=== PATIENT | female | born 1985 | race Caucasian/White ===

== ENCOUNTER 2019-05-16 13:39 | Emergency (ER) | payer BC ==
--- OUTSIDE RECORDS SUMMARY | 2019-05-16 13:41 | XMS REPORT ---
:1985 [facility] Address [address] [place] [address] Dr. Quinteros [address] [place] [id number] Care Team Providers Name Role Phone Unavailable Unavailable Unavailable Problems This patient has no known problems. Allergies, Adverse Reactions, Alerts This patient has no known allergies or adverse reactions. Medications This patient has no known medications.
--- OUTSIDE RECORDS SUMMARY | 2019-05-16 13:41 | XMS REPORT | Summary of Care ---
:1985 Author Organization [facility] Address [address] [place] [address] Care Team Providers Name Role Phone Heriberto Peraza Primary Care Provider Reason for Referral (Routine) Status Reason Specialty Diagnoses / Referred By Referred To Procedures Contact Contact New Request RON-SURGERY Diagnoses Abscess Nette, Procedures Discharge Follow-Up: Specialty Service RON-SURGERY; 1 Week MD Heriberto [address] [place] [address] (Routine) Status Reason Specialty Diagnoses / Referred By Referred To Procedures Contact Contact New Request Diagnoses Abscess Heriberto Peraza David Procedures Discharge Follow-up: PCP HERIBERTO PERAZA; 3-5 Days David Hernandez [address] [facility] [place] [phone] Phone: Reason for Visit Auth/Cert Status Reason Specialty Diagnoses / Referred By Referred To Procedures Contact Contact Medicine - Diagnoses perirectal abscess [facility] 7b Inpatient only [address] [place] [address] Encounter Details Date Type Department Care Team Description 03/22/2019 - Hospital Encounter [facility] Abu Atherah, Emran, Abscess 03/24/2019 Medicine/Surgery [facility] [address] [address] [facility] [place] [phone] Allergies No Known Allergiesdocumented as of this encounter (statuses as of 03/24/2019) Medications Medication Sig Dispensed Refills Start Date End Date Status citalopram hydrobromide Take by mouth 0 Active (CITALOPRAM ORAL) daily. trazodone HCl (TRAZODONE Take 1 tablet by 0 Active ORAL) mouth at bedtime. medroxyPROGESTERone 150 150 mg by 0 Active mg/mL syringe Intramuscular route every 3 (three) months. HYDROcodone-acetaminophe Take 1 tablet by 20 tablet 0 03/24/2019 Active n 5-325 mg mouth every 4 tabletIndications: (four) hours as Abscess needed for Pain (scale 7-10). sulfamethoxazole-trimeth Take 1 tablet by 18 tablet 0 03/24/2019 Active oprim 800-160 mg per mouth 2 (two) tabletIndications: times daily. Abscess traMADol 50 mg Take 1 tablet by 20 tablet 0 03/24/2019 Active tabletIndications: mouth every 6 Abscess (six) hours as needed for Pain (scale 4-6). documented as of this encounter (statuses as of 03/24/2019) Active Problems Problem Noted Date Abscess 03/23/2019 Obesity (BMI 30-39.9) 03/23/2019 documented as of this encounter (statuses as of 03/24/2019) Social History Tobacco Use Types Packs/Day Years Used Date Current Every Day Smoker Smokeless Tobacco: Current User Tobacco Cessation: Ready to Quit: Yes; Counseling Given: Yes Comments: 1/2 pack a day Alcohol Use Drinks/Week oz/Week Comments Never Alcohol Habits Answer Date Recorded How often do you have a drink containing alcohol? Never 03/23/2019 How many drinks containing alcohol do you have on a typical Not asked day when you are drinking? How often do you have six or more drinks on one occasion? Not asked Sex Assigned at Date Recorded Not on file Job Start Date Occupation Industry Not on file Not on file Not on file Travel History Travel Start Travel End No recent travel history available. documented as of this encounter Last Filed Vital Signs Vital Sign Reading Time Taken Comments Blood Pressure 138/92 03/24/2019 10:00 PM CDT Pulse 56 03/24/2019 10:00 PM CDT Temperature 36.5 C (97.7 F) 03/24/2019 10:00 PM CDT Respiratory Rate 16 03/24/2019 10:00 PM CDT Oxygen Saturation 100% 03/24/2019 10:00 PM CDT Inhaled Oxygen Concentration - - Weight 118.5 kg (261 lb 3.9 oz) 03/23/2019 2:06 PM CDT Height 175.3 cm (5' 9") 03/23/2019 12:21 AM CDT Body Mass Index 38.58 03/23/2019 12:21 AM CDT documented in this encounter Discharge Instructions AttachmentsThe following attachments cannot be sent through Care Everywhere.Abscess, Incision And Drainage (Cypriot)Smoking Cessation (Cypriot) Sulfamethoxazole; Trimethoprim, SMX-TMP tablets (Cypriot)documented in this encounter Progress Notes Heriberto Perdue MD - 03/24/2019 3:17 PM CDT [facility] GENERAL SURGERY PROGRESS NOTES Date of Admission: 03/22/2019 Requesting Physician: Griffin Georges MD PROCEDURE: Excisional debridement of perianal abscess PROCEDURE DATE: 03/23/2019 SUBJECTIVE: Patient has no new complaints and stets she feels better. PHYSICAL EXAM BP: (114-159)/(66-84) Temp: [34.8 C (94.6 F)-37.1 C (98.8 F)] Temp source: Tympanic (03/24 1100) Pulse: [51-84] Resp: [16-25] SpO2: [92 %-100 %] Height: -- Weight: -- BMI (calculated): -- Constitutional: negative Eyes: negative, pupils equal, round, reactive to light, conjunctiva clear and extra ocular movementsintact Head: normocephalic, no masses, lesions, tenderness or abnormalities, normal General: alert and oriented x 3; no apparent distress, well developed, well nourished HEENT: pupils equal, round, reactive to light; extraocular movements intact; oropharynx clear; moistmucous membranes, normocephalic atraumatic, moist mucous membranes Neck: supple and full range of motion Chest: symmetric, no deformities, no chest wall tenderness, normal and no chest wall tenderness Respiratory: clear to auscultation bilaterally Cardio: S1, S2 normal; no murmurs, rubs or gallops, regular rate and rhythm Abdomen: Non-distended, soft, positive bowel sounds, no tenderness : Deferred, dressing in place, no erythema or drainage Rectal: Deferred Extremities: no clubbing, cyanosis, or edema Musculoskeletal: no clubbing, cyanosis or edema, peripheral pulses 2+ in all extremities Neurologic: cranial nerves II through XII grossly intact; sensation grossly intact; muscle strength 5 out of 5 in all four extremities, no focal deficits, alert and oriented x 3, strength intact LABORATORY. WBC (10*3/L) Date Value 03/24/2019 14.98 (H) RBC (10*6/L) Date Value 03/24/2019 4.14 PLT (10*3/L) Date Value 03/24/2019 252 HGB (g/dL) Date Value 03/24/2019 11.5 (L) HCT (%) Date Value 03/24/2019 35.8 NA (mmol/L) Date Value 03/24/2019 137 K (mmol/L) Date Value 03/24/2019 4.5 CALCIUM (mg/dL) Date Value 03/24/2019 9.2 CL (mmol/L) Date Value 03/24/2019 107 BUN (mg/dL) Date Value 03/24/2019 15 CREATININE (mg/dL) Date Value 03/24/2019 0.92 GLUCOSE (mg/dL) Date Value 03/24/2019 181 (H) CO2 TOTAL (mmol/L) Date Value 03/24/2019 23 No results found for: PTINR, PTPAT, APTTPAT No results found for: MO There are no current results on file for these tests and/or test for 1 year. No results found for: HBSAG, HBA, HCV There are no current results on file for these tests and/or test for 1 year. RADIOLOGY No final results containing an impression from the past 48 hours were found. ASSESSMENT Doing well. PLAN Discharge home soon. Heriberto Perdue MD 03/24/2019 3:17 PM Jorge Olivares MD - 03/24/2019 10:42 AM CDT CLS Progress Note Date of Service: 03/24/2019 10:42 Chief Complaint: Perianal abscess. SUBJECTIVE: Pain is not controlled. PHYSICAL EXAM: Vitals: 03/24/19 0211 03/24/19 0315 03/24/19 0400 03/24/19 0900 BP: (!) 141/72 139/66 115/70 (!) 140/82 Pulse: 68 73 51 63 Resp: 16 18 16 17 Temp: 36.8 C (98.2 F) 37.1 C (98.8 F) 37 C (98.6 F) 34.8 C (94.6 F) TempSrc: Tympanic Tympanic Tympanic Tympanic SpO2: 98% 99% 94% 96% Weight: Height: O2 Sat: SpO2 readings for the past 24 hrs: SpO2 03/23/19 1105 97 % 03/23/19 1600 99 % 03/23/19 2024 100 % 03/23/19 2030 100 % 03/23/19 2035 100 % 03/23/19 2040 100 % 03/23/19 2045 96 % 03/23/19 2055 94 % 03/23/19 2105 95 % 03/23/19 2149 92 % 03/23/19 2211 94 % 03/23/19 2241 94 % 03/23/19 2311 95 % 03/24/19 0011 99 % 03/24/19 0111 97 % 03/24/19 0211 98 % 03/24/19 0315 99 % 03/24/19 0400 94 % 03/24/19 0900 96 % Intake/Output Summary (Last 24 hours) at 03/24/2019 1042 Last data filed at 03/23/2019 1105 Gross per 24 hour Intake 200 ml Output Net 200 ml V/S were reviewed. On RA. General: alert and oriented x 4; no apparent distress. HEENT: normocephalic atraumatic, pupils equal, round, reactive to light. Neck: supple. No thyromegaly, no lymphadenopathy, no JVD. Lungs: good air entry bilaterally. Clear to auscultation bilaterally. No crackles or wheezes. Cough is strong and effective. Cardio: NL S1/S2. Regular rate and rhythm. No murmurs or gallops. Abdomen: soft; non-tender; non-distended; normoactive bowel sounds. Extremities: symmetrical. No edema. Skin: no rashes. Neuro: cranial nerves grossly intact; sensation grossly intact; muscle strength grossly normal in all four extremities. Perineal area: abscess is packed with a wick. LABS/IMAGING - reviewed, pertinent results as below: Recent Results (from the past 48 hour(s)) WOUND CULTURE Collection Time: 03/23/19 6:34 AM Result Value Ref Range Gram stain Few Gram positive cocci Gram stain Moderate Polymorphonuclear leukocytes CBC WITH DIFFERENTIAL Collection Time: 03/23/19 6:34 AM Result Value Ref Range WBC 12.40 (H) 4.30 - 11.10 10*3/L RBC 3.53 (L) 3.93 - 5.25 10*6/L HGB 9.8 (L) 11.6 - 15.0 g/dL HCT 31.4 (L) 35.7 - 45.2 % MCV 89.0 80.6 - 95.5 fL MCH 27.8 25.9 - 32.8 pg MCHC 31.2 (L) 31.6 - 35.1 g/dL RDW-SD 50.2 (H) 39.0 - 49.9 fL RDW-CV 15.5 12.0 - 15.5 % PLT 211 166 - 358 10*3/L MPV 10.2 9.5 - 12.9 fL NRBC/100 WBC 0.0 0.0 - 10.0 /100 WBCs NRBC x10^3 <0.01 10*3/L GRAN MAT (NEUT) % 66.3 % IMM GRAN % 0.30 % LYMPH % 25.1 % MONO % 6.1 % EOS % 1.8 % BASO % 0.4 % GRAN MAT x10^3(ANC) 8.22 (H) 1.88 - 7.09 10*3/uL IMM GRAN x10^3 0.04 0.00 - 0.06 10*3/uL LYMPH x10^3 3.11 1.32 - 3.29 10*3/uL MONO x10^3 0.76 0.33 - 0.92 10*3/uL EOS x10^3 0.22 0.03 - 0.39 10*3/uL BASO x10^3 0.05 0.01 - 0.07 10*3/uL BASIC METABOLIC PANEL (NA, K, CL, CO2, GLUCOSE, BUN, CREATININE, CA) Collection Time: 03/23/19 2:33 PM Result Value Ref Range NA 137 135 - 145 mmol/L K 4.1 3.5 - 5.0 mmol/L CL 109 (H) 98 - 108 mmol/L CO2 TOTAL 23 23 - 31 mmol/L AGAP 5 2 - 16 BUN 17 7 - 23 mg/dL GLUCOSE 134 (H) 70 - 110 mg/dL CREATININE 0.92 0.50 - 1.04 mg/dL CALCIUM 8.9 8.6 - 10.6 mg/dL eGFR Calculation (Non-) 69.9 mL/min/1.73m2 eGFR Calculation () 84.7 mL/min/1.73m2 TEST, SERUM Collection Time: 03/23/19 2:41 PM Result Value Ref Range PREG SERUM Negative POCT GLUCOSE (AUTOMATED) Collection Time: 03/23/19 6:54 PM Result Value Ref Range POCT GLU 113 (H) 70 - 110 mg/dL BASIC METABOLIC PANEL (NA, K, CL, CO2, GLUCOSE, BUN, CREATININE, CA) Collection Time: 03/24/19 4:34 AM Result Value Ref Range NA 137 135 - 145 mmol/L K 4.5 3.5 - 5.0 mmol/L CL 107 98 - 108 mmol/L CO2 TOTAL 23 23 - 31 mmol/L AGAP 7 2 - 16 BUN 15 7 - 23 mg/dL GLUCOSE 181 (H) 70 - 110 mg/dL CREATININE 0.92 0.50 - 1.04 mg/dL CALCIUM 9.2 8.6 - 10.6 mg/dL eGFR Calculation (Non-) 69.9 mL/min/1.73m2 eGFR Calculation () 84.7 mL/min/1.73m2 CBC WITH DIFFERENTIAL Collection Time: 03/24/19 4:34 AM Result Value Ref Range WBC 14.98 (H) 4.30 - 11.10 10*3/L RBC 4.14 3.93 - 5.25 10*6/L HGB 11.5 (L) 11.6 - 15.0 g/dL HCT 35.8 35.7 - 45.2 % MCV 86.5 80.6 - 95.5 fL MCH 27.8 25.9 - 32.8 pg MCHC 32.1 31.6 - 35.1 g/dL RDW-SD 47.8 39.0 - 49.9 fL RDW-CV 15.1 12.0 - 15.5 % PLT 252 166 - 358 10*3/L MPV 10.3 9.5 - 12.9 fL NRBC/100 WBC 0.0 0.0 - 10.0 /100 WBCs NRBC x10^3 <0.01 10*3/L GRAN MAT (NEUT) % 87.4 % IMM GRAN % 0.40 % LYMPH % 9.9 % MONO % 1.9 % EOS % 0.1 % BASO % 0.3 % GRAN MAT x10^3(ANC) 13.10 (H) 1.88 - 7.09 10*3/uL IMM GRAN x10^3 0.06 0.00 - 0.06 10*3/uL LYMPH x10^3 1.48 1.32 - 3.29 10*3/uL MONO x10^3 0.29 (L) 0.33 - 0.92 10*3/uL EOS x10^3 <0.03 (L) 0.03 - 0.39 10*3/uL BASO x10^3 0.04 0.01 - 0.07 10*3/uL No final results containing an impression from the past 48 hours were found. CURRENT MEDICATIONS - reviewed. Current Facility-Administered Medications Medication Dose Route Frequency Last Rate Last Dose HYDROmorphone (DILAUDID) injection 1 mg 1 mg Slow IV Push Q4HPRN 1 mg at 03/24/19 0856 acetaminophen (TYLENOL) tablet 650 mg 650 mg Oral Q6HPRN citalopram (CELEXA) tablet 10 mg 10 mg Oral QHS 10 mg at 03/23/19 2206 lidocaine-epinephrine (XYLOCAINE WITH EPINEPHRINE) 1 %-1:100,000 injection PRN 20 mL at 03/23/192018 morpHINE injection 2 mg 2 mg Slow IV Push Q3HPRN ondansetron (ZOFRAN (PF)) injection 4 mg 4 mg Slow IV Push Q6HPRN ondansetron (ZOFRAN (PF)) injection 4 mg 4 mg Slow IV Push PRN sodium chloride 0.9 % irrigation solution PRN 500 mL at 03/23/192019 vancomycin (VANCOCIN) 1,250 mg in NaCl 0.9% (NS) 250 mL piggyback 1,250 mg IV Piggyback Q12H ABX 1,250 mg at 03/24/19 0422 ASSESSMENT/PLAN Paulette Nielsen is a 33 year old female admitted to the hospital with: Active Problems: Abscess (03/23/2019) POA: Yes Assessment: s/p excisional debridement of perianal abscessto skin and subcutaneous tissue measuring 2 x 2 x 2 cm. Obesity (BMI 30-39.9) (03/23/2019) POA: Unknown HTN. Depression. Plan: Dilaudid. IV Abx. F/u Cx. Wound care. D/c IVF. DVT prophylaxis. ?discharge today if cleared by G.surgery. Resume home meds. Jorge Hernández MD [phone] enon London MD - 03/24/2019 7:41 AM CDT-General Surgery planning debridement in OR today. -Superficial wound cx growing GPC; d/c Zosyn and continue Vancomycin. Geovanna Monroy SW - 03/23/2019 2:31 PM CDTSOCIAL WORK NOTE Patient will not discharge today. Pending OR for debridement. Geovanna Jeffries LMSW Risk Management Director [phone] office [phone] cell Geovanna Monroy SW - 03/23/2019 12:38 PM CDTCare Management Social Functional Assessment Patient Name: Paulette Nielsen Age: [age] year old Sex: female Previous admit date: N/A Current diagnosis and co-morbidities: perirectal abscess Readmission Questions: Was patient discharged from any acute care hospital within the last 30 days: No Social Functional Assessment: Primary language spoken/preferred: Cypriot Mental Status: Alert & Oriented to Person,Place & Time Information given by: Spouse Name and phone number of person giving information: Driss Morales [phone] spouse Patient's support system: Spouse Name and number of support system: Driss Morales [phone] spouse, best friend, Kasie Tam [phone] 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 Sneha Molina, daughter): Driss Nielsen [phone] spouse Living Arrangement: Home Persons living in home: Self;Spouse;Child Names & numbers of persons living in home: Patient lives with spouse and 5 y /o child Barriers to returning home: None Baseline functional status- ambulation: Independent Functional status-baseline personal care: Independent Baseline functional status- driving: Independent Baseline functional status- grocery shopping: Independent Functional status-baseline housekeeping: Independent Functional status-baseline meal prep: Independent Current functional status same as prior: Yes Do you have a PCP?: Yes Home Health Care Agency: No Provider Services: No DME Company: No Equipment: None Hemodialysis: No Community resources utilized: None Funding Resources: Commercial Prescription coverage plan: Commercial Pharmacy where meds are filled: Other Other pharmacy: [facility] Anticipated services prior to disharge: Continue Medical Eval Expected mode of discharge transportation: Family Name and phone number of the friend or family member picking up the patient: Driss Nielsen [phone] spouse Additional info required for discharge planning: No needs identified Recommended discharge plan: Home Patient was visiting a friend in [place], [place] when an infection got bad, family tried home remedies, but it didn't work, patient presented to ER and then transferred here. 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 Patient is fully independent and will return to [place] until she is able to drive herself home ( [place], [place]). Spouse Driss Nielsen plans to remain in town until Thursday. PLAN: Patient may need return to work note. Spouse to transport home. SFA Complete: Social Functional Assessment complete: Yes Alcohol Use Screening (AUDIT-C) How often do you have a drink containing alcohol?: Never SCORE: 0 Role of Care Management explained. Geovanna Jeffries LMSW Risk Management Director [phone] office [phone] cell documented in this encounter Plan of Treatment Name Type Priority Associated Diagnoses Date/Time WOUND/ASPIRATE OR ABSCESS LAB Routine 03/23/2019 6:34 AM CDT CULTURE WOUND CULTURE LAB Routine 03/23/2019 6:34 AM CDT SURGICAL PATHOLOGY EXAM LAB STAT 03/23/2019 8:32 PM CDT WOUND/ASPIRATE OR ABSCESS LAB Routine 03/23/2019 8:32 PM CDT CULTURE WOUND CULTURE LAB Routine 03/23/2019 8:32 PM CDT Name Type Priority Associated Diagnoses Order Schedule WOUND/ASPIRATE OR LAB Routine ONCE for 1 Occurrences ABSCESS CULTURE starting 03/23/2019 until 03/23/2019 SURGICAL PATHOLOGY EXAM LAB Routine ONCE for 1 Occurrences starting 03/23/2019 WOUND/ASPIRATE OR LAB Routine ONCE for 1 Occurrences ABSCESS CULTURE starting 03/24/2019 until 03/24/2019 Health Maintenance Due Date Last Done Comments PNEUMOCOCCAL 0-64 YEARS COMBINED SERIES (1 of 1 - 1990 PPSV23) VARICELLA VACCINES (1 of 2 - 13+ 2-dose series) 1997 DTaP,Tdap,and Td Vaccines (1 - Tdap) 10/14/2003 PAP SMEAR 2005 INFLUENZA VACCINE (#1) 2019 documented as of this encounter Procedures Procedure Name Priority Date/Time Associated Comments Diagnosis POCT GLUCOSE Routine 03/24/2019 8:09 Results for this (AUTOMATED) PM CDT procedure are in the results section. CBC WITH Routine 03/24/2019 4:34 Results for this DIFFERENTIAL AM CDT procedure are in the results section. CBC WITH DIFF Routine 03/24/2019 4:34 Results for this AM CDT procedure are in the results section. BASIC METABOLIC Routine 03/24/2019 4:34 Results for this PANEL (NA, K, CL, AM CDT procedure are in CO2, GLUCOSE, BUN, the results CREATININE, CA) section. WOUND DEBRIDEMENT Level 3 (within 03/23/2019 7:15 Mine-rectal 12 hours) PM CDT abscess POCT GLUCOSE Routine 03/23/2019 6:54 Results for this (AUTOMATED) PM CDT procedure are in the results section. TEST, Routine 03/23/2019 2:41 Results for this SERUM PM CDT procedure are in the results section. BASIC METABOLIC Routine 03/23/2019 2:33 Results for this PANEL (NA, K, CL, PM CDT procedure are in CO2, GLUCOSE, BUN, the results CREATININE, CA) section. CBC WITH Routine 03/23/2019 6:34 Results for this DIFFERENTIAL AM CDT procedure are in the results section. CBC WITH DIFF Routine 03/23/2019 6:34 Results for this AM CDT procedure are in the results section. documented in this encounter Results POCT GLUCOSE (AUTOMATED) (03/24/2019 8:09 PM CDT) POCT GLU 148 (H) 70 - 110 mg/dL [facility] Specimen Blood Performing Organization Address City/State/Zipcode Phone Number [facility] CLIA: [id number], [address] [place] [address] CBC WITH DIFFERENTIAL (03/24/2019 4:34 AM CDT) WBC 14.98 (H) 4.30 - 11.10 [facility] 10*3/L [facility] RBC 4.14 3.93 - 5.25 [facility] 10*6/L [facility] HGB 11.5 (L) 11.6 - 15.0 [facility] g/dL [facility] HCT 35.8 35.7 - 45.2 % [facility] MCV 86.5 80.6 - 95.5 fL [facility] MCH 27.8 25.9 - 32.8 pg [facility] MCHC 32.1 31.6 - 35.1 [facility] g/dL [facility] RDW-SD 47.8 39.0 - 49.9 fL [facility] RDW-CV 15.1 12.0 - 15.5 % [facility] PLT 252 166 - 358 [facility] 10*3/L [facility] MPV 10.3 9.5 - 12.9 fL [facility] NRBC/100 WBC 0.0 0.0 - 10.0 /100 [facility] WBCs [facility] NRBC x10^3 <0.01 10*3/L [facility] GRAN MAT (NEUT) % 87.4 % [facility] IMM GRAN % 0.40 % [facility] LYMPH % 9.9 % [facility] MONO % 1.9 % [facility] EOS % 0.1 % [facility] BASO % 0.3 % [facility] GRAN MAT x10^3(ANC) 13.10 (H) 1.88 - 7.09 [facility] 10*3/uL [facility] IMM GRAN x10^3 0.06 0.00 - 0.06 [facility] 10*3/uL [facility] LYMPH x10^3 1.48 1.32 - 3.29 [facility] 10*3/uL [facility] MONO x10^3 0.29 (L) 0.33 - 0.92 [facility] 10*3/uL [facility] EOS x10^3 <0.03 (L) 0.03 - 0.39 [facility] 10*3/uL [facility] BASO x10^3 0.04 0.01 - 0.07 [facility] 10*3/uL [facility] Specimen Blood - LINE, VENOUS Performing Organization Address City/State/Zipcode Phone Number [facility] CLIA: [id number], [address] [place], [place] [id number] [facility] [address] BASIC METABOLIC PANEL (NA, K, CL, CO2, GLUCOSE, BUN, CREATININE, CA) (2018 4:34 AM CDT) NA 137 135 - 145 [facility] mmol/L [facility] K 4.5 3.5 - 5.0 [facility] mmol/L [facility] CL 107 98 - 108 mmol/L [facility] CO2 TOTAL 23 23 - 31 mmol/L [facility] AGAP 7 2 - 16 [facility] BUN 15 7 - 23 mg/dL [facility] GLUCOSE 181 (H) 70 - 110 mg/dL [facility] CREATININE 0.92 0.50 - 1.04 [facility] mg/dL [facility] CALCIUM 9.2 8.6 - 10.6 [facility] mg/dL [facility] eGFR Calculation 69.9 mL/min/1.73m2 [facility] (Non- [facility] eGFR Calculation 84.7 mL/min/1.73m2 [facility] () [facility] Specimen Blood - LINE, VENOUS Narrative Performed At Association of Glomerular Filtration Rate [facility] (GFR) and Staging of Kidney Disease* CAMPUS + + --+ + | GFR (mL/min/1.73 m2)| With Kidney Damage|Without Kidney Damage + + --+ + |>90 |Stage one| Normal + + --+ + |60-89| Stage two| Decreased GFR + + --+ + |30-59| Stage three| Stage three + + --+ + |15-29| Stage four | Stage four + + --+ + |<15 (or dialysis)|Stage five | Stage five + + --+ + *Each stage assumes the associated GFR level has been in effect for at least three months.Stages 1 to 5, with or without kidney disease, indicate chronic kidney disease. Notes: Determination of stages one and two (with eGFR >59mL/min/1.73 m2) requires estimation of kidney damage for at least three months as defined by structural or functional abnormalities of the kidney, manifested by either: Pathological abnormalities or Markers of kidney damage (including abnormalities in the composition of the blood or urine or abnormalities in imaging tests). Performing Organization Address City/[facility] Phone Number [facility] CLIA: [id number], [address] [place] [address] [facility] [place] POCT GLUCOSE (AUTOMATED) (03/23/2019 6:54 PM CDT) Pathologist [facility] POCT GLU 113 (H) 70 - 110 mg/dL [facility] Specimen Blood Performing Organization Address [facility] Phone Number [facility] CLIA: [id number], [address] [place] [address] TEST, SERUM (03/23/2019 2:41 PM CDT) PREG SERUM Negative [facility] Specimen Blood - ARM, RIGHT Narrative Performed At Less than 10 IU/L.If low titer or [facility] ectopic is suspected, resubmit specimen in 48-72 hours. Performing Organization Address [facility] Phone Number [facility] CLIA: [id number], [address] [place] [address] [facility] [place] BASIC METABOLIC PANEL (NA, K, CL, CO2, GLUCOSE, BUN, CREATININE, CA) (2018 2:33 PM CDT) NA 137 135 - 145 [facility] mmol/L [facility] K 4.1 3.5 - 5.0 [facility] mmol/L [facility] [facility] CL 109 (H) 98 - 108 mmol/L [facility] CO2 TOTAL 23 23 - 31 mmol/L [facility] AGAP 5 2 - 16 [facility] BUN 17 7 - 23 mg/dL [facility] GLUCOSE 134 (H) 70 - 110 mg/dL [facility] CREATININE 0.92 0.50 - 1.04 [facility] mg/dL [facility] CALCIUM 8.9 8.6 - 10.6 [facility] mg/dL [facility] eGFR Calculation 69.9 mL/min/1.73m2 [facility] [place] eGFR Calculation 84.7 mL/min/1.73m2 [facility] () [facility] Specimen Blood - ARM, RIGHT Narrative Performed At Association of Glomerular Filtration Rate [facility] (GFR) and Staging of Kidney Disease* CAMPUS + + --+ + | GFR (mL/min/1.73 m2)| With Kidney Damage|Without Kidney Damage + + --+ + |>90 |Stage one| Normal + + --+ + |60-89| Stage two| Decreased GFR + + --+ + |30-59| Stage three| Stage three + + --+ + |15-29| Stage four | Stage four + + --+ + |<15 (or dialysis)|Stage five | Stage five + + --+ + *Each stage assumes the associated GFR level has been in effect for at least three months.Stages 1 to 5, with or without kidney disease, indicate chronic kidney disease. Notes: Determination of stages one and two (with eGFR >59mL/min/1.73 m2) requires estimation of kidney damage for at least three months as defined by structural or functional abnormalities of the kidney, manifested by either: Pathological abnormalities or Markers of kidney damage (including abnormalities in the composition of the blood or urine or abnormalities in imaging tests). Performing Organization Address City/State/Zipcode Phone Number [facility] CLIA: [id number], [address] [phone] [facility] [address] CBC WITH DIFFERENTIAL (03/23/2019 6:34 AM CDT) WBC 12.40 (H) 4.30 - 11.10 [facility] 10*3/L [facility] RBC 3.53 (L) 3.93 - 5.25 [facility] 10*6/L [facility] HGB 9.8 (L) 11.6 - 15.0 [facility] g/dL [facility] HCT 31.4 (L) 35.7 - 45.2 % [facility] MCV 89.0 80.6 - 95.5 fL [facility] MCH 27.8 25.9 - 32.8 pg [facility] MCHC 31.2 (L) 31.6 - 35.1 [facility] g/dL [facility] RDW-SD 50.2 (H) 39.0 - 49.9 fL [facility] RDW-CV 15.5 12.0 - 15.5 % [facility] PLT 211 166 - 358 [facility] 10*3/L [facility] MPV 10.2 9.5 - 12.9 fL [facility] NRBC/100 WBC 0.0 0.0 - 10.0 /100 [facility] WBCs [facility] NRBC x10^3 <0.01 10*3/L [facility] GRAN MAT (NEUT) % 66.3 % [facility] IMM GRAN % 0.30 % [facility] LYMPH % 25.1 % [facility] MONO % 6.1 % [facility] EOS % 1.8 % [facility] BASO % 0.4 % [facility] GRAN MAT x10^3(ANC) 8.22 (H) 1.88 - 7.09 [facility] 10*3/uL [facility] IMM GRAN x10^3 0.04 0.00 - 0.06 [facility] 10*3/uL [facility] LYMPH x10^3 3.11 1.32 - 3.29 [facility] 10*3/uL [facility] MONO x10^3 0.76 0.33 - 0.92 [facility] 10*3/uL [facility] EOS x10^3 0.22 0.03 - 0.39 [facility] 10*3/uL [facility] BASO x10^3 0.05 0.01 - 0.07 [facility] 10*3/uL [facility] Specimen Blood - ARM, RIGHT Performing Organization Address City/State/Zipcode Phone Number [facility] CLIA: [id number], [address] [place] [address] [facility] [address] documented in this encounter Visit Diagnoses Diagnosis Abscess - Primary Cellulitis and abscess of unspecified site documented in this encounter Administered Medications Medication Order MAR Action Action Date Dose Rate Site citalopram (CELEXA) tablet 10 mg Given 03/24/2019 9:25 PM CDT 10 mg 10 mg, Oral, QHS, First dose on Thu03/23/19 at 2100, Until Discontinued Given 03/23/2019 10:06 PM CDT 10 mg HYDROcodone-acetaminophen (NORCO 5) 5-325 mg tablet 1 tablet 1 tablet, Oral, Q4HPRN, Starting Thu03/24/19 at 1939, Until Discontinued, Routine, Pain (scale 7-10) lidocaine-epinephrine (XYLOCAINE Given 03/23/2019 8:19 PM CDT 20 mL See Comment WITH EPINEPHRINE) 1 %-1:100,000 injection PRN, Starting Thu03/23/19 at 2019, Until Discontinued, Routine, Intra-op ondansetron (ZOFRAN (PF)) injection 4 mg 4 mg, Slow IV Push, PRN, 1 dose, Starting Thu03/23/19 at 2036, Until Discontinued, Routine, Nausea and Vomiting (N/V), PACU sodium chloride 0.9 % irrigation solution Given 03/23/2019 8:20 PM CDT 500 mL PRN, Starting Thu03/23/19 at 2020, Until Discontinued, Intra-op sulfamethoxazole-trimethoprim (BACTRIM DS) 800-160 mg per tablet 1 tablet 1 tablet, Oral, BID, First dose on Thu03/24/19 at 2000, Until Discontinued, LAYA, Reason for Anti-Infective: Documented Infection, Documented Infection Site: Skin / Soft Tissue, Duration of Therapy: 10 days Medication Order MAR Action Action Date Dose Rate Site HYDROmorphone (DILAUDID) Given 03/23/2019 3:36 AM CDT 0.5 mg injection 0.5 mg 0.5 mg, Slow IV Push, Q4HPRN, Starting Thu03/23/19 at 0313, Until Thu03/23/19 at 1247, Routine, Pain (scale 7-10), Use approved by (Faculty): [facility] PROVIDER HYDROmorphone (DILAUDID) injection 1 mg Given 03/24/2019 1:46 PM CDT 1 mg 1 mg, Slow IV Push, Q4HPRN, Starting Thu03/24/19 at 0837, Until Thu03/24/19 at 1939, Routine, Pain (scale 7-10), Use approved by (Faculty): GENERAL SURGERY, General surgeon approving: nette Given 03/24/2019 8:56 AM CDT 1 mg piperacillin-tazobactam (ZOSYN) 3.375 Given 03/24/2019 9:04 AM CDT 3.375 g gram/50 mL Piggyback 3.375 g 3.375 g, IV Piggyback, Q6H ABX, First dose on Thu03/23/19 at 0315, Until Discontinued, 50 mL, Reason for Anti-Infective: Empiric Therapy for Suspected Infection, Empiric Therapy Site: Skin / Soft tissue, Duration of therapy: 7 days Given 03/24/2019 4:22 AM CDT 3.375 g Given 03/23/2019 10:06 PM CDT 3.375 g vancomycin (VANCOCIN) 1,250 mg in NaCl Given 03/24/2019 4:22 AM CDT 1,250 mg 0.9% (NS) 250 mL piggyback 1,250 mg, IV Piggyback, Q12H ABX, First dose on Thu03/23/19 at 1700, Until Discontinued, 250 mL, Reason for Anti-Infective: Documented Infection, Documented Infection Site: Skin / Soft Tissue, Duration of Therapy: 7 days Given 03/23/2019 10:06 PM CDT 1,250 mg vancomycin (VANCOCIN) 1,500 mg in NaCl Given 03/23/2019 5:18 AM CDT 1,500 mg 0.9% (NS) 250 mL piggyback 1,500 mg, IV Piggyback, Q12H ABX, First dose on Thu03/23/19 at 0400, Until Discontinued, 250 mL, Reason for Anti-Infective: Empiric Therapy for Suspected Infection, Empiric Therapy Site: Skin / Soft tissue, Duration of therapy: 72 hours documented in this encounter Insurance Payer Benefit Plan Subscriber ID Effective Dates Phone Address Type / Group [facility] [id number] 2017-Christin [phone] [address] PPO/POS [place] - OUT OF t [id number] [place] [address] documented as of this encounter
[2019-05-16 14:53] LABS: Absolute Lymphocytes (CBC) 3.1 K/uL (0.7-4.9); Basophils % 0.7 % (0-1.3); Hematocrit 38.7 % (36.0-45.0); Lymphocytes % 27.2 % (15.3-44.8); MPV 8.5 fL (7.6-11.3); RBC Red Blood Cell Count 4.65 M/uL (3.86-4.86)
[2019-05-16] MEDS ORDERED: ACETAMINOPHEN 500 MG TAB ONE (14:56)
[2019-05-16 14:58] LABS: Barbiturates NEGATIVE (NEGATIVE); Benzodiazepines NEGATIVE (NEGATIVE); Cocaine NEGATIVE (NEGATIVE); METHAMPHETAM NEGATIVE (NEGATIVE); Methadone NEGATIVE (NEGATIVE); Opiates NEGATIVE (NEGATIVE); Phencyclidine NEGATIVE (NEGATIVE); THC Cannibis POSITIVE (NEGATIVE)
[2019-05-16 15:32] LABS: Protime INR 1.14
--- NOTE | 2019-05-16 15:54 | EKG ---
Test Date: 2019-05-16 Test Time: 14:17:49 Pulping Machine Operator: TANIA MEASUREMENT RESULTS: Intervals: Rate: 80 AK: 150 QRSD: 82 QT: 360 QTc: 415 [place]: P: 0 AK: 150 QRS: -1 T: 37 INTERPRETIVE STATEMENTS: Normal sinus rhythm Minimal voltage criteria for LVH, may be normal variant Borderline ECG No previous ECG available for comparison Electronically Signed On 05-16-19 15:53:20 REGULATORY SERVICES CONSULTANT by Eb Manning
[2019-05-16 16:04] LABS: ALT/SGPT 24 U/L (12-78); AST/SGOT 14 U/L (15-37); Albumin 3.9 g/dL (3.4-5.0); Alkaline Phosphatase 90 U/L (45-117); BUN Blood Urea Nitrogen 16 mg/dL (7-18); Bicarbonate 19 mmol/L (21-32); Bilirubin Direct 0.1 mg/dL (0-0.2); Bilirubin Total 0.5 mg/dL (0.2-1.0); Glucose Level 147 mg/dL (74-106); Potassium 3.5 mmol/L (3.5-5.1); Sodium Level 142 mmol/L (136-145)
[2019-05-16 16:10] LABS: Urine Blood 3+ (NEG); Urine Glucose NEGATIVE (NEG); Urine Protein 3+ (NEG); Urine Specific Gravity >1.030 (1.005-1.030); Urine pH 5.5 (5.0-7.0)
--- NOTE | 2019-05-16 16:21 | ER ---
Nurse's Notes [facility] Name: Paulette Nielsen Age: 33 yrs Sex: Female : 1985 Arrival Date: 05/16/2019 Time: 13:41 Bed 15 Private MD: Diagnosis: Suicidal ideations Presentation: 05/16 13:42 Presenting complaint: Patient states: Depression, feels suicidal. Pt. reports being rb1 "Crazy". Stopped depression medication a week and half ago, and reports hearing things and it has continually getting worse. Reports panic attacks and abdominal pain. Transition of care: patient was not received from another setting of care. Onset of symptoms was May 06, 2019. Risk Assessment: Do you want to hurt yourself or someone else? Patient reports desire/thoughts of hurting themselves or someone else. Provider notified. Initial Sepsis Screen: Does the patient meet any 2 criteria? No. Patient's initial sepsis screen is negative. Does the patient have a suspected source of infection? No. Patient's initial sepsis screen is negative. Care prior to arrival: no medications have been taken today. 13:42 Method Of Arrival: Ambulatory rb1 13:42 Acuity: AKSHAT 2 rb1 CONTROL PANEL OPERATOR: 13:45 LMP N/A - Depo-provera rb1 Historical: - Allergies: 13:45 Morphine; rb1 - Home Meds: 13:45 Trokendi XR 100 mg oral cp24 1 cap once daily [Active]; trazodone 50 mg Oral tab 1 tab rb1 daily [Active]; citalopram 10 mg tab 1 tab once daily [Active]; - PMHx: 13:45 Kidney stones; Non-Hodgkins Lymphoma; Sinusitis; Depression; Seizures; abscess removed rb1 from genital area; self mutilation - cutter; - PSHx: 13:45 ; Lithotripsy; rb1 - Immunization history:: Adult Immunizations up to date. - Social history:: Smoking status: Patient uses tobacco products, smokes one-half pack cigarettes per day, Patient uses street drugs, marijuana, Patient/guardian denies using alcohol, street drugs, The patient lives with family. - Ebola Screening: : Patient negative for fever greater than or equal to 101.5 degrees Fahrenheit, and additional compatible Ebola Virus Disease symptoms. - Family history:: not pertinent. Screenin:47 Abuse screen: Denies threats or abuse. Denies injuries from another. Nutritional jl7 screening: No deficits noted. Tuberculosis screening: No symptoms or risk factors identified. Fall Risk IV access (20 points). Total Medeiros Fall Scale indicates No Risk (0-24 pts). Assessment: 14:47 General: Appears in no apparent distress. uncomfortable, Behavior is cooperative. Pain: jl7 Denies pain. Neuro: Level of Consciousness is awake, alert, obeys commands, Oriented to person, place, time, situation. Cardiovascular: Patient's skin is warm and dry. Respiratory: Airway is patent Respiratory effort is even, unlabored, Respiratory pattern is regular, symmetrical. GI: No signs and/or symptoms were reported involving the gastrointestinal system. : No signs and/or symptoms were reported regarding the genitourinary system. EENT: No signs and/or symptoms were reported regarding the EENT system. Derm: Skin is pink, warm \\T\\ dry. Musculoskeletal: No signs and/or symptoms reported regarding the musculoskeletal system. 15:45 Reassessment: Patient appears in no apparent distress at this time. Patient and/or jl7 family updated on plan of care and expected duration. Pain level reassessed. Patient is alert, oriented x 3, equal unlabored respirations, skin warm/dry/pink. 16:43 Reassessment: Nurse to Nurse with Saira from [facility], she reports jl7 she will have doc to doc done and get this pt transferred. 17:43 Reassessment: Patient appears in no apparent distress at this time. No changes from jl7 previously documented assessment. Patient and/or family updated on plan of care and expected duration. Pain level reassessed. Patient is alert, oriented x 3, equal unlabored respirations, skin warm/dry/pink. transfer form signed. 18:10 Reassessment: EMS at bedside to transport pt. jl7 Psych: 14:00 Subjective: Patient's mood is angry, Delusions are denied, Hallucinations are denied jl7 Having thoughts of suicide. Denies suicidal plan. 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 Interventions: Removed personal items and placed in bag. Patient placed in hospital gown. Searched person for dangerous items. Urine collected and sent for urine drug test. Belonging list filled out. Suicide Risk Assessment: Sad Person Scale: Sex of patient: Female: Score 0 points. Age of patient: Score 1 point if patient 15-34. Depression: Score 1 point if signs of depression are present. Previous Attempt: Score 1 point if patient has previously attempted suicide. Substance Abuse: Score 1 point if patient abuses alcohol or drugs. Rational Thinking: Score 1 point if patient is lacking rational thinking. Social Support: Score 0 if social support is present/available. Organized Plan: Score 0 if patient did not have an organized plan in place. Relationship: Score 0 point if patient has a spouse or domestic partner. Chronic Sickness: Score 1 point if patient has illness, chronic, debilitating, or severe. TOTAL POINTS: If total points are 5-6, proposed clinical action is to strongly consider hospitalization, depending upon confidence in the follow-up arrangement. Implement suicide precautions. Safety Checks: Personal items have been removed. Door is open. Visitors are present. Patient uses marijuana 2-4 joints weekly Last use was 1 days ago. Patient uses tobacco 1 pack Frequency daily, Last use was 30 minutes ago. 14:00 Commitment: Patient will be a voluntary commitment. jl7 Vital Signs: 13:45 BP 141 / 92; Pulse 94; Resp 16; Temp 98.7(TE); Pulse Ox 100% ; Weight 108.86 kg; Height rb1 5 ft. 9 in. (175.26 cm); Pain 6/10; 13:45 Body Mass Index 35.44 (108.86 kg, 175.26 cm) rb1 ED Course: 13:41 Patient arrived in ED. rb1 13:44 Triage completed. rb1 13:45 Arm band placed on right wrist. Patient placed in waiting room, Patient notified of rb1 wait time Patient accompanied by family. 13:45 Safety checks: Items removed: yes. Door open/sign placed on door: yes. Family/friend ms present: yes. Family/friends encouraged to stay with patient. Sitter present: Yes. 13:51 Patient placed in an exam room, in view of staff members. rb1 13:58 Don Aragon MD is Attending Physician. ma2 14:00 Safety checks: Items removed: yes. Door open/sign placed on door: yes. Family/friend ms present: yes. Family/friends encouraged to stay with patient. Sitter present: Yes. 14:15 Safety checks: Items removed: yes. Door open/sign placed on door: yes. Family/friend ms present: yes. Family/friends encouraged to stay with patient. Sitter present: Yes. 14:17 EKG done, by hydraulic technician. reviewed by Don Aragon MD. ms 14:19 Bam Chappell, RN is Primary Nurse. jl7 14:30 Safety checks: Items removed: yes. Door open/sign placed on door: yes. Family/friend ms present: yes. Family/friends encouraged to stay with patient. Sitter present: Yes. 14:36 Initial lab(s) drawn, by me, sent to lab. Urine collected: clean catch specimen, clear. ms Inserted saline lock: 22 gauge in left wrist, using aseptic technique. Blood collected. 14:45 Safety checks: Items removed: yes. Door open/sign placed on door: yes. Family/friend ms present: yes. Family/friends encouraged to stay with patient. Sitter present: Yes. 14:47 Patient has correct armband on for positive identification. Placed in gown. Bed in low jl7 position. Call light in reach. Side rails up X 1. 15:00 Safety checks: Items removed: yes. Door open/sign placed on door: yes. Family/friend ms present: yes. Family/friends encouraged to stay with patient. Sitter present:. 15:15 Safety checks: Items removed: yes. Door open/sign placed on door: yes. Family/friend ms present: yes. Family/friends encouraged to stay with patient. Sitter present: Yes. 15:30 Safety checks: Items removed: yes. Door open/sign placed on door: yes. Family/friend ms present: yes. Family/friends encouraged to stay with patient. Sitter present: Yes. 15:45 Safety checks: Items removed: yes. Door open/sign placed on door: yes. Family/friend ms present: yes. Sitter present: Yes. 15:45 No provider procedures requiring assistance completed. IV discontinued, intact, jl7 bleeding controlled, No redness/swelling at site. Pressure dressing applied. 16:00 Safety checks: Items removed: yes. Door open/sign placed on door: yes. Family/friend ms present: yes. Family/friends encouraged to stay with patient. Sitter present: Yes. 16:14 faxed chart to [facility]. bd 16:15 Safety checks: Items removed: yes. Door open/sign placed on door: yes. Family/friend ms present: yes. Family/friends encouraged to stay with patient. Sitter present: Yes. 16:30 Safety checks: Items removed: yes. Door open/sign placed on door: yes. Family/friend ms present: yes. Family/friends encouraged to stay with patient. Sitter present: Yes. 16:43 Diet: Patient given a regular meal tray. ms 16:45 Safety checks: Items removed: yes. Door open/sign placed on door: yes. Family/friend ms present: yes. Family/friends encouraged to stay with patient. Sitter present: Yes. 17:00 Safety checks: Items removed: yes. Door open/sign placed on door: yes. Family/friend ms present: yes. Family/friends encouraged to stay with patient. Sitter present: Yes. 17:15 Safety checks: Items removed: yes. Door open/sign placed on door: yes. Family/friend ms present: yes. Family/friends encouraged to stay with patient. Sitter present: Yes. 17:30 Safety checks: Items removed: yes. Door open/sign placed on door: yes. Family/friend ms present: yes. Family/friends encouraged to stay with patient. Sitter present: Yes. 17:33 pt accepted by [facility]. bd 17:45 Safety checks: Items removed: yes. Door open/sign placed on door: yes. Family/friend ms present: yes. Family/friends encouraged to stay with patient. Sitter present: Yes. Administered Medications: No medications were administered Outcome: 16:20 ER care complete, transfer ordered by MD. patterson 18:10 Transferred by ground EMS to other acute care facility: [facility]. Transfer jl7 form completed. 18:10 Condition: stable 18:10 Discharge instructions given to patient, family, Instructed on the need for transfer, Demonstrated understanding of instructions. 18:13 Patient left the ED. jl7 Signatures: Cecilia Dunham Maria ms Barber, Rebecca, RN RN rb1 Bam Chappell RN RN jl7 Don Aragon MD MD ma2 Corrections: (The following items were deleted from the chart) 13:51 13:42 Presenting complaint: Patient states: Depression, feels suicidal. Pt. reports rb1 being "Crazy". Stopped depression medication a week and half ago, and reports hearing things and it has continually getting worse. Reports panic attacks. rb1 14: 13:45 Arm band placed on right wrist. Patient placed in waiting room, Patient notified rb1 of wait time rb1 : 13:51 Patient placed in an exam room, rb1 rb1
--- NOTE | 2019-05-16 16:21 | EDPHYS ---
Physician Documentation [facility] Name: Paulette Nielsen Age: 33 yrs Sex: Female : 1985 Arrival Date: 05/16/2019 Time: 13:41 Bed 15 Private MD: ED Physician Dno Aragon HPI: 05/16 16:17 This 33 yrs old Female presents to ER via Ambulatory with complaints of ma2 Suicidal Ideation. 16:17 The patient presents to the emergency department with a history of a suicide gesture, ma2 suicide ideation. Onset: The symptoms/episode began/occurred gradually, 3 day(s) ago. Associated signs and symptoms: Pertinent negatives: chills, depression, fever, shortness of breath. Severity of symptoms: At their worst the symptoms were moderate in the emergency department the symptoms are unchanged. The patient has experienced similar episodes in the past. SIZE STAMPER: 13:45 LMP N/A - Depo-provera rb1 Historical: - Allergies: 13:45 Morphine; rb1 - Home Meds: 13:45 Trokendi XR 100 mg oral cp24 1 cap once daily [Active]; trazodone 50 mg Oral tab 1 tab rb1 daily [Active]; citalopram 10 mg tab 1 tab once daily [Active]; - PMHx: 13:45 Kidney stones; Non-Hodgkins Lymphoma; Sinusitis; Depression; Seizures; abscess removed rb1 from genital area; self mutilation - cutter; - PSHx: 13:45 ; Lithotripsy; rb1 - Immunization history:: Adult Immunizations up to date. - Social history:: Smoking status: Patient uses tobacco products, smokes one-half pack cigarettes per day, Patient uses street drugs, marijuana, Patient/guardian denies using alcohol, street drugs, The patient lives with family. - Ebola Screening: : Patient negative for fever greater than or equal to 101.5 degrees Fahrenheit, and additional compatible Ebola Virus Disease symptoms. - Family history:: not pertinent. ROS: 16:17 Constitutional: Negative for fever, chills, and weight loss. ma2 16:17 All other systems are negative. Exam: 16:17 Constitutional: This is a well developed, well nourished patient who is awake, alert, ma2 and in no acute distress. Neck: Trachea midline, no thyromegaly or masses palpated, and no cervical lymphadenopathy. Supple, full range of motion without nuchal rigidity, or vertebral point tenderness. No Meningismus. Chest/axilla: Normal chest wall appearance and motion. Nontender with no deformity. No lesions are appreciated. Cardiovascular: Regular rate and rhythm with a normal S1 and S2. No gallops, murmurs, or rubs. Normal PMI, no JVD. No pulse deficits. Respiratory: Lungs have equal breath sounds bilaterally, clear to auscultation and percussion. No rales, rhonchi or wheezes noted. No increased work of breathing, no retractions or nasal flaring. Abdomen/GI: Soft, non-tender, with normal bowel sounds. No distension or tympany. No guarding or rebound. No evidence of tenderness throughout. Skin: Warm, dry with normal turgor. Normal color with no rashes, no lesions, and no evidence of cellulitis. MS/ Extremity: Pulses equal, no cyanosis. Neurovascular intact. Full, normal range of motion. Neuro: Awake and alert, GCS 15, oriented to person, place, time, and situation. Cranial nerves II-XII grossly intact. Motor strength 5/5 in all extremities. Sensory grossly intact. Cerebellar exam normal. Normal gait. 16:17 Psych: Patient having thoughts of suicide. Plan for suicide is cut her wrist Judgement / Insight is normal. Vital Signs: 13:45 BP 141 / 92; Pulse 94; Resp 16; Temp 98.7(TE); Pulse Ox 100% ; Weight 108.86 kg; Height rb1 5 ft. 9 in. (175.26 cm); Pain 6/10; 13:45 Body Mass Index 35.44 (108.86 kg, 175.26 cm) rb1 MDM: 13:58 Patient medically screened. ma2 16:17 Differential diagnosis: drug withdrawal. acute psychotic break, depression. Data ma2 reviewed: vital signs, nurses notes. Counseling: I had a detailed discussion with the patient and/or guardian regarding: the historical points, exam findings, and any diagnostic results supporting the discharge/admit diagnosis, the presence of at least one elevated blood pressure reading (>120/80) during this emergency department visit, the need to transfer to another facility. ED course: no psych available in our hospital ptn has active suicidal ideation will transfer to another hospital for higher level of care . 17:23 ED course: Pt accepted for transfer to [facility] by Dr Flynn. 05/16 14:08 Order name: Acetaminophen; Complete Time: 17:18 [facility] 05/16 14:08 Order name: Basic Metabolic Panel; Complete Time: 17:18 [facility] 05/16 14:08 Order name: CBC with Diff; Complete Time: 15:40 [facility] 05/16 14:08 Order name: ETOH Level; Complete Time: 15:40 [facility] 05/16 14:08 Order name: Hepatic Function; Complete Time: 17:18 [facility] 05/16 14:08 Order name: PT-INR; Complete Time: 15:40 [facility] 05/16 14:08 Order name: Urine Test (obtain specimen); Complete Time: 14:36 [facility] 05/16 14:08 Order name: Ptt, Activated; Complete Time: 15:40 [facility] 05/16 14:08 Order name: Salicylate; Complete Time: 17:18 [facility] 05/16 14:08 Order name: Urine Drug Screen; Complete Time: 15:40 [facility] 05/16 14:08 Order name: EKG; Complete Time: 14:09 [facility] 05/16 14:08 Order name: EKG - Nurse/Tech; Complete Time: 14:16 [facility] 05/16 14:33 Order name: Urine Dipstick--Ancillary (enter results); Complete Time: 17:18 05/16 14:33 Order name: Urine --Ancillary (enter results); Complete Time: 17:18 05/16 14:08 Order name: IV Saline Lock; Complete Time: 14:36 [facility] 05/16 14:08 Order name: Labs collected and sent; Complete Time: 14:36 [facility] 05/16 14:08 Order name: Urine Dipstick-Ancillary (obtain specimen); Complete Time: 14:36 [facility] Administered Medications: No medications were administered Disposition: 19:28 Co-signature as Attending Physician, Don Aragon MD I agree with the assessment pa2 and plan of care. Disposition: 05/16/19 16:20 Transfer ordered to [facility]. Diagnosis is Suicidal ideations. - Reason for transfer: Higher level of care. - Accepting physician is Dr Flynn. - Condition is Stable. - Problem is new. - Symptoms are unchanged. Signatures: Dispatcher [employer] EDAR Katelynn Ward, VICE PRESIDENT OF TALENT MANAGEMENT-C VICE PRESIDENT OF TALENT MANAGEMENT-Ckb Kailee Stewart, RN RN rb1 Bam Chappell RN RN [id number] Don Aragon MD MD ma2 Corrections: (The following items were deleted from the chart) 17:24 16:20 05/16/2019 16:20 Transfer ordered to Psych Facility. Diagnosis is Suicidal kb ideations. Reason for transfer: Higher level of care. Accepting physician is psych. Condition is Stable. Problem is new. Symptoms are unchanged. ma2 18:13 17:24 05/16/2019 16:20 Transfer ordered to Psych Facility. Diagnosis is Suicidal jl7 ideations. Reason for transfer: Higher level of care. Accepting physician is Dr Flynn. Condition is Stable. Problem is new. Symptoms are unchanged. kb
[2019-05-16 18:18] VITALS: BP 141/92; TEMP 98.7; O2SAT 100
== END 2019-05-16 18:13 ==
LOC: ER 13:39
DX: R45.851 Suicidal ideations (principal); F41.8 Other specified anxiety disorders; Z88.6 Allergy status to analgesic agent; F17.210 Nicotine dependence, cigarettes, uncomplicated
CPT/HCPCS: 36415; 80048; 80076; 80307; 80320; 80329; 81003; 81025; 85025; 85610; 85730; 93005; 99285

== ENCOUNTER 2019-06-18 13:33 | Emergency (ER) | payer BC ==
--- OUTSIDE RECORDS SUMMARY | 2019-06-18 13:34 | XMS REPORT ---
:1985 [facility] Address [address] [place] [address] Dr. Quinteros [address] [place] [id number] Care Team Providers Name Role Phone Unavailable Unavailable Unavailable Problems This patient has no known problems. Allergies, Adverse Reactions, Alerts This patient has no known allergies or adverse reactions. Medications This patient has no known medications.
[2019-06-18 14:01] LABS: Urine Blood 2+ (NEG); Urine Glucose NEGATIVE (NEG); Urine Protein 2+ (NEG); Urine Specific Gravity >1.030 (1.005-1.030); Urine pH 5.5 (5.0-7.0)
[2019-06-18 14:36] LABS: Basophils % 0.3 % (0-1.3); Hematocrit 37.5 % (36.0-45.0); Lymphocytes % 20.4 % (15.3-44.8); MPV 8.7 fL (7.6-11.3); RBC Red Blood Cell Count 4.51 M/uL (3.86-4.86)
[2019-06-18 14:38] LABS: Protime INR 1.14
--- NOTE | 2019-06-18 14:49 | ER ---
Nurse's Notes [facility] Name: Paulette Nielsen Age: 33 yrs Sex: Female : 1985 Arrival Date: 06/18/2019 Time: 13:35 Bed 19 Private MD: Diagnosis: Major depressive disorder, recurrent;Suicidal ideations;Urinary tract infection, site not specified;Hypokalemia Presentation: 06/18 13:44 Presenting complaint: Patient states: "I am suicidal and I am having dark thoughts and sv my own voices tell me everybody hates me." Pt has no plan at this time. Reports self harming, pt states has cut her wrist in the past but right now she is only clawing at them with her fingernails. Pt stated her sister told her to come in because she noticed she was closing her fists and pushing her fingernails into her skin in her palm. Transition of care: patient was not received from another setting of care. Onset of symptoms was June 18, 2019. Risk Assessment: Do you want to hurt yourself or someone else? Patient reports desire/thoughts of hurting themselves or someone else. Provider notified. Initial Sepsis Screen: Does the patient meet any 2 criteria? HR > 90 bpm. No. Patient's initial sepsis screen is negative. Does the patient have a suspected source of infection? No. Patient's initial sepsis screen is negative. 13:44 Method Of Arrival: Ambulatory sv 13:44 Acuity: AKSHAT 2 sv 13:44 Care prior to arrival: None. 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 - Social history:: Smoking status: Patient uses tobacco products, smokes one-half pack cigarettes per day, Patient uses street drugs, marijuana, Patient/guardian denies using alcohol. - Ebola Screening: : No symptoms or risks identified at this time. - Family history:: not pertinent. Screenin:00 Abuse screen: Denies threats or abuse. Denies injuries from another. Nutritional aj1 screening: No deficits noted. Tuberculosis screening: No symptoms or risk factors identified. 17:44 Fall Risk None identified. iw Assessment: 14:00 General: Appears in no apparent distress. comfortable, Behavior is calm, cooperative, aj1 appropriate for age. Pain: Denies pain. Neuro: Level of Consciousness is awake, alert, obeys commands. Cardiovascular: Patient's skin is warm and dry. Respiratory: Airway is patent Respiratory effort is even, unlabored, Respiratory pattern is regular, symmetrical. GI: No signs and/or symptoms were reported involving the gastrointestinal system. : No signs and/or symptoms were reported regarding the genitourinary system. EENT: No signs and/or symptoms were reported regarding the EENT system. Derm: No signs and/or symptoms reported regarding the dermatologic system. Skin is pink, warm \\T\\ dry. normal. Musculoskeletal: No signs and/or symptoms reported regarding the musculoskeletal system. Circulation, motion, and sensation intact. 15:00 Reassessment: Patient appears in no apparent distress at this time. No changes from aj1 previously documented assessment. Patient and/or family updated on plan of care and expected duration. Pain level reassessed. Patient is alert, oriented x 3, equal unlabored respirations, skin warm/dry/pink. 16:00 Reassessment: Patient appears in no apparent distress at this time. No changes from aj1 previously documented assessment. Patient and/or family updated on plan of care and expected duration. Pain level reassessed. Patient is alert, oriented x 3, equal unlabored respirations, skin warm/dry/pink. 16:42 Reassessment: Patient appears in no apparent distress at this time. Patient and/or iw family updated on plan of care and expected duration. Pain level reassessed. Patient is alert, oriented x 3, equal unlabored respirations, skin warm/dry/pink. 17:09 Reassessment: Patient appears in no apparent distress at this time. No changes from aj1 previously documented assessment. Patient and/or family updated on plan of care and expected duration. Pain level reassessed. Patient is alert, oriented x 3, equal unlabored respirations, skin warm/dry/pink. Psych: 13:49 Subjective: Patient's mood is sad, Delusions are denied, Hallucinations are auditory, sv "I hear my own voice telling me everybody hates me." Having thoughts of suicide. Denies suicidal plan. Objective: Patient is cooperative, Speech is normal, Affect is appropriate, Patient has mutilated themselves by cutting her wrists, but reports today that she has only been clawing at her scars. Suicide Risk Assessment: Sad Person Scale: Sex of patient: Female: Score 0 points. Age of patient: Score 1 point if patient 15-34. Depression: Score 1 point if signs of depression are present. Previous Attempt: Score 1 point if patient has previously attempted suicide. Substance Abuse: Score 1 point if patient abuses alcohol or drugs. Rational Thinking: Score 0 point if patient has rational thinking. Social Support: Score 0 if social support is present/available. Organized Plan: Score 0 if patient did not have an organized plan in place. Relationship: Score 1 point if patient is , , , or for a single male Chronic Sickness: Score 1 point if patient has illness, chronic, debilitating, or severe. TOTAL POINTS: If total points are 5-6, proposed clinical action is to strongly consider hospitalization, depending upon confidence in the follow-up arrangement. Implement suicide precautions. Patient uses marijuana weekly Last use was 2 weeks ago. Commitment: Patient will be a voluntary commitment. 17:45 Interventions: Removed personal items and placed in bag. Safety Checks: Visitors are iw present. Vital Signs: 13:49 BP 124 / 93; Pulse 109; Resp 18; Temp 97.6; Pulse Ox 97% ; Weight 106.14 kg; Height 5 sv ft. 9 in. (175.26 cm); Pain 0/10; 16:45 BP 108 / 87; Pulse 74; Resp 17; Temp 97.8(O); Pulse Ox 99% on R/A; mh5 13:49 Body Mass Index 34.56 (106.14 kg, 175.26 cm) sv ED Course: 13:35 Patient arrived in ED. as 13:42 Jed Guzman MD is Attending Physician. aplmira 13:45 Missed attempt(s): 22 gauge in right antecubital area. mh5 13:47 Triage completed. sv 13:49 Arm band placed on. sv 13:49 Patient has correct armband on for positive identification. Placed in gown. Bed in low mh5 position. 13:49 Safety checks: Items removed: yes. Door open/sign placed on door: yes. Family/friend mh5 present: no. Sitter present: Yes. 13:55 Warm blanket given. Verbal reassurance given. jp3 13:58 Amena Bender, RN is Primary Nurse. aj1 14:00 Safety checks: Items removed: yes. Door open/sign placed on door: yes. Family/friend mh5 present: no. Sitter present: Yes. 14:00 No provider procedures requiring assistance completed. aj1 14:15 Safety checks: Items removed: yes. Door open/sign placed on door: yes. Family/friend mh5 present: no. Sitter present: Yes. 14:19 Initial lab(s) drawn, by me, sent to lab. Urine collected: clean catch specimen, clear, jp3 tenzin colored, EKG done, by ED staff, reviewed by Jed Guzman MD. Inserted saline lock: 22 gauge in right antecubital area, using aseptic technique. Blood collected. Patient maintains SpO2 saturation greater than 95% on room air. 14:19 Legal drug screen obtained per protocol. jp3 14:30 Safety checks: Items removed: yes. Door open/sign placed on door: yes. Family/friend mh5 present: no. Sitter present: Yes. Diet: Patient given snack. 14:32 Warm blanket given. 5 14:45 Safety checks: Items removed: yes. Door open/sign placed on door: yes. Family/friend mh5 present: no. Sitter present: Yes. 14:55 Urine Microscopic Only Sent. 5 15:00 Safety checks: Items removed: yes. Door open/sign placed on door: yes. Family/friend mh5 present: no. Sitter present: Yes. 15:15 Safety checks: Items removed: yes. Door open/sign placed on door: yes. Family/friend mh5 present: no. Sitter present: Yes. 15:30 Safety checks: Items removed: yes. Door open/sign placed on door: yes. Family/friend mh5 present: no. Sitter present: Yes. 15:44 Warm blanket given. 5 15:45 Safety checks: Items removed: yes. Door open/sign placed on door: yes. Family/friend mh5 present: no. Sitter present: Yes. 15:45 Report given to ERICA Morgan at [facility]. aj1 16:00 Safety checks: Items removed: yes. Door open/sign placed on door: yes. Family/friend mh5 present: no. Sitter present: Yes. 16:15 Safety checks: Items removed: yes. Door open/sign placed on door: yes. Family/friend mh5 present: no. Sitter present: Yes. 16:30 Safety checks: Items removed: yes. Door open/sign placed on door: yes. Family/friend mh5 present: no. Sitter present: Yes. 16:45 Safety checks: Items removed: yes. Door open/sign placed on door: yes. Family/friend mh5 present: no. Sitter present: Yes. 17:00 Safety checks: Items removed: yes. Door open/sign placed on door: yes. Family/friend mh5 present: no. Sitter present: Yes. 17:15 Safety checks: Items removed: yes. Door open/sign placed on door: yes. Family/friend mh5 present: no. Sitter present: Yes. Other: AWAITING EMS FOR TRANSFER. 17:30 Safety checks: Items removed: yes. Door open/sign placed on door: yes. Family/friend mh5 present: no. Sitter present: Yes. 17:35 Diet: Patient given a regular meal tray. mh5 17:42 Safety checks: Items removed: yes. Door open/sign placed on door: yes. Family/friend mh5 present: yes. Sitter present: Yes. Other: EMS HERE FOR TRANSFER. 17:44 IV discontinued, intact, bleeding controlled, No redness/swelling at site. Pressure iw dressing applied. Administered Medications: 14:58 Drug: NS 0.9% 1000 ml Route: IV; Rate: 1 bolus; Site: right antecubital; aj1 16:30 Follow up: IV Status: Completed infusion iw 15:20 Drug: DiFLUcan 150 mg Route: PO; iw 16:41 Drug: NS 0.9% 1000 ml Route: IV; Rate: 1 bolus; Site: right antecubital; iw 16:42 Drug: Rocephin 1 grams Route: IV; Rate: per protocol; Site: right antecubital; iw 16:50 Follow up: IV Status: Completed infusion iw 16:42 Drug: LevOfloxacin 750 mg Route: PO; iw 17:10 Follow up: Response: No adverse reaction iw 16:42 Drug: Potassium Effervescent Tablet 50 mEq Route: PO; iw 17:33 Follow up: Response: No adverse reaction Outcome: 14:48 ER care complete, transfer ordered by . palmira 17:44 Transferred by ground EMS Transfer form completed. X-rays sent w/ patient. Note: to [facility] 17:44 Condition: good 17:44 Discharge instructions given to patient, family, Instructed on the need for transfer. 17:45 Patient left the ED. Signatures: Amena Bender, RN RN ajShelbi Oliver, RN RN Jed Nugent MD MD cha Martinez, Maria Antonia Vicente, ERICA Rm, Kenyatta 5 Roland Corrales jp3 Corrections: (The following items were deleted from the chart) 14:21 14:20 Warm blanket given. Verbal reassurance given. jp3 jp3 14:21 14:20 Placed in gown. Bed in low position. Side rails up X 1. Side rails up X2. jp3 Valuables inventory done. Locked in safe. See valuables checklist. jp3 14:50 13:55 Placed in gown. Bed in low position. Side rails up X 1. Side rails up X2. mh5 Valuables inventory done. Locked in safe. See valuables checklist. jp3 14:50 14:00 Safety checks: Items removed: yes. Door open/sign placed on door: yes. mh5 Family/friend present: no. Sitter present: Yes. jp3 14:50 14:32 Patient has correct armband on for positive identification. Placed in gown. Bed mh5 in low position. mh5 15:56 13:45 Safety checks: Items removed: yes. Door open/sign placed on door: yes. mh5 Family/friend present: no. Sitter present: Yes. mh5
--- NOTE | 2019-06-18 14:49 | EDPHYS ---
Physician Documentation [facility] Name: Paulette Nielsen Age: 33 yrs Sex: Female : 1985 Arrival Date: 06/18/2019 Time: 13:35 Bed 19 Private MD: ED Physician Jed Guzman HPI: 06/18 14:40 This 33 yrs old Female presents to ER via Ambulatory with complaints of palmira Suicidal Ideation. 14:40 The patient presents to the emergency department with anxiety, depression, paranoia, palmira suicide ideation. Onset: The symptoms/episode began/occurred 3 day(s) ago. Past psychiatric history: Prior diagnosis: bipolar disorder, depression, Psychiatric medications include: Celexa. 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 - Social history:: Smoking status: Patient uses tobacco products, smokes one-half pack cigarettes per day, Patient uses street drugs, marijuana, Patient/guardian denies using alcohol. - Ebola Screening: : No symptoms or risks identified at this time. - Family history:: not pertinent. ROS: 14:40 Constitutional: Negative for fever, chills, and weight loss, Eyes: Negative for injury, palmira pain, redness, and discharge, ENT: Negative for injury, pain, and discharge, Neck: Negative for injury, pain, and swelling, Cardiovascular: Negative for chest pain, palpitations, and edema, Respiratory: Negative for shortness of breath, cough, wheezing, and pleuritic chest pain, Abdomen/GI: Negative for abdominal pain, nausea, vomiting, diarrhea, and constipation, Back: Negative for injury and pain, : Negative for injury, bleeding, discharge, and swelling, MS/Extremity: Negative for injury and deformity, Skin: Negative for injury, rash, and discoloration, Neuro: Negative for headache, weakness, numbness, tingling, and seizure, Allergy/Immunology: Negative for hives, rash, and allergies, Endocrine: Negative for neck swelling, polydipsia, polyuria, polyphagia, and marked weight changes, Hematologic/Lymphatic: Negative for swollen nodes, abnormal bleeding, and unusual bruising. 14:40 Psych: Positive for anxiety, depression, suicidal ideation. Exam: 14:40 Constitutional: This is a well developed, well nourished patient who is awake, alert, palmira and in no acute distress. Head/Face: Normocephalic, atraumatic. Eyes: Pupils equal round and reactive to light, extra-ocular motions intact. Lids and lashes normal. Conjunctiva and sclera are non-icteric and not injected. Cornea within normal limits. Periorbital areas with no swelling, redness, or edema. ENT: Nares patent. No nasal discharge, no septal abnormalities noted. Tympanic membranes are normal and external auditory canals are clear. Oropharynx with no redness, swelling, or masses, exudates, or evidence of obstruction, uvula midline. Mucous membranes moist. Neck: Trachea midline, no thyromegaly or masses palpated, and no cervical lymphadenopathy. Supple, full range of motion without nuchal rigidity, or vertebral point tenderness. No Meningismus. Chest/axilla: Normal chest wall appearance and motion. Nontender with no deformity. No lesions are appreciated. Cardiovascular: Regular rate and rhythm with a normal S1 and S2. No gallops, murmurs, or rubs. Normal PMI, no JVD. No pulse deficits. Respiratory: Lungs have equal breath sounds bilaterally, clear to auscultation and percussion. No rales, rhonchi or wheezes noted. No increased work of breathing, no retractions or nasal flaring. Abdomen/GI: Soft, non-tender, with normal bowel sounds. No distension or tympany. No guarding or rebound. No evidence of tenderness throughout. Back: No spinal tenderness. No costovertebral tenderness. Full range of motion. Female : Normal external genitalia. Skin: Warm, dry with normal turgor. Normal color with no rashes, no lesions, and no evidence of cellulitis. MS/ Extremity: Pulses equal, no cyanosis. Neurovascular intact. Full, normal range of motion. Neuro: Awake and alert, GCS 15, oriented to person, place, time, and situation. Cranial nerves II-XII grossly intact. Motor strength 5/5 in all extremities. Sensory grossly intact. Cerebellar exam normal. Normal gait. 14:40 Psych: Behavior/mood is pleasant, cooperative, Affect is calm, Oriented to person, place, time, Patient has no thoughts/intents to harm self or others. Judgement / Insight is normal. Vital Signs: 13:49 BP 124 / 93; Pulse 109; Resp 18; Temp 97.6; Pulse Ox 97% ; Weight 106.14 kg; Height 5 sv ft. 9 in. (175.26 cm); Pain 0/10; 16:45 BP 108 / 87; Pulse 74; Resp 17; Temp 97.8(O); Pulse Ox 99% on R/A; mh5 13:49 Body Mass Index 34.56 (106.14 kg, 175.26 cm) sv MDM: 13:42 Patient medically screened. [facility] 14:45 Data reviewed: vital signs, nurses notes, lab test result(s), EKG. [facility] 06/18 13:43 Order name: Acetaminophen; Complete Time: 15:33 [facility] 06/18 13:43 Order name: Basic Metabolic Panel; Complete Time: 15:33 [facility] 06/18 13:43 Order name: CBC with Diff; Complete Time: 15:33 [facility] 06/18 13:43 Order name: ETOH Level; Complete Time: 16:53 [facility] 06/18 13:43 Order name: Hepatic Function; Complete Time: 15:33 [facility] 06/18 13:43 Order name: PT-INR; Complete Time: 15:33 [facility] 06/18 13:43 Order name: Ptt, Activated; Complete Time: 15:33 [facility] 06/18 13:43 Order name: Salicylate; Complete Time: 15:33 [facility] 06/18 13:43 Order name: Urine Drug Screen; Complete Time: 15:33 [facility] 06/18 13:43 Order name: TSH; Complete Time: 15:33 [facility] 06/18 13:57 Order name: Urine Microscopic Only; Complete Time: 16:53 nm 06/18 13:59 Order name: Urine Dipstick--Ancillary (enter results); Complete Time: 15:33 nm 06/18 13:59 Order name: Urine --Ancillary (enter results); Complete Time: 15:33 nm 06/18 13:43 Order name: Urine Test (obtain specimen); Complete Time: 14:22 [facility] 06/18 13:43 Order name: EKG; Complete Time: 13:44 [facility] 06/18 13:43 Order name: EKG - Nurse/Tech; Complete Time: 14:22 [facility] 06/18 13:43 Order name: IV Saline Lock; Complete Time: 14:22 [facility] 06/18 13:43 Order name: Labs collected and sent; Complete Time: 14:22 [facility] 06/18 13:43 Order name: Urine Dipstick-Ancillary (obtain specimen); Complete Time: 14:22 [facility] 06/18 14:53 Order name: Diet Regular; Complete Time: 14:53 [facility] Administered Medications: 14:58 Drug: NS 0.9% 1000 ml Route: IV; Rate: 1 bolus; Site: right antecubital; aj1 16:30 Follow up: IV Status: Completed infusion iw 15:20 Drug: DiFLUcan 150 mg Route: PO; iw 16:41 Drug: NS 0.9% 1000 ml Route: IV; Rate: 1 bolus; Site: right antecubital; iw 16:42 Drug: Rocephin 1 grams Route: IV; Rate: per protocol; Site: right antecubital; iw 16:50 Follow up: IV Status: Completed infusion iw 16:42 Drug: LevOfloxacin 750 mg Route: PO; iw 17:10 Follow up: Response: No adverse reaction iw 16:42 Drug: Potassium Effervescent Tablet 50 mEq Route: PO; iw 17:33 Follow up: Response: No adverse reaction iw Disposition: 06/18/19 14:48 Transfer ordered to Psych Facility. Diagnosis are Major depressive disorder, recurrent, Suicidal ideations, Urinary tract infection, site not specified, Hypokalemia. - Reason for transfer: Higher level of care. - Accepting physician is TO PSYCH. - Condition is Stable. - Problem is new. - Symptoms have improved. Signatures: Dispatcher [employer] Amena Smith RN RN aj1 Shelbi Welch RN RN sv Anderson, Corey, MD MD cha Williams, Irene, RN RN Corrections: (The following items were deleted from the chart) 15:35 14:48 06/18/2019 14:48 Transfer ordered to Psych Facility. Diagnosis is Major palmira depressive disorder, recurrent; Suicidal ideations. Reason for transfer: Higher level of care. Accepting physician is TO PSYCH. Condition is Stable. Problem is new. Symptoms have improved. [facility] 17:45 15:35 06/18/2019 14:48 Transfer ordered to Psych Facility. Diagnosis is Major iw depressive disorder, recurrent; Suicidal ideations; Urinary tract infection, site not specified; Hypokalemia. Reason for transfer: Higher level of care. Accepting physician is TO PSYCH. Condition is Stable. Problem is new. Symptoms have improved. palmira
[2019-06-18] MEDS ORDERED: NA CHLORIDE 0.9% 1,000 ML ONE ×2 (14:57→16:14)
[2019-06-18 15:08] LABS: ALT/SGPT 34 U/L (12-78); AST/SGOT 7 U/L (15-37); Albumin 3.9 g/dL (3.4-5.0); Alkaline Phosphatase 109 U/L (45-117); BUN Blood Urea Nitrogen 17 mg/dL (7-18); Bicarbonate 22 mmol/L (21-32); Bilirubin Direct 0.2 mg/dL (0-0.2); Bilirubin Total 0.5 mg/dL (0.2-1.0); Glucose Level 119 mg/dL (74-106); Potassium 3.4 mmol/L (3.5-5.1); Protein, Total 8.5 g/dL (6.4-8.2); Sodium Level 142 mmol/L (136-145); Thyroid Stimulating Hormone 0.733 uIU/mL (0.360-3.740)
[2019-06-18 15:21] LABS: Barbiturates NEGATIVE (NEGATIVE); Benzodiazepines NEGATIVE (NEGATIVE); Cocaine NEGATIVE (NEGATIVE); METHAMPHETAM NEGATIVE (NEGATIVE); Methadone NEGATIVE (NEGATIVE); Opiates NEGATIVE (NEGATIVE); Phencyclidine NEGATIVE (NEGATIVE); THC Cannibis POSITIVE (NEGATIVE)
[2019-06-18 15:48] LABS: Urine Bacteria <20 /HPF (<20); Urine Culture Reflex Order REFLEXED; Urine RBC <5 /HPF (NONE SEEN)
[2019-06-18] MEDS ORDERED: levoFLOXacin 750 MG TAB ONE (16:14)
[2019-06-18] MEDS ORDERED: CEFTRIAXONE/SWI 1gm 1 GM/10 ML SYR ONE (16:14)
[2019-06-18] MEDS ORDERED: POTASSIUM 25 MEQ EFFERV TAB ONE (16:14)
[2019-06-18] MEDS ORDERED: FLUCONAZOLE 100 MG TAB ONE (17:18)
[2019-06-18 19:59] VITALS: BP 108/87; TEMP 97.8; O2SAT 99
--- NOTE | 2019-06-19 16:24 | EKG ---
Test Date: 2019-06-18 Test Time: 14:22:21 Human Resources Office Manager: MEERA MEASUREMENT RESULTS: Intervals: Rate: 74 NC: 156 QRSD: 82 QT: 380 QTc: 421 [place]: P: -5 NC: 156 QRS: 2 T: 20 INTERPRETIVE STATEMENTS: Normal sinus rhythm Normal ECG Compared to ECG 05/16/2019 14:17:49 Left ventricular hypertrophy no longer present Electronically Signed On 06-19-19 16:22:40 RESTAURANT WORKER by Wilfredo Euceda
== END 2019-06-18 17:45 ==
LOC: ER 13:33
DX: F33.9 Major depressive disorder, recurrent, unspecified (principal); N39.0 Urinary tract infection, site not specified; E87.6 Hypokalemia; R45.851 Suicidal ideations; Z88.6 Allergy status to analgesic agent; F17.210 Nicotine dependence, cigarettes, uncomplicated
CPT/HCPCS: 96361; 93005; 85025; 80048; 36415; 80320; 80329 ×2; 81025; 85610; 80076; 80307 ×8; 85730; 84443; 96374; 99285; J0696; J7030 ×2; 81003; 81015

== ENCOUNTER 2020-02-09 05:32 | Emergency (ER) | payer BC ==
--- OUTSIDE RECORDS SUMMARY | 2020-02-09 05:34 | XMS REPORT | Continuity of Care Document ---
:1985 Author Organization [facility] t Address [address] [place] [address] Care Team Providers Name Role Phone Kandace Jaime MD Attending Clinician Kandace Jaime MD Admitting Clinician Payers Payer Name Policy Type Policy Number Effective Date Expiration Date S ource Problems This patient has no known problems. Allergies, Adverse Reactions, Alerts Allergy Allergy Status Severity Reaction(s) Onset Inactive Treating Comm ents Source Name Type Date Date Clinician morphine DA Active U 2019-0 [facility] 2-21 [place] 00:00: d 00 [facility] jalepeno DA Active SV 2014-0 [facility] s 1-25 [place] 00:00: d 00 [facility] Medications This patient has no known medications. Procedures This patient has no known procedures. Encounters Start End Encounter Admission Attending Care Care Encounter Source Date/Time Date/Time Type Type Clinicians Facility Department ID 2019-03-22 2019-03-24 [facility] [id number] 23:58:00 22:10:00 Encounter YeniJanell [id number] Emran Clear [id number] [place] [id number] [place] [address] (CLC) Results Test Description Test Time Test Comments Results Result Comments Source [facility]INARY WITH PHOTO 2019-10-20 12:04:00 Test Item Value Reference Range Interpretation Comme nts ST COLOR (test code = COLST) BERMAN ST SIZE (test code = SIZST) 3X[address] WEIGHT (test code = WGTST) 25.[address] COMPOSITION (test code = SEE RPT COMPST) ST CA OXALATE DIHYDRATE (test 70% code = CAOXDST) ST CA OXALATE MONOHYDRATE 30% (test code = CAOXMST) ST COMMENT 1 (test code = SEE RPT Th is test was developed and its performance CMTST1) characteristics determined by [facility]. It has not been cl eared or approvedby the Food and Drug Admini stration. [facility] URINARY WITH [id number] 12:04:00 Test Item Value Reference Range Interpretation Comments ST COLOR (test BERMAN code = COLST) ST SIZE (test 3X2 MM code = SIZST) ST WEIGHT (test 25.9 MG code = WGTST) ST COMPOSITION SEE RPT (test code = COMPST) ST CA OXALATE 70% DIHYDRATE (test code = CAOXDST) ST CA OXALATE 30% MONOHYDRATE (test code = CAOXMST) ST COMMENT 1 SEE RPT This test was d eveloped and (test code = its performance CMTST1) characteristics determined by [facility]. It has not been cleared or appr ovedby the Food and Drug Admini stration. - XR FLUOROSCOPY 0-60 [id number] 14:10:00 Name: MARCIN WYATT [facility] : 1985 Age/S: 33 / F [id number] [place] Unit #: [id number] Loc: [place] [address] Phys: Enrique Tyler MD Acct: [id number] Dis Date: Status: REG [facility]ONE #: [phone] Exam Date: 08/30/2019 1300 FAX #: Reason: STENT CAYDEN CEMENT EXAMS: CPT: [id number] XR FLUOROSCOPY 0-60 MIN 27287 Fluoro Time: 39 SEC DAP (Gy m2): Air Kerma (mGy): EXAMINATION: - XR FLUOROSCOPY 0-60 MIN. LOCATION: S17. HISTORY: Stent placement. COMPARISON: None. FINDINGS/ IMPRESSION: Five portable limited intraoperative fluoroscopic images of right upper quadrant of abdomen demonstrates calculus overlying lower pole of right kidney. There is dilatation of right renal pelvis. Catheter and wire within right ureter are noted. Please see operative report for further details. FLUOROSCOPIC TIME: 39.8 seconds. 12.21 mGy. at 1410 Reported and signed by: Saleem Mei M.D. CC: Austin Peraza MD; Enrique Tyler MD PAGE 1 Signed Report Name: MARCIN WYATT [facility] : 1985 Age/S: 33 / F [id number] [address] Unit #: [id number] Loc: [place] [address] Phys: Enrique Tyler MD Acct: [id number] Dis Date: Status: REG [facility] [place] PHONE #: [phone] Exam Date: 08/30/2019 1300 FAX #: Reason: STENT PLACEMENT EXAMS: CPT: [id number] XR FLUOROSCOPY 0-60 MIN 23402 Fluoro Time: 39 SEC DAP (Gy m2): Air Kerma (mGy): <Continued> Technologist: Sadia Herbert RT(R) Trnscb Date/Time: 08/30/2019 (1409) [email or web address] Orig Print D/T: S: 08/30/2019 (1414) PAGE 2 Signed ReportUR HCG [id number] 10:41:00 Test Item Value Reference Range Interpretation Comments UR HCG QUAL (test code = HCGQLU) NEGATIVE NEGATIVE BASIC METABOLIC [id number] 10:26:00 Test Item Value Reference Range Interpretation Comments SODIUM (test code = NA) 139 mmol/L 134-147 N POTASSIUM (test code = 4.2 mmol/L 3.4-5.0 N K) CHLORIDE (test code = 110 mmol/L 100-108 H CL) CARBON DIOXIDE (test 25 mmol/L 21-32 N code = CO2) ANION GAP (test code = 4.0 GAP calc 4.0-15.0 N GAP) GLUCOSE (test code = 128 MG/DL 70-110 H GLU) BLOOD UREA NITROGEN 16 MG/DL 7-18 N (test code = BUN) GLOMERULAR FILTRATION >=60 max estimate >60 RATE (test code = GFR) estGFR CREATININE (test code = 1.0 MG/DL 0.6-1.0 N CREAT) CALCIUM (test code = CA) 9.4 MG/DL 8.5-10.1 N BASIC METABOLIC [id number] 10:22:00 Test Item Value Reference Range Interpretation Comments SODIUM (test code = NA) 139 mmol/L 134-147 N POTASSIUM (test code = 4.2 mmol/L 3.4-5.0 N K) CHLORIDE (test code = 110 mmol/L 100-108 H CL) CARBON DIOXIDE (test 25 mmol/L 21-32 N code = CO2) ANION GAP (test code = 4.0 GAP calc 4.0-15.0 N GAP) GLUCOSE (test code = 128 MG/DL 70-110 H GLU) BLOOD UREA NITROGEN MG/DL 7-18 (test code = BUN) GLOMERULAR FILTRATION >=60 max estimate >60 RATE (test code = GFR) estGFR CREATININE (test code = 1.0 MG/DL 0.6-1.0 N CREAT) CALCIUM (test code = CA) 9.4 MG/DL 8.5-10.1 N PROTHROMBIN [id number] 10:12:00 Test Item Value Reference Range Interpretation Comments PT PATIENT (test code = PTP) 12.1 SECONDS 9.3-12.9 N INTERNATIONAL NORMAL RATIO 1.07 INR Unit 0.8-1.2 N (test code = INR) THROMBOPLASTIN TIME [id number] 10:12:00 Test Item Value Reference Range Interpretation Comments THROMBOPLASTIN TIME PARTIAL 31.6 SECONDS 26-35 N (test code = PTT) GLUCOSE BEDSIDE [id number] 10:06:00 Test Item Value Reference Range Interpretation Comments GLUCOSE BEDSIDE TESTING (test code 126 mg/dL 70-110 H = GLUBED) CBC W/AUTO [id number] 10:03:00 Test Item Value Reference Range Interpretation Comments WHITE BLOOD CELL (test code = 10.5 K/mm3 3.5-11.0 N WBC) RED BLOOD CELL (test code = RBC) 4.34 M/mm3 4.70-6.10 L HEMOGLOBIN (test code = HGB) 12.5 G/DL 10.4-14.9 N HEMATOCRIT (test code = HCT) 38.1 % 31.5-44.1 N MEAN CELL VOLUME (test code = 87.8 Fl 84.5-98.6 N MCV) MEAN CELL HGB (test code = MCH) 28.8 pg 27.0-34.2 N MEAN CELL HGB CONCETRATION (test 32.8 G/DL 31.5-34.0 N code = MCHC) RED CELL DISTRIBUTION WIDTH (test 15.1 SD 11.5-14.5 H code = RDW) PLATELET COUNT (test code = PLT) 275.0 K/mm3 150-450 N MEAN PLATELET VOLUME (test code = 9.60 fL 7.0-10.5 N MPV) NEUTROPHIL % (test code = NT%) 63.7 % 40-76 N LYMPHOCYTE % (test code = LY%) 26.3 % 20.5-51.1 N MONOCYTE % (test code = MO%) 6.9 % 1.7-9.3 N EOSINOPHIL % (test code = EO%) 2.7 % 0.0-6.0 N BASOPHIL % (test code = BA%) 0.4 % 0.0-2.0 N NEUTROPHIL # (test code = NT#) 6.68 K/mm3 1.8-7.6 N LYMPHOCYTE # (test code = LY#) 2.8 K/mm3 0.6-3.2 N MONOCYTE # (test code = MO#) 0.7 K/mm3 0.3-1.1 N EOSINOPHIL # (test code = EO#) 0.3 K/mm3 0.0-0.4 N BASOPHIL # (test code = BA#) 0.0 K/mm3 0.0-0.1 N MANUAL DIFF REQUIRED (test code = NO DIFF/SCN CRITERIA MDIFF)
[2020-02-09] MEDS ORDERED: KETOROLAC 30 MG/ML INJ ONE (06:44)
--- NOTE | 2020-02-09 06:53 | ER ---
Nurse's Notes [facility] Name: Paulette Nielsen Age: 34 yrs Sex: Female : 1985 Arrival Date: 02/09/2020 Time: 05:37 Bed 5 Private MD: Austin Peraza T Diagnosis: Greater Trochanter Bursitis Presentation: 02/08 05:46 Chief complaint: Patient states: she is having left anterior thigh pain radiating to bb her left knee x 1 month which worsened tonight. Coronavirus screen: At this time, the client does not indicate any symptoms associated with coronavirus-19. Ebola Screen: No symptoms or risks identified at this time. Initial Sepsis Screen: Does the patient meet any 2 criteria? No. Patient's initial sepsis screen is negative. Does the patient have a suspected source of infection? No. Patient's initial sepsis screen is negative. Risk Assessment: Do you want to hurt yourself or someone else? Patient reports no desire to harm self or others. Onset of symptoms was January 2020. 05:46 Method Of Arrival: Ambulatory bb 05:46 Acuity: AKSHAT 4 bb JORDAN MAN: 05:49 LMP 02/04/2020 bb Historical: - Allergies: 05:49 Morphine; bb - Home Meds: 05:49 citalopram 10 mg tab 1 tab once daily [Active]; trazodone 50 mg Oral tab 1 tab daily bb [Active]; Metformin Oral [Active]; Abilify oral oral [Active]; - PMHx: 05:49 abscess removed from genital area; ADD/ADHD; Anxiety; Depression; Kidney stones; bb Migraines; Non-Hodgkins Lymphoma; Seizures; self mutilation - cutter; Sinusitis; suicidal ideation; Bipolar disorder; - PSHx: 05:49 ; Lithotripsy; insertion and removal of kidney stent; bb - Immunization history:: Adult Immunizations up to date. - Social history:: Smoking status: Patient reports the use of cigarette tobacco products, smokes one-half pack cigarettes per day. Screenin:44 Abuse screen: Denies threats or abuse. Denies injuries from another. Nutritional rr5 screening: No deficits noted. Tuberculosis screening: No symptoms or risk factors identified. Fall Risk None identified. Total Medeiros Fall Scale indicates No Risk (0-24 pts). Assessment: 05:44 General: Appears in no apparent distress. uncomfortable, Behavior is calm, cooperative, rr5 appropriate for age. Pain: Complains of pain in left leg Pain currently is 15 out of 10 on a pain scale. Quality of pain is described as aching, Pain began gradually, Is intermittent. Neuro: Level of Consciousness is awake, alert, obeys commands, Oriented to person, place, time, situation. Cardiovascular: Capillary refill < 3 seconds Patient's skin is warm and dry. Respiratory: Airway is patent Respiratory effort is even, unlabored, Respiratory pattern is regular, symmetrical. GI: Abdomen is round non-distended. : No signs and/or symptoms were reported regarding the genitourinary system. EENT: No signs and/or symptoms were reported regarding the EENT system. Derm: Skin is intact, is healthy with good turgor, Skin is pale, Skin temperature is warm. Musculoskeletal: Capillary refill < 3 seconds, Reports pain in left leg. 07:00 Reassessment: Patient appears in no apparent distress at this time. Patient is alert, rr5 oriented x 3, equal unlabored respirations, skin warm/dry/pink. discharge instruction given and explained without complaints made. Vital Signs: 05:46 BP 124 / 85; Pulse 95; Resp 16 S; Temp 98.7(O); Pulse Ox 98% on R/A; Weight 113.4 kg bb (R); Height 5 ft. 9 in. (175.26 cm) (R); Pain 10/10; 06:38 BP 128 / 89; Pulse 79; Resp 16; Pulse Ox 97% ; rr5 05:46 Body Mass Index 36.92 (113.40 kg, 175.26 cm) bb ED Course: 05:37 Patient arrived in ED. es 05:37 Austin Peraza MD is Private Physician. es 05:37 Sunny Avina, ERICA is Primary Nurse. rr5 05:44 Patient has correct armband on for positive identification. Bed in low position. Call rr5 light in reach. Pulse ox on. NIBP on. 05:47 Triage completed. bb 05:49 Arm band placed on Patient placed in an exam room, on a stretcher, on pulse oximetry. bb 06:09 Lon Morales PA is PHCP. jmm 06:09 Scooby Wagoner MD is Attending Physician. [facility] 06:35 Urine collected: clean catch specimen, clear. rr5 06:43 No provider procedures requiring assistance completed. Patient did not have IV access rr5 during this emergency room visit. 06:51 Jairo Lopez MD is Referral Physician. [facility] Administered Medications: 06:43 Drug: Ketorolac 30 mg Route: IM; Site: right deltoid; rr5 06:58 Follow up: Response: No adverse reaction rr5 Outcome: 06:52 Discharge ordered by . massiel 07:02 Patient left the ED. rr5 07:02 Discharged to home ambulatory. rr5 07:02 Condition: stable 07:02 Discharge instructions given to patient, Instructed on discharge instructions, follow up and referral plans. medication usage, Demonstrated understanding of instructions, follow-up care, medications, Prescriptions given X 2. Signatures: Lon Morales PA PA jmm Salyer, Edna es Ballard, Brenda RN RN Sunny Avina RN RN rr5
--- NOTE | 2020-02-09 06:53 | EDPHYS ---
Physician Documentation [facility] Name: Paulette Nielsen Age: 34 yrs Sex: Female : 1985 Arrival Date: 02/09/2020 Time: 05:37 Bed 5 Private MD: Austin Peraza T ED Physician Scooby Wagoner HPI: 02/08 06:47 This 34 yrs old Female presents to ER via Ambulatory with complaints of Leg jmm Pain. 06:47 The patient presents with pain. Onset: The symptoms/episode began/occurred gradually, 1 jmm month(s) ago. Modifying factors: The symptoms are alleviated by nothing. the symptoms are aggravated by nothing. This is a 34 year old female with a history of anxiety and depression that presents to the ED with complaints of left upper leg pain for the past month. Denies injury. Patient had similar episode prior which was attributed to DDD. Patient denies weakness, numbness, incontinence, dysuria, bowel or bladder problems. . 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 - Social history:: Smoking status: Patient reports the use of cigarette tobacco products, smokes one-half pack cigarettes per day. ROS: 06:47 Constitutional: Negative for fever, chills, and weight loss, Cardiovascular: Negative jmm for chest pain, palpitations, and edema, Respiratory: Negative for shortness of breath, cough, wheezing, and pleuritic chest pain. 06:47 MS/extremity: Positive for pain. 06:47 All other systems are negative. Exam: 06:47 Constitutional: This is a well developed, well nourished patient who is awake, alert, jmm and in no acute distress. Head/Face: atraumatic. Eyes: EOMI, no conjunctival erythema appreciated ENT: Moist Mucus Membranes Neck: Trachea midline, Supple Chest/axilla: Normal chest wall appearance and motion. Cardiovascular: Regular rate and rhythm. No edema appreciated Respiratory: Normal respirations, no respiratory distress appreciated Abdomen/GI: Non distended, soft Back: Normal ROM Skin: General appearance color normal 06:47 Musculoskeletal/extremity: pain is elicited on palpation of the proximal left lateral thigh, FROM appreciated to the left hip, compartments are soft. 06:47 Skin: Appearance: Color: normal in color. 06:47 Neuro: Orientation: is normal, Mentation: is normal, Memory: is normal. 06:47 Psych: Behavior/mood is pleasant, cooperative. Vital Signs: 05:46 BP 124 / 85; Pulse 95; Resp 16 S; Temp 98.7(O); Pulse Ox 98% on R/A; Weight 113.4 kg bb (R); Height 5 ft. 9 in. (175.26 cm) (R); Pain 10/10; 06:38 BP 128 / 89; Pulse 79; Resp 16; Pulse Ox 97% ; rr5 05:46 Body Mass Index 36.92 (113.40 kg, 175.26 cm) bb MDM: 06:26 Patient medically screened. [facility] 06:50 Data reviewed: vital signs, nurses notes. Counseling: I had a detailed discussion with [facility] the patient and/or guardian regarding: the historical points, exam findings, and any diagnostic results supporting the discharge/admit diagnosis, the need for outpatient follow up, to return to the emergency department if symptoms worsen or persist or if there are any questions or concerns that arise at home. ED course: PE findings consistent with greater trochanter bursitis. Patient is advised to follow up with ortho for reevaluation. Patient is otherwise given strict return precautions. Patient understood and agrees with the plan of care. . 02/08 06:40 Order name: Urine Dipstick--Ancillary (enter results) [facility] 02/08 06:40 Order name: Urine --Ancillary (enter results) [facility] 02/08 06:26 Order name: Urine Test (obtain specimen); Complete Time: 06:37 [facility] 02/08 06:52 Order name: Urine Dipstick-Ancillary (obtain specimen); Complete Time: 06:52 rr5 Administered Medications: 06:43 Drug: Ketorolac 30 mg Route: IM; Site: right deltoid; rr5 06:58 Follow up: Response: No adverse reaction rr5 Disposition: 02/09 04:31 Co-signature as Attending Physician, Scooby Wagoner MD. mh7 Disposition: 02/09/20 06:52 Discharged to Home. Impression: Greater Trochanter Bursitis. - Condition is Stable. - Discharge Instructions: Hip Bursitis. - Prescriptions for orphenadrine citrate 100 mg Oral Tablet Sustained Release - take 1 tablet by ORAL route 2 times per day As needed; 20 tablet. Ibuprofen 800 mg Oral Tablet - take 1 tablet by ORAL route every 8 hours As needed take with food; 30 tablet. - Medication Reconciliation Form, Thank You Letter, Antibiotic Education, Prescription Opioid Use, Work release form form. - Follow up: Jairo Lopez MD; When: 2 - 3 days; Reason: Recheck today's complaints, Continuance of care, Re-evaluation by your physician. Signatures: Dispatcher [employer] EDMS Lon Morales PA PA [facility] Jacey Moody RN RN Sunny Mancera RN RN rr5 Scooby Wagoner MD MD mh7 Corrections: (The following items were deleted from the chart) 02/08 07:02 06:52 02/09/2020 06:52 Discharged to Home. Impression: Greater Trochanter Bursitis. rr5 Condition is Stable. Forms are Medication Reconciliation Form, Thank You Letter, Antibiotic Education, Prescription Opioid Use. Follow up: Jairo Lopez; When: 2 - 3 days; Reason: Recheck today's complaints, Continuance of care, Re-evaluation by your physician. massiel
[2020-02-09 07:08] VITALS: TEMP 98.7
[2020-02-09 07:09] VITALS: BP 128/89; O2SAT 97
[2020-02-09 09:19] LABS: Urine Blood TRACE (NEG); Urine Glucose NEGATIVE (NEG); Urine Protein NEGATIVE (NEG); Urine Specific Gravity >1.030 (1.005-1.030)
== END 2020-02-09 07:02 | disposition home or self-care (01) ==
LOC: ER 05:32
DX: M70.62 Trochanteric bursitis, left hip (principal); F41.8 Other specified anxiety disorders; Y93.9 Activity, unspecified; F17.210 Nicotine dependence, cigarettes, uncomplicated; Z88.6 Allergy status to analgesic agent
CPT/HCPCS: 81003; 81025; 96372; 99284

== ENCOUNTER 2020-08-24 23:52 | Inpatient (IN) | payer BC, SELFPAY ==
--- OUTSIDE RECORDS SUMMARY | 2020-08-24 23:55 | XMS REPORT | Continuity of Care Document ---
:1985 Author Organization [facility] t Address [address] [place] [address] Care Team Providers Name Role Phone Kandace [...] 2019-0 [facility] 2-21 [place] 00:00: d 00 [facility] jalepeno DA Active SV 2014-0 [facility] s 1-25 [place] 00:00: d 00 [facility] Medications This patient has no known medications. Procedures This patient has no known procedures. Encounters Start End Encounter Admission Attending Care Care Encounter Source Date/Time Date/Time Type Type Clinicians Facility Department ID 2019-03-22 2019-03-24 [facility] [id number] 23:58:00 22:10:00 Encounter YeniJanell [id number] Emran Clear [id number] [place] [id number] [place] [address] (CLC) Results Test Description Test Time Test [...] and Drug Admini stration. CALCULI URINARY WITH [id number] 12:04:00 Test Item Value Reference Range Interpretation [...] Drug Admini stration. - XR FLUOROSCOPY 0-60 [id number] 14:10:00 Name: MARCIN WYATT [facility] : 1985 Age/S: 33 / F [id number] [address] Unit #: [id number] Loc: [place] [address] Phys: Enrique Tyler MD Acct: [id number] Dis Date: Status: [facility] PHONE #: [phone] Exam Date: 08/30/2019 1300 FAX #: Reason: STENT CAYDEN CEMENT EXAMS: CPT: [id number] XR FLUOROSCOPY 0-60 MIN 00497 Fluoro Time: 39 SEC DAP (Gy m2): [...] PAGE 1 Signed Report Name: MARCIN WYATT [facility] : 1985 Age/S: 33 / F [id number] Unit #: [id number] Loc: [place] [address] Phys: Enrique Tyler MD Acct: [id number] Dis Date: Status: [facility] PHONE #: [phone] Exam Date: 08/30/2019 1300 FAX #: Reason: STENT PLACEMENT EXAMS: CPT: [id number] XR FLUOROSCOPY 0-60 MIN 64855 Fluoro Time: 39 SEC DAP (Gy m2): Air Kerma (mGy): <Continued> Technologist: Sadia Herbert RT(R) Trnscb Date/Time: 08/30/2019 (1409) [email or web address] Orig Print D/T: S: 08/30/2019 (1414) PAGE 2 Signed ReportUR HCG [id number] 10:41:00 Test Item Value Reference Range Interpretation Comments UR HCG QUAL (test code = HCGQLU) NEGATIVE NEGATIVE BASIC METABOLIC [id number] 10:26:00 Test Item Value Reference Range Interpretation [...] CA) 9.4 MG/DL 8.5-10.1 N BASIC METABOLIC [id number] 10:22:00 Test Item Value Reference Range Interpretation [...] = CA) 9.4 MG/DL 8.5-10.1 N PROTHROMBIN [id number] 10:12:00 Test Item Value Reference Range Interpretation Comments PT PATIENT (test code = PTP) 12.1 SECONDS 9.3-12.9 N INTERNATIONAL NORMAL RATIO 1.07 INR Unit 0.8-1.2 N (test code = INR) THROMBOPLASTIN TIME [id number] 10:12:00 Test Item Value Reference Range Interpretation Comments THROMBOPLASTIN TIME PARTIAL 31.6 SECONDS 26-35 N (test code = PTT) GLUCOSE BEDSIDE [id number] 10:06:00 Test Item Value Reference Range Interpretation Comments GLUCOSE BEDSIDE TESTING (test code 126 mg/dL 70-110 H = GLUBED) CBC W/AUTO [id number] 10:03:00 Test Item Value Reference Range Interpretation [...]
[2020-08-25 01:42] LABS: Absolute Lymphocytes (CBC) 3.1 K/uL (0.7-4.9); Basophils % 0.9 % (0-1.3); Lymphocytes % 26.8 % (15.3-44.8); MPV 8.2 fL (7.6-11.3); Protime INR 0.99
[2020-08-25 01:45] LABS: Urine Blood TRACE (NEG); Urine Glucose NEGATIVE (NEG); Urine Protein 1+ (NEG); Urine Specific Gravity >1.030 (1.005-1.030)
[2020-08-25 01:55] LABS: ALT/SGPT 32 U/L (12-78); AST/SGOT 18 U/L (15-37); Albumin 3.7 g/dL (3.4-5.0); Alkaline Phosphatase 109 U/L (45-117); Bicarbonate 23 mmol/L (21-32); Bilirubin Direct < 0.1 mg/dL (0-0.2); Bilirubin Total 0.4 mg/dL (0.2-1.0); NT PRO-BNP 36 pg/mL (<125); Protein, Total 7.7 g/dL (6.4-8.2); Sodium Level 139 mmol/L (136-145); Troponin (Emerg Dept Use Only) < 0.02 ng/mL (0.0-0.045)
[2020-08-25 02:01] LABS: BUN Blood Urea Nitrogen 15 mg/dL (7-18); Glucose Level 157 mg/dL (74-106)
[2020-08-25 02:11] LABS: Barbiturates NEGATIVE (NEGATIVE); Benzodiazepines NEGATIVE (NEGATIVE); Cocaine NEGATIVE (NEGATIVE); METHAMPHETAM NEGATIVE (NEGATIVE); Methadone NEGATIVE (NEGATIVE); Opiates NEGATIVE (NEGATIVE); Phencyclidine NEGATIVE (NEGATIVE); THC Cannibis NEGATIVE (NEGATIVE)
--- NOTE | 2020-08-25 02:47 | ER ---
Nurse's Notes [facility] Name: Paulette Nielsen Age: 34 yrs Sex: Female : 1985 Arrival Date: 08/24/2020 Time: 23:54 Bed 7 Private MD: Diagnosis: Chest pain, unspecified Presentation: 08/24 23:58 Chief complaint: Patient states: I am have chest pain that radiates to my right jb4 shoulder and upper back. The pain is causing me to feel nauseous. The pain started about an hour ago and is a pressure pain. Coronavirus screen: Client denies travel out of the [place] in the last 14 days. At this time, the client does not indicate any symptoms associated with coronavirus-19. Ebola Screen: Patient negative for fever greater than or equal to 101.5 degrees Fahrenheit, and additional compatible Ebola Virus Disease symptoms. Initial Sepsis Screen: Does the patient meet any 2 criteria? No. Patient's initial sepsis screen is negative. Does the patient have a suspected source of infection? No. Patient's initial sepsis screen is negative. Risk Assessment: Do you want to hurt yourself or someone else? Patient reports no desire to harm self or others. Onset of symptoms was August 25, 2020. 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 - Social history:: Smoking status: Patient reports the use of cigarette tobacco products, 5 cigarettes per day, Patient/guardian denies using alcohol, street drugs. Screenin:18 Abuse screen: Denies threats or abuse. Denies injuries from another. Nutritional mg2 screening: No deficits noted. Tuberculosis screening: No symptoms or risk factors identified. Fall Risk IV access (20 points). Assessment: 01:17 General: Appears in no apparent distress. comfortable, Behavior is calm, cooperative. mg2 Pain: Complains of pain in chest Pain radiates to back Pain Quality of pain is described as aching, Pain began gradually, 1 hour ago. Is intermittent. Neuro: Level of Consciousness is awake, alert, obeys commands, Oriented to person, place, time, situation. Cardiovascular: Reports chest pain, Capillary refill. Respiratory: Airway is patent Respiratory effort is even, unlabored, Respiratory pattern is regular, symmetrical. GI: No signs and/or symptoms were reported involving the gastrointestinal system. : No signs and/or symptoms were reported regarding the genitourinary system. EENT: No signs and/or symptoms were reported regarding the EENT system. Derm: Skin is intact, is healthy with good turgor. Musculoskeletal: Circulation, motion, and sensation intact. Capillary refill < 3 seconds. 02:35 Reassessment: Patient appears in no apparent distress at this time. Patient is alert, rr5 oriented x 3, equal unlabored respirations, skin warm/dry/pink. hospitalist at bedside. Vital Signs: 08/24 23:58 BP 139 / 98; Pulse 77; Resp 18; Temp 98.3(O); Pulse Ox 98% on R/A; Weight 115.67 kg jb4 (R); Height 5 ft. 9 in. (175.26 cm) (R); Pain 7/10; 08/25 02:39 BP 135 / 80; Pulse 70; Resp 16; Pulse Ox 99% ; rr5 08/24 23:58 Body Mass Index 37.66 (115.67 kg, 175.26 cm) jb4 ED Course: 08/24 23:54 Patient arrived in ED. cf2 08/25 00:00 Triage completed. jb4 00:02 Arm band placed on right wrist. EKG completed in triage. Results shown to . jb4 00:56 Scooby Wagoner MD is Attending Physician. 7 01:00 Miguel Daly, ERICA is Primary Nurse. mg2 01:16 No provider procedures requiring assistance completed. Inserted saline lock: 22 gauge mg2 in left forearm, using aseptic technique. upper arm, using aseptic technique. Blood collected. Patient maintains SpO2 saturation greater than 95% on room air. 01:18 Patient has correct armband on for positive identification. cafeteria monitor on. Pulse mg2 ox on. NIBP on. Door closed. Warm blanket given. 02:06 XRAY Chest (1 view) In Process Unspecified. EDMS 02:46 Sunny Sampson MD is Hospitalizing Provider. 7 03:00 COVID swab sent to lab. rr5 03:00 Patient admitted, IV remains in place. intact, No redness/swelling at site. rr5 Administered Medications: 02:52 Drug: Aspirin Chewable Tablet 324 mg Route: PO; mg2 02:52 Drug: Rocephin - (cefTRIAXone) 1 grams Route: IVPB; Infused Over: 30 mins; Site: left mg2 upper arm; 02:52 Drug: Nicotine 21 mg/24 hr 1 patches Route: Transdermal; Site: affected area; mg2 Outcome: 02:46 Decision to Hospitalize by Provider. mh7 03:00 Admitted to ER Hold. Please see [facility] for further documentation. rr5 03:00 Condition: stable 03:00 Instructed on the need for admit. 08:55 Patient left the ED. jd3 Signatures: Dispatcher [employer] EDMS Álvaro Barrientos RN RN jb4 Dayday Abad RN RN jd3 Miguel Daly RN RN mg2 Sunny Avina RN RN rr5 Monik Yoo cf2 Scooby Wagoner MD MD 7
--- NOTE | 2020-08-25 02:48 | EDPHYS ---
Physician Documentation [facility] Name: Paulette Nielsen Age: 34 yrs Sex: Female : 1985 Arrival Date: 08/24/2020 Time: 23:54 Bed 7 Private MD: ED Physician Scooby Wagoner HPI: 08/25 01:18 This 34 yrs old Female presents to ER via Ambulatory with complaints of Chest mh7 Pain, Back Pain, Shoulder Pain, Nausea. 01:18 The patient or guardian reports chest pain that is located primarily in the anterior mh7 chest wall, right. The pain radiates to the right shoulder, right back. Associated signs and symptoms: Pertinent positives: nausea, Pertinent negatives: abdominal pain, cough, diaphoresis, dizziness, headache, lower extremity pain, lower extremity swelling, lightheadedness, near syncope, palpitations, recent travel, shortness of breath, syncope, vomiting. The chest pain is described as sharp. Duration: The patient or guardian reports multiple episodes, that are intermittent, that wax and wane, with no pattern. Modifying factors: The symptoms are alleviated by nothing. the symptoms are aggravated by nothing. Severity of pain: At its worst the pain was moderate today, in the emergency department the pain has improved moderately. 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 - Social history:: Smoking status: Patient reports the use of cigarette tobacco products, 5 cigarettes per day, Patient/guardian denies using alcohol, street drugs. ROS: 01:18 Constitutional: Negative for fever, chills, and weight loss, Eyes: Negative for injury, mh7 pain, redness, and discharge, ENT: Negative for injury, pain, and discharge, Neck: Negative for injury, pain, and swelling, Respiratory: Negative for shortness of breath, cough, wheezing, and pleuritic chest pain, Back: Negative for injury and pain, : Negative for injury, bleeding, discharge, and swelling, MS/Extremity: Negative for injury and deformity, Skin: Negative for injury, rash, and discoloration, Neuro: Negative for headache, weakness, numbness, tingling, and seizure, Psych: Negative for depression, anxiety, suicide ideation, homicidal ideation, and hallucinations, Allergy/Immunology: Negative for hives, rash, and allergies, Endocrine: Negative for neck swelling, polydipsia, polyuria, polyphagia, and marked weight changes, Hematologic/Lymphatic: Negative for swollen nodes, abnormal bleeding, and unusual bruising. Exam: 01:18 Constitutional: This is a well developed, well nourished patient who is awake, alert, mh7 and in no acute distress. Head/Face: Normocephalic, atraumatic. Eyes: Pupils equal round and reactive to light, extra-ocular motions intact. Lids and lashes normal. Conjunctiva and sclera are non-icteric and not injected. Cornea within normal limits. Periorbital areas with no swelling, redness, or edema. Neck: Trachea midline, no thyromegaly or masses palpated, and no cervical lymphadenopathy. Supple, full range of motion without nuchal rigidity, or vertebral point tenderness. No Meningismus. 01:18 Chest/axilla: Normal chest wall appearance and motion. Nontender with no deformity. No lesions are appreciated. Cardiovascular: Regular rate and rhythm with a normal S1 and S2. No gallops, murmurs, or rubs. Normal PMI, no JVD. No pulse deficits. Respiratory: Lungs have equal breath sounds bilaterally, clear to auscultation and percussion. No rales, rhonchi or wheezes noted. No increased work of breathing, no retractions or nasal flaring. Abdomen/GI: Soft, non-tender, with normal bowel sounds. No distension or tympany. No guarding or rebound. No evidence of tenderness throughout. Back: No spinal tenderness. No costovertebral tenderness. Full range of motion. Skin: Warm, dry with normal turgor. Normal color with no rashes, no lesions, and no evidence of cellulitis. MS/ Extremity: Pulses equal, no cyanosis. Neurovascular intact. Full, normal range of motion. Neuro: Awake and alert, GCS 15, oriented to person, place, time, and situation. Cranial nerves II-XII grossly intact. Motor strength 5/5 in all extremities. Sensory grossly intact. Cerebellar exam normal. Normal gait. Psych: Awake, alert, with orientation to person, place and time. Behavior, mood, and affect are within normal limits. Vital Signs: 08/24 23:58 BP 139 / 98; Pulse 77; Resp 18; Temp 98.3(O); Pulse Ox 98% on R/A; Weight 115.67 kg jb4 (R); Height 5 ft. 9 in. (175.26 cm) (R); Pain 7/10; 08/25 02:39 BP 135 / 80; Pulse 70; Resp 16; Pulse Ox 99% ; rr5 08/24 23:58 Body Mass Index 37.66 (115.67 kg, 175.26 cm) jb4 MDM: 02:44 Differential diagnosis: acute myocardial infarction, acute pericarditis, anxiety, mh7 coronary artery disease congestive heart failure costochondritis, myocarditis, pericarditis, pneumonia. HEART Score: History: Moderately Suspicious (1), ECG: Non specific repolarization disturbance / LBTB / PM (1), Age: < or = 45 years (0), Risk Factors: > or = 3 Risk factors for atherosclerotic disease (2), [Hypertension] [DM] [Active Smoker] [+ Family HX] Troponin: < or = 1 x Normal Limit (0), Total Score = 4. Data reviewed: vital signs, nurses notes, lab test result(s), cardiac enzymes, CBC, electrolytes, urinalysis, EKG, radiologic studies, plain films. Data interpreted: Pulse oximetry: on room air is 99 %. Interpretation: normal. Counseling: I had a detailed discussion with the patient and/or guardian regarding: the historical points, exam findings, and any diagnostic results supporting the discharge/admit diagnosis, the presence of at least one elevated blood pressure reading (>120/80) during this emergency department visit, lab results, radiology results, the need for further work-up and treatment in the hospital. Response to treatment: the patient's symptoms have mildly improved after treatment. 02:46 Patient medically screened. 7 08/25 01:04 Order name: Basic Metabolic Panel mg2 08/25 01:04 Order name: CBC with Diff; Complete Time: 01:57 mg2 08/25 01:04 Order name: LFT's; Complete Time: 02:27 mg2 08/25 01:04 Order name: Magnesium; Complete Time: 02:27 mg2 08/25 01:04 Order name: NT PRO-BNP; Complete Time: 02:27 mg2 08/25 01:04 Order name: PT-INR; Complete Time: 01:57 mg2 08/25 01:04 Order name: Troponin (emerg Dept Use Only); Complete Time: 02:27 mg2 08/25 01:05 Order name: Basic Metabolic Panel; Complete Time: 02:27 EDMS 08/25 01:11 Order name: UDS; Complete Time: 02:27 7 08/25 01:44 Order name: Urine Microscopic Only tt3 08/25 01:44 Order name: Urine Culture tt3 08/25 01:44 Order name: Urine --Ancillary (enter results) tt3 08/25 01:44 Order name: Urine Dipstick--Ancillary (enter results) tt3 08/25 00:10 Order name: EKG - Nurse/Tech; Complete Time: 00:10 jb4 08/25 01:04 Order name: XRAY Chest (1 view) mg2 08/25 01:04 Order name: EKG; Complete Time: 01:05 mg2 08/25 01:04 Order name: Cardiac monitoring; Complete Time: 01:16 mg2 08/25 01:04 Order name: IV Saline Lock; Complete Time: 01:16 mg2 08/25 01:04 Order name: Labs collected and sent; Complete Time: 01:16 mg2 08/25 01:04 Order name: O2 Per Protocol; Complete Time: 01:16 mg2 08/25 01:04 Order name: O2 Sat Monitoring; Complete Time: 01:16 mg2 08/25 01:11 Order name: Urine Dipstick-Ancillary (obtain specimen); Complete Time: 01:41 7 08/25 01:11 Order name: Urine Test (obtain specimen); Complete Time: 01:41 mh7 08/25 04:25 Order name: SARS-COV-2 RT PCR EDMS 08/25 08:24 Order name: Glucose, Ancillary Testing EDMS Administered Medications: 02:52 Drug: Aspirin Chewable Tablet 324 mg Route: PO; mg2 02:52 Drug: Rocephin - (cefTRIAXone) 1 grams Route: IVPB; Infused Over: 30 mins; Site: left mg2 upper arm; 02:52 Drug: Nicotine 21 mg/24 hr 1 patches Route: Transdermal; Site: affected area; mg2 Disposition: 08/25/20 02:46 Hospitalization ordered by Sunny Sampson for Observation. Preliminary diagnosis is Chest pain, unspecified. - Bed requested for Telemetry/MedSurg (observation). - Status is Observation. jd3 - Condition is Stable. - Problem is new. - Symptoms have improved. Signatures: Dispatcher [employer] EDMS Marc Viera, JEWELRY APPRAISER-C JEWELRY APPRAISER-Cla1 Lu Oliveira, RN RN cg Álvaro Barrientos RN RN jb4 Dayday Abad RN RN jd3 Rosanna Hennessy Michele, RN RN mg2 Scooby Wagoner MD MD mh7 Corrections: (The following items were deleted from the chart) 02:57 02:46 Hospitalization Ordered by Sunny Sampson MD for Observation. Preliminary cg diagnosis is Chest pain, unspecified. Bed requested for Telemetry/MedSurg (observation). Status is Observation. Condition is Stable. Problem is new. Symptoms have improved. [facility] 03:05 02:54 CORONAVIRUS+MR.LAB.BRZ ordered. EDDC EDMS 08:13 02:57 08/25/2020 02:46 Hospitalization Ordered by Sunny Sampson MD for Observation. eb Preliminary diagnosis is Chest pain, unspecified. Bed requested for [facility] ER HOLD. Status is Observation. Condition is Stable. Problem is new. Symptoms have improved. cg 08:55 08:13 08/25/2020 02:46 Hospitalization Ordered by Sunny Sampson MD for Observation. jd3 Preliminary diagnosis is Chest pain, unspecified. Bed requested for Telemetry/MedSurg (observation). Status is Observation. Condition is Stable. Problem is new. Symptoms have improved. eb
--- NOTE | 2020-08-25 03:00 | P.HP ---
Certification for Inpatient Patient admitted to: Observation With expected LOS: <2 Midnights Patient will require the following post-hospital care: None Practitioner: I am a practitioner with admitting privileges, knowledge of patient current condition, hospital course, and medical plan of care. Services: Services provided to patient in accordance with Admission requirements found in Title 42 Section 412.3 of the Code of Federal Regulations <Marc Viera - Last Filed: 08/25/20 02:56> Patient History Date of Service: 08/25/20 Reason for admission: Chest pain History of Present Illness: 34-year-old female history of hypertension, hyperlipidemia, diabetes mellitus type 2, bipolar disorder, Hodgkin's lymphoma, tobacco abuse, obesity presents emergency department for chest pain. Patient reports that she is trying to fall asleep when she began experiencing aching/pressure-like chest pain to the right anterior chest wall radiating to her neck and right periscapular area, associated diaphoresis and dizziness. Severe pain lasted for approximately 1-2 hr, patient is still experiencing some mild discomfort at this time. Patient worked up in the emergency department, initial troponin negative chest x-ray unremarkable EKG unremarkable. Patient found to have UTI does report some urinary frequency. Patient's mother and father both in their 50s and 60s from heart disease/[place]. ED provider wishes to admit patient for further evaluation and management. - Past Medical/Surgical History -: Diabetes mellitus type 2 -: Hypertension -: Hyperlipidemia -: History of Hodgkin's lymphoma -: Bipolar disorder -: Anxiety with depression -: Tobacco abuse -: Kidney stones -: -: Lithotripsy -: Uterine stent Psychosocial/ Personal History: Patient employed at [employer] [facility] - Family History Father -: Heart disease Mother -: Heart disease - Social History Smoking Status: Current every day smoker Counseled patient to stop smoking for: less than 10 minutes Smoking therapy provided: Yes Patient receptive to therapy: Yes Alcohol use: No CD- Drugs: No Caffeine use: Yes Place of Residence: Home <Marc Viera - Last Filed: 08/25/20 02:56> Date of Service: 08/25/20 <Sunny Sampson - Last Filed: 08/25/20 13:18> Allergies morphine Allergy (Mild, Verified 08/25/20 11:18) Shortness of breath Home Medications: NK [No Home Meds] 08/25/20 Review of Systems Cardiovascular: Chest Pain, Light Headedness, Other (Diaphoresis dizziness) <Marc Viera - Last Filed: 08/25/20 02:56> Physical Examination - Physical Exam General: Alert, In no apparent distress HEENT: Atraumatic, PERRLA, Mucous membr. moist/pink Neck: Supple, 2+ carotid pulse no bruit, No LAD Respiratory: Clear to auscultation bilaterally, Normal air movement Cardiovascular: Regular rate/rhythm, Normal S1 S2 Gastrointestinal: Normal bowel sounds, No tenderness Musculoskeletal: No tenderness Integumentary: No rashes Neurological: Normal speech, Normal strength at 5/5 x4 extr, Normal tone, Normal affect - Studies Laboratory Data (last 24 hrs) 08/25/20 01:10: PT 11.4, INR 0.99 08/25/20 01:10: WBC 11.60 H, Hgb 13.0, Hct 40.0, Plt Count 289 08/25/20 01:10: Sodium 139, Potassium 4.0, BUN 15, Creatinine 0.80, Glucose 157 H, Magnesium 2.0, Total Bilirubin 0.4, AST 18, ALT 32, Alkaline Phosphatase 109 <Marc Viera - Last Filed: 08/25/20 02:56> - Studies Laboratory Data (last 24 hrs) 08/25/20 09:24: Troponin I < 0.02 08/25/20 01:10: PT 11.4, INR 0.99 08/25/20 01:10: WBC 11.60 H, Hgb 13.0, Hct 40.0, Plt Count 289 08/25/20 01:10: Sodium 139, Potassium 4.0, BUN 15, Creatinine 0.80, Glucose 157 H, Magnesium 2.0, Total Bilirubin 0.4, AST 18, ALT 32, Alkaline Phosphatase 109 <Sunny Sampson - Last Filed: 08/25/20 13:18> Assessment and Plan - Plan Assessment Chest pain rule out ACS Diabetes mellitus type 2 Hypertension Hyperlipidemia Bipolar disorder Anxiety with depression Plan Chest pain rule out ACS: Trend troponins, monitor on telemetry. Daily aspirin/atorvastatin. Patient previously on Bystolic, will start this. Patient not taking any other medications at this time due to financial issues/follow up. Cardiology consult in place. Patient with multiple risk factors, family history. DVT prophylaxis Lovenox 40 mg subcutaneous once daily. Appreciate further input from cardiology. Diabetes mellitus type 2: A.c. HS Accu-Cheks, sliding scale insulin therapy. A1c with morning lab Hypertension: Continue Bystolic Hyperlipidemia: Initiate atorvastatin, lipid panel with morning labs Bipolar disorder: Obtain and continue home medications as appropriate Anxiety with depression:Obtain and continue home medications as appropriate Discharge Plan: Home Plan to discharge in: 24 Hours - Advance Directives Does patient have a Living Will: No Does patient have a Durable POA for Healthcare: No - Code Status/Comfort Care Code Status Assessed: Yes (Full code) Critical Care: No Time Spent Managing Pts Care (In Minutes): 55 <Marc Viera - Last Filed: 08/25/20 02:56> - Plan Plan of care reviewed as noted by Marc Viera, and I agree with the management plan as noted above. Trend troponins. patient reports severe pain has gone, but continues with mild achy pain, in middle / right chest cardiology consulted. nontender on exam <Sunny Sampson - Last Filed: 08/25/20 13:18>
[2020-08-25] MEDS ORDERED: ASPIRIN 81 MG CHEWABLE TABLET ONE (03:01)
[2020-08-25] MEDS ORDERED: NICOTINE 21 MG/PAT TD ONE (03:02)
[2020-08-25] MEDS ORDERED: CEFTRIAXONE/SWI 1gm 1 GM/10 ML SYR ONE (03:02)
[2020-08-25 03:34] LABS: Calcium Oxalate Crystals- Ur MODERATE (NONE SEEN); Urine Bacteria LOADED /HPF (<20); Urine Mucus 2+ /HPF (NONE SEEN)
[2020-08-25] MEDS ORDERED: ONDANSETRON 4 MG/2 ML VIAL IV PRN (03:34)
[2020-08-25] MEDS ORDERED: ACETAMINOPHEN 500 MG TAB PO PRN (03:34)
[2020-08-25 03:48] VITALS: BMI 37.6
[2020-08-25] MEDS: INSULIN -REGULAR HUMAN 50 UNIT/0.5 ML ML SQ SCH ×2 (07:30→13:12)
[2020-08-25] MEDS ORDERED: NITROFURAN MACRO 100 MG CAP PO SCH (08:00)
--- NOTE | 2020-08-25 08:31 | RAD REPORT ---
EXAM DESCRIPTION: RAD - Chest Single View - 08/25/2020 2:06 am CLINICAL HISTORY: CHEST PAIN COMPARISON: Two view chest August 2016 TECHNIQUE: AP portable chest image was obtained 08/25/2020 2:06 am . FINDINGS: Lungs are clear. Heart and vasculature are normal. No measurable pleural effusion and no p neumothorax. No acute bony abnormality seen. No acute aortic findings suspected. IMPRESSION: No acute cardiopulmonary process. No significant change from comparison study.
[2020-08-25] MEDS ORDERED: NEBIVOLOL HCL 5 MG TAB PO SCH (09:00)
[2020-08-25] MEDS ORDERED: ENOXAPARIN 40 MG/0.4 ML SQ SCH (09:00)
[2020-08-25 09:56] LABS: Troponin I < 0.02 ng/mL (0.0-0.045)
[2020-08-25] MEDS ORDERED: IBUPROFEN 600 MG TAB PO PRN (11:14)
[2020-08-25 11:41] VITALS: O2SAT 94
[2020-08-25 17:43] VITALS: BP 119/63; TEMP 97.8
[2020-08-25] MEDS ORDERED: ATORVASTATIN 40 MG TAB PO SCH (21:00)
[2020-08-26] MEDS ORDERED: ASPIRIN EC 81 MG TAB PO SCH (09:00)
--- NOTE | 2020-09-01 13:37 | P.DS ---
Admission Date: 08/25/20 Discharge Date: 08/25/20 Disposition: ROUTINE DISCHARGE Discharge Condition: GOOD Reason for Admission: Chest pain Consultations: Cardiology - Dr. Li Procedures: CXR (08/25): No acute cardiopulmonary process. No significant change from comparison study. Problem List: Chest pain Diabetes mellitus type 2, non-insulin dependent Hypertension Hyperlipidemia Bipolar disorder Anxiety with depression Hodgkin's lymphoma Brief History of Present Illness: 34yo F, PMH:HLD, HTN, diabetes mellitus type 2, bipolar disorder, Hodgkin's lymphoma, tobacco abuse, obesity presented to ED for chest pain. Patient reports that she is trying to fall asleep when she began experiencing aching/pressure-like chest pain to the right anterior chest wall radiating to her neck and right periscapular area, associated diaphoresis and dizziness. Severe pain lasted for approximately 1-2 hr, patient is still experiencing some mild discomfort at this time. Patient worked up in the emergency department, initial troponin negative chest x-ray unremarkable EKG unremarkable. Patient found to have UTI does report some urinary frequency. Patient's mother and father both in their 50s and 60s from heart disease/[place]. ED provider wishes to admit patient for further evaluation and management. Hospital Course: Troponins were trended and remained negative. Patient's chest pain improved / nearly resolved. ACS was effectively ruled out. Cardiology was consulted and recommended close follow up for outpatient stress testing. Patient was also found to have a UTI and given prescription for macrobid. Final culture pending at time of discharge. Low risk of resistant bacterial infection. Vital Signs/Physical Exam: Physical Exam General: Alert, In no apparent distress HEENT: Atraumatic, PERRLA, Mucous membr. moist/pink Neck: Supple, 2+ carotid pulse no bruit, No LAD Respiratory: Clear to auscultation bilaterally, Normal air movement Cardiovascular: Regular rate/rhythm, Normal S1 S2 Gastrointestinal: Normal bowel sounds, No tenderness Musculoskeletal: No chest wall tenderness Integumentary: No rashes Temp Pulse Resp BP Pulse Ox 97.8 F 73 18 119/63 95 08/25/20 16:00 08/25/20 16:00 08/25/20 16:00 08/25/20 16:00 08/25/20 16:00 Laboratory Data at Discharge: WBC 11.60 K/uL (4.3-10.9) H 08/25/20 01:10 Hgb 13.0 g/dL (12.0-15.0) 08/25/20 01:10 Hct 40.0 % (36.0-45.0) 08/25/20 01:10 Plt Count 289 K/uL (152-406) 08/25/20 01:10 PT 11.4 SECONDS (9.5-12.5) 08/25/20 01:10 INR 0.99 08/25/20 01:10 Sodium 139 mmol/L (136-145) 08/25/20 01:10 Potassium 4.0 mmol/L (3.5-5.1) 08/25/20 01:10 BUN 15 mg/dL (7-18) 08/25/20 01:10 Creatinine 0.80 mg/dL (0.55-1.3) 08/25/20 01:10 Glucose 157 mg/dL (74-106) H 08/25/20 01:10 Magnesium 2.0 mg/dL (1.8-2.4) 08/25/20 01:10 Total Bilirubin 0.4 mg/dL (0.2-1.0) 08/25/20 01:10 AST 18 U/L (15-37) 08/25/20 01:10 ALT 32 U/L (12-78) 08/25/20 01:10 Alkaline Phosphatase 109 U/L (45-117) 08/25/20 01:10 Troponin I < 0.02 ng/mL (0.0-0.045) 08/25/20 15:34 Home Medications: Fluconazole [Diflucan] 100 mg PO SEECOM #2 tablet 08/25/20 Nitrofuran Macro [Macrobid*] 100 mg PO BIDWM 7 Days #14 cap 08/25/20 New Medications: Fluconazole [Diflucan] 100 mg PO SEECOM #2 tablet Nitrofuran Macro [Macrobid*] 100 mg PO BIDWM 7 Days #14 cap Physician Discharge Instructions: Your chest pain was evaluated - your ekg and troponin (cardiac enzyme) were normal and did not suggest heart damage. You were also found to have a UTI and will be discharged with a prescription of nitrofurantoin (antibiotic). Please follow up with Cardiology in the next few days for a stress test. Continue home medications as prescribed. Diet: ADA Activity: Ad rocio Followup: Wilfredo Euceda MD [ACTIVE - CAN ADMIT] - NONE,NONE [Primary Care Provider] - Time spent managing pt's care (in minutes): 45
== END 2020-08-25 18:11 | disposition home or self-care (01) | DRG 690 ==
LOC: ER 23:52 → ERHOLD 08-25 02:49 → 2ND 08-25 08:29 → OBSVTOIN 08-25 09:40
PROVIDERS: ADMIT Hospitalist; ATTEND Hospitalist
DX: N39.0 Urinary tract infection, site not specified (principal); I10 Essential (primary) hypertension; E78.5 Hyperlipidemia, unspecified; F31.9 Bipolar disorder, unspecified; E11.9 Type 2 diabetes mellitus without complications; F41.8 Other specified anxiety disorders; F17.200 Nicotine dependence, unspecified, uncomplicated; Z71.6 Tobacco abuse counseling; Z91.09 Other allergy status, other than to drugs and biological substances; Z88.5 Allergy status to narcotic agent; Z20.822 Contact with and (suspected) exposure to COVID-19
CPT/HCPCS: 36415; 71045; 80048; 80076; 80307; 81003; 81015; 81025; 82947; 83735; 83880; 84439; 84443; 84484; 85025; 85610; 87077; 87086; 87088; 87186; 96374; 99285; G0378; J0696; J1650; U0003

== ENCOUNTER 2020-12-16 07:40 | Emergency (ER) | payer BC, SELFPAY ==
[2020-12-16 08:07] LABS: Urine Blood 2+ (Negative); Urine Glucose Negative (Negative); Urine Protein Negative (Negative); Urine Specific Gravity 1.025 (1.005-1.030)
[2020-12-16 08:27] LABS: Absolute Lymphocytes (CBC) 2.5 K/uL (0.7-4.9); Basophils % 0.5 % (0-1.3); Hematocrit 36.6 % (36.0-45.0); Lymphocytes % 24.5 % (15.3-44.8); MPV 8.6 fL (7.6-11.3); RBC Red Blood Cell Count 4.36 M/uL (3.86-4.86)
[2020-12-16 08:29] LABS: Urine Bacteria <20 /HPF (<20); Urine Mucus 1+ /HPF (NONE SEEN)
[2020-12-16 08:33] LABS: Urine Specific Gravity/Preg 1.025 (1.005-1.030)
[2020-12-16 09:09] LABS: Potassium 4.1 mmol/L (3.5-5.1)
--- NOTE | 2020-12-16 10:11 | RAD REPORT ---
EXAM DESCRIPTION: US - Transvaginal OB - 12/16/2020 8:44 am CLINICAL HISTORY: Abd cramping, ;Vaginal bleeding COMPARISON: No comparisons FINDINGS: A single gestational sac is seen within the uterus. The shape of the sac is within normal limits for gestational age. Within the sac is a single pole with crown-rump length of 4 mm, cor relating to estimated gestational age of 6 weeks 2 days. Estimated date of delivery is 08/09/2021. Heart rate is 100 BPM. The placenta is not yet developed due to early gestational age. Small 9 x 4 mm subchorionic bleed is present inferiorly. The maternal adnexa within normal limits. The left ovary is normal with normal blood flow. The right ovary was obscured by bowel gas. IMPRESSION: Single live early intrauterine gestation with estimated gestational age of 6 weeks 2 day s, MARVIN 08/09/2021. Small 9 x 4 mm inferior subchorionic bleed.
--- NOTE | 2020-12-16 10:22 | EDPHYS ---
Physician Documentation [facility] Name: Paulette Nielsen Age: 35 yrs Sex: Female : 1985 Arrival Date: 12/16/2020 Time: 07:47 Bed 5 Private MD: Austin Peraza T ED Physician Liam Sampson HPI: 12/16 08:00 This 35 yrs old Female presents to ER via Ambulatory with complaints of rn Abdominal Pain, pink discharge, possible blood. 08:00 The patient presents with vaginal bleeding that is light. Onset: The symptoms/episode rn began/occurred this morning. Modifying factors: The symptoms are alleviated by nothing, the symptoms are aggravated by nothing. Associated signs and symptoms: Pertinent positives: Pertinent negatives: dysuria, fever, vomiting. Severity of symptoms: At their worst the symptoms were very mild, in the emergency department the symptoms are unchanged. The patient has not experienced similar symptoms in the past. The patient has not recently seen a physician. at approx 8 weeks by dates, presents with pinkish/red toilet water after using bathroom, + hx of kidney stones, no vaginal discharge, + mild lower abd cramping, has not had u/s of this yet. . 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 - Social history:: Smoking status: Patient denies any tobacco usage or history of. - Family history:: not pertinent. - Hospitalizations: : No recent hospitalization is reported. ROS: 08:00 Constitutional: Negative for fever, chills, and weight loss, Eyes: Negative for injury, rn pain, redness, and discharge, Neck: Negative for injury, pain, and swelling, Cardiovascular: Negative for chest pain, palpitations, and edema, Respiratory: Negative for shortness of breath, cough, wheezing, and pleuritic chest pain, Abdomen/GI: Negative for abdominal pain, nausea, vomiting, diarrhea, and constipation, Back: Negative for injury and pain, : + possible vaginal vs urethral blood MS/Extremity: Negative for injury and deformity, Skin: Negative for injury, rash, and discoloration, Neuro: Negative for headache, weakness, numbness, tingling, and seizure. Exam: 08:00 Constitutional: This is a well developed, well nourished patient who is awake, alert, rn and in no acute distress. Ambulatory to room without difficulty. Head/Face: Normocephalic, atraumatic. Eyes: Periorbital areas with no swelling, redness, or edema. Cardiovascular: Regular rate and rhythm. No pulse deficits. Respiratory: No increased work of breathing, no retractions or nasal flaring. Abdomen/GI: soft, non-tender Skin: Warm, dry MS/ Extremity: Pulses equal, no cyanosis. Neurovascular intact. Full, normal range of motion. Equal circumference. Neuro: Awake and alert, GCS 15 Vital Signs: 07:55 BP 148 / 106; Pulse 88; Resp 17; Temp 98.4; Pulse Ox 99% ; Height 5 ft. 9 in. (175.26 ll1 cm); Pain 7/10; 09:00 BP 120 / 75; Pulse 70; Resp 16; Pulse Ox 100% ; rb3 10:18 BP 126 / 93; Pulse 64; Resp 17; Pulse Ox 100% ; rb3 MDM: 07:48 Patient medically screened. rn 10:17 Differential diagnosis: urinary tract infection, subchorionic hemorrhage. Data rn reviewed: vital signs, nurses notes, lab test result(s), radiologic studies, ultrasound, and as a result, I will discharge patient. Counseling: I had a detailed discussion with the patient and/or guardian regarding: the historical points, exam findings, and any diagnostic results supporting the discharge/admit diagnosis, lab results, radiology results, the need for outpatient follow up, to return to the emergency department if symptoms worsen or persist or if there are any questions or concerns that arise at home. Special discussion: I discussed with the patient/guardian in detail that at this point there is no indication for admission to the hospital. It is understood, however, that if the symptoms persist or worsen the patient needs to return immediately for re-evaluation. ED course: + threatened Ab with subchorionic bleed and UTI, will dchome with macrobid and OB f/u.. 12/16 07:59 Order name: Quantitative Hcg; Complete Time: 10:10 rn 12/16 07:59 Order name: Abo/rh Typing; Complete Time: 10:10 rn 12/16 07:59 Order name: Basic Metabolic Panel; Complete Time: 10:10 rn 12/16 07:59 Order name: CBC with Diff; Complete Time: 10:10 rn 12/16 07:59 Order name: Urine Microscopic Only; Complete Time: 10:10 rn 12/16 08:07 Order name: Urine Dipstick-Ancillary; Complete Time: 10:10 EDMS 12/16 07:59 Order name: US Transvaginal Ob; Complete Time: 10:17 rn 12/16 07:59 Order name: NPO; Complete Time: 08:19 rn 12/16 07:59 Order name: Urine Test (obtain specimen); Complete Time: 08:19 rn 12/16 07:59 Order name: IV Saline Lock; Complete Time: 08:19 rn 12/16 08:10 Order name: Urine --Ancillary (enter results) 12/16 08:11 Order name: Urine --Ancillary EDIL 12/16 08:30 Order name: Urine Culture EDIL 12/16 09:14 Order name: ABO/RH no charge; Complete Time: 10:10 EDIL 12/16 07:59 Order name: Labs collected and sent; Complete Time: 08:19 rn 12/16 07:59 Order name: Urine Dipstick-Ancillary (obtain specimen); Complete Time: 08:19 rn Administered Medications: No medications were administered Disposition: 12/16/20 10:21 Discharged to Home. Impression: Threatened , Urinary tract infection, site not specified. - Condition is Stable. - Discharge Instructions: Threatened Miscarriage, Urinary Tract Infection, Adult, Pelvic Rest. - Prescriptions for Macrobid 100 mg Oral Capsule - take 1 capsule by ORAL route every 12 hours for 10 days; 20 capsule. - Medication Reconciliation Form, Thank You Letter, Antibiotic Education, Prescription Opioid Use, Work release form form. - Follow up: Private Physician; When: As needed; Reason: Recheck today's complaints, Re-evaluation by your physician. - Problem is new. - Symptoms have improved. Signatures: Dispatcher [employer] EDMS Liam Sampson MD MD rn Calderon, Audri, RN RN aa5 Chrissie Gallardo RN RN ll1 Corrections: (The following items were deleted from the chart) 11:09 10:21 12/16/2020 10:21 Discharged to Home. Impression: Threatened ; Urinary aa5 tract infection, site not specified. Condition is Stable. Forms are Medication Reconciliation Form, Thank You Letter, Antibiotic Education, Prescription Opioid Use. Follow up: Private Physician; When: As needed; Reason: Recheck today's complaints, Re-evaluation by your physician. Problem is new. Symptoms have improved. rn
--- NOTE | 2020-12-16 10:22 | ER ---
Nurse's Notes [facility] Name: Paulette Nielsen Age: 35 yrs Sex: Female : 1985 Arrival Date: 12/16/2020 Time: 07:47 Bed 5 Private MD: Austin Peraza T Diagnosis: Threatened ;Urinary tract infection, site not specified Presentation: 12/16 07:55 Chief complaint: Patient states: L flank pain with nausea and diarrhea that started ll1 this morning. No dysuria or fever, but noticed urinary frequency. Reports light pink vaginal discharge this morning. Approximately 8 weeks , G2, P1. LMP November 03. Coronavirus screen: Client denies travel out of the [place] in the last 14 days. At this time, the client does not indicate any symptoms associated with coronavirus-19. Ebola Screen: Patient denies travel to an Ebola-affected area in the 21 days before illness onset. Initial Sepsis Screen: Does the patient meet any 2 criteria? No. Patient's initial sepsis screen is negative. Does the patient have a suspected source of infection? Yes: Acute abdominal pain. Risk Assessment: Do you want to hurt yourself or someone else? Patient reports no desire to harm self or others. Onset of symptoms was December 16, 2020. 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 - Social history:: Smoking status: Patient denies any tobacco usage or history of. - Family history:: not pertinent. - Hospitalizations: : No recent hospitalization is reported. Screenin:50 Abuse screen: Denies threats or abuse. Nutritional screening: No deficits noted. rb3 Tuberculosis screening: No symptoms or risk factors identified. Fall Risk None identified. Assessment: 07:50 General: Appears in no apparent distress. comfortable, Behavior is calm, cooperative, rb3 Denies fever. Pain: Complains of pain in left flank. Neuro: Level of Consciousness is awake, alert, obeys commands, Oriented to person, place, time, situation. Cardiovascular: Patient's skin is warm and dry. Respiratory: Airway is patent Respiratory effort is even, unlabored, Respiratory pattern is regular, symmetrical. GI: Reports diarrhea, nausea. GI: Abd is soft and non tender. : Reports urinary frequency. : Reports [place] tinged discharge. 08:25 Reassessment: US at the bedside. rb3 09:20 Reassessment: Patient appears in no apparent distress at this time. Patient and/or rb3 family updated on plan of care and expected duration. Pain level reassessed. Patient is alert, oriented x 3, equal unlabored respirations, skin warm/dry/pink. 10:09 Reassessment: Patient appears in no apparent distress at this time. No changes from rb3 previously documented assessment. Pt is on her cellphone. 11:05 Reassessment: Patient is alert, oriented x 3, equal unlabored respirations, skin aa5 warm/dry/pink. Vital Signs: 07:55 BP 148 / 106; Pulse 88; Resp 17; Temp 98.4; Pulse Ox 99% ; Height 5 ft. 9 in. (175.26 ll1 cm); Pain 7/10; 09:00 BP 120 / 75; Pulse 70; Resp 16; Pulse Ox 100% ; rb3 10:18 BP 126 / 93; Pulse 64; Resp 17; Pulse Ox 100% ; rb3 ED Course: 07:47 Patient arrived in ED. am2 07:47 Austin Peraza MD is Private Physician. am2 07:47 Kailee Stewart, RN is Primary Nurse. rb3 07:48 Liam Sampson MD is Attending Physician. rn 07:50 Patient has correct armband on for positive identification. Placed in gown. Bed in low rb3 position. Call light in reach. Side rails up X 1. Pulse ox on. NIBP on. Warm blanket given. 07:55 Arm band placed on Patient placed in an exam room, on a stretcher. ll1 07:58 Triage completed. ll1 08:13 Inserted saline lock: 22 gauge in right antecubital area, using aseptic technique. rb3 Blood collected. 08:44 US Transvaginal Ob In Process Unspecified. EDMS 11:05 No provider procedures requiring assistance completed. IV discontinued, intact, aa5 bleeding controlled, No redness/swelling at site. Pressure dressing applied. Administered Medications: No medications were administered Outcome: 10:21 Discharge ordered by . rn 11:05 Discharged to home ambulatory. aa5 11:05 Condition: stable 11:05 Discharge instructions given to patient, Instructed on discharge instructions, follow up and referral plans. medication usage, Demonstrated understanding of instructions, follow-up care, medications, Prescriptions given X 1. 11:09 Patient left the ED. aa5 Addendum: 12/19/2020 08:47 Addendum: Culture Results: Positive urine culture. No further action required. Bacteria i w sensitive to prescribed antibiotic. Signatures: Dispatcher [employer] EDMS Maria Antonia Vitale, RN ERICA Liam Sampson MD MD rn Calderon, Audri RN RN aa5 Johana Cornejo Lynsay RN RN ll1 Kailee Stewart, RN RN rb3
[2020-12-16 11:17] VITALS: TEMP 98.4
[2020-12-16 11:19] VITALS: O2SAT 100
[2020-12-16 11:21] VITALS: BP 126/93
== END 2020-12-16 11:09 | disposition home or self-care (01) ==
LOC: ER 07:40
DX: O20.0 Threatened abortion (principal); O23.41 Unspecified infection of urinary tract in pregnancy, first trimester; Z3A.08 8 weeks gestation of pregnancy; Z88.5 Allergy status to narcotic agent; Z91.018 Allergy to other foods
CPT/HCPCS: 36415; 76817; 80048; 81003; 81015; 81025; 84702; 85025; 86900; 86901; 87077; 87086; 87088; 87186; 99284

== ENCOUNTER 2022-12-26 00:53 | Emergency (ER) | payer BC, SELFPAY ==
--- OUTSIDE RECORDS SUMMARY | 2022-12-26 00:58 | XMS REPORT | Continuity of Care Document ---
:1985 Author Organization [facility] t Address [address] [place] [address] Care Team Providers Name Role Phone Ismael Goodman Primary Care Physician Enirque Tyler Attending Clinician Unavailable Mary Wheeler Attending Clinician Unavailable Pita Suárez RN Attending Clinician Unavailable Rosanna Hernandez RN Attending Clinician Unavailable Shelbi Mcadams RN Attending Clinician Unavailable Griffin Georges MD Attending Clinician Alex Templeton Admitting Clinician Unavailable Mary Wheeler Admitting Clinician Unavailable Griffin Georges MD Admitting Clinician Payers Payer Name Policy Type Policy Number Effective Date Expiration Date Susy rivera [employer] [id number] 2021 00:00:00 [employer] CHIP Problems Condition Condition Condition Status Onset Resolution Last Treating Co mments Source Name Details Category Date Date Treatment Clinician Date Obesity Obesity Disease Active 2019- Univers (BMI (BMI 9-18 ity of 30-39.9) 30-39.9) 00:00: [place] 00 Medical Branch Abscess Abscess Disease Active Univers 9-18 ity of 00:00: [place] 00 Medical Branch Allergies, Adverse Reactions, Alerts Allergy Allergy Status Severity Reaction(s) Onset Inactive Treating Comm ents Source Name Type Date Date Clinician Other Propensi Active Anaphylaxis 2020-07 [place] U T ty to 0-20 Health adverse 00:00: reaction 00 s morphine DA Active U [facility] 2-21 [place] 00:00: d 00 Medical [place] morphine DA Active U [facility] 2[facility] [place] jalepeno DA Active SV ANAPHYLAXIS [facility] s 1- [facility] 00[facility] [place] Social History Social Habit Start Date Stop Date Quantity Comments Source ASSERTION 2020-11-16 [place] [facility] 00:[place]:00 History [facility] University o f Alcohol Std [place] Medical Drinks Branch History [facility] University o f Alcohol Binge [place] Medic al [facility] Tobacco use and 2021-04-24 2021-04-24 Smokeless tobacco [place] [facility] exposure 00:00:00 00:00:00 non-user Alcohol intake 2021-04-24 2021-04-24 Lifetime [place] [facility] 00:00:00 00:00:00 non-drinker (finding) History [facility] 2019-03-23 2019-03-23 1 University o f Alcohol Frequency 00:00:00 00:00:00 [facility] edical Branch Tobacco Comment 2019-03-23 2019-03-23 1/2 pack a day Unive rsity of 00:00:00 00:00:00 [facility] Sex Assigned At [birth year] [place] [facility] 00:00:00 00:00:00 Smoking Status Start Date Stop Date Source Never smoked tobacco [place] [facility] Current every day smoker 2019-03-24 00:00:00 Uni versity of [facility] Medications Ordered Filled Start Stop Current Ordering Indication Dosage Frequency Signature Comments Components Source Medication Medication Date Date Medication? Clinician (SIG) Name Name Acetaminoph 2020-07 Yes Take by [place] en (TYLENOL 0-20 mouth. Health PO) 11:49: 34 ASPIRIN PO 2020-07 Yes Take by [place] 0-20 mouth. Health 11:49: 13 Insulin 2020-07 Yes Inject [place] Detemir 0-20 under the Health (LEVEMIR 11:49: skin. SC) 02 Insulin 2020-07 Yes Inject [place] Lispro 0-20 under the Health (HUMALOG 11:48: skin. [place]) 48 2020-07 Yes Take by [place] Vit-Fe 0-20 mouth. Health Fumarate-FA 11:48: ( 39 PO) citalopram Yes Take by [facility] hydrobromid 9-20 mouth ity of e 03:13: daily. [place] (CITALOPRAM 20 Medical ORAL) Branch trazodone Yes 1{tbl} Take 1 [facility] ers HCl 9-20 tablet by ity of (TRAZODONE 03:13: mouth at [place] as ORAL) 20 bedtime. Medical Branch medroxyPROG Yes 150mg 150 mg by [facility] ESTERone 9-20 Intramuscu ity o f 150 mg/mL 03:13: lar route [place] as syringe 20 every 3 Medical (three) Branch months. sulfamethox Yes 1{tbl} 1 tablet, [facility] azole-trime 9-20 Oral, BID, it y of [place]oprim 01:00[place] (BACTRIM 00 on Cris Medical DS) 800-160 03/24/19 at Br anch mg per 1999, tablet 1 Until tablet Discontinu ed, LAYA
Re ason for Anti-Infec tive: Documented Infection< br>Documen yovani Infection Site: Skin / Soft Tissue
Duration of Therapy: 10 days HYDROcodone Yes 1{tbl} 1 tablet, [facility] -acetaminop 9-20 Oral, ity of hen (NORCO 00:39: Q4HPRN, [place] 5) 5-325 mg 25 Starting Medi pastor tablet 1 Cris Branch tablet 03/24/19 at 1939, Until Discontinu ed, Routine, Pain (scale 7-10) HYDROmorpho 2019- No 1mg 1 mg, Slow Univers ne 03-24 09-20 IV Push, ity of (DILAUDID) 13:37: 00:39 Q4HPRN, [place] as injection 1 41 :49 Starting Medi pastor mg Cris Branch 03/24/19 at 0837, Until Cris 03/24/19 at 1939, Routine, Pain (scale 7-10)
U se approved by (Faculty): GENERAL SURGERY
General surgeon approving: tj schmidt citalopram 2018-0 Yes 10mg 10 mg, Unive rs (CELEXA) 03-24 Oral, QHS, ity o f tablet 10 02:00: [place] mg 00 on Thu03/23/19 at Branch 2100, Until Discontinu ed ondansetron 2018-0 Yes 4mg 4 mg, Slow Univers (ZOFRAN 03-24 IV Push, ity of (PF)) 01:36: PRN, 1 [place] injection 4 38 dose, Medical mg Starting Branch Thu03/23/19 at 2036, Until Discontinu ed, Routine, Nausea and Vomiting (N/V), PACU sodium 2018-0 Yes PRN, Univers chloride 03-24 Starting ity of 0.9 % 01:20: Wed [place] irrigation 00 03/23/19 at Med ical solution [place] Until Discontinu ed, Intra-op lidocaine-e 2018-0 Yes PRN, Univer s pinephrine 03-24 Starting ity o f (XYLOCAINE 01:19: Thu [place] WITH 00 03/23/19 at [facility] EPINEPHRINE [place] ) 1 Until %-1:100,000 Discontinu injection ed, Routine, Intra-op HYDROcodone 2018-0 Yes [id number] 1{tbl} Take 1 Univers -acetaminop -19 tablet by ity of hen 5-325 00:00: mouth [place] mg tablet 00 every 4 Medical (four) Branch hours as needed for Pain (scale 7-10). sulfamethox 2019-0 Yes [id number] 1{tbl} Take 1 Univers azole-trime 9-19 tablet by ity of thoprim 00:00: mouth 2 [place] 800-160 mg 00 (two) Medical per tablet times Branch daily. traMADol 50 2019-0 Yes [id number] 50mg Take 1 Univers mg tablet -19 tablet by ity o f 00:00: mouth [place] 00 every 6 Medical (six) Branch hours as needed for Pain (scale 4-6). vancomycin 2018- 2019- No 1250mg 1,250 mg, Univers (VANCOCIN) 03-23 IV ity of 1,250 mg in 22:00: 00:41 Piggyback, [place] NaCl 0.9% 00 :15 Q12H ABX, Medic al (NS) 250 mL First dose Br anch piggyback on Thu03/23/19 at 1700, Until Discontinu ed, 250 mL
Reas on for Anti-Infec tive: Documented Infection< br>Documen yovani Infection Site: Skin / Soft Tissue
Duration of Therapy: 7 days vancomycin 2019- No 1500mg 1,500 mg, Univers (VANCOCIN) 03-23 IV ity of 1,500 mg in 09:00: 13:30 [place]gyback, [place] NaCl 0.9% 00 :50 Q12H ABX, Medic al (NS) 250 mL First dose Br anch piggyback on Thu03/23/19 at 0400, Until Discontinu ed, 250 mL
Reas on for Anti-Infec tive: Empiric Therapy for Suspected Infection< br>Empiric Therapy Site: Skin / Soft tissue
Duration of therapy: 72 hours piperacilli 2019- No 3.375g 3.375 g, Univers n-tazobacta 03-23 IV ity of m (ZOSYN) 08:15: 15:16 [place], [place] 3.375 00 :18 Q6H ABX, Medical gram/50 mL First dose [facility] Piggyback on Thu 3.375 g 03/23/19 at 0315, Until Discontinu ed, 50 mL
R jignesh for Anti-Infec tive: Empiric Therapy for Suspected Infection< br>Empiric Therapy Site: Skin / Soft tissue
Duration of therapy: 7 days HYDROmorpho 2019- No .5mg 0.5 mg, Un ammy ne 03-23 Slow IV ity of (DILAUDID) 08:13: 17:47 Push, [place] injection 11 :14 Q4HPRN, Medical 0.5 mg Starting Branch Thu03/23/19 at 0313, Until Thu03/23/19 at 1247, Routine, Pain (scale 7-10)
U se approved by (Faculty): CLC PROVIDER ondansetron 2019-0 Yes 4mg 4 mg, Slow Univers (ZOFRAN 03-23 IV Push, ity of (PF)) 05:57: Q6HPRN, [place] injection 4 57 Starting Medi pastor mg [facility] 03/23/19 at 0057, Until Discontinu ed, Routine, Nausea and Vomiting (N/V) acetaminoph 2018-0 Yes 650mg 650 mg, Un ammy en 03-23 Oral, ity of (TYLENOL) 05:57: Q6HPRN, [place] tablet 650 42 Starting Medic al mg [facility] 03/23/19 at 0057, Until Discontinu ed, Routine, Pain (scale 1-3) Vital Signs Vital Name Observation Time Observation Value Comments Source Body height 2021-04-24 16:45:00 175.3 cm [facility] Body weight 2021-04-24 16:45:00 120.203 kg [facility] BMI 2021-04-24 16:45:00 39.13 kg/m2 [facility] Systolic blood 2019-03-25 03:00:00 138 mm[Hg] [facility] Diastolic blood 2019-03-25 03:00:00 92 [facility]Hg[facility] 2019-03-25 03:00:00 56 /min [facility] Body temperature 2019-03-25 03:00:00 36.5 [place] [facility] Respiratory rate 2019-03-25 03:00:00 16 /min [facility] Oxygen saturation in 2019-03-25 03:00:00 100 /min [facility] Arterial blood by [place] Medi pastor Pulse oximetry [place] Body weight 2019-03-23 19:06:00 118.5 kg [facility] BMI 2019-03-23 19:06:00 38.58 kg/m2 [facility] Body height 2019-03-23 05:21:00 175.3 cm [facility] Systolic blood 2019-03-25 03:00:00 138 mm[Hg] [facility]iver [facility] Diastolic blood 2019-03-25 03:00:00 92 mm[facility]Hg] [facility] 2019-03-25 03:00:00 56 /min [facility] Body temperature 2019-03-25 03:00:00 36.5 [place] [facility] Respiratory rate 2019-03-25 03:00:00 16 /min [facility] Oxygen saturation in 2019-03-25 03:00:00 100 /min [facility] Arterial blood by [facility] [place] [facility] Pulse oximetry Branch Body weight 2019-03-23 19:06:00 118.5 kg [facility] BMI 2019-03-23 19:06:00 38.58 kg/m2 [facility] Body height 2019-03-23 05:21:00 175.3 cm [facility] Procedures Procedure Date / Time Performing Clinician Source Performed [id number] 2021-07-16 00:00:00 [facility] POCT GLUCOSE 2019-03-25 01:09:00 Griffin Georges [facility] (AUTOMATED) [facility] BASIC METABOLIC PANEL 2019-03-24 09:34:00 Austin Perdue [facility] (NA, K, CL, CO2, Medical Branch GLUCOSE, BUN, CREATININE, CA) CBC WITH DIFFERENTIAL 2019-03-24 09:34:00 Austin Perdue [facility] WOUND DEBRIDEMENT 2019-03-24 00:15:00 Austin Perdue [facility] POCT GLUCOSE 2019-03-23 23:54:00 Griffin Georges [facility] (AUTOMATED) [facility] TEST, SERUM 2019-03-23 19:41:00 [facility] BASIC METABOLIC PANEL 2019-03-23 19:33:00 Zenon London [facility] (NA, K, CL, CO2, Medical Branch GLUCOSE, BUN, CREATININE, CA) CBC WITH DIFFERENTIAL 2019-03-23 11:34:00 Griffin Georges [facility] Encounters Start End Encounter Admission Attending Care Care Encounter Source Date/Time Date/Time Type Type Clinicians Facility Department ID 2021-05-21 Outpatient [facility] [id number] [place] 11:46:20 Health 2021-04-24 Outpatient [facility] [id number] [place] 12:04:03 Health 2019-08-30 Inpatient HinhEnrique [facility] RON [id number] [facility] 11:30:00 00 [facility] 2021-07-16 2021-07-19 Inpatient ANATOLIY Monterroso OB [id number] [facility] 05:07:00 10:10:00 Ziad 43 [facility] 2021-04-24 2021-04-24 Nurse Only Pita Suárez UTP [id number] 1.2.840. 114 [id number] [place] 00:00:00 00:00:[address] [id number] Health 9.2.7.2.686 [id number] 2021-04-24 2021-04-24 Telephone David Rosanna UTP 6410 1.2.84 0.114 [id number] [place] 00:00:00 00:00:[address] [id number] Health [id number] [id number] 2021-04-23 2021-04-23 Telephone Shelbi Mcadams UTP 6410 1.2. 840.114 [id number] [place] 00:00:00 00:00:[address] 350.1.13. 58 Health 9.2.7.2.686 [id number] 2021-04-22 2021-04-22 Telephone Rosanna Hernandez UTP 6410 1.2.84 0.114 [id number] [place] 00:00:00 00:00:[address] [id number] Health [id number] [id number] 2019-03-22 2019-03-24 [facility] [id number] 23:58:00 22:10:00 Encounter Yeni, Health [id number] Griffin [place] 4.2.7.2.686 [place] [id number] [place] [id number] ([facility]) 2019-03-22 2019-03-24 [facility] [id number] [facility] 23:58:00 22:10:00 Encounter Fatoumata, [facility] 350.1.13.10 itMildred Blanton 4.2.7.2.686 Remigio Magaña [id number] [place] [address] Branch ([facility]) Results Test Description Test Time Test Comments Results Result Comments Source SURGICAL 2021-07-29 16:26:00 Test Item Value Reference Range Interpretation Comme nts SURGICAL RUN DATE: (test 07/29/21 [facility] - Laborato ry PAGE 1 RUN TIME: 1626 Specimen Inquiry RUN USER: INTERFACE code = PATIENT: MAXIMO MARCIN WYATT LOC: MihirKareemPPUC U #: [id number] AGE/SX: 35/F ROOM: [facility] RE07/16/21REG DR: Mary Wheeler MD : 84 BED: A DIS: 07/19/21 STATUS: DIS IN TLOC: SPEC #: [id number] RECD: STATUS: PÉREZ KELLOGG #: [id number] ALVARO: 07/16/21 DR: Mary Wheeler MD ENTERED: 07/17/21 SP TYPE: SURGICAL OTHR DR: Austin Peraza MD, Haroon I MDORDERED: ANATOMIC SPEC, SPEC TRACK, [id number] ASSEMBLER SHOW MOTOR IES TO: Austin Peraza MD [address] [place] [address] Mary Wheeler [address] [place] [address] Eamon Harper MD [address] [place] [address] PROCEDURES: [id number] (07/17/21) TISSUES: A. PLACENTA, THIRD TRIMESTER (2 8 + WEEKS) FINAL DIAGNOSIS A. PLACENTA, DELIVERY: - Villous development compatible with third trimes ter, near term - Chorioamnionic membranes lacking pathologic abnormalities - Trivascular umbilical cord l acking pathologic abnormalities Comment:The weight 532 g is between the 75th and 90th percentiles for the stated gestational age of36 weeks. GROSS DESCRIPTION Received fixed in formalin, labeled with domenic catherine's name and and "placenta", is asingleton placenta with attached cord and membranes. The umbilical cord is 20 cm in totallength, 1.2 cm in diameter, is eccentrically inserted 6.5 cm from the nearest plac entaledge, is white, glistening and has no abnormality. Cross sectioning demonstrates 3 vessels.There are 3 coils in 10 cm of cord. The membranes are armijo and opaque. They havemarginal attachment and are ruptured 2.5 cm from the disk. The placental disk is ovoid,measures 17 x 16.5 x 2.3 cm, and weighs 53 2 grams without the membranes and cord. The CONTINUED ON NEXT PAGE RUN DATE: 07/29/21 [facility] - [facility] y PAGE 2 RUN TIME: 1626 Specimen Inquiry RUN USER: INTERFACE SPEC #: [id number] PATIENT: MARCIN WYATT #[id number] (Continued) GROSS DESCRIPTION (Continued ) surface is translucent with white patches, with unremarkable vasculature. The maternalsurface appears complete. Serial sections through the disk show red-brown fleshy tissuewith white patches scattered thro ughout. Kennel Assistant sections submitted.Sections code:A1: cord and membranes x 2A2-3: placenta cross sectionsXZ Technical component performed at [facility],[id number] , [place] [address] Unless gross only, the diagnosis is based upon microscopic examination.Immunohistochemi stry: This test was developed and its performance characteristicsdetermined by this laboratory. It has n ot been approved nor does it need approval by [place] FDA. Appropriate positive and negative contro ls are reviewed and judged to beacceptable. This laboratory is certified under the Clinical Laborator y ImprovementAmendments (CLIA-88) as qualified to perform high complexity clinical laboratory testing. CLINICAL INFORMATION O+, 36 10/10, GHTN, TYPE II DM Signed SIGNATURE ON Iraj Enriquez 07/29/21 1626 END OF REPORT [id number] 05:46:00 Test Item Value Reference Range Interpretation Comments GLUBED (test code = GLUBED) 112 mg/dL 65-110 H [id number] 23:32:00 Test Item Value Reference Range Interpretation Comments GLUBED (test code = GLUBED) 120 mg/dL 65-110 H [id number] 14:32:00 Test Item Value Reference Range Interpretation Comments GLUBED (test code = GLUBED) 128 mg/dL 65-110 H [id number] 09:24:00 Test Item Value Reference Range Interpretation Comments GLUBED (test code = GLUBED) 131 mg/dL 65-110 H [id number] 06:06:00 Test Item Value Reference Range Interpretation Comments GLUBED (test code = GLUBED) 98 mg/dL 65-110 N [id number] 21:48:00 Test Item Value Reference Range Interpretation Comments GLUBED (test code = GLUBED) 145 mg/dL 65-110 H [id number] 14:32:00 Test Item Value Reference Range Interpretation Comments GLUBED (test code = GLUBED) 110 mg/dL 65-110 N [id number] 09:31:00 Test Item Value Reference Range Interpretation Comments GLUBED (test code = GLUBED) 136 mg/dL 65-110 H [id number] 06:20:00 Test Item Value Reference Range Interpretation Comments GLUBED (test code = GLUBED) 124 mg/dL 65-110 H CBC W/AUTO [id number] 06:02:00 Test Item Value Reference Range Interpretation Comments WHITE BLOOD CELL (test code = WBC) 14.5 K/mm3 6.5-12.3 H RED BLOOD CELL (test code = RBC) 3.42 M/mm3 3.51-4.69 L HEMOGLOBIN (test code = HGB) 9.7 g/dL 10.1-13.8 L HEMATOCRIT (test code = HCT) 30.8 % 32.5-41.8 L MEAN CELL VOLUME (test code = MCV) 90.1 fL 84.6-96.6 N MEAN CELL HGB (test code = MCH) 28.4 pg 27.3-33.9 N MEAN CELL HGB CONCETRATION (test 31.5 gm/dL 32.0-34.2 L code = MCHC) RED CELL DISTRIBUTION WIDTH (test 15.4 % 12.2-16.3 N code = RDW) PLATELET COUNT (test code = PLT) 181 K/mm3 134-363 N MEAN PLATELET VOLUME (test code = 11.4 fL 9.2-12.7 N MPV) NEUTROPHIL % (test code = NT%) 71.4 % 57.9-77.3 N LYMPHOCYTE % (test code = LY%) 20.8 % 14.5-29.7 N MONOCYTE % (test code = MO%) 6.6 % 3.6-10.2 N EOSINOPHIL % (test code = EO%) 0.3 % 0.0-3.0 N BASOPHIL % (test code = BA%) 0.3 % 0.1-0.9 N NEUTROPHIL # (test code = NT#) 10.4 K/mm3 LYMPHOCYTE # (test code = LY#) 3.0 K/mm3 MONOCYTE # (test code = MO#) 1.0 K/mm3 EOSINOPHIL # (test code = EO#) 0.04 K/mm3 BASOPHIL # (test code = BA#) 0.0 K/mm3 RBC MORPHOLOGY REQUIRED (test code NORMAL NORMAL = RBCM) PLATELET MORPHOLOGY REQUIRED (test NORMAL NORMAL code = PLTMR) [id number] 21:27:00 Test Item Value Reference Range Interpretation Comments GLUBED (test code = GLUBED) 147 mg/dL 65-110 H [id number] 18:20:00 Test Item Value Reference Range Interpretation Comments GLUBED (test code = GLUBED) 156 mg/dL 65-110 H [id number] 14:26:00 Test Item Value Reference Range Interpretation Comments GLUBED (test code = GLUBED) 218 mg/dL 65-110 H CAPILLARY BLOOD [id number] 08:03:00 Test Item Value Reference Range Interpretation Comments CAPILLARY BLOOD GAS PH (test code 7.283 7.35-7.45 L = PHC) CAPILLARY BLOOD GAS PCO2 (test 50.9 mmHg code = PCO2C) CAPILLARY BLOOD GAS PO2 (test code 18.4 mmHg = PO2C) CBG HCO3 (test code = HCO3C) 23.5 meq/L CBG BASE EXCESS (test code = BEC) -3.7 CBG O2 SATURATION (test code = 23.0 % SATC) CAPILLARY BLOOD GAS TYPE (test CBLA code = TYPEC) CAPILLARY BLOOD GAS FIO2 (test 21.0 % code = FIO2C) CAPILLARY BLOOD [id number] 08:03:00 Test Item Value Reference Range Interpretation Comments CAPILLARY BLOOD GAS PH (test code 7.274 7.35-7.45 L = PHC) CAPILLARY BLOOD GAS PCO2 (test 56.6 mmHg code = PCO2C) CAPILLARY BLOOD GAS PO2 (test code 18.2 mmHg = PO2C) CBG HCO3 (test code = HCO3C) 25.6 meq/L CBG BASE EXCESS (test code = BEC) -2.2 CBG O2 SATURATION (test code = 22.1 % SATC) CAPILLARY BLOOD GAS TYPE (test CBLV code = TYPEC) CAPILLARY BLOOD GAS FIO2 (test 21.0 % code = FIO2C) COMPREHENSIVE METABOLIC [id number] 06:49:00 Test Item Value Reference Range Interpretation Comments SODIUM (test code = NA) 138 mEq/L 135-145 N POTASSIUM (test code = K) 4.5 mEq/L 3.5-5.0 N CHLORIDE (test code = CL) 103 mEq/L 100-115 N CARBON DIOXIDE (test code = CO2) 23 mEq/L 22-31 N ANION GAP (test code = GAP) 16.20 10-20 N GLUCOSE (test code = GLU) 130 mg/dL 65-110 H BLOOD UREA NITROGEN (test code = 16 mg/dL 7-18 N BUN) GLOMERULAR FILTRATION RATE (test 81 ml/min >60 N code = GFR) CREATININE (test code = CREAT) 0.8 mg/dL 0.5-1.0 N TOTAL PROTEIN (test code = PROT) 6.5 gm/dL 6.3-8.2 N ALBUMIN (test code = ALB) 2.7 gm/dL 3.4-4.8 L CALCIUM (test code = CA) 8.8 mg/dL 8.4-10.2 N BILIRUBIN TOTAL (test code = 0.4 mg/dL 0.2-1.0 N BILT) SGOT/AST (test code = AST) 25 units/L 15-37 N SGPT/ALT (test code = ALT) 17 units/L 12-78 N ALKALINE PHOSPHATASE TOTAL (test 100 units/L 46-116 N code = ALKP) AG HEPATITIS B [id number] 13:11:00 Test Item Value Reference Range Interpretation Comments AG HEPATITIS B SURFACE (test code NONREACTIVE NONREACTIVE = HBSAG) AB HEPATITIS C [id number] 13:11:00 Test Item Value Reference Range Interpretation Comments AB HEPATITIS C (test code = NONREACTIVE NONREACTIVE HCVAB) SIGNAL TO CUTOFF (test code = <0.02 <0.80 N CUTOFF) AB [id number] 13:11:00 Test Item Value Reference Range Interpretation Comments AB TREPONEMA (test code = TREPAB) NONREACTIVE NONREACTIVE AB HIV 1 13:11:00 Test Item Value Reference Range Interpretation Comments AB HIV 1 2 (test NONREACTIVE NONREACTIVE Done by [facility] code = [id number]) 4th Gen HIV Ag/Ab Combo Screen COVID 19 Asymptomatic IH [id number] 12:14:00 Test Item Value Reference Range Interpretation Comments COVID 19 NEGATIVE NEGATIVE This test has b een Asymptomatic IH AG authorize d only for the (test code = detection ofpro teins from COVNONPUIAG) SARS-CoV-2, not for any other viruses orpathogens. Ne gative results should be treated as presumptive andconfirmed wi th a molecular assay , if necessary for patientmanageme nt. Negative result s do not rule out COVID- 19 andshould not b e used as the sole basis for treatment orpat ient management deci sions, including infec tion controldecision s. Negative result s should be considered i n thecontext of a patient's recent exposure s, history and thepresence of clinical signs and symptoms consis tent withCOVID-19. T his test has not been FD A cleared or approved; th e test hasbeen authorabby flores by FDA under an Emerge ncy Use Authorization(E UA) for use by laborato nikita certified under the CLIA thatmeet the re quirements to perform mode rate, high or waivedcomple xity tests. This marleny t is authorized for use at thePoint of Car e (POC), i.e., in patien t care settingsoperati ng under a CLIA Certificat e of Waiver, Certifi jesse ofCompliance, o r Certificate of Accreditation. This test is only authori sandra for the duration of thedeclaration that circumstances e xist justifying theauthorizatio n of emergency use o f in vitro diagnostic test sfor detection and/o r diagnosis of CO VID-19 under Esqhxra57 4(b)(1) of the Act, 21 U.S .C. 360bbb-3(b)(1), unless theauthorizatio n is terminated or r evoked sooner. Comments to Network Engineering Advisor: FOR RAPID AND IN-HOUSE COVID TESTSpecimen Comment: DO NOT SEND OUTCBC W/AUTO [id number] 11:41:00 Test Item Value Reference Range Interpretation Comments WHITE BLOOD CELL (test code = WBC) 11.3 K/mm3 6.5-12.3 N RED BLOOD CELL (test code = RBC) 3.90 M/mm3 3.51-4.69 N HEMOGLOBIN (test code = HGB) 11.1 g/dL 10.1-13.8 N HEMATOCRIT (test code = HCT) 34.0 % 32.5-41.8 N MEAN CELL VOLUME (test code = MCV) 87.2 fL 84.6-96.6 N MEAN CELL HGB (test code = MCH) 28.5 pg 27.3-33.9 N MEAN CELL HGB CONCETRATION (test 32.6 gm/dL 32.0-34.2 N code = MCHC) RED CELL DISTRIBUTION WIDTH (test 15.1 % 12.2-16.3 N code = RDW) PLATELET COUNT (test code = PLT) 195 K/mm3 134-363 N MEAN PLATELET VOLUME (test code = 11.3 fL 9.2-12.7 N MPV) NEUTROPHIL % (test code = NT%) 72.7 % 57.9-77.3 N LYMPHOCYTE % (test code = LY%) 19.6 % 14.5-29.7 N MONOCYTE % (test code = MO%) 5.9 % 3.6-10.2 N EOSINOPHIL % (test code = EO%) 0.9 % 0.0-3.0 N BASOPHIL % (test code = BA%) 0.3 % 0.1-0.9 N NEUTROPHIL # (test code = NT#) 8.2 K/mm3 LYMPHOCYTE # (test code = LY#) 2.2 K/mm3 MONOCYTE # (test code = MO#) 0.7 K/mm3 EOSINOPHIL # (test code = EO#) 0.10 K/mm3 BASOPHIL # (test code = BA#) 0.0 K/mm3 RBC MORPHOLOGY REQUIRED (test code NORMAL NORMAL = RBCM) PLATELET MORPHOLOGY REQUIRED (test NORMAL NORMAL code = PLTMR) CALCULI URINARY WITH [id number] 12:04:00 Test Item Value Reference Range Interpretation [...] ovedby the Food and Drug Admini stration. CALCULI URINARY WITH [id number] 12:04:00 Test Item Value Reference Range Interpretation [...] Drug Admini stration. - XR FLUOROSCOPY 0-60 [id number] 14:10:00 Name: MARCIN WYATT [place] : 1985 Age/S: 33 / F [address] Unit #: [id number] Loc: [place] [address] Phys: Enrique Tyler MD Acct: [id number] Dis Date: Status: REG [employer] PHONE #: [phone] Exam Date: 08/30/2019 1300 FAX #: Reason: STENT PLACEMENT EXAMS: CPT: [id number] XR FLUOROSCOPY 0-60 MIN [id number] Fluoro Time: 39 SEC DAP (Gy m2): [...] Please see operative report for further details. FLUOROS COPIC TIME: 39.8 seconds. 12.21 mGy. at 1410 Reported and signed by: Saleem Mei M.D. CC: Austin Peraza MD; Enrique Tyler MD PAGE 1 Signed Report [facility] [place] : 1985 Age/S: 33 / F [address] Unit #: [id number] Loc: [place] [address] Phys: Enrique Tyler MD Acct: [id number] Dis Date: Status: REG [employer] PHONE #: [phone] Exam Date: 08/30/2019 1300 FAX #: Reason: STENT PLACEMENT EXAMS: CPT: [id number] XR FLUOROSCOPY 0-60 MIN 80183 Fluoro Time: 39 SEC DAP (Gy m2): Air Kerma (mGy): (Continued) Technologist: Sadia Herbert, RT(R) Trnscb Date/Time: 08/30/2019 (520) [email or web address] Orig Print D/T: S: 08/30/2019 (6042) PAGE 2 Signed ReportUR HCG [id number] 10:41:00 Test Item Value Reference Range Interpretation Comments UR HCG QUAL (test code = HCGQLU) NEGATIVE NEGATIVE BASIC METABOLIC [id number] 10:26:00 Test Item Value Reference Range Interpretation [...] CA) 9.4 MG/DL 8.5-10.1 N BASIC METABOLIC [id number] 10:22:00 Test Item Value Reference Range Interpretation [...] = CA) 9.4 MG/DL 8.5-10.1 N PROTHROMBIN [id number] 10:12:00 Test Item Value Reference Range Interpretation Comments PT PATIENT (test code = PTP) 12.1 SECONDS 9.3-12.9 N INTERNATIONAL NORMAL RATIO 1.07 INR Unit 0.8-1.2 N (test code = INR) THROMBOPLASTIN TIME [id number] 10:12:00 Test Item Value Reference Range Interpretation Comments THROMBOPLASTIN TIME PARTIAL 31.6 SECONDS 26-35 N (test code = PTT) GLUCOSE BEDSIDE [id number] 10:06:00 Test Item Value Reference Range Interpretation Comments GLUCOSE BEDSIDE TESTING (test code 126 mg/dL 70-110 H = GLUBED) CBC W/AUTO [id number] 10:03:00 Test Item Value Reference Range Interpretation [...] (test code = NO DIFF/SCN CRITERIA MDIFF) POCT GLUCOSE (AUTOMATED)2019-03-25 01:45:00 Test Item Value Reference Range Interpretation Comments POCT GLU (test code = 8997497967) 148 mg/dL 70-110 H Lab Interpretation (test code = Abnormal 22403-7) [facility] METABOLIC PANEL (NA, K, CL, CO2, GLUCOSE, BUN, CREATININE, CA)2019-03-24 09:55:00 Test Item Value Reference Range Interpretation Comments NA (test code = 137 mmol/L 135-145 4425884040) K (test code = 4.5 mmol/L 3.5-5 2859357945) CL (test code = 107 mmol/L 98-108 6358753413) CO2 TOTAL (test code = 23 mmol/L 23-31 6402432584) AGAP (test code = 2-16 1653777942) BUN (test code = 15 mg/dL 7-23 4846382692) GLUCOSE (test code = 181 mg/dL 70-110 H 6243141755) CREATININE (test code = 0.92 mg/dL 0.5-1.04 6397664228) CALCIUM (test code = 9.2 mg/dL 8.6-10.6 1854867235) eGFR Calculation mL/min/1.73m2 (Non-) (test code = 5230170851) eGFR Calculation mL/min/1.73m2 () (test code = 2369287804) BAIRON (test code = BAIRON) Association of Glomerular Filtration Rate (GFR) and Staging of Kidney Disease*+ + + +| GFR (mL/min/1.73 m2)?| With Kidney Damage?|?Without Kidney Damage+ --------+ --------+ +|?>90?|?S tage one?|? Normal?+ ---------+ ---------+ +|?60-89? |?Stage two?|? Decreased GFR? + --+ --+ ------+|?30-59?|?Stage three?|? Stage three? + --+ --+ ------+|?15-29?|?Stage four? |? Stage four?+ -------+ -------+ +|?<15 (or dialysis)?|?Stage five? |? Stage five?+ -------+ -------+ +*Each stage assumes the associated GFR level has been in effect for at least three months.?Stages 1 to 5, with or without kidney disease, indicate chronic kidney disease.Notes: Determination of stages one and two (with eGFR >59mL/min/1.73 m2) requires estimation of kidney damage for at least three months as defined by structural or functional abnormalities of the kidney, manifested by either:Pathological abnormalities or Markers of kidney damage (including abnormalities in the composition of the blood or urine or abnormalities in imaging tests). Lab Interpretation Abnormal (test code = 00850-9) [facility] WITH [id number] 09:39:00 Test Item Value Reference Range Interpretation Comments WBC (test code = See_Comment H [Automated 8046-2) message] The system which generated this result transmit yovani reference range : 4.30 - 11.10 10*3/?L. The reference range was not used to interpret this result as normal/abnormal . RBC (test code = See_Comment [Automated 399-8) message] The system which generated this result transmit yovani reference range : 3.93 - 5.25 10*6/?L. The reference range was not used to interpret this result as normal/abnormal . HGB (test code = 11.5 g/dL 11.6-15 L 718-7) HCT (test code = 35.8 % 35.7-45.2 4544-3) MCV (test code = 86.5 fL 80.6-95.5 787-2) MCH (test code = 27.8 pg 25.9-32.8 785-6) MCHC (test code = 32.1 g/dL 31.6-35.1 786-4) RDW-SD (test code = 47.8 fL 39-49.9 84817-2) RDW-CV (test code = 15.1 % 12-15.5 788-0) PLT (test code = See_Comment [Automated 427-3) message] The system which generated this result transmit yovani reference range : 166 - 358 10*3/ ?L. The reference range was not u sed to interpret th is result as normal/abnormal . MPV (test code = 10.3 fL 9.5-12.9 32210-2) NRBC/100 WBC (test See_Comment [Automat ed code = 1406491234) message] The system which generated this result transmit yovani reference range : 0.0 - 10.0 /100 WBCs. The reference range was not used to interpret this result as normal/abnormal . NRBC x10^3 (test code <0.01 See_Comment [Auto mated = 1882277095) message] The system which generated this result transmit yovani reference range : 10*3/?L. The reference range was not used to interpret this result as normal/abnormal . GRAN MAT (NEUT) % 87.4 % (test code = 770-8) IMM GRAN % (test code 0.40 % = 9730936446) LYMPH % (test code = 9.9 % 736-9) MONO % (test code = 1.9 % 5905-5) EOS % (test code = 0.1 % 713-8) BASO % (test code = 0.3 % 706-2) GRAN MAT x10^3(ANC) 13.10 10*3/uL 1.88-7.09 H (test code = 7969287368) IMM GRAN x10^3 (test 0.06 10*3/uL 0-0.06 code = 3031101389) LYMPH x10^3 (test code 1.48 10*3/uL 1.32-3.29 = 731-0) MONO x10^3 (test code 0.29 10*3/uL 0.33-0.92 L = 742-7) EOS x10^3 (test code = <0.03 0.03-0.39 L 711-2) BASO x10^3 (test code 0.04 10*3/uL 0.01-0.07 = 704-7) Lab Interpretation Abnormal (test code = 12590-6) [facility]-23 23:56:00 Test Item Value Reference Range Interpretation Comments POCT GLU (test code = 1860024645) 113 mg/dL 70-110 H Lab Interpretation (test code = Abnormal 00696-2) [facility], [id number] 20:07:00 Test Item Value Reference Range Interpretation Comments PREG SERUM (test code Negative = 8330078180) BAIRON (test code = BAIRON) Less than 10 IU/L.?If low titer or ectopic is suspected, resubmit specimen in 48-[address] [facility] METABOLIC PANEL (NA, K, CL, CO2, GLUCOSE, BUN, CREATININE, CA)2019-03-23 20:02:00 Test Item Value Reference Range Interpretation Comments NA (test code = 137 mmol/L 135-145 5630687773) K (test code = 4.1 mmol/L 3.5-5 3164549504) CL (test code = 109 mmol/L 98-108 H 9224459856) CO2 TOTAL (test code = 23 mmol/L 23-31 9337905509) AGAP (test code = 2-16 5801292727) BUN (test code = 17 mg/dL 7-23 5471959647) GLUCOSE (test code = 134 mg/dL 70-110 H 3956277816) CREATININE (test code = 0.92 mg/dL 0.5-1.04 3251084795) CALCIUM (test code = 8.9 mg/dL 8.6-10.6 8920428188) eGFR Calculation mL/min/1.73m2 (Non-) (test code = 4215020953) eGFR Calculation mL/min/1.73m2 () (test code = 0211382416) BAIRON (test code = BAIRON) Association of Glomerular Filtration Rate (GFR) and Staging of Kidney Disease*+ + + +| GFR (mL/min/1.73 m2)?| With Kidney Damage?|?Without Kidney Damage+ --------+ --------+ +|?>90?|?S tage one?|? Normal?+ ---------+ ---------+ +|?60-89? |?Stage two?|? Decreased GFR? + --+ --+ ------+|?30-59?|?Stage three?|? Stage three? + --+ --+ ------+|?15-29?|?Stage four? |? Stage four?+ -------+ -------+ +|?<15 (or dialysis)?|?Stage five? |? Stage five?+ -------+ -------+ +*Each stage assumes the associated GFR level has been in effect for at least three months.?Stages 1 to 5, with or without kidney disease, indicate chronic kidney disease.Notes: Determination of stages one and two (with eGFR >59mL/min/1.73 m2) requires estimation of kidney damage for at least three months as defined by structural or functional abnormalities of the kidney, manifested by either:Pathological abnormalities or Markers of kidney damage (including abnormalities in the composition of the blood or urine or abnormalities in imaging tests). Lab Interpretation Abnormal (test code = 33627-8) [facility] WITH [id number] 11:45:00 Test Item Value Reference Range Interpretation Comments WBC (test code = See_Comment H [Automated 6690-2) message] The sy stem which generated this result transmitted reference range : 4.30 - 11.10 10*3/?L. The reference range was not used to interpret this result as normal/abnormal . RBC (test code = See_Comment L [Automated 789-8) message] The sy stem which generated this result transmitted reference range : 3.93 - 5.25 10*6/?L. The reference range was not used to interpret this result as normal/abnormal . HGB (test code = 9.8 g/dL 11.6-15 L 718-7) HCT (test code = 31.4 % 35.7-45.2 L 4544-3) MCV (test code = 89.0 fL 80.6-95.5 787-2) MCH (test code = 27.8 pg 25.9-32.8 785-6) MCHC (test code = 31.2 g/dL 31.6-35.1 L 786-4) RDW-SD (test code = 50.2 fL 39-49.9 H 72075-7) RDW-CV (test code = 15.5 % 12-15.5 788-0) PLT (test code = See_Comment [Automated 777-3) message] The sy stem which generated this result transmitted reference range : 166 - 358 10*3/ ?L. The reference r jose e was not used to interpret this result as normal/abnormal . MPV (test code = 10.2 fL 9.5-12.9 40015-3) NRBC/100 WBC (test See_Comment [Automat ed code = 8711111266) message] The system which generated this result transmitted reference range : 0.0 - 10.0 /100 WBCs. The refer ence range was not u sed to interpret th is result as normal/abnormal . NRBC x10^3 (test code <0.01 See_Comment [Auto mated = 2883888407) message] The s ystem which generated this result transmitted reference range : 10*3/?L. The reference range was not used to interpret this result as normal/abnormal . GRAN MAT (NEUT) % 66.3 % (test code = 770-8) IMM GRAN % (test code 0.30 % = 0179530384) LYMPH % (test code = 25.1 % 736-9) MONO % (test code = 6.1 % 5905-5) EOS % (test code = 1.8 % 713-8) BASO % (test code = 0.4 % 706-2) GRAN MAT x10^3(ANC) 8.22 10*3/uL 1.88-7.09 H (test code = 9567309177) IMM GRAN x10^3 (test 0.04 10*3/uL 0-0.06 code = 0348109648) LYMPH x10^3 (test code 3.11 10*3/uL 1.32-3.29 = 731-0) MONO x10^3 (test code 0.76 10*3/uL 0.33-0.92 = 742-7) EOS x10^3 (test code = 0.22 10*3/uL 0.03-0.39 711-2) BASO x10^3 (test code 0.05 10*3/uL 0.01-0.07 = 704-7) Lab Interpretation Abnormal (test code = 69084-9) [facility] Notes Date/Time Note Provider Source 2021-07-18 18:13:00-00:00 [facility] OB Disch REPORT#:[id number] REPORT STATUS: Signed DATE:07/18/21 TIME: 1812 PATIENT: MARCIN WYATT UNIT #: [id number] ROOM/BED: [address] : [birth year] AGE: 35 SEX: F ATTEND: Mary Wheeler MD ADM AUTHOR: Mary Wheeler MD * ALL edits or amendments must be made on the [employer]/computer document * Subjective Subjective Patient reports: Patient reports: Yes: normal lochia, pain management effective, tolerating po well, voiding without pain, flatus. No: complaints. Objective General VS: Vital Signs Date Temp Pulse Resp B/P B/P Mean Pulse Ox FiO2 07/17-07/18 98.0-98.7 73-92 18 110-155/75-94 Last Documented: Result Date Time B/P 155/94 07/18 1632 Temp 98.5 07/18 1632 Pulse 74 07/18 1632 Resp 18 07/18 1632 B/P Mean 93.0 07/16 1000 Pulse Ox 92 07/16 1000 PATIENT WEIGHT: Weight (lb): 274 Weight (oz): Weight (kg): 124.511356 Physical Exam Neuro: Exam: alert, oriented x3, normal speech Incision site: well approximated edges, ray intact, dressing clean dry, dry, no drainage, no inflammation Uterus: involution appropriate, non-tender Fundus: firm, below the umbilicus, non-tender Lower extremities: Edema: trace Calf tenderness: negative Discharge Summary General Assessment: nml progress, chronic hyp ertension, type II diabetes, acute blood loss anemia Hospital course: repeat admit, nml post op/postpart care Discharge to: Home/Self Care Discharge diagnosis: anemia (acute blood loss) Plan: routine care, discharge tomorro w Discharge Instructions Diet: Diabetic Activity: As Tolerated, No Driving, No Intercour se for 6 Wks Additional discharge routines: PCP Follow-Up Notify PCP of Signs/Symptoms: per routine Discharge meds: Stop taking the following medications: INSULIN DETEMIR (LEVEMIR) 100 UNIT/ML VIAL 24 UNITS SUBCUTANEOUS EVERY MORNING. INSULIN DETEMIR (LEVEMIR) 100 UNIT/ML VIAL 36 UNITS SUBCUTANEOUS EVERY EVENING. INSULIN LISPRO (HumaLOG) 100 UNITS/ML VIAL 22 UNITS SUBCUTANEOUS BEFORE MEALS. Continue taking these medications: PNV WITH FE FUMARATE/FA () 1 EACH TAB 1 TABLET ORAL DAILY. Start taking the following new medications: OXYCODONE HCL (OXYCODONE) 5 MG TAB 5 MILLIGRAM ORAL EVERY 6 HOURS NEEDED. as ne eded for MODERATE WOUND PAIN ( Qty = 28 No Refills DOCUSATE SODIUM (COLACE) 100 MG CAP 100 MILLIGRAM ORAL TWICE DAILY NEEDED. as ne eded for CONSTIPATION Qty = 24 No Refills metFORMIN (GLUCOPHAGE) 500 MG TAB 1,000 MILLIGRAM ORAL TWICE DAILY. Qty = 60 Refills = 2 IBUPROFEN (MOTRIN) 600 MG TAB 600 MILLIGRAM ORAL FOUR TIMES DAILY NEEDED. as needed for WOUND PAIN Qty = 28 No Refills Electronically Signed by Mary Wheeler MD on at 1814 RPT #:[id number] END OF REPORT 2021-07-18 09:59:00-00:[address] [facility] ([facility]) OB Postpart Progr Note REPORT#:[id number] REPORT STATUS: Signed DATE:07/18/21 TIME: 958 PATIENT: MARCIN WYATT UNIT #: [id number] ROOM/BED: [address] : [birth year] AGE: 35 SEX: F ATTEND: Mary Wheeler MD ADM AUTHOR: Rani Antoine DO R2 * ALL edits or amendments must be made on the [employer]/computer document * Rani Antoine 07/18/21 0959: Subjective Subjective Admission EGA: Weeks: 36 Days: 4 Status/Day: post operative (day 2) Patient reports: Patient reports: Yes no complaints, Yes normal lochia, Yes pain management effective, Yes tolerating po well, Yes voiding well, Ye s voiding without pain, Yes tolerating ambulation, Yes flatus, No b owel movement, No nausea, No vomiting, No excessive bleeding, No abdominal pain, No headache, No lacho rred vision Objective Nursing Documentation Review Nursing Data: The data set between the solid lines has been im ported from nursing documentation. Any exceptions have been noted be low under Provider comments. Feeding preference: Post hemorrhage risk score: High Risk for Hemorrhage. Provider comments on imported nursing data: [] General VS: Vital Signs: Date Time Temp Pulse Resp B/P B/P Pulse O2 O2 F low FiO2 Mean Ox Delivery Rate 07/17 2354 98.0 92 18 110/75 07/17 1552 98.7 85 18 123/81 PATIENT WEIGHT: Weight (lb): 274 Weight (oz): Weight (kg): 124.248682 Physical Exam Lungs: unlabored breathing Neuro: Exam: alert, oriented x3, normal speech Abdomen: soft, no abnormal tenderness, no guardi ng, no rebound tenderness Incision site: well approximated edges, ray intact, dry, no drainage, no inflammation Uterus: firm, involution appropriate, non-tender Fundus: firm, below the umbilicus, non-tender Lochia: normal Lower extremities: Edema: 1+ pitting Calf tenderness: negative Result Findings/Data: Laboratory Tests: 07/18 07/18 07/17 07/17 0921 0601 2134 1429 Chemistry POC Glucose (65 - 110 mg/dL) 131 H 98 145 H 110 Diagnosis, Assessment Plan Diagnosis, Assessment Plan Free text A P: 35 y/o s/p RLTCS at 36w4d due to uncontrolled T2DM. PNC with hx of prior C/S x 1, T2DM, cHTN, nonHodgkins lymphoma, seizu re d/o, depression, BMI 44. 1. Postoperative Day 2 - VS WNL, afebrile, incision c/d/i - Pain controlled - Ambulating - Tolerating regular diet, no N/V - Voiding spontaneously w/o difficulty - Reports flatus/-BM - Lochia normal - Baby: , doing well, at bedside - Lovenox for DVT ppx 2. T2DM -on Levemir Humalog qAc in pregna ncy - Fasting BS 98, 2 hr PP 110-145 on Metformin 10 00 mg BID initiated yesterday - Humalog ISS, continue to monitor BS, w ill need outpatient f/u to optimize BS control. Pt reports having not seen a PCP in a l génesis time, encouraged establishing care with PCP. 3. cHTN - Normotensive, not on meds 4. Acute blood loss anemia 2/2 expected delivery blood loss, asymptomatic - Hgb 11.1 --> 9.7 - Taking PNV, additional PO iron supplementation as needed Dispo: routine care, expect discharge tomorrow Assessment: nml progress, chronic hyp ertension, type II diabetes, acute blood loss anemia Plan: routine care Mary Wheeler 07/18/21 1810: Attestations Physician Attestation Agree w/findings plan: Agree with the findings and plan as documented b y Dr Antoine at 1246 Electronically Signed by Mary Wheeler MD on at 1811 RPT #:[id number] END OF REPORT 2021-07-18 06:41:00-00:00 [id number] [facility] [address] [address] PATIENT NAME: MARCIN WYATT ADMIT DATE: 07/16/21 ACCOUNT NO: [id number] ROOM NO: .4418 AGE: 35 SEX: F ADMITTING PHYSICIAN: Mary Wheeler MD ATTENDING PHYSICIAN: Mary Wheeler MD OPERATION DATE: 07/16/2021 PREOPERATIVE DIAGNOSES: 1. Intrauterine at 36.4 weeks'. 2. Type 2 diabetes mellitus. 3. Chronic hypertension. 4. Prior section. POSTOPERATIVE DIAGNOSES: 1. Intrauterine at 36.4 weeks'. 2. Type 2 diabetes mellitus. 3. Chronic hypertension. 4. Prior section. PROCEDURE: Repeat low transverse sectio n via Pfannenstiel. SURGEON: Mary Wheeler MD SHOEMAKER CUSTOM: Rani Antoine, PEARL CUTTER resident. ANESTHESIA: COMPLICATIONS: None. ESTIMATED BLOOD LOSS: 700 mL. INTRAVENOUS FLUIDS: 2100 mL LR. URINE OUTPUT: 30 mL clear at the end of the proc edure. FINDINGS: Male infant, cephalic presentation, Ap gars 8 and 9, in footling-breech presentation, weighed 3480 grams , to nursery. PROCEDURE IN DETAIL: After t he risks, benefits, alternatives, and the nature of the procedure were discussed with the patient at length, she voiced understanding, all her questions were answered t o satisfaction and signed consent. She was taken to the operating room where spinal anesthesia was found to be adequate. She was then prepared an d draped in the normal sterile fashion in the dorsal supine position with a leftward ti lt. A Pfannenstiel skin incision was done with a sca lpel and carried down to the underlying layer of the fascia, which was incised in the midline and ext ended laterally with Garcia scissors. The fascial borders were serially gras ped with Raul clamps, elevated, and the underlying layer of muscles we re dissected off bluntly. The PATIENT NAME: MARCIN WYATT ACCOUNT #: [id number] muscles were in the midline as well as the peritoneum. The bladder blade was inserted. The lower segment of the uterus was incised in the midline and extended laterally with the thermit welding machine operator's fingers. The amniotomy was done with clear fluid obtained. The head was delivered atr aumatically followed by the rest of the body. Nose and mouth were suctioned. Cord clamped and cut. Baby handed off to the awaiting baby care team. Place nta was delivered spontaneously. The uterus wa s exteriorized and cleared of all clots and debris. The uterine incision was closed with 1.0 chromi c in usual locked fashion. Several ltcddr-rw-enenu stitches using the same suture were placed to obtain excellent hemostasis. The uterus was ret urned to the abdomen. The gutters were cleared of all clots and ade ris, excellent hemostasis was noted. The fascia was closed with 0 Vicryl in a running fashion, excel lent hemostasis was noted. Irrigation with warm normal saline was done, exc ellent hemostasis was noted. The subcutaneous layer was closed with 3.0 Vicry l in a running fashion, excellent hemostasis was noted. The skin was richard sed with ray. All counts were correct. The patient was taken to the [facility] room awake and stable condition. PATHOLOGY: Placenta. Dictated By: Mary Wheeler MD WT: OP:F.BRITTNEY/MEL/ANGELA Conf#: [id number]/DID#: [id number] Authenticated by Mary Wheeler MD On 07/25/2021 0 9:04:42 PM Electronically Signed by Mary Wheeler MD on at 0904 PATIENT NAME: MARCIN WYATT ACCOUNT #: [id number] 2021-07-17 10:48:00-00:[address] [facility] ([facility]) OB Postpart Progr Note REPORT#:[id number] REPORT STATUS: Signed DATE:07/17/21 TIME: 1048 PATIENT: MARCIN WYATT UNIT #: [id number] ROOM/BED: [address] : [birth year] AGE: 35 SEX: F ATTEND: Mary Wheeler MD ADM AUTHOR: Rani Antoine DO R2 * ALL edits or amendments must be made on the [employer]/computer document * See Addendum Rani Antoine 07/17/21 1048: Subjective Subjective Admission EGA: Weeks: 36 Days: 4 Status/Day: post operative (day 1) Patient reports: Patient reports: Yes no complaints, Yes normal lochia, Yes pain management effective, Yes tolerating po well, Yes voiding well, Ye s voiding without pain, Yes tolerating ambulation, Yes flatus, No b owel movement, No nausea, No vomiting, No headache, No blurred vision Objective General VS: Vital Signs: Date Time Temp Pulse Resp B/P B/P Pulse O2 O2 Flow FiO2 Mean Ox Delivery Rate 07/17 1552 98.7 85 18 123/81 07/17 0748 98.2 76 18 114/77 07/16 2300 98.1 60 18 98/62 07/16 1939 98.1 60 18 114/74 PATIENT WEIGHT: Weight (lb): 274 Weight (oz): Weight (kg): 124.135233 Physical Exam Lungs: unlabored breathing Neuro: Exam: alert, oriented x3, normal speech Abdomen: soft, no abnormal tenderness, no guardi ng, no rebound tenderness Incision site: well approximated edges, ray intact, dry, no drainage, no inflammation Uterus: firm, involution appropriate, non-tender Fundus: firm, below the umbilicus, non-tender Lochia: normal Lower extremities: Edema: 1+ pitting Calf tenderness: negative Result Findings/Data: Laboratory Tests: 07/17 07/17 07/17 07/17 07/16 1429 0928 0617 0568 9656 Chemistry POC Glucose (65 - 110 mg/dL) 110 136 H 124 H 14 7 H Hematology WBC (6.5 - 12.3 K/mm3) 14.5 H RBC (3.51 - 4.69 M/mm3) 3.42 L Hgb (10.1 - 13.8 g/dL) 9.7 L Hct (32.5 - 41.8 %) 30.8 L MCV (84.6 - 96.6 fL) 90.1 MCH (27.3 - 33.9 pg) 28.4 MCHC (32.0 - 34.2 gm/dL) 31.5 L RDW (12.2 - 16.3 %) 15.4 Plt Count (134 - 363 K/mm3) 181 MPV (9.2 - 12.7 fL) 11.4 Neut % (Auto) (57.9 - 77.3 %) 71.4 Lymph % (Auto) (14.5 - 29.7 %) 20.8 Dickey % (Auto) (3.6 - 10.2 %) 6.6 Eos % (Auto) (0.0 - 3.0 %) 0.3 Baso % (Auto) (0.1 - 0.9 %) 0.3 Neut # (Auto) (K/mm3) 10.4 Lymph # (Auto) (K/mm3) 3.0 Dickey # (Auto) (K/mm3) 1.0 Eos # (Auto) (K/mm3) 0.04 Baso # (Auto) (K/mm3) 0.0 07/16 1816 Chemistry POC Glucose (65 - 110 mg/dL) 156 H Diagnosis, Assessment Plan Diagnosis, Assessment Plan Free text A P: 35 y/o s/p RLTCS at 36w4d due to uncontrolled T2DM. PNC with hx of prior C/S x 1, T2DM, cHTN, nonHodgkins lymphoma, seizu re d/o, depression, BMI 44. 1. Postoperative Day 1 - VS WNL, afebrile, incision c/d/i - Pain controlled - Ambulating - Tolerating regular diet, no N/V - Velasquez catheter removed this AM, voiding sponta neously w/o difficulty - Reports flatus/-BM - Lochia normal - Baby: , doing well, at bedside - Lovenox for DVT ppx 2. T2DM -on Levemir Humalog qAc in pregna ncy - Fasting BS 124, 2 hr PP 110-136, Metformin 100 0 mg BID initiated today; continue to monitor BS 3. cHTN - Normotensive, not on meds 4. Acute blood loss anemia 2/2 expected delivery blood loss - Hgb 11.1 --> 9.7 - Taking PNV, additional PO iron supplementation as needed Dispo: routine care Assessment: nml progress, chronic hyp ertension, type II diabetes, acute blood loss anemia Plan: routine care Plan discussed with: patient, spouse/partner, ad [facility] Mary Wheeler 07/17/21 1803: Attestations Physician Attestation Agree w/findings plan: Agree with the findings and plan as documented by Dr Wooten, PATIENT WAS SEEN AND EXAMINED AROUND 8AM at 1744 Electronically Signed by Mary Wheeler MD on 06/26 at 1804 Addendum 1: 07/17/211811 by Mary Wheeler MD, i, DR... Electronically Signed by Mary Wheeler MD on 06/26 at 1812 RPT #:[id number] END OF REPORT 2021-07-16 07:06:00-00:00 [facility] ([facility]) OB Admission / H P REPORT#:[id number] REPORT STATUS: Signed DATE:07/16/21 TIME: 705 PATIENT: MARCIN WYATT UNIT #: [id number] ROOM/BED: [facility]8-A : 84 AGE: 35 SEX: F ATTEND: Denis Wheeler MD ADM AUTHOR: Rain Antoine DO R2 * ALL edits or amendments must be made on the el [employer]/computer document * OB History Chief complaint: scheduled HPI: This is a 35 y/o at 36w4d (MARVIN 08/09/21, LMP c/w 7 wk US) presenting for scheduled repeat C/S due to uncontrolled T2DM. D enies CTX, LOF, VB. Good FM. PNC complicated by prior C/S x 1 due to preeclampsia remote from delivery, T2DM (on Levemir Humalog qAc), cHTN (on ASA in this , not on BP meds), nonHodgkins lymphoma s/p chemo 6 yrs ago, seizure d/o (not on meds), kidney stones (s/p lithotripsy), and depression (not on meds), BMI 44. history: : 2 Term: 1 : 0 Abortus: 0 Living children: 1 Complications (prev preg): preeclampsia Number of prev : 1 Current : Best EDC: 08/09/21 Admission EGA (weeks) 36 Admission EGA (days) 4 Conditions of : diabetes - pre-existing , HTN - chronic Labs: Blood type: A Rh: positive Rubella: immune Hepatitis B: negative HIV: negative Syphilis: currently negative Past History Past Medical History: Reports: Diabetes mellitus, Hypertension. Denies : Asthma. Past Surgical History: Reports: . Additional Surgical History: ureteral stent, biopsy for lymphoma Alcohol Use Denies EtOH use Drug Use Denies recreational drugs Smoking status: Smoking status for patients 13 years old or old er: Unknown,if ever smoked Medications: Home Medications: INSULIN DETEMIR (LEVEMIR) 24 UNITS SC QAM INSULIN DETEMIR (LEVEMIR) 36 UNITS SC QPM INSULIN LISPRO (HumaLOG) 22 UNITS SC AC PNV WITH FE FUMARATE/FA () 1 TAB PO GINA Y Allergies: Uncoded Allergies: jalepenos (Severe, ANAPHYLAXIS 07/30/13) Review of Systems Constitutional: Denies: chills, fatigue, fever. Respiratory: Denies: non productive cough, productive cough ( sputum), SOB. Cardiovascular: Denies: chest pain, palpitations. GI: Denies: abdominal pain, nausea, vomiting. : Reports: . Denies: vaginal bleeding, vag inal discharge. Neuro: Denies: headache, lightheaded, vision change. Objective General VS: Last Documented: Result Date Time B/P Mean 100.0 07/16 532 B/P 137/81 07/16 532 Temp 97.6 07/16 05 Pulse 112 07/16 532 Resp 18 07/16 532 Vital Signs Date Temp Pulse Resp B/P B/P Mean Pulse Ox FiO2 07/16 97.6 112 18 137/81 100.0 PATIENT WEIGHT: Weight (lb): 274 Weight (oz): Weight (kg): 124.611192 Physical Exam HEENT: normocephalic w/o injury Lungs: unlabored breathing Neuro: Exam: alert, oriented x3, normal speech Abdomen: gravid, soft, no abnormal tenderness, n o guarding, no rebound tenderness Uterine activity: Monitor: toco Frequency (description): rare Membranes: Membranes: Intact Lower extremities: Edema: trace Calf tenderness: negative Baby A: Baby A baseline: 130 bpm Baby A variability: moderate 6-25 bpm Baby A accelerations: 15 X 15 Baby A decelerations: none Baby A FHR category: category 1 Result Findings/Data: Laboratory Tests: 07/16 07/15 07/15 0605 1045 1045 Chemistry Sodium (135 - 145 mEq/L) 138 Potassium (3.5 - 5.0 mEq/L) 4.5 Chloride (100 - 115 mEq/L) 103 Carbon Dioxide (22 - 31 mEq/L) 23 Anion Gap (10 - 20) 16.20 BUN (7 - 18 mg/dL) 16 Creatinine (0.5 - 1.0 mg/dL) 0.8 Glomerular Filtr Rate (>60 ml/min) 81 Glucose (65 - 110 mg/dL) 130 H Calcium (8.4 - 10.2 mg/dL) 8.8 Total Bilirubin (0.2 - 1.0 mg/dL) 0.4 AST (15 - 37 units/L) 25 ALT (12 - 78 units/L) 17 Total Alk Phosphatase (46 - 116 units/L) 100 Total Protein (6.3 - 8.2 gm/dL) 6.5 Albumin (3.4 - 4.8 gm/dL) 2.7 L Hematology WBC (6.5 - 12.3 K/mm3) 11.3 RBC (3.51 - 4.69 M/mm3) 3.90 Hgb (10.1 - 13.8 g/dL) 11.1 Hct (32.5 - 41.8 %) 34.0 MCV (84.6 - 96.6 fL) 87.2 MCH (27.3 - 33.9 pg) 28.5 MCHC (32.0 - 34.2 gm/dL) 32.6 RDW (12.2 - 16.3 %) 15.1 Plt Count (134 - 363 K/mm3) 195 MPV (9.2 - 12.7 fL) 11.3 Neut % (Auto) (57.9 - 77.3 %) 72.7 Lymph % (Auto) (14.5 - 29.7 %) 19.6 Dickey % (Auto) (3.6 - 10.2 %) 5.9 Eos % (Auto) (0.0 - 3.0 %) 0.9 Baso % (Auto) (0.1 - 0.9 %) 0.3 Neut # (Auto) (K/mm3) 8.2 Lymph # (Auto) (K/mm3) 2.2 Dickey # (Auto) (K/mm3) 0.7 Eos # (Auto) (K/mm3) 0.10 Baso # (Auto) (K/mm3) 0.0 Serology Treponema pallidum Ab (NONREACTIVE) NONREACTIVE Hep Bs Antigen (NONREACTIVE) NONREACTIVE Hepatitis C Antibody (NONREACTIVE) NONREACTIVE Hep C Ab Signal/Cutoff (<0.80) <0.02 HIV 1 2 Antibody (NONREACTIVE) NONREACTIVE SARS-CoV-2 Ag (Rapid) (NEGATIVE) NEGATIVE Diagnosis, Assessment Plan Diagnosis, Assessment Plan Free Text A P: This is a 35 y/o at 36w4d (MARVIN 08/09/21, LMP c/w 7 wk US) presenting for scheduled repeat C/S due to uncontrolled T2DM. P NC with hx of prior C/S x 1, T2DM, cHTN, nonHodgkins lymphoma, seizure d/o, d epression, BMI 44. 1. Repeat section - Admit to L D, routine admission orders, consen ts reviewed and signed - Ancef 3gm for antimicrobial ppx - SCDs for DVT ppx, will do Lovenox 12 hrs posto p. - Consult anesthesia for CSE - NICU on standby - Pre-op Hgb 11.1 2. FWB - Cat 1 FHT and reactive 3. T2DM -on Levemir Humalog qAc in pregna ncy; reports use of Metformin prior to - Accuchek 130 on admission 4. cHTN - on ASA in this , not on BP meds - BPs WNL at this time Dispo: Proceed to OR for RC/S. Plan discussed with Dr. Wheeler. Assessment/Impression: reassuring status Plan: scheduled Reason-sched C section: prior uterine surgery (p revious C/S) Plan discussed with: patient, admitting physicia n, nurse at 1409 Electronically Signed by Mary Wheeler MD on at 0306 RPT #:[id number] END OF REPORT 2019-08-30 23:50:00-00:00 [id number] [place] [address] PATIENT NAME: MARCIN WYATT ADMIT DATE: 08/30/19 ACCOUNT NO: [id number] ROOM NO: AGE: 33 REPORT TYPE: OPERATIVE REPORT SEX: F ADMITTING PHYSICIAN: ATTENDING PHYSICIAN: Enrique Tyler MD OPERATION DATE: 08/30/2019 ATTENDING SURGEON: Enrique Tyler M.D. PREOPERATIVE DIAGNOSIS: Right renal stone. POSTOPERATIVE DIAGNOSES: Right renal stone. PROCEDURE PERFORMED: 1. Cystoscopy. 2. Right ureteroscopy. 3. Basket extraction of stones. 4. Retrograde pyelogram with interpretation. 5. Right ureteral stent exchange. DRAINS PLACED: A 6 x [address] with retrieval string. FINDINGS: 1. A 1.5-cm stone in the left lower pole of yumiko young. 2. Mild hydroureteronephrosis. INDICATIONS FOR PROCEDURE: The patient is a 33-y ear-old female who I encountered several weeks ago with an ob structing right UPJ stone. I performed a stent for decompression. She now presents for followup ureteroscopy to address the stone. The patient was on Topamax, a nd I advised her to discuss with her prescribing physician that this is like ly the etiology of recurrent stone formation. PROCEDURE IN IN DETAIL: The patient was brought to the OR on 08/30/2019. She had anesthesia inducted without any comp lication. She was placed into a dorsal lithotomy position. Her genitalia was prepped an d draped in usual standard sterile manner. At this point, I insert ed a 22-Azeri rigid cystourethroscope into the bladder. I identified the previously pl aced right ureteral stent. I placed a wire alongside the stent and then pulled the prior stent out intact. I now advanced up a 10-Azeri dual-lumen ureteral catheter, and then advanced up a 28 cm 11/13 Azeri access sheath. I advanced a 7 -Azeri ureteroscope through the access sheath and was able to naviga te this to the renal pelvis. There was a large radiopaque stone, which was in the lower pole of the kidney. I performed laser lithotripsy to fragment the stone. Larger stone fragments were basket extracted, the remain eric was deemed to be passable dust. I then withdrew the scope visualizing the entirety of the ureter ; there was no significant abrasion or laceration. I th en advanced up a 6 x 24 Black Beauty ureteral stent PATIENT NAME: MARCIN WYATT ACCOUNT #: L [id number] and was confirmed to be in good position proxima lly and distally. The retrieval string was secured to her pubis. A t this time, this marked completion of the procedure. The patient tolerat ed the procedure well. There were no complications. Dictated By: Enrique Tyler MD WT: OP:LMODESTO/EVERTON/ANGELA Conf#: [id number]/DID#: [id number] Authenticated by Enrique Tyler MD On 08/31/2019 02 :23:00 PM Electronically Signed by Enrique Tyler MD on at 1423 PATIENT NAME: MARCIN WYATT ACCOUNT #: L [id number] 2019-08-30 15:22:00-00:00 [facility] ([facility]) Post Anesthesia Evaluation REPORT#:[id number] REPORT STATUS: Signed DATE:08/30/19 TIME:1522 PATIENT: MARCIN WYATT UNIT #: [id number] ROOM/BED: : 84 AGE: 33 SEX: F ATTEND: Enrique Tyler MD ADM AUTHOR: Cary Richard CRNA * ALL edits or amendments must be made on the el [employer]/computer document * Post Anesthesia Evaluation Anes. changes from pre-op eval ORM Surgeries: Surgery Date and Time: 08/30/2019 1130 Proposed Primary Procedure: URETEROSCOPY WITH H OLMIUM LASER WITH Proposed Secondary Procedures: RIGHT URETERAL S TENT INSERTION CYSTOSCOPY RETROGRADE PYELOGRAM Anesthetic: general LMA Date: 08/30/19 Level of consciousness: no change, patient awake , able to answer questions, participate in this eval. Vital signs: Vital Signs: Date Time Temp Pulse Resp B/P B/P Pulse O2 O2 F low FiO2 Mean Ox Delivery Rate 08/30 1355 64 18 138/86 99 Room air 08/30 1321 36.7 65 15 149/95 100 Room air 08/30 1311 70 19 145/100 100 Room air 08/30 1300 Simple [id number] mask 08/30 1300 36.7 72 14 142/92 100 Simple 8.69824 0 mask 08/30 0926 36.3 69 18 119/75 97 Room air Cardiovascular: no change, CV system stable, vit al signs stable Respiratory/Airway: respiratory system stable, m aintains without support Pain: adequately controlled Hydration: adequate Temp status: normothermic Presence of N/V: no Anesthesia complications: no Other changes requiring f/u: none Conclusions: no apparent anes. issues Electronically Signed by Cary Richard CRNA n 08/30/19 at 1524 RPT #: [id number] END OF REPORT
[2022-12-26] MEDS ORDERED: SMZ./TMP. 800/160 MG TABLET ONE (01:36)
[2022-12-26] MEDS ORDERED: CEFTRIAXONE 1000 MG/VIAL ONE (01:36)
[2022-12-26] MEDS ORDERED: ONDANSETRON 4 MG (ODT) TAB ONE (01:37)
[2022-12-26] MEDS ORDERED: KETOROLAC 30 MG/ML INJ ONE (01:37)
[2022-12-26] MEDS ORDERED: LIDOCAINE 1% MPF 2 ML AMPULE ONE (01:37)
[2022-12-26] MEDS ORDERED: LIDOCAINE 1% MPF 30 ML VIAL ONE (01:37)
[2022-12-26] MEDS ORDERED: LIDOCAINE 1% 20 ML MDV ONE (01:45)
[2022-12-26 01:46] LABS: Specific Gravity 1.038 (1.005-1.030)
--- NOTE | 2022-12-26 01:53 | ER ---
Nurse's Notes [facility] Name: Paulette Nielsen Age: 37 yrs Sex: Female : 1985 Arrival Date: 12/26/2022 Time: 00:53 Bed 15 Private MD: Diagnosis: Pilonidal cyst with abscess Presentation: 12/26 01:13 Chief complaint: Patient states: I have had a cyst near my tailbone foe years and it is kd3 painful. I have had it looked at once and the doctor said it would go away on its own. It does go down but then it comes back. Sometimes it has puss. Coronavirus screen: Vaccine status: Patient reports receiving the 2nd dose of the covid vaccine. Ebola Screen: No symptoms or risks identified at this time. Initial Sepsis Screen: Does the patient meet any 2 criteria? No. Patient's initial sepsis screen is negative. Does the patient have a suspected source of infection? No. Patient's initial sepsis screen is negative. Risk Assessment: Do you want to hurt yourself or someone else? Patient reports no desire to harm self or others. Onset of symptoms was December 26, 2022. 01:13 Method Of Arrival: Ambulatory kd3 01:13 Acuity: AKSHAT 4 kd3 Triage Assessment: 01:18 General: Appears uncomfortable, Behavior is calm, cooperative. Pain: Complains of pain kd3 in gluteal cleft. Historical: - Allergies: 01:18 jalepano; kd3 01:18 Morphine; kd3 - PMHx: 01:18 abscess removed from genital area; ADD/ADHD; Anxiety; Bipolar disorder; Depression; kd3 Kidney stones; Migraines; Non-Hodgkins Lymphoma; Seizures; self mutilation - cutter; suicidal ideation; Sinusitis; - Immunization history:: Adult Immunizations up to date. - Social history:: Smoking status: Patient reports the use of cigarette tobacco products, smokes one-half pack cigarettes per day. - Family history:: not pertinent. Screenin:15 [facility] ED Fall Risk Assessment (Adult) History of falling in the last 3 months, pf1 including since admission No falls in past 3 months (0 pts) Confusion or Disorientation No (0 pts) Intoxicated or Sedated No (0 pts) Impaired Gait No (0 pts) Mobility Assist Device Used No (0 pt) Altered Elimination No (0 pt) Score/Fall Risk Level 0 - 2 = Low Risk Oriented to surroundings, Maintained a safe environment, Educated pt \T\ family on fall prevention, incl call for assistance when getting out of bed, Assessed \T\ reinforced patient's understanding of fall precautions, Provided non-skid footwear, Hourly rounding (assess needs \T\ fall precautionary measures) done, Used ambulatory aids as needed (educated on \T\ assisted with), Used gait belt as appropriate. Abuse screen: Denies threats or abuse. Nutritional screening: No deficits noted. Tuberculosis screening: No symptoms or risk factors identified. Assessment: 01:15 General: Appears in no apparent distress. uncomfortable, well groomed, well developed, pf1 Behavior is calm, cooperative, appropriate for age, quiet. 01:15 Pain: Complains of pain in gluteal cleft Pain currently is 9 out of 10 on a pain scale. pf1 Pain began 1 day ago. Neuro: No deficits noted. Level of Consciousness is awake, alert, obeys commands, Oriented to person, place, time, situation. Cardiovascular: No deficits noted. Capillary refill < 3 seconds Patient's skin is warm and dry. Respiratory: No deficits noted. Airway is patent Trachea midline Respiratory effort is even, unlabored, Respiratory pattern is regular, symmetrical. GI: No deficits noted. No signs and/or symptoms were reported involving the gastrointestinal system. : No deficits noted. No signs and/or symptoms were reported regarding the genitourinary system. EENT: No deficits noted. No signs and/or symptoms were reported regarding the EENT system. Derm: Reports pain that is 9 out of 10 on a pain scale. Parent/caregiver reports the patient having pilonidal cyst. Musculoskeletal: No deficits noted. No signs and/or symptoms reported regarding the musculoskeletal system. Vital Signs: 01:13 BP 135 / 102; Pulse 114; Resp 19; Temp 98.7(O); Pulse Ox 98% on R/A; Weight 113.4 kg; kd3 Height 5 ft. 9 in. ; 02:17 BP 131 / 95; Pulse 103; Resp 18; Temp 98.7; Pulse Ox 100% on R/A; Pain 0/10; pf1 01:13 Body Mass Index 36.92 (113.40 kg, 175.26 cm) kd3 02:17 Pain Scale: Adult pf1 ED Course: 00:58 Patient arrived in ED. ja2 01:08 Aaron Soni MD is Attending Physician. sp4 01:17 Triage completed. kd3 01:18 Arm band placed on right wrist. kd3 01:18 Patient has correct armband on for positive identification. Placed in gown. Bed in low pf1 position. Call light in reach. 01:37 Test, Urine Sent. vc1 01:40 Sue Almaguer RN is Primary Nurse. pf1 01:51 Garrett Sage MD is Referral Physician. sp4 02:18 No provider procedures requiring assistance completed. Patient did not have IV access pf1 during this emergency room visit. Administered Medications: 01:37 Drug: Ketorolac IM 60 mg Route: IM; Site: right ventrogluteal; vc1 01:54 Follow up: Response: No adverse reaction; Marked relief of symptoms; Pain is decreased pf1 01:37 Drug: Rocephin (cefTRIAXone) IM 1 grams Route: IM; Site: left ventrogluteal; vc1 01:54 Follow up: Response: No adverse reaction; Marked relief of symptoms pf1 01:38 Drug: Lidocaine Infiltration (1 %) 30 ml Volume: 20 ml; Route: Infiltration; vc1 01:53 Follow up: Response: No adverse reaction; Marked relief of symptoms; Pain is decreased pf1 01:38 Drug: Lidocaine Infiltration (1 %) 20 ml Volume: 20 ml; Route: Infiltration; vc1 01:53 Follow up: Response: No adverse reaction; Marked relief of symptoms; Pain is decreased pf1 01:51 Drug: Trimethoprim-Sulfamethoxazole PO (160 mg-800 mg (DS) 1 tablet Route: PO; vc1 01:54 Follow up: Response: No adverse reaction; Marked relief of symptoms pf1 01:51 Drug: Ondansetron PO 4 mg Route: PO; vc1 01:54 Follow up: Response: No adverse reaction; Marked relief of symptoms pf1 Medication: 02:18 VIS not applicable for this client. pf1 Outcome: 01:52 Discharge ordered by . sp4 02:17 Discharged to home ambulatory. pf1 02:17 Condition: improved 02:17 Discharge instructions given to patient, Instructed on discharge instructions, follow up and referral plans. Demonstrated understanding of instructions, follow-up care, medications, Prescriptions given X 3. 02:18 Patient left the ED. pf1 Signatures: Gita Epps Kyli RN RN kd3 Kiarra Anaya RN RN 1 Sue Almaguer RN RN pf1 Aaron Soni MD MD sp4
--- NOTE | 2022-12-26 01:53 | EDPHYS ---
Physician Documentation [facility] Name: Paulette Nielsen Age: 37 yrs Sex: Female : 1985 Arrival Date: 12/26/2022 Time: 00:53 Bed 15 Private MD: ED Physician Aaron Soni HPI: 12/26 01:08 This 37 yrs old Female presents to ER via Unassigned with complaints of Cyst. sp4 01:18 29-year-old female presents with increasing pain in the crease of the buttocks that is sp4 consistent with her prior pilonidal cyst abscess . Historical: - Allergies: 01:18 jalepano; kd3 01:18 Morphine; kd3 - PMHx: 01:18 abscess removed from genital area; ADD/ADHD; Anxiety; Bipolar disorder; Depression; kd3 Kidney stones; Migraines; Non-Hodgkins Lymphoma; Seizures; self mutilation - cutter; suicidal ideation; Sinusitis; - Immunization history:: Adult Immunizations up to date. - Social history:: Smoking status: Patient reports the use of cigarette tobacco products, smokes one-half pack cigarettes per day. - Family history:: not pertinent. ROS: 01:18 Constitutional: Negative for fever, chills, and weight loss, Skin: Negative for injury, sp4 rash, positive for pain, redness, swelling of the ski and just above the crease over the buttocks 01:18 All other systems are negative. Exam: 01:18 Constitutional: This is a well developed, well nourished patient who is awake, alert, sp4 and in no acute distress. Head/Face: Normocephalic, atraumatic. Eyes: Pupils equal round and reactive to light, extra-ocular motions intact. Lids and lashes normal. Conjunctiva and sclera are not injected. Cornea within normal limits. Periorbital areas with no swelling, redness, or edema. ENT: Nares patent. No nasal discharge, no septal abnormalities noted. Tympanic membranes are normal and external auditory canals are clear. Oropharynx with no redness, swelling, or masses, exudates, or evidence of obstruction, uvula midline. Mucous membranes moist. Neck: Trachea midline, no thyromegaly or masses palpated, and no cervical lymphadenopathy. Supple, full range of motion without nuchal rigidity, or vertebral point tenderness. Chest/axilla: Normal chest wall appearance and motion. Nontender with no deformity. No lesions are appreciated. Cardiovascular: Regular rate and rhythm with a normal S1 and S2. No gallops, murmurs, or rubs. Normal PMI, no JVD. No pulse deficits. Respiratory: Lungs have equal breath sounds bilaterally, clear to auscultation and percussion. No rales, rhonchi or wheezes noted. No increased work of breathing, no retractions or nasal flaring. Abdomen/GI: Soft, non-tender, with normal bowel sounds. No distension or tympany. No guarding or rebound. No evidence of tenderness throughout. Back: No spinal tenderness. No costovertebral tenderness. There is pilonidal abscess cyst right over gluteal cleft moderate size with apparent purulent discharge Skin: Warm, dry with normal turgor. Normal color with no rashes, no lesions, and no evidence of cellulitis. MS/ Extremity: Pulses equal, no cyanosis. Neurovascular intact. Full, normal range of motion. Neuro: Awake and alert, GCS 15, oriented to person, place, time, and situation. Cranial nerves II-XII grossly intact. Motor strength 5/5 in all extremities. Sensory grossly intact. Psych: Awake, alert, with orientation to person, place and time. Behavior, mood, and affect are within normal limits Vital Signs: 01:13 BP 135 / 102; Pulse 114; Resp 19; Temp 98.7(O); Pulse Ox 98% on R/A; Weight 113.4 kg; kd3 Height 5 ft. 9 in. ; 02:17 BP 131 / 95; Pulse 103; Resp 18; Temp 98.7; Pulse Ox 100% on R/A; Pain 0/10; pf1 01:13 Body Mass Index 36.92 (113.40 kg, 175.26 cm) kd3 02:17 Pain Scale: Adult pf1 Procedures: 01:48 I \T\ D: Incision and drainage was performed for an abscess of the pilonidal cyst Prepped sp4 with Betadine, Anesthetized with 50 ml's 1% Lidocaine. Incised with #11 blade. Drained moderate amount purulent fluid. bloody fluid. Packed with sterile gauze, Dressing: sterile 4x4 gauze, the patient tolerated the procedure well, Pilonidal cyst with her other small abscess drained and dressing applied.. MDM: 01:18 Patient medically screened. sp4 01:48 Differential Diagnosis Abscess, cellulitis, infected sebaceous cyst. Data reviewed: sp4 vital signs, nurses notes, old medical records, lab test result(s), UPT: negative. 02:07 ED course: They are EEGs negative test. sp4 12/26 01:18 Order name: Test, Urine; Complete Time: 02:07 sp4 12/26 01:18 Order name: Dressing - Wound; Complete Time: 01:50 sp4 12/26 01:18 Order name: Gloves, Sterile; Complete Time: 01:37 sp4 12/26 01:18 Order name: Setup Suture Tray; Complete Time: 01:37 sp4 12/26 01:18 Order name: Incision \T\ Drainage Setup; Complete Time: 01:38 sp4 Administered Medications: 01:37 Drug: Ketorolac IM 60 mg Route: IM; Site: right ventrogluteal; vc1 01:54 Follow up: Response: No adverse reaction; Marked relief of symptoms; Pain is decreased pf1 01:37 Drug: Rocephin (cefTRIAXone) IM 1 grams Route: IM; Site: left ventrogluteal; vc1 01:54 Follow up: Response: No adverse reaction; Marked relief of symptoms pf1 01:38 Drug: Lidocaine Infiltration (1 %) 30 ml Volume: 20 ml; Route: Infiltration; vc1 01:53 Follow up: Response: No adverse reaction; Marked relief of symptoms; Pain is decreased pf1 01:38 Drug: Lidocaine Infiltration (1 %) 20 ml Volume: 20 ml; Route: Infiltration; vc1 01:53 Follow up: Response: No adverse reaction; Marked relief of symptoms; Pain is decreased pf1 01:51 Drug: Trimethoprim-Sulfamethoxazole PO (160 mg-800 mg (DS) 1 tablet Route: PO; vc1 01:54 Follow up: Response: No adverse reaction; Marked relief of symptoms pf1 01:51 Drug: Ondansetron PO 4 mg Route: PO; vc1 01:54 Follow up: Response: No adverse reaction; Marked relief of symptoms pf1 Disposition Summary: 12/26/22 01:52 Discharge Ordered Location: Home sp4 Problem: new sp4 Symptoms: have improved sp4 Condition: Stable sp4 Diagnosis - Pilonidal cyst with abscess sp4 Followup: sp4 - With: Garrett Sage MD - When: 10 - 14 days - Reason: Recheck today's complaints Discharge Instructions: - Discharge Summary Sheet sp4 - Pilonidal Cyst Drainage, Care After sp4 Prescriptions: - Ibuprofen 600 mg Oral Tablet - take 1 tablet by ORAL route every 6 hours As needed take with food; 30 tablet; sp4 Refills: 0, Product Selection Permitted - Tramadol 50 mg Oral Tablet - take 1 tablet by ORAL route every 8 hours as needed; 12 tablet; Refills: 0, sp4 Product Selection Permitted - Bactrim DS 800-160 mg Oral Tablet - take 1 tablet by ORAL route every 12 hours for 10 days; 20 tablet; Refills: 0, sp4 Product Selection Permitted Signatures: Dispatcher [employer] Lorenza Jones, RN RN kd3 Kiarra Anaya RN RN vc1 Aaron Soni MD MD sp4 Sue Almaguer RN pf1
[2022-12-26 02:24] VITALS: TEMP 98.7
[2022-12-26 02:25] VITALS: BP 131/95; O2SAT 100
== END 2022-12-26 02:18 | disposition home or self-care (01) ==
LOC: ER 00:53
PROC: 0H98XZZ Drainage of Buttock Skin, External Approach (ICD-10-PCS; principal; 2022-12-26)
DX: L05.01 Pilonidal cyst with abscess (principal)
CPT/HCPCS: 81025; 96372; 99284; J0696; J2001; Q0162

== ENCOUNTER 2023-01-09 10:41 | Day surgery (SDC) | payer OTHER ==
[2023-01-09] MEDS ORDERED: NA CHLORIDE 0.9% 1,000 ML ONE ×2 (11:04→14:39)
[2023-01-09] MEDS ORDERED: CEFAZOLIN SODIUM 2 GM/VIAL ONE (11:07)
[2023-01-09 11:09] LABS: Urine Specific Gravity/Preg >1.030 (1.005-1.030)
[2023-01-09 11:30] LABS: Potassium 4.2 mEq/L (3.5-5.1)
[2023-01-09] MEDS ORDERED: propofoL 200 MG/20 ML VIAL IV ONE (13:39)
[2023-01-09] MEDS ORDERED: MIDAZOLAM HCL 2 MG/2 ML INJ ONE (13:39)
[2023-01-09] MEDS ORDERED: FENTANYL CITR 100 MCG/2 ML ONE (13:39)
[2023-01-09] MEDS ORDERED: ROCURONIUM 50 MG/5 ML VIAL IV ONE (13:40)
[2023-01-09] MEDS ORDERED: dexAMETHasone 10 MG/ML VIAL ONE (13:40)
[2023-01-09] MEDS ORDERED: KETOROLAC 30 MG/ML INJ ONE (13:40)
[2023-01-09] MEDS ORDERED: ONDANSETRON 4 MG/2 ML VIAL ONE (13:40)
[2023-01-09] MEDS ORDERED: LIDOCAINE 2% MPF 5 ML VIAL ONE (13:40)
[2023-01-09] MEDS: BUPIVACAINE 0.25% PF 10 ML VIAL ONE ×2 (13:47→14:20)
[2023-01-09] MEDS: METHYLENE BLUE 1% 10 ML VIAL ONE ×2 (13:48→14:21)
[2023-01-09] MEDS ORDERED: LABETALOL 20 MG/4ML SYRINGE IV ONE (14:37)
--- NOTE | 2023-01-09 14:37 | P.OP ---
Preoperative diagnosis: Pilonidal Cyst with Sinus Postoperative diagnosis: Pilonidal Cyst with Sinus Primary procedure: Wide local excision of Pilonidal Cyst with Sinus Anesthesia: GETA + Local Estimated blood loss: <10cc Specimen: Debridement Tissue Findings: 10cm x 8cm x 5cm down to sacrum Complications: None Transferred to: Recovery Room Condition: Good
[2023-01-09] MEDS ORDERED: NEOSTIGMINE 1 MG/ML -10 ML VIAL ONE (14:54)
[2023-01-09] MEDS ORDERED: GLYCOPYRROLATE 0.2 MG/ML SYR ONE (14:55)
[2023-01-09] MEDS ORDERED: HYDROMORPHONE HCL 1 MG/ML INJ ONE (15:23)
[2023-01-09 16:04] VITALS: BP 115/76; TEMP 98
[2023-01-09] MEDS ORDERED: HYDROCODONE/APAP 7.5/325 MG TAB ONE (16:23)
[2023-01-09 17:25] VITALS: O2SAT 98
--- NOTE | 2023-01-10 01:13 | OP ---
Date of Procedure: 01/09/2023 Surgeon: Garrett Sage MD, Preoperative Diagnosis: Pilonidal cyst with sinus. Postoperative Diagnosis: Pilonidal cyst with sinus. Procedure Performed: Wide local excision of pilonidal cyst with sinus. Anesthesia: Marcaine. Estimated Fluid Loss: . Specimen: Debridement of tissue. Findings: Approximately 10 cm x 8 cm x 5 cm pilonidal cyst with sinus down extend into the fascia ov erlying the sacrum. Complications: None. Patient was transferred to recovery room in good condition. Procedure In Detail: After informed consent was obtained, patient was brought to the operating room, prepped and draped in the usual sterile fashion. After adequate anesthesia achieved, I made an inje ction of methylene blue into a pilonidal sinus tract on the superior cassie cleft using methylene blue . Methylene blue demarcated the entire tract which was visualized at this point extending from pilon idal open cyst at the superior cleft. I then anesthetized the area with 0.25% Marcaine sharply incised circumferentially around with a 15 subcutaneous tissues and dissected using elect rocautery down and removed it as described above, thereby all area blue extension includin g pilonidal cyst and sinus. This was sent off for pathologic examination. I then achieved hemostasi s with electrocautery. The area was copiously irrigated until the suction out completely dry. The w ound was then packed with Vashe soaked, Kerlix, and a sterile dressing placed over top. The patient tolerated the procedure well without evidence of complication and transferred to PACU in good conditi on. All counts were correct at the end of the case. LEDA/JOEL Voice ID: [id number] Report ID: [id number]
== END 2023-01-09 17:04 | disposition home or self-care (01) ==
LOC: OR 10:41
PROVIDERS: ATTEND Surgery
PROC: 0JB90ZZ Excision of Buttock Subcutaneous Tissue and Fascia, Open Approach (ICD-10-PCS; principal; 2023-01-09 14:45)
DX: L05.02 Pilonidal sinus with abscess (principal)
CPT/HCPCS: 80048; 36415; 81025; 82947; 11770; J2704; J2710; J2001; J2250; J3010; J1170; J2405; J7030 ×2; 88304; J1100

== ENCOUNTER 2023-01-11 23:53 | Emergency (ER) | payer OTHER ==
--- OUTSIDE RECORDS SUMMARY | 2023-01-11 23:57 | XMS REPORT | Continuity of Care Document ---
:1985 Author Organization [facility] t Address [address] [place] [address] Care Team Providers Name Role Phone Ismael Goodman Primary Care Physician Enrique Tyler Attending Clinician Unavailable Mary Wheeler Attending Clinician Unavailable Pita Suárez RN Attending Clinician Unavailable Rosanna Hernandez RN Attending Clinician Unavailable Shelbi Mcadams RN Attending Clinician Unavailable Griffin Georges MD Attending Clinician Alex Templeton Admitting Clinician Unavailable Mary Wheeler Admitting Clinician Unavailable Griffin Georges MD Admitting Clinician Payers Payer Name Policy Type Policy Number Effective Date Expiration Date Susy rivera [facility] [id number] 2021 00:00:00 HEALTH PLAN CHIP Problems Condition [...] [facility] 2[facility] [place] 00:00: d 00 Medical Dora morphine DA Active U RASHES [facility] [place] jalepeno DA Active SV ANAPHYLAXIS [facility] s [facility]- [facility] [place] Social History Social Habit Start Date Stop Date Quantity Comments Source ASSERTION 2020-11-16 [place] [facility] 00:00:00 History [facility] University o f Alcohol Std [place] Medical Drinks Branch History [facility] University o f Alcohol Binge [place] Medic al Branch Tobacco use and 2021-04-24 2021-04-24 Smokeless tobacco [place] [facility] exposure 00:00:00 00:00:00 non-user Alcohol intake 2021-04-24 2021-04-24 Lifetime [place] [facility] 00:00:00 00:00:00 non-drinker (finding) History [facility] 2019-03-23 2019-03-23 1 University o f Alcohol Frequency 00:00:00 00:00:00 [facility] edical Branch Tobacco Comment 2019-03-23 2019-03-23 1/2 pack a day Unive rsity of 00:00:00 00:00:00 [facility] Sex Assigned At [birth year] [place] [facility] 00:00:00 00:00:00 Smoking Status Start Date Stop Date Source Never smoked tobacco [place] [facility] Current every day smoker 2019-03-24 00:00:00 [...] ( 39 PO) citalopram Yes Take by [facility] hydrobromid 9-20 mouth ity of e 03:13: daily. [place] (CITALOPRAM 20 Medical ORAL) Branch trazodone Yes 1{tbl} Take 1 [facility] ers HCl 9-20 tablet by ity of (TRAZODONE 03:13: mouth at [place] as ORAL) 20 bedtime. Medical Branch medroxyPROG Yes 150mg 150 mg by [facility] ESTERone 9-20 Intramuscu ity o f 150 mg/mL 03:13: lar route Juan Carols as syringe 20 every 3 Medical (three) Branch months. sulfamethox Yes 1{tbl} 1 tablet, [facility] azole-trime 9-20 Oral, BID, it y of thoprim 01:00: [place] (BACTRIM 00 on [facility] DS) 800-160 03/24/19 at Br anch mg per 1999, tablet 1 Until tablet Discontinu ed, LAYA
Re ason for Anti-Infec tive: Documented Infection< br>Documen yovani Infection Site: Skin / Soft Tissue
Duration of Therapy: 10 days HYDROcodone Yes 1{tbl} 1 tablet, [facility] -acetaminop 9-20 Oral, ity of hen (NORCO [...] irrigation 00 03/23/19 at Med ical solution [place] Until Discontinu ed, Intra-op lidocaine-e 2018-0 Yes PRN, Univer s pinephrine 03-24 Starting ity o f (XYLOCAINE 01:19: Thu [place] WITH 00 03/23/19 at [facility] EPINEPHRINE [place] ) 1 Until %-1:100,000 Discontinu injection ed, Routine, Intra-op HYDROcodone 2018-0 Yes [id number] 1{tbl} Take 1 Univers -acetaminop -19 tablet by ity of hen 5-325 00:00: mouth [place] mg tablet 00 every 4 Medical (four) Branch hours as needed for Pain (scale 7-10). sulfamethox 2019-0 Yes [id number] 1{tbl} Take 1 Univers azole-trime 9-19 tablet by ity of thoprim 00:00: mouth 2 [place] 800-160 mg 00 (two) Medical per tablet times Branch daily. traMADol 50 2019-0 Yes [id number] 50mg Take 1 Univers mg tablet -19 tablet by ity o f 00:00: mouth [place] 00 every 6 Medical (six) Branch hours as needed for Pain (scale 4-6). vancomycin 2018- 2019- No 1250mg 1,250 mg, Univers (VANCOCIN) 03-23 IV ity of 1,250 mg in 22:00: 00:41 Piggyback, [place] NaCl 0.9% 00 :15 Q12H ABX, Medic al (NS) 250 mL First dose Br anch piggyback on Thu03/23/19 at 1700, Until Discontinu ed, 250 mL
Reas on for Anti-Infec tive: Documented Infection< br>Documen yovani Infection Site: Skin / Soft Tissue
Duration of Therapy: 7 days vancomycin 2019- No 1500mg 1,500 mg, Univers (VANCOCIN) 03-23 IV ity of 1,500 mg in 09:00: 13:30 Piggyback, [place] NaCl 0.9% 00 :50 Q12H ABX, Medic [...] ABX, Medical gram/50 mL First dose [facility] Piggyback on Thu 3.375 g 03/23/19 [...] IV Push, ity of (PF)) 05:57: Q6HPRN, [place] injection 4 57 Starting Medi pastor mg [facility] 03/23/19 at 0057, Until Discontinu ed, Routine, Nausea and Vomiting (N/V) acetaminoph 2018-0 Yes 650mg 650 mg, Un ammy en 03-23 Oral, ity of (TYLENOL) 05:57: Q6HPRN, [place] tablet 650 42 Starting Medic al mg [facility] 03/23/19 at 0057, Until Discontinu ed, Routine, Pain (scale 1-3) Vital Signs Vital Name Observation Time Observation Value Comments Source Body height 2021-04-24 16:45:00 175.3 cm [facility] Body weight 2021-04-24 16:45:00 120.203 kg [facility] BMI 2021-04-24 16:45:00 39.13 kg/m2 [facility] Systolic blood 2019-03-25 03:00:00 138 mm[Hg] [facility] Diastolic blood 2019-03-25 03:00:00 92 [facility]Hg] [facility] Heart rate 2019-03-25 03:00:00 56 /min [facility] Body temperature 2019-03-25 03:00:00 36.5 [place] [facility] Respiratory rate 2019-03-25 03:00:00 16 /min [facility] Oxygen saturation in 2019-03-25 03:00:00 100 /min [facility] Arterial blood by [place] Medi pastor Pulse oximetry [place] Body weight 2019-03-23 19:06:00 118.5 kg [facility] BMI 2019-03-23 19:06:00 38.58 kg/m2 [facility] Body height 2019-03-23 05:21:00 175.3 cm [facility] Systolic blood 2019-03-25 03:00:00 138 mm[Hg] Univer [facility] Diastolic blood 2019-03-25 03:00:00 92 mm[Hg] [facility] Heart rate 2019-03-25 03:00:00 56 /min [facility] Body temperature 2019-03-25 03:00:00 36.5 [place] [facility] Respiratory rate 2019-03-25 03:00:00 16 /min [facility] Oxygen saturation in 2019-03-25 03:00:00 100 /min [facility] Arterial blood by [facility] Pulse oximetry Branch Body weight 2019-03-23 19:06:00 118.5 kg [facility] BMI 2019-03-23 19:06:00 38.58 kg/m2 [facility] Body height 2019-03-23 05:21:00 175.3 cm [facility] Procedures Procedure Date / Time Performing Clinician Source Performed [id number] 2021-07-16 00:00:00 [facility] POCT GLUCOSE 2019-03-25 01:09:00 Griffin Georges [facility] (AUTOMATED) [facility] BASIC METABOLIC PANEL 2019-03-24 09:34:00 Austin Perdue [facility] (NA, K, CL, CO2, Medical Branch GLUCOSE, BUN, CREATININE, CA) CBC WITH DIFFERENTIAL 2019-03-24 09:34:00 Austin Perdue [facility] WOUND DEBRIDEMENT 2019-03-24 00:15:00 Austin Perdue [facility] POCT GLUCOSE 2019-03-23 23:54:00 Griffin Georges [facility] (AUTOMATED) [facility] TEST, SERUM 2019-03-23 19:41:00 [facility] BASIC METABOLIC PANEL 2019-03-23 19:33:00 [facility] (NA, K, CL, CO2, Medical Branch GLUCOSE, BUN, CREATININE, CA) CBC WITH DIFFERENTIAL 2019-03-23 11:34:00 Griffin Georges [facility] Encounters Start End Encounter Admission Attending Care Care Encounter Source Date/Time Date/Time Type Type Clinicians Facility Department ID 2021-05-21 Outpatient [facility] [id number] [place] 11:46:20 Health 2021-04-24 Outpatient [facility] [id number] [place] 12:04:03 Health 2019-08-30 Inpatient HinhEnrique [facility] [id number] 11:30:00 00 [facility] 2021-07-16 2021-07-19 Inpatient ANATOLIY Monterroso OB [id number] [facility] 05:07:00 10:10:00 Ziad 43 [facility] 2021-04-24 2021-04-24 Nurse Only Pita Suárez UTP 6410 1.2.840. 114 [id number] [place] 00:00:00 00:00:[address] 350.1.13.58 Health 9.2.7.2.686 [id number] 2021-04-24 2021-04-24 Telephone David Rosanna UTP 6410 1.2.84 0.114 [id number] [place] 00:00:00 00:00:[address] 350.1.13.58 Health 9.2.7.2.686 [id number] 2021-04-23 2021-04-23 Telephone Pema Shelbi UTP 6410 1.2. 840.114 [id number] [place] 00:00:00 00:00:[address] 350.1.13. 58 Health 9.2.7.2.686 [id number] 2021-04-22 2021-04-22 Telephone Marin Hernandezth UTP 6410 1.2.84 0.114 [id number] [place] 00:00:00 00:00:[address] 350.1.13.58 Health 9.2.7.2.686 [id number] 2019-03-22 2019-03-24 [facility] 1.2.840.114 [id number] [facility] 23:58:00 22:10:00 Encounter [facility] 350.1.13.10 ity of [place] 4.2.7.2.686 Remigio Magaña [id number] [address] ([facility]) 2019-03-22 2019-03-24 [facility] 1.2.840.114 [id number] 23:58:00 22:10:00 Encounter Ather, Health 350.1.13.10 Griffin [place] 4.2.7.2.686 [place] [id number] [place] [address] ([facility]) Results Test Description Test Time Test Comments Results Result Comments Source SURGICAL 2021-07-29 16:26:00 Test Item Value Reference Range Interpretation Comme nts SURGICAL RUN DATE: (test 07/29/21 Woman's - Laborato ry PAGE 1 RUN TIME: 1626 Specimen Inquiry RUN USER: INTERFACE code = PATIENT: ) MARCIN WYATT LOC: [facility] U #: [id number] AGE/SX: 35/F ROOM: [facility] RE07/16/21REG DR: Mary Wheeler MD : 83 BED: A DIS: 07/19/21 STATUS: DIS IN TLOC: SPEC #: [id number] RECD: STATUS: PÉREZ KELLOGG #: [id number] ALVARO: 07/16/21 DR: Mary Wheeler MD ENTERED: 07/17/21 SP TYPE: SURGICAL OTHR DR: Austin Peraza MD, Haroon I MDORDERED: ANATOMIC SPEC, SPEC 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 [place] [address] PROCEDURES: 80508 (07/17/21) TISSUES: A. PLACENTA, THIRD TRIMESTER (2 [...] Specimen Inquiry RUN USER: INTERFACE SPEC #: [id number] PATIENT: MARCIN WYATT #[id number] (Continued) GROSS DESCRIPTION (Continued ) surface is translucent with white patches, with unremarkable vasculature. The maternalsurface appears complete. Serial sections through the disk show red-brown fleshy tissuewith white patches scattered thro ughout. Design Verification Engineer sections submitted.Sections code:A1: cord and membranes x 2A2-3: placenta cross sectionsXZ Technical component performed at [facility],[address] , [place] [address] Unless gross only, the diagnosis is based [...] Iraj Enriquez 07/29/21 1626 END OF REPORT [id number] 05:46:00 Test Item Value Reference Range Interpretation Comments GLUBED (test code = GLUBED) 112 mg/dL 65-110 H [id number] 23:32:00 Test Item Value Reference Range Interpretation Comments GLUBED (test code = GLUBED) 120 mg/dL 65-110 H [id number] 14:32:00 Test Item Value Reference Range Interpretation Comments GLUBED (test code = GLUBED) 128 mg/dL 65-110 H [id number] 09:24:00 Test Item Value Reference Range Interpretation Comments GLUBED (test code = GLUBED) 131 mg/dL 65-110 H [id number] 06:06:00 Test Item Value Reference Range Interpretation Comments GLUBED (test code = GLUBED) 98 mg/dL 65-110 N [id number] 21:48:00 Test Item Value Reference Range Interpretation Comments GLUBED (test code = GLUBED) 145 mg/dL 65-110 H [id number] 14:32:00 Test Item Value Reference Range Interpretation Comments GLUBED (test code = GLUBED) 110 mg/dL 65-110 N [id number] 09:31:00 Test Item Value Reference Range Interpretation Comments GLUBED (test code = GLUBED) 136 mg/dL 65-110 H [id number] 06:20:00 Test Item Value Reference Range Interpretation Comments GLUBED (test code = GLUBED) 124 mg/dL 65-110 H CBC W/AUTO [id number] 06:02:00 Test Item Value Reference Range Interpretation [...] REQUIRED (test NORMAL NORMAL code = PLTMR) [id number] 21:27:00 Test Item Value Reference Range Interpretation Comments GLUBED (test code = GLUBED) 147 mg/dL 65-110 H [id number] 18:20:00 Test Item Value Reference Range Interpretation Comments GLUBED (test code = GLUBED) 156 mg/dL 65-110 H [id number] 14:26:00 Test Item Value Reference Range Interpretation Comments GLUBED (test code = GLUBED) 218 mg/dL 65-110 H CAPILLARY BLOOD [id number] 08:03:00 Test Item Value Reference Range Interpretation [...] 21.0 % code = FIO2C) CAPILLARY BLOOD [id number] 08:03:00 Test Item Value Reference Range Interpretation [...] 21.0 % code = FIO2C) COMPREHENSIVE METABOLIC [id number] 06:49:00 Test Item Value Reference Range Interpretation [...] N code = ALKP) AG HEPATITIS B [id number] 13:11:00 Test Item Value Reference Range Interpretation Comments AG HEPATITIS B SURFACE (test code NONREACTIVE NONREACTIVE = HBSAG) AB HEPATITIS C [id number] 13:11:00 Test Item Value Reference Range Interpretation Comments AB HEPATITIS C (test code = NONREACTIVE NONREACTIVE HCVAB) SIGNAL TO CUTOFF (test code = <0.02 <0.80 N CUTOFF) AB [id number] 13:11:00 Test Item Value Reference Range Interpretation Comments AB TREPONEMA (test code = TREPAB) NONREACTIVE NONREACTIVE AB HIV 1 13:11:00 Test Item Value Reference Range Interpretation Comments AB HIV 1 2 (test NONREACTIVE NONREACTIVE [facility] code = YTE95WL) 4th Gen HIV Ag/Ab Combo Screen COVID 19 Asymptomatic IH [id number] 12:14:00 Test Item Value Reference Range Interpretation [...] and/o r diagnosis of CO VID-19 under Zzwpfek87 4(b)(1) of the Act, 21 U.S .C. 360bbb-3(b)(1), unless theauthorizatio n is terminated or r evoked sooner. Comments to Inspector Packer: FOR RAPID AND IN-HOUSE COVID TESTSpecimen Comment: DO NOT SEND OUTCBC W/AUTO [id number] 11:41:00 Test Item Value Reference Range Interpretation [...] NORMAL code = PLTMR) CALCULI URINARY WITH [id number] 12:04:00 Test Item Value Reference Range Interpretation [...] and Drug Admini stration. CALCULI URINARY WITH [id number] 12:04:00 Test Item Value Reference Range Interpretation [...] Drug Admini stration. - XR FLUOROSCOPY 0-60 [id number] 14:10:00 Name: MARCIN WYATT [place] : 1985 Age/S: 33 / F [address] Unit #: [id number] Loc: [place] [address] Phys: Enrique Tyler MD Acct: [id number] Dis Date: Status: REG MEDOP PHONE #: [phone] Exam Date: 08/30/2019 1300 FAX #: Reason: STENT PLACEMENT EXAMS: CPT: [id number] XR FLUOROSCOPY 0-60 MIN 24116 Fluoro Time: 39 SEC DAP (Gy m2): [...] PAGE 1 Signed Report Name: [facility] [place] [facility] 1985 Age/S: 33 / F [address] Unit #: [id number] Loc: [place] [address] Phys: Enrique Tyler MD Acct: [id number] Dis Date: Status: REG MEDOP PHONE #: [phone] Exam Date: 08/30/2019 1300 FAX #: Reason: STENT PLACEMENT EXAMS: CPT: [id number] XR FLUOROSCOPY 0-60 MIN 15727 Fluoro Time: 39 SEC DAP (Gy m2): Air Kerma (mGy): (Continued) Technologist: Sadia Herbert, RT(R) Trnscb Date/Time: 08/30/2019 (342) tTEDANS4 Orig Print D/T: S: 08/30/2019 (2151) PAGE 2 Signed ReportUR HCG [id number] 10:41:00 Test Item Value Reference Range Interpretation Comments UR HCG QUAL (test code = HCGQLU) NEGATIVE NEGATIVE BASIC METABOLIC [id number] 10:26:00 Test Item Value Reference Range Interpretation [...] CA) 9.4 MG/DL 8.5-10.1 N BASIC METABOLIC [id number] 10:22:00 Test Item Value Reference Range Interpretation [...] = CA) 9.4 MG/DL 8.5-10.1 N PROTHROMBIN [id number] 10:12:00 Test Item Value Reference Range Interpretation Comments PT PATIENT (test code = PTP) 12.1 SECONDS 9.3-12.9 N INTERNATIONAL NORMAL RATIO 1.07 INR Unit 0.8-1.2 N (test code = INR) THROMBOPLASTIN TIME [id number] 10:12:00 Test Item Value Reference Range Interpretation Comments THROMBOPLASTIN TIME PARTIAL 31.6 SECONDS 26-35 N (test code = PTT) GLUCOSE BEDSIDE [id number] 10:06:00 Test Item Value Reference Range Interpretation Comments GLUCOSE BEDSIDE TESTING (test code 126 mg/dL 70-110 H = GLUBED) CBC W/AUTO [id number] 10:03:00 Test Item Value Reference Range Interpretation [...] Interpretation Comments POCT GLU (test code = 8909254363) 148 mg/dL 70-110 H Lab Interpretation (test code = Abnormal 70326-1) [facility] METABOLIC PANEL (NA, K, CL, CO2, GLUCOSE, BUN, CREATININE, CA)2019-03-24 09:55:00 Test Item Value Reference Range Interpretation Comments NA (test code = 137 mmol/L 135-145 6460857930) K (test code = 4.5 mmol/L 3.5-5 9772172075) CL (test code = 107 mmol/L 98-108 1626349537) CO2 TOTAL (test code = 23 mmol/L 23-31 1020017446) AGAP (test code = 2-16 1587710461) BUN (test code = 15 mg/dL 7-23 7118751262) GLUCOSE (test code = 181 mg/dL 70-110 H 5828726707) CREATININE (test code = 0.92 mg/dL 0.5-1.04 2956655301) CALCIUM (test code = 9.2 mg/dL 8.6-10.6 2630925822) eGFR Calculation mL/min/1.73m2 (Non-) (test code = 1908533020) eGFR Calculation mL/min/1.73m2 () (test code = 2449928954) BAIRON (test code = BAIRON) Association of [...] tests). Lab Interpretation Abnormal (test code = 02706-2) [facility] WITH [id number] 09:39:00 Test Item Value Reference Range Interpretation Comments WBC (test code = See_Comment H [Automated 2350-2) message] The system which generated this result transmit yovani reference range : 4.30 - 11.10 10*3/?L. The reference range was not used to interpret this result as normal/abnormal . RBC (test code = See_Comment [Automated 569-8) message] The system which generated this result [...] RDW-SD (test code = 47.8 fL 39-49.9 10047-0) RDW-CV (test code = 15.1 % 12-15.5 788-0) PLT (test code = See_Comment [Automated 707-3) message] The system which generated this result transmit yovani reference range : 166 - 358 10*3/ ?L. The reference range was not u sed to interpret th is result as normal/abnormal . MPV (test code = 10.3 fL 9.5-12.9 20590-4) NRBC/100 WBC (test See_Comment [Automat ed code = 2440792627) message] The system which generated this result transmit yovani reference range : 0.0 - 10.0 /100 WBCs. The reference range was not used to interpret this result as normal/abnormal . NRBC x10^3 (test code <0.01 See_Comment [Auto mated = 0011858135) message] The system which generated this result transmit yovani reference range : 10*3/?L. The reference range was not used to interpret this result as normal/abnormal . GRAN MAT (NEUT) % 87.4 % (test code = 770-8) IMM GRAN % (test code 0.40 % = 4334325880) LYMPH % (test code = 9.9 % 736-9) MONO % (test code = 1.9 % 5905-5) EOS % (test code = 0.1 % 713-8) BASO % (test code = 0.3 % 706-2) GRAN MAT x10^3(ANC) 13.10 10*3/uL 1.88-7.09 H (test code = 6816719421) IMM GRAN x10^3 (test 0.06 10*3/uL 0-0.06 code = 4372413807) LYMPH x10^3 (test code 1.48 10*3/uL 1.32-3.29 = 731-0) MONO x10^3 (test code 0.29 10*3/uL 0.33-0.92 L = 742-7) EOS x10^3 (test code = <0.03 0.03-0.39 L 711-2) BASO x10^3 (test code 0.04 10*3/uL 0.01-0.07 = 704-7) Lab Interpretation Abnormal (test code = 08912-7) [facility] 23:56:00 Test Item Value Reference Range Interpretation Comments POCT GLU (test code = 0971324414) 113 mg/dL 70-110 H Lab Interpretation (test code = Abnormal 45952-8) [facility], [id number] 20:07:00 Test Item Value Reference Range Interpretation Comments PREG SERUM (test code Negative = 1475733975) BAIRON (test code = BAIRON) Less than 10 IU/L.?If low titer or ectopic is suspected, resubmit specimen in 48-72 hours. [facility] METABOLIC PANEL (NA, K, CL, CO2, GLUCOSE, BUN, CREATININE, CA)2019-03-23 20:02:00 Test Item Value Reference Range Interpretation Comments NA (test code = 137 mmol/L 135-145 8779562928) K (test code = 4.1 mmol/L 3.5-5 7292389087) CL (test code = 109 mmol/L 98-108 H 5948360383) CO2 TOTAL (test code = 23 mmol/L 23-31 9968307757) AGAP (test code = 2-16 8549930444) BUN (test code = 17 mg/dL 7-23 8586638740) GLUCOSE (test code = 134 mg/dL 70-110 H 1674503938) CREATININE (test code = 0.92 mg/dL 0.5-1.04 1876423726) CALCIUM (test code = 8.9 mg/dL 8.6-10.6 7984196703) eGFR Calculation mL/min/1.73m2 (Non-) (test code = 9153651505) eGFR Calculation mL/min/1.73m2 () (test code = 2132092390) BAIRON (test code = BAIRON) Association of [...] tests). Lab Interpretation Abnormal (test code = 26153-3) [facility] WITH [id number] 11:45:00 Test Item Value Reference Range Interpretation [...] (test code = 50.2 fL 39-49.9 H 03327-2) RDW-CV (test code = 15.5 % 12-15.5 788-0) PLT (test code = See_Comment [Automated 777-3) message] The sy stem which generated this result transmitted reference range : 166 - 358 10*3/ ?L. The reference r jose e was not used to interpret this result as normal/abnormal . MPV (test code = 10.2 fL 9.5-12.9 11642-0) NRBC/100 WBC (test See_Comment [Automat ed code = 2380450696) message] The system which generated this result transmitted reference range : 0.0 - 10.0 /100 WBCs. The refer ence range was not u sed to interpret th is result as normal/abnormal . NRBC x10^3 (test code <0.01 See_Comment [Auto mated = 4451717696) message] The s ystem which generated this result transmitted reference range : 10*3/?L. The reference range was not used to interpret this result as normal/abnormal . GRAN MAT (NEUT) % 66.3 % (test code = 770-8) IMM GRAN % (test code 0.30 % = 8310525857) LYMPH % (test code = 25.1 % 736-9) MONO % (test code = 6.1 % 5905-5) EOS % (test code = 1.8 % 713-8) BASO % (test code = 0.4 % 706-2) GRAN MAT x10^3(ANC) 8.22 10*3/uL 1.88-7.09 H (test code = 1661539663) IMM GRAN x10^3 (test 0.04 10*3/uL 0-0.06 code = 7049985329) LYMPH x10^3 (test code 3.11 10*3/uL 1.32-3.29 = 731-0) MONO x10^3 (test code 0.76 10*3/uL 0.33-0.92 = 742-7) EOS x10^3 (test code = 0.22 10*3/uL 0.03-0.39 711-2) BASO x10^3 (test code 0.05 10*3/uL 0.01-0.07 = 704-7) Lab Interpretation Abnormal (test code = 44041-2) [facility] Notes Date/Time Note Provider Source 2021-07-18 18:13:00-00:00 [facility] OB Disch REPORT#:[id number] REPORT STATUS: Signed DATE:07/18/21 TIME: 1812 PATIENT: MARCIN WYATT UNIT #: [id number] ROOM/BED: [address] : 84 AGE: 35 SEX: F ATTEND: Mary Wheeler MD ADM AUTHOR: Mary Wheeler MD * ALL edits or amendments must be made on the Celframe/computer document * Subjective Subjective Patient reports: Patient [...] Weight (lb): 274 Weight (oz): Weight (kg): 124.575856 Physical Exam Neuro: Exam: alert, oriented x3, [...] Mary Wheeler MD on at 1814 RPT #:[id number] END OF REPORT 2021-07-18 09:59:00-00:00 [facility] ([facility]) OB Postpart Progr Note REPORT#:[id number] REPORT STATUS: Signed DATE:07/18/21 TIME: 958 PATIENT: MARCIN WYATT UNIT #: [id number] ROOM/BED: [address] : 84 AGE: 35 SEX: F ATTEND: Mary Wheeler MD ADM AUTHOR: Rani Antoine DO R2 * ALL edits or amendments must be made on the Celframe/computer document * Rani Antoine 07/18/21 0959: Subjective [...] Weight (lb): 274 Weight (oz): Weight (kg): 124.722065 Physical Exam Lungs: unlabored breathing Neuro: Exam: [...] Mary Wheeler MD on at 1811 RPT #:[id number] END OF REPORT 2021-07-18 06:41:00-00:00 [id number] [facility] [address] [address] PATIENT NAME: MARCIN WYATT ADMIT DATE: 07/16/21 ACCOUNT NO: [id number] ROOM NO: .4418 AGE: 35 SEX: F [...] n via Pfannenstiel. SURGEON: Mary Wheeler MD NEWSPAPER EDITOR: Rani Antoine, SUPPLY ROOM CLERK resident. ANESTHESIA: COMPLICATIONS: None. ESTIMATED BLOOD LOSS: [...] PATIENT NAME: MARCIN WYATT ACCOUNT #: F [id number] muscles were in the midline as well as the peritoneum. The bladder blade was inserted. The lower segment of the uterus was incised in the midline and extended laterally with the vacuum furnace operator's fingers. The amniotomy was done with [...] chromi c in usual locked fashion. Several [id number]-[id number] stitches using the same suture were placed [...] correct. The patient was taken to the [facility] room awake and stable condition. PATHOLOGY: Placenta. Dictated By: Mary Wheeler MD WT: OP:F.BRITTNEY/MEL/ANGELA Conf#: [id number]/DID#: [id number] Authenticated by Mary Wheeler MD On 07/25/2021 0 9:04:42 PM Electronically Signed by Mary Wheeler MD on at 0904 PATIENT NAME: MARCIN WYATT ACCOUNT #: [id number] 2021-07-17 10:48:00-00:00 [facility] ([facility]) OB Postpart Progr Note REPORT#:[id number] REPORT STATUS: Signed DATE:07/17/21 TIME: 1048 PATIENT: MARCIN WYATT UNIT #: [id number] ROOM/BED: [address] : 84 AGE: 35 SEX: F ATTEND: Mary Wheeler MD ADM AUTHOR: Rani Antoine DO R2 * ALL edits or amendments must be made on the [employer]/computer document * See Addendum aRni Antoine 07/17/21 1048: Subjective Subjective Admission EGA: [...] Weight (lb): 274 Weight (oz): Weight (kg): 124.253966 Physical Exam Lungs: unlabored breathing Neuro: Exam: [...] 07/17 07/17 07/17 07/16 1429 0928 0617 0526 1496 Chemistry POC Glucose (65 - 110 mg/dL) [...] % (Auto) (14.5 - 29.7 %) 20.8 Garden % (Auto) (3.6 - 10.2 %) 6.6 Eos % (Auto) (0.0 - 3.0 %) 0.3 Baso % (Auto) (0.1 - 0.9 %) 0.3 Neut # (Auto) (K/mm3) 10.4 Lymph # (Auto) (K/mm3) 3.0 Garden # (Auto) (K/mm3) 1.0 Eos # (Auto) [...] care Plan discussed with: patient, spouse/partner, [facility] Wheeler 07/17/21 1803: Attestations Physician Attestation Agree w/findings plan: Agree with the findings and plan as documented by Dr Wooten, PATIENT WAS SEEN AND EXAMINED AROUND 8AM at 1744 Electronically Signed by Mary Wheeler MD on 06/26 at 1804 Addendum 1: 07/17/211811 by Mary Wheeler MD, i, DR... Electronically Signed by Mary Wheeler MD on 06/26 at 1812 RPT #:[id number] END OF REPORT 2021-07-16 07:06:00-00:00 [facility] ([facility]) OB Admission / H P REPORT#:[id number] REPORT STATUS: Signed DATE:07/16/21 TIME: 705 PATIENT: MARCIN WYATT UNIT #: [id number] ROOM/BED: [facility]-A : 84 AGE: 35 SEX: F ATTEND: Denis Wheeler MD ADM AUTHOR: Rani Antoine DO R2 * ALL edits or amendments must be made on the el [employer]/computer document * OB History Chief complaint: scheduled [...] Weight (lb): 274 Weight (oz): Weight (kg): 124.610334 Physical Exam HEENT: normocephalic w/o injury Lungs: [...] % (Auto) (14.5 - 29.7 %) 19.6 Garden % (Auto) (3.6 - 10.2 %) 5.9 Eos % (Auto) (0.0 - 3.0 %) 0.9 Baso % (Auto) (0.1 - 0.9 %) 0.3 Neut # (Auto) (K/mm3) 8.2 Lymph # (Auto) (K/mm3) 2.2 Garden # (Auto) (K/mm3) 0.7 Eos # (Auto) [...] Mary Wheeler MD on at 0306 RPT #:[id number] END OF REPORT 2019-08-30 23:50:00-00:00 [id number] [place] [address] PATIENT NAME: MARCIN WYATT ADMIT DATE: 08/30/19 ACCOUNT NO: [id number] ROOM NO: AGE: 33 REPORT TYPE: OPERATIVE [...] At this point, I insert ed a 22-Syrian rigid cystourethroscope into the bladder. I identified the previously pl aced right ureteral stent. I placed a wire alongside the stent and then pulled the prior stent out intact. I now advanced up a 10-Syrian dual-lumen ureteral catheter, and then advanced up a 28 cm 11/13 Syrian access sheath. I advanced a 7 -Syrian ureteroscope through the access sheath and was [...] PATIENT NAME: MARCIN WYATT ACCOUNT #: L [id number] and was confirmed to be in good position proxima lly and distally. The retrieval string was secured to her pubis. A t this time, this marked completion of the procedure. The patient tolerat ed the procedure well. There were no complications. Dictated By: Enrique Tyler MD WT: OP:LMODESTO/EVERTON/ANGELA Conf#: [id number]/DID#: [id number] Authenticated by Enrique Tyler MD On 08/31/2019 02 :23:00 PM Electronically Signed by Enrique Tyler MD on at 1423 PATIENT NAME: MARCIN WYATT ACCOUNT #: L [id number] 2019-08-30 15:22:00-00:00 [facility] ([facility]) Post Anesthesia Evaluation REPORT#:[id number] REPORT STATUS: Signed DATE:08/30/19 TIME:1522 PATIENT: MARCIN WYATT UNIT #: [id number] ROOM/BED: : 84 AGE: 33 SEX: F ATTEND: Enrique Tyler MD ADM AUTHOR: Cary Richard CRNA * ALL edits or amendments must be made on the el [employer]/computer document * Post Anesthesia Evaluation Anes. changes [...] 145/100 100 Room air 08/30 1300 Simple 8.942639 mask 08/30 1300 36.7 72 14 142/92 100 Simple 8.03750 0 mask 08/30 0926 36.3 69 18 [...] CRNA n 08/30/19 at 1524 RPT #: [id number] END OF REPORT
[2023-01-12] MEDS ORDERED: HYDROMORPHONE HCL 1 MG/ML INJ ONE (00:47)
--- NOTE | 2023-01-12 01:29 | EDPHYS ---
Physician Documentation [facility] Name: Paulette Nielsen Age: 37 yrs Sex: Female : 1985 Arrival Date: 01/11/2023 Time: 23:53 Bed 15 Private MD: ED Physician Manuel Solorio HPI: 01/12 00:35 This 37 yrs old Female presents to ER via Ambulatory with complaints of Post Surgical cp Pain. 00:35 Patient is a 37-year-old female who presents to the emergency department requesting a cp check of her surgical wound. Patient reports having pilonidal cyst removed by Dr. Sage this past Thursday without complication. Patient reports her was changing the dressing and repacking the wound when he became concerned that areas of the wound appeared black. He does not report any purulent drainage and/or significant bleeding from the wound. Patient does report pain since the surgery but denies fevers, chills, sweats. 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 - Social history:: Smoking status: Patient reports the use of cigarette tobacco products, smokes one-half pack cigarettes per day. ROS: 00:40 Constitutional: Negative for body aches, chills, fever, poor PO intake. cp 00:40 Cardiovascular: Negative for chest pain. cp 00:40 Respiratory: Negative for cough, shortness of breath, wheezing. 00:40 Abdomen/GI: Negative for abdominal pain, nausea, vomiting, and diarrhea. 00:40 Neuro: Negative for altered mental status, headache, weakness. 00:40 All other systems are negative. Exam: 00:45 Constitutional: The patient appears in no acute distress, alert, awake, cp non-diaphoretic, non-toxic, well developed, well nourished, obese, uncomfortable. 00:45 Skin: Inspection of the surgical wound in the coccyx area shows some areas of cp granulation and very mild bleeding. There is no purulent drainage and no surrounding erythema. Vital Signs: 00:17 BP 133 / 110; Pulse 131; Resp 18; Pulse Ox 95% ; Weight 113.4 kg; Height 5 ft. 9 in. ; vc1 Pain 7/10; 00:19 Pain 7/10; vc1 01:00 BP 127 / 97; Pulse 102; Resp 18; Pulse Ox 93% ; vc1 00:17 Body Mass Index 36.92 (113.40 kg, 175.26 cm) vc1 00:17 Pain Scale: Adult vc1 00:19 Pain Scale: Adult vc1 MDM: 00:12 Patient medically screened. cp 01:28 Data reviewed: vital signs, nurses notes, and as a result, I will discharge patient. cp 01:28 I considered the following discharge prescriptions or medication management in the cp emergency department Medications were administered in the Emergency Department. See MAR. Counseling: I had a detailed discussion with the patient and/or guardian regarding: the historical points, exam findings, and any diagnostic results supporting the discharge/admit diagnosis, the need for outpatient follow up, a general surgeon, to return to the emergency department if symptoms worsen or persist or if there are any questions or concerns that arise at home. Response to treatment: the patient's symptoms have markedly improved after treatment, Vital signs stable. Wound repacked and dressing reapplied. Discussed continued wound care and at this point surgical wound appears to be healing well. Will discharge to home and recommend follow-up with primary surgeon Dr. Sage. 01/12 01:24 Order name: Wound dressing; Complete Time: 01:24 cp Administered Medications: 00:42 Drug: HYDROmorphone IM 1 mg Route: IM; Site: left gluteus; vc1 01:23 Follow up: Response: No adverse reaction; Marked relief of symptoms vc1 Disposition Summary: 01/12/23 01:29 Discharge Ordered Location: Home cp Problem: an ongoing problem cp Symptoms: have improved cp Condition: Stable cp Diagnosis - Encounter for change or removal of surgical wound dressing cp Followup: cp - With: Garrett Sage MD - When: as scheduled - Reason: Wound Recheck Discharge Instructions: - Discharge Summary Sheet cp - How to Change Your Wound Dressing cp - Wound Care, Adult cp Forms: - Medication Reconciliation Form cp - Thank You Letter cp - Antibiotic Education cp - Prescription Opioid Use cp - [email or web address] cp Signatures: Jed Doshi PA PA cp Calcote, Vanessa RN RN vc1
--- NOTE | 2023-01-12 01:29 | ER ---
Nurse's Notes [facility] Name: Paulette Nielsen Age: 37 yrs Sex: Female : 1985 Arrival Date: 01/11/2023 Time: 23:53 Bed 15 Private MD: Diagnosis: Encounter for change or removal of surgical wound dressing Presentation: 01/12 00:11 Chief complaint: Patient states: Dr. Sage removed a pilonidal cyst on Thursday and the vc1 paperwork said if I noticed any tissue changes from pink to black to go to the Hospital immediately. My noticed some black spots when he was repacking it. Coronavirus screen: Vaccine status: Patient reports receiving the 1st dose of the Covid vaccine. Client denies travel out of the [place] in the last 14 days. At this time, the client does not indicate any symptoms associated with coronavirus-19. Ebola Screen: Patient negative for fever greater than or equal to 101.5 degrees Fahrenheit, and additional compatible Ebola Virus Disease symptoms Patient denies exposure to infectious person. Patient denies travel to an Ebola-affected area in the 21 days before illness onset. No symptoms or risks identified at this time. Risk Assessment: Do you want to hurt yourself or someone else? Patient reports no desire to harm self or others. Onset of symptoms was January 12, 2023. 00:11 Method Of Arrival: Ambulatory vc1 00:11 Acuity: AKSHAT 4 vc1 00:19 Initial Sepsis Screen: Does the patient meet any 2 criteria? HR > 90 bpm. No. Patient's vc1 initial sepsis screen is negative. Does the patient have a suspected source of infection? Yes: Skin breakdown/wound. Triage Assessment: 00:14 General: Appears in no apparent distress. uncomfortable, obese, Behavior is vc1 cooperative, appropriate for age. Pain: Complains of pain in gluteal cleft Pain does not radiate. Pain currently is 7 out of 10 on a pain scale. EENT: No deficits noted. No signs and/or symptoms were reported regarding the EENT system. Neuro: Level of Consciousness is awake, alert, obeys commands, Oriented to person, place, time, situation, Appropriate for age. Cardiovascular: No deficits noted. Respiratory: Airway is patent Respiratory effort is even, unlabored, Respiratory pattern is regular, symmetrical. GI: No deficits noted. No signs and/or symptoms were reported involving the gastrointestinal system. : No deficits noted. No signs and/or symptoms were reported regarding the genitourinary system. Derm: Wound noted gluteal cleft Reports pain that is 7 out of 10 on a pain scale. Musculoskeletal: No deficits noted. No signs and/or symptoms reported regarding the musculoskeletal system. 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 - Social history:: Smoking status: Patient reports the use of cigarette tobacco products, smokes one-half pack cigarettes per day. Screenin:16 [facility] ED Fall Risk Assessment (Adult) History of falling in the last 3 months, vc1 including since admission No falls in past 3 months (0 pts) Confusion or Disorientation No (0 pts) Intoxicated or Sedated Impaired Gait No (0 pts) Mobility Assist Device Used No (0 pt) Altered Elimination No (0 pt) Score/Fall Risk Level 0 - 2 = Low Risk Oriented to surroundings, Maintained a safe environment, Educated pt \T\ family on fall prevention, incl call for assistance when getting out of bed. Abuse screen: Denies threats or abuse. Nutritional screening: No deficits noted. Tuberculosis screening: No symptoms or risk factors identified. Assessment: 01:16 Reassessment: Patient and/or family updated on plan of care and expected duration. Pain vc1 level reassessed. Patient is alert, oriented x 3, equal unlabored respirations, skin warm/dry/pink. Patient states feeling better. Patient states symptoms have improved. Vital Signs: 00:17 BP 133 / 110; Pulse 131; Resp 18; Pulse Ox 95% ; Weight 113.4 kg; Height 5 ft. 9 in. ; vc1 Pain 7/10; 00:19 Pain 7/10; vc1 01:00 BP 127 / 97; Pulse 102; Resp 18; Pulse Ox 93% ; vc1 00:17 Body Mass Index 36.92 (113.40 kg, 175.26 cm) vc1 00:17 Pain Scale: Adult vc1 00:19 Pain Scale: Adult vc1 ED Course: 01/11 23:56 Patient arrived in ED. ja2 23:59 Jed Doshi PA is PHCP. cp 23:59 Manuel Solorio MD is Attending Physician. cp 01/12 00:13 Triage completed. vc1 00:14 Arm band placed on right wrist. vc1 00:19 Patient has correct armband on for positive identification. Placed in gown. Bed in low vc1 position. Call light in reach. Pulse ox on. NIBP on. 01:23 Assist provider with I \T\ D: Wound packed. wet sterile gauze, pt had surgery Thursday, vc1 provider repacked surgical site. 01:25 Garrett Sage MD is Referral Physician. cp 01:42 Patient did not have IV access during this emergency room visit. vc1 Administered Medications: 00:42 Drug: HYDROmorphone IM 1 mg Route: IM; Site: left gluteus; vc1 01:23 Follow up: Response: No adverse reaction; Marked relief of symptoms vc1 Medication: 00:19 VIS not applicable for this client. vc1 Outcome: 01:29 Discharge ordered by . cp 01:42 Discharged to home ambulatory. vc1 01:42 Condition: good 01:42 Discharge instructions given to patient, Instructed on discharge instructions, follow up and referral plans. wound care, Demonstrated understanding of instructions, follow-up care, wound care. 01:43 Patient left the ED. vc1 Signatures: Jed Doshi PA PA cp Alexander, Jessica ja2 Kiarra Anaya, RN RN vc1
[2023-01-12 01:50] VITALS: BP 127/97; O2SAT 93
== END 2023-01-12 01:43 | disposition home or self-care (01) ==
LOC: ER 23:53
DX: Z48.01 Encounter for change or removal of surgical wound dressing (principal)
CPT/HCPCS: 96372; 99284; J1170

== ENCOUNTER 2023-01-16 18:12 | Emergency (ER) | payer OTHER ==
--- OUTSIDE RECORDS SUMMARY | 2023-01-16 18:16 | XMS REPORT | Continuity of Care Document ---
:1985 Author Organization [facility] t Address [address] [place] [address] Care Team Providers Name Role Phone Ismael [...] Number Effective Date Expiration Date Susy rivera [facility] [id number] 2021 00:00:00 HEALTH PLAN CHIP Problems Condition [...] [facility] 2-21 [place] 00:00: d 00 [facility] morphine DA Active U RASHES [facility] [place] jalepeno DA Active SV ANAPHYLAXIS [facility] s 1- [facility] [place] Social History Social Habit Start Date Stop Date Quantity Comments Source ASSERTION 2020-11-16 [facility] 00:00:00 History [facility] o f Alcohol Std [place] Medical Drinks Branch History [facility] University o f Alcohol Binge [facility] al [place] Tobacco use and 2021-04-24 2021-04-24 Smokeless tobacco [facility] exposure 00:00:00 00:00:00 non-user Alcohol intake 2021-04-24 2021-04-24 Lifetime [facility] 00:00:00 00:00:00 non-drinker (finding) History [facility] 2019-03-23 2019-03-23 1 University o f Alcohol Frequency 00:00:00 00:00:00 [facility] edical [place] Tobacco Comment 2019-03-23 2019-03-23 1/2 pack a day Unive rsity of 00:00:00 00:00:00 [facility] Sex Assigned At [birth year] [facility] 00:00:00 00:00:00 Smoking Status Start Date Stop Date Source Never smoked tobacco [facility] Current every day smoker 2019-03-24 00:00:00 Uni versity of [facility] Medications Ordered Filled Start Stop Current Ordering [...] ( 39 PO) citalopram Yes Take by [facility] hydrobromid 9-20 mouth ity of e 03:13: daily. [place] (CITALOPRAM 20 Medical ORAL) Branch trazodone Yes 1{tbl} Take 1 [facility] ers HCl 9-20 tablet by ity of (TRAZODONE 03:13: mouth at [place] as ORAL) 20 bedtime. Medical Branch medroxyPROG Yes 150mg 150 mg by [facility] ESTERone 9-20 Intramuscu ity o f 150 mg/mL 03:13: lar route [place] as syringe 20 every 3 Medical (three) Branch months. sulfamethox Yes 1{tbl} 1 tablet, [facility] azole-trime 9-20 Oral, BID, it y of thoprim 01:00: [place] (BACTRIM 00 on [facility] DS) 800-160 03/24/19 at Br anch mg per 1999, tablet 1 Until tablet Discontinu ed, LAYA
Re ason for Anti-Infec tive: Documented Infection< br>Documen yovani Infection Site: Skin / Soft Tissue
Duration of Therapy: 10 days HYDROcodone Yes 1{tbl} 1 tablet, [facility] -acetaminop 9-20 Oral, ity of hen (NORCO [...] (Faculty): GENERAL SURGERY
General surgeon approving: tj schmdit citalopram 2019-0 Yes 10mg 10 mg, Unive rs (CELEXA) [...] irrigation 00 03/23/19 at Med ical solution Until Discontinu ed, Intra-op lidocaine-e 2018-0 Yes PRN, Univer s pinephrine 03-24 Starting ity o f (XYLOCAINE 01:19: Wed [place] WITH 00 03/23/19 at [facility] EPINEPHRINE [place] ) 1 Until %-1:100,000 Discontinu injection ed, Routine, Intra-op HYDROcodone 2019-0 Yes [id number] 1{tbl} Take 1 Univers -acetaminop - tablet by ity of hen 5-325 00:00: mouth [place] mg tablet 00 every 4 Medical (four) Branch hours as needed for Pain (scale 7-10). sulfamethox 2019-0 Yes [id number] 1{tbl} Take 1 Univers azole-trime -19 tablet by ity of thoprim 00:00: mouth 2 [place] 800-160 mg 00 (two) Medical per tablet times Branch daily. traMADol 50 2019-0 Yes [id number] 50mg Take 1 Univers mg tablet -19 tablet by ity o f 00:00: mouth [place] 00 every 6 Medical (six) Branch hours as needed for Pain (scale 4-6). vancomycin 2019- 2019- No 1250mg 1,250 mg, Univers (VANCOCIN) 03-23 IV ity of 1,250 mg in 22:00: 00:41 [place], [place] NaCl 0.9% 00 :15 Q12H ABX, Medic al (NS) 250 mL First dose Br anch piggyback on Thu03/23/19 at 1700, Until Discontinu ed, 250 mL
Reas on for Anti-Infec tive: Documented Infection< br>Documen yovani Infection Site: Skin / Soft Tissue
Duration of Therapy: 7 days vancomycin 2019- No 1500mg 1,500 mg, Univers (VANCOCIN) 03-23 IV ity of 1,500 mg in 09:00: 13:30 [place], [place] NaCl 0.9% 00 :50 Q12H ABX, Medic [...] ABX, Medical gram/50 mL First dose [facility] Piggyback on Thu 3.375 g 03/23/19 at [...] se approved by (Faculty): CLC PROVIDER ondansetron 2018- Yes 4mg 4 mg, Slow Univers (ZOFRAN 03-23 IV Push, ity of (PF)) 05:57: Q6HPRN, [place] injection 4 57 Starting Medi pastor mg [facility] [place] [facility] 03/23/19 at 0057, Until Discontinu ed, Routine, Nausea and Vomiting (N/V) acetaminoph Yes 650mg 650 mg, Un ammy en 03-23 Oral, ity of (TYLENOL) 05:57: Q6HPRN, [place] tablet 650 42 Starting Medic al mg [facility] [place] [facility] 03/23/19 at 0057, Until Discontinu ed, Routine, Pain (scale 1-3) Vital Signs Vital Name Observation Time Observation Value Comments Source Body height 2021-04-24 16:45:00 175.3 cm [facility] Body weight 2021-04-24 16:45:00 120.203 kg [facility] BMI 2021-04-24 16:45:00 39.13 kg/m2 [facility] Systolic blood 2019-03-25 03:00:00 138 mm[Hg] Univer sity [facility] Diastolic blood 2019-03-25 03:00:00 92 mm[Hg] [facility] Heart rate 2019-03-25 03:00:00 56 /min [facility] Body temperature 2019-03-25 03:00:00 36.5 [facility] Respiratory rate 2019-03-25 03:00:00 16 /min [facility] Oxygen saturation in 2019-03-25 03:00:00 100 /min [facility] Arterial blood by [place] Medi pastor Pulse oximetry [place] Body weight 2019-03-23 19:06:00 118.5 kg [facility] BMI 2019-03-23 19:06:00 38.58 kg/m2 [facility] Body height 2019-03-23 05:21:00 175.3 cm [facility] Systolic blood 2019-03-25 03:00:00 138 mm[Hg] Univer sity of [facility] Diastolic blood 2019-03-25 03:00:00 92 mm[Hg] [facility] Heart rate 2019-03-25 03:00:00 56 /min [facility] Body temperature 2019-03-25 03:00:00 36.5 [facility] Respiratory rate 2019-03-25 03:00:00 16 /min [facility] Oxygen saturation in 2019-03-25 03:00:00 100 /min [facility] Arterial blood by [facility] Pulse oximetry [place] Body weight 2019-03-23 19:06:00 118.5 kg [facility] BMI 2019-03-23 19:06:00 38.58 kg/m2 [facility] Body height 2019-03-23 05:21:00 175.3 cm [facility] Procedures Procedure Date / Time Performing Clinician Source Performed [id number] 2021-07-16 00:00:00 [facility] POCT GLUCOSE 2019-03-25 01:09:00 Griffin Georges [facility] (AUTOMATED) [facility] BASIC METABOLIC PANEL 2019-03-24 09:34:00 Austin Perdue [facility] (NA, K, CL, CO2, Medical Branch GLUCOSE, BUN, CREATININE, CA) CBC WITH DIFFERENTIAL 2019-03-24 09:34:00 Austin Perdue [facility] WOUND DEBRIDEMENT 2019-03-24 00:15:00 Austin Perdue [facility] POCT GLUCOSE 2019-03-23 23:54:00 Griffin Georges [facility] (AUTOMATED) [facility] TEST, SERUM 2019-03-23 19:41:00 Zenon London [facility] BASIC METABOLIC PANEL 2019-03-23 19:33:00 Zenon London [facility] (NA, K, CL, CO2, [facility] Branch GLUCOSE, BUN, CREATININE, CA) CBC WITH DIFFERENTIAL 2019-03-23 11:34:00 Griffin Georges [facility] Encounters Start End Encounter Admission Attending Care Care Encounter Source Date/Time Date/Time Type Type Clinicians Facility Department ID 2021-05-21 Outpatient [facility] [id number] [place] 11:46:20 Health 2021-04-24 Outpatient [facility] [id number] [place] 12:04:03 Health 2019-08-30 Inpatient Enrique TylerPM RON [id number] [facility] 11:30:00 00 [facility] 2021-07-16 2021-07-19 Inpatient ANATOLIY Monterroso OB [id number] [facility] 05:07:00 10:10:00 Ziad 43 [facility] 2021-04-24 2021-04-24 Nurse Only Pita Suárez UTP 6410 1.2.840. 114 [id number] [place] 00:00:00 00:00:[address] 350.1.13.58 Health 9.2.7.2.686 [id number] 2021-04-24 2021-04-24 Telephone David Rosanna UTP 6410 1.2.84 0.114 [id number] [place] 00:00:00 00:00:[address] 350.1.13.58 Health 9.2.7.2.686 [id number] 2021-04-23 2021-04-23 Telephone Pema Shelbi UTP 6410 1.2. 840.114 [id number] [place] 00:00:00 00:00:[address] 350.1.13. 58 Health 9.2.7.2.686 [id number] 2021-04-22 2021-04-22 Telephone Rosanna Hernandez UTP 6410 1.2.84 0.114 [id number] [place] 00:00:00 00:00:[address] 350.1.13.58 Health 9.2.7.2.686 [id number] 6 2019-03-22 2019-03-24 [facility] 1.2.840.114 [id number] 23:58:00 22:10:00 Encounter Atherah, Health 350.1.13.10 Claudiaan Clear 4.2.7.2.686 [place] [id number] [place] [address] ([facility]) 2019-03-22 2019-03-24 [facility] 1.2.840.114 [id number] [facility] 23:58:00 22:10:00 Encounter Ather, [facility] 350.1.13.10 itMildred Blanton 4.2.7.2.686 Remigio Magaña [id number] [place] [address] Branch ([facility]) Results Test Description Test Time Test Comments Results Result Comments Source SURGICAL 2021-07-29 16:26:00 Test Item Value Reference Range Interpretation Comme nts SURGICAL RUN DATE: (test 07/29/21 Woman's - Laborato ry PAGE 1 RUN TIME: 1626 Specimen Inquiry RUN USER: INTERFACE code = PATIENT: MAXIMO WYATTMARCIN LOC: [facility] U #: [id number] AGE/SX: 35/F ROOM: [facility] RE07/16/21REG DR: Mary Wheeler MD : 83 BED: A DIS: 07/19/21 STATUS: DIS IN TLOC: SPEC #: [id number] RECD: STATUS: PÉREZ KELLOGG #: [id number] ALVARO: 07/16/21 DR: Mary Wheeler MD ENTERED: 07/17/21 SP TYPE: SURGICAL OTHR DR: Ausitn Peraza MD, Haroon I MDORDERED: ANATOMIC SPEC, SPEC TRACK, 07699 TRAVEL WRITER IES TO: Austin Peraza MD [address] [place] [address] Mary Wheeler [address] [place] [address] Eamon Harper MD [address] [place] [address] PROCEDURES: 78770 (07/17/21) TISSUES: A. PLACENTA, THIRD TRIMESTER (2 [...] Specimen Inquiry RUN USER: INTERFACE SPEC #: [id number] PATIENT: MARCIN WYATT #[id number] (Continued) GROSS DESCRIPTION (Continued ) surface is translucent with white patches, with unremarkable vasculature. The maternalsurface appears complete. Serial sections through the disk show red-brown fleshy tissuewith white patches scattered thro ughout. Filter Changing Technician sections submitted.Sections code:A1: cord and membranes x 2A2-3: placenta cross sectionsXZ Technical component performed at [facility] [employer],[id number] , [place] [id number] Unless gross only, the diagnosis is based [...] Iraj Enriquez 07/29/21 1626 END OF REPORT [id number] 05:46:00 Test Item Value Reference Range Interpretation Comments GLUBED (test code = GLUBED) 112 mg/dL 65-110 H [id number] 23:32:00 Test Item Value Reference Range Interpretation Comments GLUBED (test code = GLUBED) 120 mg/dL 65-110 H [id number] 14:32:00 Test Item Value Reference Range Interpretation Comments GLUBED (test code = GLUBED) 128 mg/dL 65-110 H [id number] 09:24:00 Test Item Value Reference Range Interpretation Comments GLUBED (test code = GLUBED) 131 mg/dL 65-110 H [id number] 06:06:00 Test Item Value Reference Range Interpretation Comments GLUBED (test code = GLUBED) 98 mg/dL 65-110 N [id number] 21:48:00 Test Item Value Reference Range Interpretation Comments GLUBED (test code = GLUBED) 145 mg/dL 65-110 H [id number] 14:32:00 Test Item Value Reference Range Interpretation Comments GLUBED (test code = GLUBED) 110 mg/dL 65-110 N [id number] 09:31:00 Test Item Value Reference Range Interpretation Comments GLUBED (test code = GLUBED) 136 mg/dL 65-110 H [id number] 06:20:00 Test Item Value Reference Range Interpretation Comments GLUBED (test code = GLUBED) 124 mg/dL 65-110 H CBC W/AUTO [id number] 06:02:00 Test Item Value Reference Range Interpretation [...] REQUIRED (test NORMAL NORMAL code = PLTMR) [id number] 21:27:00 Test Item Value Reference Range Interpretation Comments GLUBED (test code = GLUBED) 147 mg/dL 65-110 H [id number] 18:20:00 Test Item Value Reference Range Interpretation Comments GLUBED (test code = GLUBED) 156 mg/dL 65-110 H [id number] 14:26:00 Test Item Value Reference Range Interpretation Comments GLUBED (test code = GLUBED) 218 mg/dL 65-110 H CAPILLARY BLOOD [id number] 08:03:00 Test Item Value Reference Range Interpretation [...] 21.0 % code = FIO2C) CAPILLARY BLOOD [id number] 08:03:00 Test Item Value Reference Range Interpretation [...] 21.0 % code = FIO2C) COMPREHENSIVE METABOLIC [id number] 06:49:00 Test Item Value Reference Range Interpretation [...] N code = ALKP) AG HEPATITIS B [id number] 13:11:00 Test Item Value Reference Range Interpretation Comments AG HEPATITIS B SURFACE (test code NONREACTIVE NONREACTIVE = HBSAG) AB HEPATITIS C [id number] 13:11:00 Test Item Value Reference Range Interpretation Comments AB HEPATITIS C (test code = NONREACTIVE NONREACTIVE HCVAB) SIGNAL TO CUTOFF (test code = <0.02 <0.80 N CUTOFF) AB [id number] 13:11:00 Test Item Value Reference Range Interpretation Comments AB TREPONEMA (test code = TREPAB) NONREACTIVE NONREACTIVE AB HIV 1 13:11:00 Test Item Value Reference Range Interpretation Comments AB HIV 1 2 (test NONREACTIVE NONREACTIVE Done by [facility] code = CAC82EV) 4th Gen HIV Ag/Ab Combo Screen COVID 19 Asymptomatic IH [id number] 12:14:00 Test Item Value Reference Range Interpretation [...] ncy Use Authorization(E UA) for use by roro shelton certified under the CLIA thatmeet the re [...] and/o r diagnosis of CO VID-19 under Knphugs73 4(b)(1) of the Act, 21 U.S .C. 360bbb-3(b)(1), unless theauthorizatio n is terminated or r evoked sooner. 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 CALCULI URINARY WITH [id number] 12:04:00 Test Item Value Reference Range Interpretation [...] Drug Admini stration. - XR FLUOROSCOPY 0-60 [id number] 14:10:00 Name: MARCIN WYATT [place] : 1985 Age/S: 33 / F [address] Unit #: [id number] Loc: [place] [address] Phys: Enrique Tyler MD Acct: [id number] Dis Date: Status: REG [employer] PHONE #: [phone] Exam Date: 08/30/2019 1300 FAX #: Reason: STENT PLACEMENT EXAMS: CPT: [id number] XR FLUOROSCOPY 0-60 MIN 36943 Fluoro Time: 39 SEC DAP (Gy m2): [...] PAGE 1 Signed Report Name: [facility] [place] : 1985 Age/S: 33 / F [address] Unit #: [id number] Loc: [place] [address] Phys: Enrique [place] MD Acct: [id number] Dis Date: Status: REG [employer] PHONE #: [phone] Exam Date: 08/30/2019 1300 FAX #: Reason: STENT PLACEMENT EXAMS: CPT: [id number] XR FLUOROSCOPY 0-60 MIN 49926 Fluoro Time: 39 SEC DAP (Gy m2): Air Kerma (mGy): (Continued) Technologist: Sadia Herbert, RT(R) Trnscb Date/Time: 08/30/2019 (1409) tTEDANS4 Orig Print D/T: S: 08/30/2019 (1851) PAGE 2 Signed ReportUR HCG [id number] 10:41:00 Test Item Value Reference Range Interpretation Comments UR HCG QUAL (test code = HCGQLU) NEGATIVE NEGATIVE BASIC METABOLIC [id number] 10:26:00 Test Item Value Reference Range Interpretation [...] CA) 9.4 MG/DL 8.5-10.1 N BASIC METABOLIC [id number] 10:22:00 Test Item Value Reference Range Interpretation [...] = CA) 9.4 MG/DL 8.5-10.1 N PROTHROMBIN [id number] 10:12:00 Test Item Value Reference Range Interpretation Comments PT PATIENT (test code = PTP) 12.1 SECONDS 9.3-12.9 N INTERNATIONAL NORMAL RATIO 1.07 INR Unit 0.8-1.2 N (test code = INR) THROMBOPLASTIN TIME [id number] 10:12:00 Test Item Value Reference Range Interpretation Comments THROMBOPLASTIN TIME PARTIAL 31.6 SECONDS 26-35 N (test code = PTT) GLUCOSE BEDSIDE [id number] 10:06:00 Test Item Value Reference Range Interpretation Comments GLUCOSE BEDSIDE TESTING (test code 126 mg/dL 70-110 H = GLUBED) CBC W/AUTO [id number] 10:03:00 Test Item Value Reference Range Interpretation [...] Interpretation Comments POCT GLU (test code = 5667120664) 148 mg/dL 70-110 H Lab Interpretation (test code = Abnormal 69832-5) [facility] METABOLIC PANEL (NA, K, CL, CO2, GLUCOSE, BUN, CREATININE, CA)2019-03-24 09:55:00 Test Item Value Reference Range Interpretation Comments NA (test code = 137 mmol/L 135-145 3709495384) K (test code = 4.5 mmol/L 3.5-5 2926994129) CL (test code = 107 mmol/L 98-108 2004057955) CO2 TOTAL (test code = 23 mmol/L 23-31 8005597256) AGAP (test code = 2-16 2190655551) BUN (test code = 15 mg/dL 7-23 0953637727) GLUCOSE (test code = 181 mg/dL 70-110 H 6372634119) CREATININE (test code = 0.92 mg/dL 0.5-1.04 5848785518) CALCIUM (test code = 9.2 mg/dL 8.6-10.6 0672295449) eGFR Calculation mL/min/1.73m2 (Non-) (test code = 2055260354) eGFR Calculation mL/min/1.73m2 () (test code = 7176506612) BAIRON (test code = BAIRON) Association of [...] tests). Lab Interpretation Abnormal (test code = 04273-1) [facility] WITH [id number] 09:39:00 Test Item Value Reference Range Interpretation Comments WBC (test code = See_Comment H [Automated 4560-2) message] The system which generated this result transmit yovani reference range : 4.30 - 11.10 10*3/?L. The reference range was not used to interpret this result as normal/abnormal . RBC (test code = See_Comment [Automated 539-8) message] The system which generated this result [...] RDW-SD (test code = 47.8 fL 39-49.9 83392-3) RDW-CV (test code = 15.1 % 12-15.5 788-0) PLT (test code = See_Comment [Automated 277-3) message] The system which generated this result transmit yovani reference range : 166 - 358 10*3/ ?L. The reference range was not u sed to interpret th is result as normal/abnormal . MPV (test code = 10.3 fL 9.5-12.9 03904-8) NRBC/100 WBC (test See_Comment [Automat ed code = 3928661317) message] The system which generated this result transmit yovani reference range : 0.0 - 10.0 /100 WBCs. The reference range was not used to interpret this result as normal/abnormal . NRBC x10^3 (test code <0.01 See_Comment [Auto mated = 0006105179) message] The system which generated this result transmit yovani reference range : 10*3/?L. The reference range was not used to interpret this result as normal/abnormal . GRAN MAT (NEUT) % 87.4 % (test code = 770-8) IMM GRAN % (test code 0.40 % = 0372261687) LYMPH % (test code = 9.9 % 736-9) MONO % (test code = 1.9 % 5905-5) EOS % (test code = 0.1 % 713-8) BASO % (test code = 0.3 % 706-2) GRAN MAT x10^3(ANC) 13.10 10*3/uL 1.88-7.09 H (test code = 4749932061) IMM GRAN x10^3 (test 0.06 10*3/uL 0-0.06 code = 7710053941) LYMPH x10^3 (test code 1.48 10*3/uL 1.32-3.29 = 731-0) MONO x10^3 (test code 0.29 10*3/uL 0.33-0.92 L = 742-7) EOS x10^3 (test code = <0.03 0.03-0.39 L 711-2) BASO x10^3 (test code 0.04 10*3/uL 0.01-0.07 = 704-7) Lab Interpretation Abnormal (test code = 85183-3) [facility]2019-03-23 23:56:00 Test Item Value Reference Range Interpretation Comments POCT GLU (test code = 9418088977) 113 mg/dL 70-110 H Lab Interpretation (test code = Abnormal 87636-0) [facility], [id number] 20:07:00 Test Item Value Reference Range Interpretation Comments PREG SERUM (test code Negative = 7271800305) BAIRON (test code = BAIRON) Less than 10 IU/L.?If low titer or ectopic is suspected, resubmit specimen in 48-72 hours. [facility] METABOLIC PANEL (NA, K, CL, CO2, GLUCOSE, BUN, CREATININE, CA)2019-03-23 20:02:00 Test Item Value Reference Range Interpretation Comments NA (test code = 137 mmol/L 135-145 0856921603) K (test code = 4.1 mmol/L 3.5-5 5669489333) CL (test code = 109 mmol/L 98-108 H 3584846416) CO2 TOTAL (test code = 23 mmol/L 23-31 0481910325) AGAP (test code = 2-16 0410065637) BUN (test code = 17 mg/dL 7-23 3250934197) GLUCOSE (test code = 134 mg/dL 70-110 H 7600247296) CREATININE (test code = 0.92 mg/dL 0.5-1.04 1517344888) CALCIUM (test code = 8.9 mg/dL 8.6-10.6 7595616901) eGFR Calculation mL/min/1.73m2 (Non-) (test code = 0368902673) eGFR Calculation mL/min/1.73m2 () (test code = 3420466600) BAIRON (test code = BAIRON) Association of [...] tests). Lab Interpretation Abnormal (test code = 44483-1) [facility] WITH [id number] 11:45:00 Test Item Value Reference Range Interpretation [...] (test code = 50.2 fL 39-49.9 H 09121-0) RDW-CV (test code = 15.5 % 12-15.5 788-0) PLT (test code = See_Comment [Automated 777-3) message] The sy stem which generated this result transmitted reference range : 166 - 358 10*3/ ?L. The reference r jose e was not used to interpret this result as normal/abnormal . MPV (test code = 10.2 fL 9.5-12.9 43248-5) NRBC/100 WBC (test See_Comment [Automat ed code = 8281854209) message] The system which generated this result transmitted reference range : 0.0 - 10.0 /100 WBCs. The refer ence range was not u sed to interpret th is result as normal/abnormal . NRBC x10^3 (test code <0.01 See_Comment [Auto mated = 6644317105) message] The s ystem which generated this result transmitted reference range : 10*3/?L. The reference range was not used to interpret this result as normal/abnormal . GRAN MAT (NEUT) % 66.3 % (test code = 770-8) IMM GRAN % (test code 0.30 % = 5965547334) LYMPH % (test code = 25.1 % 736-9) MONO % (test code = 6.1 % 5905-5) EOS % (test code = 1.8 % 713-8) BASO % (test code = 0.4 % 706-2) GRAN MAT x10^3(ANC) 8.22 10*3/uL 1.88-7.09 H (test code = 2877104617) IMM GRAN x10^3 (test 0.04 10*3/uL 0-0.06 code = 0431028258) LYMPH x10^3 (test code 3.11 10*3/uL 1.32-3.29 = 731-0) MONO x10^3 (test code 0.76 10*3/uL 0.33-0.92 = 742-7) EOS x10^3 (test code = 0.22 10*3/uL 0.03-0.39 711-2) BASO x10^3 (test code 0.05 10*3/uL 0.01-0.07 = 704-7) Lab Interpretation Abnormal (test code = 96672-8) [facility] Notes Date/Time Note Provider Source 2021-07-18 18:13:00-00:00 [facility] OB Disch REPORT#:[id number] REPORT STATUS: Signed DATE:07/18/21 TIME: 1812 PATIENT: MARCIN WYATT UNIT #: [id number] ROOM/BED: [address] : [birth year] AGE: 35 SEX: F ATTEND: Mary Wheeler MD ADM AUTHOR: Mary Wheeler MD * ALL edits or amendments must be made on the raksul/computer document * Subjective Subjective Patient reports: Patient [...] Weight (lb): 274 Weight (oz): Weight (kg): 124.540776 Physical Exam Neuro: Exam: alert, oriented x3, [...] Mary Wheeler MD on at 1814 RPT #:[id number] END OF REPORT 2021-07-18 09:59:00-00:00 [facility] ([facility]) OB Postpart Progr Note REPORT#:[id number] REPORT STATUS: Signed DATE:07/18/21 TIME: 958 PATIENT: MARCIN WYATT UNIT #: [id number] ROOM/BED: [address] : 84 AGE: 35 SEX: F ATTEND: Mary Wheeler MD ADM AUTHOR: Rani Antoine DO R2 * ALL edits or amendments must be made on the raksul/computer document * Rani Antoine 07/18/21 0959: Subjective [...] Weight (lb): 274 Weight (oz): Weight (kg): 124.770101 Physical Exam Lungs: unlabored breathing Neuro: Exam: [...] Mary Wheeler MD on at 1811 RPT #:[id number] END OF REPORT 2021-07-18 06:41:00-00:00 [id number] [facility] [address] [address] PATIENT NAME: MARCIN WYATT ADMIT DATE: 07/16/21 ACCOUNT NO: [id number] ROOM NO: .4418 AGE: 35 SEX: F [...] n via Pfannenstiel. SURGEON: Mary Wheeler MD PLANT PROTECTION OFFICER: Rani Antoine, ALLIED HEALTH PROFESSIONAL resident. ANESTHESIA: COMPLICATIONS: None. ESTIMATED BLOOD LOSS: [...] PATIENT NAME: MARCIN WYATT ACCOUNT #: F [id number] muscles were in the midline as well as the peritoneum. The bladder blade was inserted. The lower segment of the uterus was incised in the midline and extended laterally with the cloth bleaching range operator chief's fingers. The amniotomy was done with clear [...] chromi c in usual locked fashion. Several [id number] stitches using the same suture were placed [...] correct. The patient was taken to the [facility] room awake and stable condition. PATHOLOGY: Placenta. Dictated By: Mary Wheeler MD WT: OP:F.BRITTNEY/MEL/ANGELA Conf#: [id number]/DID#: [id number] Authenticated by Mary Wheeler MD On 07/25/2021 0 9:04:42 PM Electronically Signed by Mary Wheeler MD on at 0904 PATIENT NAME: MARCIN WYATT ACCOUNT #: F [id number] 2021-07-17 10:48:00-00:00 [facility] ([facility]) OB Postpart Progr Note REPORT#:[id number] REPORT STATUS: Signed DATE:07/17/21 TIME: 1048 PATIENT: MARCIN WYATT UNIT #: [id number] ROOM/BED: [address] : 84 AGE: 35 SEX: F ATTEND: Mary Wheeler MD ADM AUTHOR: Rani Antoine DO R2 * ALL edits or amendments must be made on the raksul/computer document * See Addendum Rani Antoine 07/17/21 [...] 114/77 07/16 2300 98.1 60 18 98/62 07/169 98.1 60 18 114/74 PATIENT WEIGHT: Weight (lb): 274 Weight (oz): Weight (kg): 124.903934 Physical Exam Lungs: unlabored breathing Neuro: Exam: [...] 07/17 07/17 07/17 07/16 1429 0928 0617 0501 [id number] Chemistry POC Glucose (65 - 110 mg/dL) [...] % (Auto) (14.5 - 29.7 %) 20.8 [place] % (Auto) (3.6 - 10.2 %) 6.6 Eos % (Auto) (0.0 - 3.0 %) 0.3 Baso % (Auto) (0.1 - 0.9 %) 0.3 Neut # (Auto) (K/mm3) 10.4 Lymph # (Auto) (K/mm3) 3.0 [place] # (Auto) (K/mm3) 1.0 Eos # (Auto) [...] care Plan discussed with: patient, spouse/partner, ad [facility] Wheeler 07/17/21 1803: Attestations Physician Attestation Agree w/findings plan: Agree with the findings and plan as documented by Dr Wooten, PATIENT WAS SEEN AND EXAMINED AROUND 8AM at 1744 Electronically Signed by Mary Wheeler MD on 06/26 at 1804 Addendum 1: 07/17/211811 by Mary Wheeler MD, i, DR... Electronically Signed by Mary Wheeler MD on 06/26 at 1812 RPT #:[id number] END OF REPORT 2021-07-16 07:06:00-00:00 [facility] OB Admission / H P REPORT#:[id number] REPORT STATUS: Signed DATE:07/16/21 TIME: 705 PATIENT: MARCIN WYATT UNIT #: [id number] ROOM/BED: [facility]8-A : 84 AGE: 35 SEX: F ATTEND: Denis Wheeler MD ADM AUTHOR: Rani Antoine DO R2 * ALL edits or amendments must be made on the [employer]/computer document * OB History Chief complaint: scheduled [...] Mean 100.0 07/16 532 B/P 137/81 07/16 05 Temp 97.6 07/16 05 Pulse 112 07/16 532 Resp 18 07/16 532 Vital Signs Date Temp Pulse Resp B/P B/P Mean Pulse Ox FiO2 07/16 97.6 112 18 137/81 100.0 PATIENT WEIGHT: Weight (lb): 274 Weight (oz): Weight (kg): 124.171583 Physical Exam HEENT: normocephalic w/o injury Lungs: [...] % (Auto) (14.5 - 29.7 %) 19.6 [place] % (Auto) (3.6 - 10.2 %) 5.9 Eos % (Auto) (0.0 - 3.0 %) 0.9 Baso % (Auto) (0.1 - 0.9 %) 0.3 Neut # (Auto) (K/mm3) 8.2 Lymph # (Auto) (K/mm3) 2.2 [place] # (Auto) (K/mm3) 0.7 Eos # (Auto) [...] Mary Wheeler MD on at 0306 RPT #:[id number] END OF REPORT 2019-08-30 23:50:00-00:00 [id number] [place] [address] PATIENT NAME: MARCIN WYATT ADMIT DATE: 08/30/19 ACCOUNT NO: [id number] ROOM NO: AGE: 33 REPORT TYPE: OPERATIVE [...] At this point, I insert ed a 22-Amharic rigid cystourethroscope into the bladder. I identified the previously pl aced right ureteral stent. I placed a wire alongside the stent and then pulled the prior stent out intact. I now advanced up a 10-Amharic dual-lumen ureteral catheter, and then advanced up a 28 cm 11/13 Amharic access sheath. I advanced a 7 -Amharic ureteroscope through the access sheath and was [...] PATIENT NAME: MARCIN WYATT ACCOUNT #: L [id number] and was confirmed to be in good position proxima lly and distally. The retrieval string was secured to her pubis. A t this time, this marked completion of the procedure. The patient tolerat ed the procedure well. There were no complications. Dictated By: Enrique Tyler MD WT: OP:L.BRITTNEY/EVERTON/ANGELA Conf#: [id number]/DID#: [id number] Authenticated by Enrique Tyler MD On 08/31/2019 02 :23:00 PM Electronically Signed by Enrique Tyler MD on at 1423 PATIENT NAME: MARCIN WYATT ACCOUNT #: L [id number] 2019-08-30 15:22:00-00:00 [facility] ([facility]) Post Anesthesia Evaluation REPORT#:[id number] REPORT STATUS: Signed DATE:08/30/19 TIME:1522 PATIENT: MARCIN WYATT UNIT #: [id number] ROOM/BED: : 84 AGE: 33 SEX: F ATTEND: Enrique Tyler MD ADM AUTHOR: Cary Richard CRNA * ALL edits or amendments must be made on the [employer]/computer document * Post Anesthesia Evaluation Anes. changes [...] 145/100 100 Room air 08/30 1300 Simple 8.139378 mask 08/30 1300 36.7 72 14 142/92 100 Simple 8.06635 0 mask 08/30 0926 36.3 69 18 [...] CRNA n 08/30/19 at 1524 RPT #: [id number] END OF REPORT
[2023-01-16] MEDS ORDERED: ONDANSETRON 4 MG/2 ML VIAL ONE (19:30)
[2023-01-16] MEDS ORDERED: MORPHINE 4 MG/ML SYR ONE (19:30)
[2023-01-16] MEDS ORDERED: FENTANYL CITR 100 MCG/2 ML ONE (19:40)
--- NOTE | 2023-01-16 19:57 | RAD REPORT ---
EXAM DESCRIPTION: CTAbdomen Pelvis Wo Contrast - 01/16/2023 7:47 pm CLINICAL HISTORY: post op pain COMPARISON: Abdomen Pelvis W Contrast dated 08/07/2017; Abdomen Pelvis W Contrast dated 02/12/2017; Stone Protocol dated 11/29/2016; Abdomen Pelvis W Contrast dated 07/31/2016 TECHNIQUE: CT of the abdomen and pelvis was performed. All CT scans are performed using dose optimization technique as appropriate and may include automated exposure control or mA/KV adjustment according to patient size. FINDINGS: Lower chest: No acute abnormality. Liver: Hepatic steatosis Biliary: No biliary ductal dilatation. Stomach: No significant focal abnormality. Duodenum: No significant focal abnormality. Pancreas: No significant abnormality. Spleen: No significant abnormality. Adrenal: No suspicious lesions. Kidney/ureter: No hydronephrosis. 7 mm stone in the right renal pelvis. Smaller renal calculi noted b ilaterally. Retroperitoneum: No retroperitoneal adenopathy. Vascular: No aneurysm. Bowel: No significant focal abnormality. Peritoneum: No ascites or free air. Bladder: Grossly unremarkable. Reproductive: No adnexal masses. Bones: No acute fracture. Other: Large postoperative wound overlying the sacrum and coccyx. No abscess identified. Wound extend s into close proximity to the coccyx. IMPRESSION: Large postoperative defect along the posterior midline overlying the sacrum and coccyx. No abscess identified. The defect extends into very close proximity to the underlying coccyx. No evid ence of underlying osteomyelitis. If osteomyelitis is suspected, MRI would be more sensitive in the a cute phase. 7 mm nonobstructing stone in the right renal pelvis.
[2023-01-16 20:08] LABS: Absolute Lymphocytes (CBC) 3.3 K/uL (0.7-4.9); Hematocrit 39.6 % (36.0-45.0); MCV 85.2 fL (80-100); MPV 7.5 fL (7.6-11.3); RBC Red Blood Cell Count 4.64 M/uL (3.86-4.86)
[2023-01-16 20:22] LABS: Albumin 3.1 g/dL (3.4-5.0); Bilirubin Total 0.4 mg/dL (0.2-1.0); Potassium 3.7 mEq/L (3.5-5.1); Protein, Total 7.2 g/dL (6.4-8.2)
--- NOTE | 2023-01-16 20:36 | EDPHYS ---
Physician Documentation [facility] Name: Paulette Nielsen Age: 37 yrs Sex: Female : 1985 Arrival Date: 01/16/2023 Time: 18:12 Bed 16 Private MD: ED Physician Dangelo Garcia HPI: 01/16 20:47 This 37 yrs old Female presents to ER via EMS with complaints of Post Surgical rt Bleeding, Post Surgical Pain. 20:47 Patient presents to the ED for postoperative wound check. Patient had a pilonidal cyst rt excision performed Dr. Sage about 10 days ago. Patient was seen again for wound repack in the ER. The patient noted a worsening pain today not relieved adequately by her hydrocodone. She reports that there is some bleeding and her noticed a white spot in the wound prompting her to come to the ED for further evaluation. Denies other acute complaints at this time. Symptoms are moderate severity, aching nature, nonradiating, no other aggravating elevating factors. Historical: - Allergies: 18:18 jalepano; eh3 18:18 Morphine; eh3 - Home Meds: 18:18 Abilify Oral [Active]; citalopram 10 mg tab 1 tab once daily [Active]; Metformin Oral eh3 [Active]; trazodone 50 mg Oral tab 1 tab daily [Active]; - PMHx: 18:18 abscess removed from genital area; ADD/ADHD; Anxiety; Bipolar disorder; Depression; eh3 Kidney stones; Migraines; Non-Hodgkins Lymphoma; Seizures; self mutilation - cutter; Sinusitis; suicidal ideation; - PSHx: 18:18 section; Pilonidal Cyst removed; eh3 - Immunization history:: Adult Immunizations up to date. - Social history:: Smoking status: unknown. - Family history:: not pertinent. ROS: 20:47 Constitutional: Negative for fever, chills, and weight loss, Abdomen/GI: Negative for rt abdominal pain, nausea, vomiting, diarrhea, and constipation, MS/Extremity: Negative for injury and deformity, Neuro: Negative for headache, weakness, numbness, tingling, and seizure, Psych: Negative for depression, anxiety, suicide ideation, homicidal ideation, and hallucinations. 20:47 Skin: Positive for wound, bleeding. Exam: 20:47 Constitutional: This is a well developed, well nourished patient who is awake, alert, rt and in no acute distress. Head/Face: Normocephalic, atraumatic. Respiratory: Lungs have equal breath sounds bilaterally, clear to auscultation and percussion. No rales, rhonchi or wheezes noted. No increased work of breathing, no retractions or nasal flaring. Abdomen/GI: Soft, non-tender, with normal bowel sounds. No distension or tympany. No guarding or rebound. No evidence of tenderness throughout. Neuro: Awake and alert, GCS 15, oriented to person, place, time, and situation. Cranial nerves II-XII grossly intact. Motor strength 5/5 in all extremities. Sensory grossly intact. Cerebellar exam normal. Normal gait. Psych: Awake, alert, with orientation to person, place and time. Behavior, mood, and affect are within normal limits. 20:47 Back: Open surgical wound noted to the lower back. There is packing in place, scant amount of blood on it, no active bleeding, there is granulation tissue noted, no malodorous discharge, no purulence noted, no surrounding erythema.. Vital Signs: 18:16 BP 114 / 67; Pulse 80; Resp 18; Temp 99.1(O); Pulse Ox 99% ; Weight 113.4 kg; Height 5 eh3 ft. 9 in. ; Pain 10/10; 19:00 BP 117 / 77; Pulse 81; Resp 18; Pulse Ox 94% on R/A; eh3 20:00 BP 124 / 83; Pulse 78; Resp 18; Pulse Ox 94% on R/A; eh3 18:16 Body Mass Index 36.92 (113.40 kg, 175.26 cm) [facility] 18:16 Pain Scale: Adult 3 MDM: 18:19 Patient medically screened. rt 20:47 Differential Diagnosis Postoperative wound infection, postoperative bleeding, rt postoperative pain. Data reviewed: vital signs, nurses notes. Independent interpretation of the following test(s) in the Emergency Department CT Scan: My interpretation is No abscess seen on interpretation of the CT scan image. Test considered but Not performed: MRI: No leukocytosis, patient's symptoms are consistent with a coccygeal osteomyelitis, MRI not indicated. Counseling: I had a detailed discussion with the patient and/or guardian regarding: the historical points, exam findings, and any diagnostic results supporting the discharge/admit diagnosis, lab results, radiology results, the need for outpatient follow up. ED course: Wound was repacked, no emergent surgical intervention needed. Granulation tissue is noted, wound appears to be well-healing, there is no evidence of postoperative infection on physical examination, no further work-up is indicated this time, patient stable for outpatient care. 01/16 18:27 Order name: CBC with Diff; Complete Time: 20:17 rt 01/16 18:27 Order name: CMP; Complete Time: 20:28 rt 01/16 19:46 Order name: Abdomen ; Complete Time: 19:59 EDMS Administered Medications: 20:00 Drug: Ondansetron IVP 4 mg Route: IVP; Site: right forearm; 3 20:30 Follow up: Response: No adverse reaction eh3 20:00 Drug: fentaNYL (PF) IVP 100 mcg Route: IVP; Site: right forearm; eh3 20:30 Follow up: Response: No adverse reaction 3 20:16 Not Given (Patient Refused): morphine IVP or IV 4 mg IVP once over 4 mins eh3 Disposition Summary: 01/16/23 20:35 Discharge Ordered Location: Home rt Problem: an ongoing problem rt Symptoms: have improved rt Condition: Stable rt Diagnosis - Postoperative pain rt Followup: rt - With: Garrett Sage MD - When: 7 - 10 days - Reason: Discharge Instructions: - Discharge Summary Sheet rt - Wound Care, Adult rt Forms: - Medication Reconciliation Form rt - Thank You Letter rt - Antibiotic Education rt - Prescription Opioid Use rt - Patient Portal Instructions rt Signatures: Dispatcher [employer] Christiana Hernandez, ERICA RN eh3 Dangelo Garcia MD MD rt Corrections: (The following items were deleted from the chart) 19:46 18:27 Abdomen Pelvis W Con+CT.RAD.BRZ ordered. BESSYNH MELIZA
--- NOTE | 2023-01-16 20:36 | ER ---
Nurse's Notes [facility] Name: Paulette Nielsen Age: 37 yrs Sex: Female : 1985 Arrival Date: 01/16/2023 Time: 18:12 Bed 16 Private MD: Diagnosis: Postoperative pain Presentation: 01/16 18:16 Chief complaint: EMS states: sacral cyst removed 1 week ago, pt c/o severe pain, large eh3 amount of bleeding at surgical site, nausea and dizziness that started around 1300 today. Coronavirus screen: Vaccine status: Patient reports receiving the 2nd dose of the covid vaccine. Ebola Screen: No symptoms or risks identified at this time. Initial Sepsis Screen: Does the patient meet any 2 criteria? No. Patient's initial sepsis screen is negative. Does the patient have a suspected source of infection? Yes: Skin breakdown/wound. Risk Assessment: Do you want to hurt yourself or someone else? Patient reports no desire to harm self or others. Onset of symptoms was January 16, 2023. 18:16 Method Of Arrival: EMS: [facility] eh3 18:16 Acuity: AKSHAT 3 eh3 Triage Assessment: 18:16 General: Appears in no apparent distress. uncomfortable, Behavior is cooperative, eh3 appropriate for age. Historical: - Allergies: 18:18 jalepano; eh3 18:18 Morphine; eh3 - Home Meds: 18:18 Abilify Oral [Active]; citalopram 10 mg tab 1 tab once daily [Active]; Metformin Oral eh3 [Active]; trazodone 50 mg Oral tab 1 tab daily [Active]; - PMHx: 18:18 abscess removed from genital area; ADD/ADHD; Anxiety; Bipolar disorder; Depression; eh3 Kidney stones; Migraines; Non-Hodgkins Lymphoma; Seizures; self mutilation - cutter; Sinusitis; suicidal ideation; - PSHx: 18:18 section; Pilonidal Cyst removed; eh3 - Immunization history:: Adult Immunizations up to date. - Social history:: Smoking status: unknown. - Family history:: not pertinent. Screenin:16 [facility] ED Fall Risk Assessment (Adult) Score/Fall Risk Level 0 - 2 = Low Risk. Abuse eh3 screen: Denies threats or abuse. Denies injuries from another. Nutritional screening: No deficits noted. Tuberculosis screening: No symptoms or risk factors identified. Assessment: 18:16 Reassessment: No changes from previously documented assessment. See triage assessment. [facility] Pain: Pain currently is 10 out of 10 on a pain scale. 19:00 Reassessment: Patient appears in no apparent distress at this time. Patient and/or eh3 family updated on plan of care and expected duration. Pain level reassessed. Patient is alert, oriented x 3, equal unlabored respirations, skin warm/dry/pink. 20:00 Reassessment: Patient appears in no apparent distress at this time. Patient and/or eh3 family updated on plan of care and expected duration. Pain level reassessed. Patient is alert, oriented x 3, equal unlabored respirations, skin warm/dry/pink. Vital Signs: 18:16 BP 114 / 67; Pulse 80; Resp 18; Temp 99.1(O); Pulse Ox 99% ; Weight 113.4 kg; Height 5 3 ft. 9 in. ; Pain 10/10; 19:00 BP 117 / 77; Pulse 81; Resp 18; Pulse Ox 94% on R/A; eh3 20:00 BP 124 / 83; Pulse 78; Resp 18; Pulse Ox 94% on R/A; 3 18:16 Body Mass Index 36.92 (113.40 kg, 175.26 cm) 3 18:16 Pain Scale: Adult [facility] ED Course: 18:15 Patient arrived in ED. 3 18:15 Dangelo Garcia MD is Attending Physician. rt 18:16 Patient has correct armband on for positive identification. Bed in low position. Call [facility] light in reach. Side rails up X2. Provided Education on: N/A. Pulse ox on. NIBP on. 18:16 Arm band placed on. 3 18:18 Triage completed. eh3 18:39 Christiana Rubio, ERICA is Primary Nurse. 3 19:00 Missed attempt(s): 22 gauge in left antecubital area. Bleeding controlled, band aid rv applied, catheter tip intact. 19:30 Radiology exam delayed due to IV insertion attempt and/or patient not having ls3 appropriate IV at this time. 19:46 Abdomen In Process Unspecified. EDMS 20:33 Garrett Sage MD is Referral Physician. rt 20:44 Wound care: located on gluteal cleft was dressed with 4X4s, ABD pads, Patient tolerated eh3 well. 20:45 No provider procedures requiring assistance completed. IV discontinued, intact, eh3 bleeding controlled, No redness/swelling at site. Pressure dressing applied. Administered Medications: 20:00 Drug: Ondansetron IVP 4 mg Route: IVP; Site: right forearm; eh3 20:30 Follow up: Response: No adverse reaction eh3 20:00 Drug: fentaNYL (PF) IVP 100 mcg Route: IVP; Site: right forearm; eh3 20:30 Follow up: Response: No adverse reaction 3 20:16 Not Given (Patient Refused): morphine IVP or IV 4 mg IVP once over 4 mins eh3 Medication: 20:45 VIS not applicable for this client. eh3 Outcome: 20:35 Discharge ordered by . rt 20:46 Discharged to home ambulatory, with significant other. 3 20:46 Condition: stable 20:46 Discharge instructions given to patient, significant other, Instructed on discharge instructions, follow up and referral plans. Demonstrated understanding of instructions, follow-up care. 20:53 Patient left the ED. 3 Signatures: Dispatcher [employer] EDMS Alexandro Abdullahi RN RN Jason Hope 3 Christiana Rubio RN RN eh3 Dangelo Garcia MD MD rt
[2023-01-16 23:26] VITALS: TEMP 99.1
[2023-01-16 23:28] VITALS: O2SAT 94
[2023-01-16 23:29] VITALS: BP 124/83
== END 2023-01-16 20:53 | disposition home or self-care (01) ==
LOC: ER 18:12
DX: G89.18 Other acute postprocedural pain (principal); Z88.5 Allergy status to narcotic agent; Z91.018 Allergy to other foods
CPT/HCPCS: 85025; 36415; 80053; 74176; 96375; 96374; 99284; J3010; J2405

== ENCOUNTER 2023-01-30 23:27 | Emergency (ER) | payer OTHER ==
--- OUTSIDE RECORDS SUMMARY | 2023-01-30 23:32 | XMS REPORT | Continuity of Care Document ---
:1985 Author Organization [facility] t Address [address] [facility] [address] [place] [address] Care Team Providers Name Role Phone Ismael [...] Number Effective Date Expiration Date Susy rivera [facility] [id number] 2021 00:00:00 HEALTH PLAN CHIP Problems Condition [...] [facility] 2-21 [place] 00:00: d 00 Medical [place] morphine DA Active U RASHES [facility] [place] jalepeno DA Active SV ANAPHYLAXIS [facility] s 1- [facility] [place] Social History Social Habit Start Date Stop Date Quantity Comments Source ASSERTION 2020-11-16 [facility] 00:[facility]:00 History [facility] o f Alcohol Std [place] [facility] Drinks Branch History [facility] University o f Alcohol Binge [facility] al [place] Tobacco use and 2021-04-24 2021-04-24 Smokeless tobacco [facility] exposure 00:00:00 00:00:00 non-user Alcohol intake 2021-04-24 2021-04-24 Lifetime [facility] 00:00:00 00:00:00 non-drinker (finding) History [facility] 2019-03-23 2019-03-23 1 University o f Alcohol Frequency 00:00:00 00:00:00 [facility] edical [place] Tobacco Comment 2019-03-23 2019-03-23 1/2 pack a day Unive rsity of 00:00:00 00:00:00 [facility] Sex Assigned At [birth year] [facility] 00:00:00 00:00:00 Smoking Status Start Date Stop Date Source Never smoked tobacco [facility] Current every day smoker 2019-03-24 00:00:00 Uni versity of [facility] Medications Ordered Filled Start Stop Current [...] ( 39 PO) citalopram Yes Take by [facility] hydrobromid 9-20 mouth ity of e 03:13: daily. [place] (CITALOPRAM 20 Medical ORAL) Branch trazodone Yes 1{tbl} Take 1 [facility] ers HCl 9-20 tablet by ity of (TRAZODONE 03:13: mouth at [place] as ORAL) 20 bedtime. Medical Branch medroxyPROG Yes 150mg 150 mg by [facility] ESTERone 9-20 Intramuscu ity o f 150 mg/mL 03:13: lar route [place] as syringe 20 every 3 Medical (three) Branch months. sulfamethox Yes 1{tbl} 1 tablet, [facility] azole-trime 9-20 Oral, BID, it y of thoprim 01:00: [place] (BACTRIM 00 on [facility] DS) 800-160 03/24/19 at Br anch mg per 1999, tablet 1 Until tablet Discontinu ed, LAYA
Re ason for Anti-Infec tive: Documented Infection< br>Documen yovani Infection Site: Skin / Soft Tissue
Duration of Therapy: 10 days HYDROcodone Yes 1{tbl} 1 tablet, [facility] -acetaminop 9-20 Oral, ity of [...] SURGERY
General surgeon approving: tj schmidt citalopram 2019-0 Yes 10mg 10 mg, Unive [...] 01:19: Wed [place] WITH 00 03/23/19 at [facility] EPINEPHRINE [place] ) 1 Until %-1:100,000 Discontinu injection ed, Routine, Intra-op HYDROcodone 2019-0 Yes [id number] 1{tbl} Take 1 Univers -acetaminop - tablet by ity of hen 5-325 00:00: mouth [place] mg tablet 00 every 4 Medical (four) Branch hours as needed for Pain (scale 7-10). sulfamethox 2019-0 Yes [id number] 1{tbl} Take 1 Univers azole-trime -19 tablet by ity of thoprim 00:00: mouth 2 [place] 800-160 mg 00 (two) Medical per tablet times Branch daily. traMADol 50 2019-0 Yes [id number] 50mg Take 1 Univers mg tablet -19 tablet by ity o f 00:00: mouth [place] 00 every 6 Medical (six) Branch hours as needed for Pain (scale 4-6). vancomycin 2019- 2019- No 1250mg 1,250 mg, Univers (VANCOCIN) 03-23 IV ity of 1,250 mg in 22:00: 00:41 [place]gy[place], [place] NaCl 0.9% 00 :15 Q12H ABX, Medic al (NS) 250 mL First dose Br anch piggyback on Thu03/23/19 at 1700, Until Discontinu ed, 250 mL
Reas on for Anti-Infec tive: Documented Infection< br>Documen yovani Infection Site: Skin / Soft Tissue
Duration of Therapy: 7 days vancomycin 2019- No 1500mg 1,500 mg, Univers (VANCOCIN) 03-23 IV ity of 1,500 mg in 09:00: 13:30 [place], [place] NaCl 0.9% 00 :50 Q12H ABX, Medic [...] ABX, Medical gram/50 mL First dose Bra [facility] Piggyback on Thu 3.375 g 03/23/19 at [...] IV Push, ity of (PF)) 05:57: Q6HPRN, [place] injection 4 57 Starting Medi pastor mg [facility] 03/23/19 at 0057, Until Discontinu ed, Routine, Nausea and Vomiting (N/V) acetaminoph Yes 650mg 650 mg, Un ammy en 03-23 Oral, ity of (TYLENOL) 05:57: Q6HPRN, [place] tablet 650 42 Starting Medic al mg [facility] 03/23/19 at 0057, Until Discontinu ed, Routine, Pain (scale 1-3) Vital Signs Vital Name Observation Time Observation Value Comments Source Body height 2021-04-24 16:45:00 175.3 cm [facility] Body weight 2021-04-24 16:45:00 120.203 kg [facility] BMI 2021-04-24 16:45:00 39.13 kg/m2 [facility] Systolic blood 2019-03-25 03:00:00 138 mm[Hg] Univer sity [facility] Diastolic blood 2019-03-25 03:00:00 92 [facility]Hg[facility] 2019-03-25 03:00:00 56 /min [facility] Body temperature 2019-03-25 03:00:00 36.5 [facility] Respiratory rate 2019-03-25 03:00:00 16 /min [facility] Oxygen saturation in 2019-03-25 03:00:00 100 /min [facility] Arterial blood by [place] Medi pastor Pulse oximetry [place] Body weight 2019-03-23 19:06:00 118.5 kg [facility] BMI 2019-03-23 19:06:00 38.58 kg/m2 [facility] Body height 2019-03-23 05:21:00 175.3 cm [facility] Systolic blood 2019-03-25 03:00:00 138 mm[Hg] Univer sity of [facility] Diastolic blood 2019-03-25 03:00:00 92 mm[Hg] [facility] Heart rate 2019-03-25 03:00:00 56 /min [facility] Body temperature 2019-03-25 03:00:00 36.5 [facility] Respiratory rate 2019-03-25 03:00:00 16 /min [facility] Oxygen saturation in 2019-03-25 03:00:00 100 /min [facility] Arterial blood by [facility] Pulse oximetry [place] Body weight 2019-03-23 19:06:00 118.5 kg [facility] BMI 2019-03-23 19:06:00 38.58 kg/m2 [facility] Body height 2019-03-23 05:21:00 175.3 cm [facility] Procedures Procedure Date / Time Performing Clinician Source Performed [id number] 2021-07-16 00:00:00 [facility] POCT GLUCOSE 2019-03-25 01:09:00 Griffin Georges [facility] (AUTOMATED) [facility] BASIC METABOLIC PANEL 2019-03-24 09:34:00 Austin Perdue [facility] (NA, K, CL, CO2, Medical Branch GLUCOSE, BUN, CREATININE, CA) CBC WITH DIFFERENTIAL 2019-03-24 09:34:[address] [facility] WOUND DEBRIDEMENT 2019-03-24 00:15:00 Austin Perdue [facility] POCT GLUCOSE 2019-03-23 23:54:00 [facility] (AUTOMATED) [facility] TEST, SERUM 2019-03-23 19:41:00 [facility]on [facility] BASIC METABOLIC PANEL 2019-03-23 19:33:00 Zenon London [facility] (NA, K, CL, CO2, [facility] Branch GLUCOSE, BUN, CREATININE, CA) CBC WITH DIFFERENTIAL 2019-03-23 11:34:[address] [facility] Encounters Start End Encounter Admission Attending Care Care Encounter Source Date/Time Date/Time Type Type Clinicians Facility Department ID 2021-05-21 Outpatient [facility] [id number] [place] 11:46:20 Health 2021-04-24 Outpatient [facility] [id number] [place] 12:04:03 Health 2019-08-30 Inpatient Enrique TylerPM RON [id number] 11:30:00 00 [facility] 2021-07-16 2021-07-19 Inpatient ANATOLIY Monterroso OB [id number] [facility] 05:07:00 10:10:00 Ziad 43 Woman[facility] s [facility] 2021-04-24 2021-04-24 Nurse Only Pita Suárez UTP 6410 1.2.840. 114 [id number] [place] 00:00:00 00:00:[address] 350.1.13.58 Health 9.2.7.2.686 [id number] 6 2021-04-24 2021-04-24 Telephone David Rosanna UTP 6410 1.2.84 0.114 [id number] [place] 00:00:00 00:00:[address] 350.1.13.58 Health 9.2.7.2.686 [id number] 2021-04-23 2021-04-23 Telephone Pema Shelbi UTP 6410 1.2. 840.114 [id number] [place] 00:00:00 00:00:[address] 350.1.13. 58 Health 9.2.7.2.686 [id number] 2021-04-22 2021-04-22 Telephone Rosanna Hernandez UTP 6410 1.2.84 0.114 [id number] [place] 00:00:00 00:00:[address] 350.1.13.58 Health 9.2.7.2.686 [id number] 2019-03-22 2019-03-24 [facility] 1.2.840.114 [id number] 23:58:00 22:10:00 Encounter Atherah, Health 350.1.13.10 Claudiaan Clear 4.2.7.2.686 [place] [id number] [place] [address] ([facility]) 2019-03-22 2019-03-24 [facility] 1.2.840.114 [id number] [facility] 23:58:00 22:10:00 Encounter Ather, [facility] 350.1.13.10 itMildred Blanton 4.2.7.2.686 Remigio Magaña [id number] [place] [address] Branch ([facility]) Results Test Description Test Time Test Comments Results Result Comments Source SURGICAL 2021-07-29 16:26:00 Test Item Value Reference Range Interpretation Comme nts SURGICAL RUN DATE: (test 07/29/21 Woman's - Laborato ry PAGE 1 RUN TIME: 1626 Specimen Inquiry RUN USER: INTERFACE code = PATIENT: MAXIMO WYATTMARCIN LOC: Shikha[facility]UC U #: [id number] AGE/SX: 35/F ROOM: [facility] RE07/16/21REG DR: Mary Wheeler MD : 83 BED: A DIS: 07/19/21 STATUS: DIS IN TLOC: SPEC #: [id number] RECD: STATUS: PÉREZ KELLOGG #: [id number] ALVARO: 07/16/21 DR: Mary Wheeler MD ENTERED: 07/17/21 SP TYPE: SURGICAL OTHR DR: Austin Peraza MD, Haroon I MDORDERED: ANATOMIC SPEC, SPEC TRACK, 01701 REAL TIME OPERATOR IES TO: Austin Peraza MD [address] [place] [address] Mary Wheeler [address] [place] [address] Eamon Harper MD [address] [place] [address] PROCEDURES: 15068 (07/17/21) TISSUES: A. PLACENTA, THIRD TRIMESTER (2 [...] Specimen Inquiry RUN USER: INTERFACE SPEC #: [id number] PATIENT: MARCIN WYATT #[id number] (Continued) GROSS DESCRIPTION (Continued ) surface is translucent with white patches, with unremarkable vasculature. The maternalsurface appears complete. Serial sections through the disk show red-brown fleshy tissuewith white patches scattered thro ughout. Dredge Runner sections submitted.Sections code:A1: cord and membranes x 2A2-3: placenta cross sectionsXZ Technical component performed at [id number] , [place] [address] Unless gross only, the diagnosis is based [...] Iraj Enriquez 07/29/21 1626 END OF REPORT [id number] 05:46:00 Test Item Value Reference Range Interpretation Comments GLUBED (test code = GLUBED) 112 mg/dL 65-110 H [id number] 23:32:00 Test Item Value Reference Range Interpretation Comments GLUBED (test code = GLUBED) 120 mg/dL 65-110 H [id number] 14:32:00 Test Item Value Reference Range Interpretation Comments GLUBED (test code = GLUBED) 128 mg/dL 65-110 H [id number] 09:24:00 Test Item Value Reference Range Interpretation Comments GLUBED (test code = GLUBED) 131 mg/dL 65-110 H [id number] 06:06:00 Test Item Value Reference Range Interpretation Comments GLUBED (test code = GLUBED) 98 mg/dL 65-110 N [id number] 21:48:00 Test Item Value Reference Range Interpretation Comments GLUBED (test code = GLUBED) 145 mg/dL 65-110 H [id number] 14:32:00 Test Item Value Reference Range Interpretation Comments GLUBED (test code = GLUBED) 110 mg/dL 65-110 N [id number] 09:31:00 Test Item Value Reference Range Interpretation Comments GLUBED (test code = GLUBED) 136 mg/dL 65-110 H [id number] 06:20:00 Test Item Value Reference Range Interpretation Comments GLUBED (test code = GLUBED) 124 mg/dL 65-110 H CBC W/AUTO [id number] 06:02:00 Test Item Value Reference Range Interpretation [...] REQUIRED (test NORMAL NORMAL code = PLTMR) [id number] 21:27:00 Test Item Value Reference Range Interpretation Comments GLUBED (test code = GLUBED) 147 mg/dL 65-110 H [id number] 18:20:00 Test Item Value Reference Range Interpretation Comments GLUBED (test code = GLUBED) 156 mg/dL 65-110 H [id number] 14:26:00 Test Item Value Reference Range Interpretation Comments GLUBED (test code = GLUBED) 218 mg/dL 65-110 H CAPILLARY BLOOD [id number] 08:03:00 Test Item Value Reference Range Interpretation [...] 21.0 % code = FIO2C) CAPILLARY BLOOD [id number] 08:03:00 Test Item Value Reference Range Interpretation [...] 21.0 % code = FIO2C) COMPREHENSIVE METABOLIC [id number] 06:49:00 Test Item Value Reference Range Interpretation [...] N code = ALKP) AG HEPATITIS B [id number] 13:11:00 Test Item Value Reference Range Interpretation Comments AG HEPATITIS B SURFACE (test code NONREACTIVE NONREACTIVE = HBSAG) AB HEPATITIS C [id number] 13:11:00 Test Item Value Reference Range Interpretation Comments AB HEPATITIS C (test code = NONREACTIVE NONREACTIVE HCVAB) SIGNAL TO CUTOFF (test code = <0.02 <0.80 N CUTOFF) AB [id number] 13:11:00 Test Item Value Reference Range Interpretation Comments AB TREPONEMA (test code = TREPAB) NONREACTIVE NONREACTIVE AB HIV 1 13:11:00 Test Item Value Reference Range Interpretation Comments AB HIV 1 2 (test NONREACTIVE NONREACTIVE Done by [facility] code = CES10NC) 4th Gen HIV Ag/Ab Combo Screen COVID 19 Asymptomatic IH [id number] 12:14:00 Test Item Value Reference Range Interpretation [...] and/o r diagnosis of CO VID-19 under Lnugvqa78 4(b)(1) of the Act, 21 U.S .C. 360bbb-3(b)(1), unless theauthorizatio n is terminated or r evoked sooner. Comments to Technical Editor: FOR RAPID AND IN-HOUSE COVID TESTSpecimen Comment: DO NOT SEND OUTCBC W/AUTO [id number] 11:41:00 Test Item Value Reference Range Interpretation [...] NORMAL code = PLTMR) CALCULI URINARY WITH [id number] 12:04:00 Test Item Value Reference Range Interpretation [...] and Drug Admini stration. CALCULI URINARY WITH [id number] 12:04:00 Test Item Value Reference Range Interpretation [...] Drug Admini stration. - XR FLUOROSCOPY 0-60 [id number] 14:10:00 Name: MARCIN WYATT [place] : 1985 Age/S: 33 / F [address] Unit #: [id number] Loc: [place] [address] Phys: Enrique Tyler MD Acct: [id number] Dis Date: Status: REG [facility] PHONE #: [phone] Exam Date: 08/30/2019 1300 FAX #: Reason: STENT PLACEMENT EXAMS: CPT: [id number] XR FLUOROSCOPY 0-60 MIN 60473 Fluoro Time: 39 SEC DAP (Gy m2): [...] PAGE 1 Signed Report Name: [facility] [place] : 1985 Age/S: 33 / F [address] Unit #: [id number] Loc: [place] [address] Phys: Enrique Tyler MD Acct: [id number] Dis Date: Status: REG [facility] PHONE #: [phone] Exam Date: 08/30/2019 1300 FAX #: Reason: STENT PLACEMENT EXAMS: CPT: [id number] XR FLUOROSCOPY 0-60 MIN 58864 Fluoro Time: 39 SEC DAP (Gy m2): Air Kerma (mGy): (Continued) Technologist: Sadia Herbert, RT(R) Trnscb Date/Time: 08/30/2019 (1409) tTEDANS4 Orig Print D/T: S: 08/30/2019 (6996) PAGE 2 Signed ReportUR HCG [id number] 10:41:00 Test Item Value Reference Range Interpretation Comments UR HCG QUAL (test code = HCGQLU) NEGATIVE NEGATIVE BASIC METABOLIC [id number] 10:26:00 Test Item Value Reference Range Interpretation [...] CA) 9.4 MG/DL 8.5-10.1 N BASIC METABOLIC [id number] 10:22:00 Test Item Value Reference Range Interpretation [...] = CA) 9.4 MG/DL 8.5-10.1 N PROTHROMBIN [id number] 10:12:00 Test Item Value Reference Range Interpretation Comments PT PATIENT (test code = PTP) 12.1 SECONDS 9.3-12.9 N INTERNATIONAL NORMAL RATIO 1.07 INR Unit 0.8-1.2 N (test code = INR) THROMBOPLASTIN TIME [id number] 10:12:00 Test Item Value Reference Range Interpretation Comments THROMBOPLASTIN TIME PARTIAL 31.6 SECONDS 26-35 N (test code = PTT) GLUCOSE BEDSIDE [id number] 10:06:00 Test Item Value Reference Range Interpretation Comments GLUCOSE BEDSIDE TESTING (test code 126 mg/dL 70-110 H = GLUBED) CBC W/AUTO [id number] 10:03:00 Test Item Value Reference Range Interpretation [...] Interpretation Comments POCT GLU (test code = 0840806314) 148 mg/dL 70-110 H Lab Interpretation (test code = Abnormal 60659-8) [facility] METABOLIC PANEL (NA, K, CL, CO2, GLUCOSE, BUN, CREATININE, CA)2019-03-24 09:55:00 Test Item Value Reference Range Interpretation Comments NA (test code = 137 mmol/L 135-145 4426405433) K (test code = 4.5 mmol/L 3.5-5 4106927626) CL (test code = 107 mmol/L 98-108 8395612278) CO2 TOTAL (test code = 23 mmol/L 23-31 8973747533) AGAP (test code = 2-16 9682642004) BUN (test code = 15 mg/dL 7-23 2987775622) GLUCOSE (test code = 181 mg/dL 70-110 H 4065865908) CREATININE (test code = 0.92 mg/dL 0.5-1.04 6013854208) CALCIUM (test code = 9.2 mg/dL 8.6-10.6 6081578242) eGFR Calculation mL/min/1.73m2 (Non-) (test code = 2130585674) eGFR Calculation mL/min/1.73m2 () (test code = 7223049759) BAIRON (test code = BAIRON) Association of [...] tests). Lab Interpretation Abnormal (test code = 88739-3) [facility] WITH [id number] 09:39:00 Test Item Value Reference Range Interpretation Comments WBC (test code = See_Comment H [Automated 1407-2) message] The system which generated this result transmit yovani reference range : 4.30 - 11.10 10*3/?L. The reference range was not used to interpret this result as normal/abnormal . RBC (test code = See_Comment [Automated 559-8) message] The system which generated this result [...] RDW-SD (test code = 47.8 fL 39-49.9 02424-2) RDW-CV (test code = 15.1 % 12-15.5 788-0) PLT (test code = See_Comment [Automated 477-3) message] The system which generated this result transmit yovani reference range : 166 - 358 10*3/ ?L. The reference range was not u sed to interpret th is result as normal/abnormal . MPV (test code = 10.3 fL 9.5-12.9 11200-2) NRBC/100 WBC (test See_Comment [Automat ed code = 9299891844) message] The system which generated this result transmit yovani reference range : 0.0 - 10.0 /100 WBCs. The reference range was not used to interpret this result as normal/abnormal . NRBC x10^3 (test code <0.01 See_Comment [Auto mated = 1093097346) message] The system which generated this result transmit yovani reference range : 10*3/?L. The reference range was not used to interpret this result as normal/abnormal . GRAN MAT (NEUT) % 87.4 % (test code = 770-8) IMM GRAN % (test code 0.40 % = 2607848966) LYMPH % (test code = 9.9 % 736-9) MONO % (test code = 1.9 % 5905-5) EOS % (test code = 0.1 % 713-8) BASO % (test code = 0.3 % 706-2) GRAN MAT x10^3(ANC) 13.10 10*3/uL 1.88-7.09 H (test code = 2197893517) IMM GRAN x10^3 (test 0.06 10*3/uL 0-0.06 code = 9940362157) LYMPH x10^3 (test code 1.48 10*3/uL 1.32-3.29 = 731-0) MONO x10^3 (test code 0.29 10*3/uL 0.33-0.92 L = 742-7) EOS x10^3 (test code = <0.03 0.03-0.39 L 711-2) BASO x10^3 (test code 0.04 10*3/uL 0.01-0.07 = 704-7) Lab Interpretation Abnormal (test code = 00155-1) [facility] 23:56:00 Test Item Value Reference Range Interpretation Comments POCT GLU (test code = 1278317495) 113 mg/dL 70-110 H Lab Interpretation (test code = Abnormal 04720-5) [facility], [id number] 20:07:00 Test Item Value Reference Range Interpretation Comments PREG SERUM (test code Negative = 9037679865) BAIRON (test code = BAIRON) Less than 10 IU/L.?If low titer or ectopic is suspected, resubmit specimen in 48-72 hours. [facility] METABOLIC PANEL (NA, K, CL, CO2, GLUCOSE, BUN, CREATININE, CA)2019-03-23 20:02:00 Test Item Value Reference Range Interpretation Comments NA (test code = 137 mmol/L 135-145 4730219300) K (test code = 4.1 mmol/L 3.5-5 0599024710) CL (test code = 109 mmol/L 98-108 H 0469819486) CO2 TOTAL (test code = 23 mmol/L 23-31 0248281026) AGAP (test code = 2-16 1430202765) BUN (test code = 17 mg/dL 7-23 5437204578) GLUCOSE (test code = 134 mg/dL 70-110 H 9927565136) CREATININE (test code = 0.92 mg/dL 0.5-1.04 6029404318) CALCIUM (test code = 8.9 mg/dL 8.6-10.6 0576642672) eGFR Calculation mL/min/1.73m2 (Non-) (test code = 6010770183) eGFR Calculation mL/min/1.73m2 () (test code = 2542514619) BAIRON (test code = BAIRON) Association of [...] tests). Lab Interpretation Abnormal (test code = 02683-1) [facility] WITH [id number] 11:45:00 Test Item Value Reference Range Interpretation [...] (test code = 50.2 fL 39-49.9 H 21254-7) RDW-CV (test code = 15.5 % 12-15.5 788-0) PLT (test code = See_Comment [Automated 777-3) message] The sy stem which generated this result transmitted reference range : 166 - 358 10*3/ ?L. The reference r jose e was not used to interpret this result as normal/abnormal . MPV (test code = 10.2 fL 9.5-12.9 52237-8) NRBC/100 WBC (test See_Comment [Automat ed code = 3400467191) message] The system which generated this result transmitted reference range : 0.0 - 10.0 /100 WBCs. The refer ence range was not u sed to interpret th is result as normal/abnormal . NRBC x10^3 (test code <0.01 See_Comment [Auto mated = 7340130711) message] The s ystem which generated this result transmitted reference range : 10*3/?L. The reference range was not used to interpret this result as normal/abnormal . GRAN MAT (NEUT) % 66.3 % (test code = 770-8) IMM GRAN % (test code 0.30 % = 9333945316) LYMPH % (test code = 25.1 % 736-9) MONO % (test code = 6.1 % 5905-5) EOS % (test code = 1.8 % 713-8) BASO % (test code = 0.4 % 706-2) GRAN MAT x10^3(ANC) 8.22 10*3/uL 1.88-7.09 H (test code = 9087666740) IMM GRAN x10^3 (test 0.04 10*3/uL 0-0.06 code = 0831981427) LYMPH x10^3 (test code 3.11 10*3/uL 1.32-3.29 = 731-0) MONO x10^3 (test code 0.76 10*3/uL 0.33-0.92 = 742-7) EOS x10^3 (test code = 0.22 10*3/uL 0.03-0.39 711-2) BASO x10^3 (test code 0.05 10*3/uL 0.01-0.07 = 704-7) Lab Interpretation Abnormal (test code = 07213-2) [facility] Notes Date/Time Note Provider Source 2021-07-18 18:13:00-00:00 [facility] OB Disch REPORT#:[id number] REPORT STATUS: Signed DATE:07/18/21 TIME: 1812 PATIENT: MARCIN WYATT UNIT #: [id number] ROOM/BED: [address] : [birth year] AGE: 35 SEX: F ATTEND: Mary Wheeler MD ADM AUTHOR: Mary Wheeler MD * ALL edits or amendments must be made on the [employer]/computer document * Subjective Subjective Patient reports: Patient [...] Weight (lb): 274 Weight (oz): Weight (kg): 124.521749 Physical Exam Neuro: Exam: alert, oriented x3, [...] Mary Wheeler MD on at 1814 RPT #:[id number] END OF REPORT 2021-07-18 09:59:00-00:00 [facility] ([facility]) OB Postpart Progr Note REPORT#:[id number] REPORT STATUS: Signed DATE:07/18/21 TIME: 958 PATIENT: MARCIN WYATT UNIT #: [id number] ROOM/BED: [address] : [birth year] AGE: 35 SEX: F ATTEND: Mary Wheeler MD ADM AUTHOR: Rani Antoine DO R2 * ALL edits or amendments must be made on the [employer]/computer document * Rani Antoine 07/18/21 0959: Subjective [...] Weight (lb): 274 Weight (oz): Weight (kg): 124.353344 Physical Exam Lungs: unlabored breathing Neuro: Exam: [...] Mary Wheeler MD on at 1811 RPT #:[id number] END OF REPORT 2021-07-18 06:41:00-00:00 1704-0711 [facility] [address] [place] [address] PATIENT NAME: MARCIN WYATT ADMIT DATE: 07/16/21 ACCOUNT NO: [id number] ROOM NO: .4418 AGE: 35 SEX: F [...] n via Pfannenstiel. SURGEON: Mary Wheeler MD ASSISTANT SUPERINTENDENT FOR CURRICULUM: Rani Antoine, EXCELLENCE COACH resident. ANESTHESIA: COMPLICATIONS: None. ESTIMATED BLOOD LOSS: [...] PATIENT NAME: MARCIN WYATT ACCOUNT #: [id number] muscles were in the midline as well as the peritoneum. The bladder blade was inserted. The lower segment of the uterus was incised in the midline and extended laterally with the blacking machine operator's fingers. The amniotomy was done [...] chromi c in usual locked fashion. Several picaub-[id number] stitches using the same suture were placed [...] correct. The patient was taken to the [facility] room awake and stable condition. PATHOLOGY: Placenta. Dictated By: Mary Wheeler MD WT: OP:F.BRITTNEY/MEL/ANGELA Conf#: [id number]/DID#: [id number] Authenticated by Mary Wheeler MD On 07/25/2021 0 9:04:42 PM Electronically Signed by Mary Wheeler MD on at 0904 PATIENT NAME: MARCIN WYATT ACCOUNT #: [id number] 2021-07-17 10:48:00-00:00 [facility] ([facility]) OB Postpart Progr Note REPORT#:[id number] REPORT STATUS: Signed DATE:07/17/21 TIME: 1048 PATIENT: MARCIN WYATT UNIT #: [id number] ROOM/BED: [address] : 84 AGE: 35 SEX: F ATTEND: Mary Wheeler MD ADM AUTHOR: Rani Antoine DO R2 * ALL edits or amendments must be made on the [employer]/computer document * See Addendum Rain Antoine 07/17/21 1048: Subjective Subjective Admission EGA: [...] Weight (lb): 274 Weight (oz): Weight (kg): 124.834790 Physical Exam Lungs: unlabored breathing Neuro: Exam: [...] 07/17 07/17 07/17 07/16 1429 0928 0617 [id number] Chemistry POC Glucose (65 - 110 mg/dL) [...] % (Auto) (14.5 - 29.7 %) 20.8 [place] % (Auto) (3.6 - 10.2 %) 6.6 Eos % (Auto) (0.0 - 3.0 %) 0.3 Baso % (Auto) (0.1 - 0.9 %) 0.3 Neut # (Auto) (K/mm3) 10.4 Lymph # (Auto) (K/mm3) 3.0 [place] # (Auto) (K/mm3) 1.0 Eos # (Auto) [...] care Plan discussed with: patient, spouse/partner, [facility] Mary Wheeler 07/17/21 1803: Attestations Physician Attestation Agree w/findings plan: Agree with the findings and plan as documented by Dr Wooten, PATIENT WAS SEEN AND EXAMINED AROUND 8AM at 1744 Electronically Signed by Mary Wheeler MD on 06/26 at 1804 Addendum 1: 07/17/211811 by Mary Wheeler MD, i, DR... Electronically Signed by Mary Wheeler MD on 06/26 at 1812 RPT #:[id number] END OF REPORT 2021-07-16 07:06:00-00:00 [facility]) OB Admission / H P REPORT#:[id number] REPORT STATUS: Signed DATE:07/16/21 TIME: 705 PATIENT: MARCIN WYATT UNIT #: [id number] ROOM/BED: [facility]-A : 84 AGE: 35 SEX: F ATTEND: Denis Wheeler MD ADM AUTHOR: Rani Antoine DO R2 * ALL edits or amendments must be made on the el [employer]/computer document * OB History Chief complaint: scheduled [...] Weight (lb): 274 Weight (oz): Weight (kg): 124.849517 Physical Exam HEENT: normocephalic w/o injury Lungs: [...] % (Auto) (14.5 - 29.7 %) 19.6 [place] % (Auto) (3.6 - 10.2 %) 5.9 Eos % (Auto) (0.0 - 3.0 %) 0.9 Baso % (Auto) (0.1 - 0.9 %) 0.3 Neut # (Auto) (K/mm3) 8.2 Lymph # (Auto) (K/mm3) 2.2 [place] # (Auto) (K/mm3) 0.7 Eos # (Auto) [...] Mary Wheeler MD on at 0306 RPT #:[id number] END OF REPORT 2019-08-30 23:50:00-00:00 [id number] [place] [address] PATIENT NAME: MARCIN WYATT ADMIT DATE: 08/30/19 ACCOUNT NO: [id number] ROOM NO: AGE: 33 REPORT TYPE: OPERATIVE [...] At this point, I insert ed a 22-Chinese rigid cystourethroscope into the bladder. I identified the previously pl aced right ureteral stent. I placed a wire alongside the stent and then pulled the prior stent out intact. I now advanced up a 10-Chinese dual-lumen ureteral catheter, and then advanced up a 28 cm 11/13 Chinese access sheath. I advanced a 7 -Chinese ureteroscope through the access sheath and was [...] PATIENT NAME: MARCIN WYATT ACCOUNT #: L [id number] and was confirmed to be in good position proxima lly and distally. The retrieval string was secured to her pubis. A t this time, this marked completion of the procedure. The patient tolerat ed the procedure well. There were no complications. Dictated By: Enrique Tlyer MD WT: OP:L.BRITTNEY/EVERTON/ANGELA Conf#: [id number]/DID#: [id number] Authenticated by Enrique Tyler MD On 08/31/2019 02 :23:00 PM Electronically Signed by Enrique Tyler MD on at 1423 PATIENT NAME: MARCIN WYATT ACCOUNT #: L [id number] 2019-08-30 15:22:00-00:00 [facility] ([facility]) Post Anesthesia Evaluation REPORT#:[id number] REPORT STATUS: Signed DATE:08/30/19 TIME:1522 PATIENT: MARCIN WYATT UNIT #: [id number] ROOM/BED: : 84 AGE: 33 SEX: F ATTEND: Enrique Tyler MD ADM AUTHOR: Cary Richard CRNA * ALL edits or amendments must be made on the el [employer]/computer document * Post Anesthesia Evaluation Anes. changes [...] 145/100 100 Room air 08/30 1300 Simple 8.737655 mask 08/30 1300 36.7 72 14 142/92 100 Simple 8.85046 0 mask 08/30 0926 36.3 69 18 [...] CRNA n 08/30/19 at 1524 RPT #: [id number] END OF REPORT
[2023-01-31] MEDS ORDERED: HYDROCODONE/APAP 10/325 TAB ONE (00:55)
--- NOTE | 2023-01-31 01:32 | EDPHYS ---
Physician Documentation [facility] Name: Paulette Nielsen Age: 37 yrs Sex: Female : 1985 Arrival Date: 01/30/2023 Time: 23:27 Bed 12 Private MD: ED Physician Dangelo Garcia HPI: 01/31 00:45 This 37 yrs old Female presents to ER via Ambulatory with complaints of WOUND CHANGE. cp 00:45 Patient is a 37-year-old female who presents to the emergency department requesting cp change of dressing and repacking of surgical wound. Patient reports having pilonidal cyst surgery by Dr. Sage couple weeks ago and was unable to change her dressing without assistance today. No complaints expressed. 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 - Social history:: Smoking status: Patient reports the use of cigarette tobacco products, less than half a pack. ROS: 00:50 Constitutional: Negative for body aches, chills, fever. cp 00:50 Abdomen/GI: Negative for abdominal pain. cp 00:50 Skin: Positive for of the coccyx area, surgical wound. 00:50 All other systems are negative. Exam: 00:55 Constitutional: The patient appears in no acute distress, alert, awake, non-toxic, well cp developed, well nourished, obese. 00:55 Head/Face: Normocephalic, atraumatic. cp 00:55 Chest/axilla: Inspection: normal. 00:55 Cardiovascular: Rate: normal, Rhythm: regular. 00:55 Respiratory: the patient does not display signs of respiratory distress, Respirations: normal, no use of accessory muscles, no retractions. 00:55 Skin: Wound recheck: Abscess: the wound has improved, decreased discharge, the packing is in place, no surrounding erythema, minimal swelling noted and no active bleeding. Vital Signs: 00:13 Weight 117.03 kg; Height 5 ft. 9 in. ; Pain 4/10; vc1 00:16 BP 118 / 89; Pulse 98; Resp 20; Pulse Ox 100% ; vc1 00:13 Body Mass Index 38.10 (117.03 kg, 175.26 cm) vc1 00:13 Pain Scale: Adult vc1 MDM: 00:19 Patient medically screened. cp 01:31 Data reviewed: vital signs, nurses notes. cp 01:31 I considered the following discharge prescriptions or medication management in the cp emergency department Medications were administered in the Emergency Department. See MAR. Counseling: I had a detailed discussion with the patient and/or guardian regarding: the historical points, exam findings, and any diagnostic results supporting the discharge/admit diagnosis, the need for outpatient follow up, a general surgeon. 01/31 00:35 Order name: Wound Care: repacking set up; Complete Time: 00:50 cp Administered Medications: 00:50 Drug: HYDROcodone-acetaminophen PO 10 mg-325 mg 1 tabs Route: PO; vc1 Disposition Summary: 01/31/23 01:32 Discharge Ordered Location: Home cp Problem: an ongoing problem cp Symptoms: have improved cp Condition: Stable cp Diagnosis - Encounter for change or removal of surgical wound dressing cp Followup: cp - With: Garrett Sage MD - When: As needed - Reason: Wound Recheck Discharge Instructions: - Discharge Summary Sheet cp - How to Change Your Wound Dressing cp - Wound Care, Adult cp - Incision and Drainage, Care After cp Forms: - Medication Reconciliation Form cp - Thank You Letter cp - Antibiotic Education cp - Prescription Opioid Use cp - Patient Portal Instructions cp Addendum: 02/02/2023 09:59 Co-signature as Attending Physician, Dangelo Garcia MD I reviewed the patient's care r t provided by the Advanced Practice Provider and agree with the diagnosis and treatment plan. Signatures: Jed Doshi PA PA cp Calcote, Vanessa RN RN vc1 Dangelo Garcia MD MD rt
--- NOTE | 2023-01-31 01:32 | ER ---
Nurse's Notes [facility] Name: Paulette Nielsen Age: 37 yrs Sex: Female : 1985 Arrival Date: 01/30/2023 Time: 23:27 Bed 12 Private MD: Diagnosis: Encounter for change or removal of surgical wound dressing Presentation: 01/31 00:13 Chief complaint: Patient states: I need someone to change the dressing on my wound. The vc1 tape is coming off. Coronavirus screen: Vaccine status: Patient reports receiving the 1st dose of the Covid vaccine. Client denies travel out of the [place] in the last 14 days. At this time, the client does not indicate any symptoms associated with coronavirus-19. Ebola Screen: Patient negative for fever greater than or equal to 101.5 degrees Fahrenheit, and additional compatible Ebola Virus Disease symptoms Patient denies exposure to infectious person. Patient denies travel to an Ebola-affected area in the 21 days before illness onset. No symptoms or risks identified at this time. Risk Assessment: Do you want to hurt yourself or someone else? Patient reports no desire to harm self or others. Onset of symptoms was January 31, 2023. 00:13 Method Of Arrival: Ambulatory vc1 00:13 Acuity: AKSHAT 5 vc1 00:49 Initial Sepsis Screen: Does the patient meet any 2 criteria? No. Patient's initial vc1 sepsis screen is negative. Does the patient have a suspected source of infection? No. Patient's initial sepsis screen is negative. Triage Assessment: 00:15 General: Appears in no apparent distress. comfortable, Behavior is calm, cooperative, vc1 appropriate for age. Pain: Complains of pain in gluteal cleft Pain does not radiate. Pain currently is 4 out of 10 on a pain scale. EENT: No deficits noted. No signs and/or symptoms were reported regarding the EENT system. Neuro: No deficits noted. Cardiovascular: No deficits noted. Respiratory: Airway is patent Respiratory effort is even, unlabored, Respiratory pattern is regular, symmetrical. GI: No deficits noted. No signs and/or symptoms were reported involving the gastrointestinal system. : No deficits noted. No signs and/or symptoms were reported regarding the genitourinary system. Derm: No deficits noted. No signs and/or symptoms reported regarding the dermatologic system. Musculoskeletal: No deficits noted. No signs and/or symptoms reported regarding the musculoskeletal system. 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 - Social history:: Smoking status: Patient reports the use of cigarette tobacco products, less than half a pack. Screenin:49 [facility] ED Fall Risk Assessment (Adult) History of falling in the last 3 months, vc1 including since admission No falls in past 3 months (0 pts) Confusion or Disorientation No (0 pts) Intoxicated or Sedated No (0 pts) Impaired Gait No (0 pts) Mobility Assist Device Used No (0 pt) Altered Elimination No (0 pt) Score/Fall Risk Level 0 - 2 = Low Risk Oriented to surroundings, Maintained a safe environment, Educated pt \T\ family on fall prevention, incl call for assistance when getting out of bed. Abuse screen: Denies threats or abuse. Nutritional screening: No deficits noted. Tuberculosis screening: No symptoms or risk factors identified. Assessment: 01:30 Reassessment: No changes from previously documented assessment. Patient and/or family vc1 updated on plan of care and expected duration. Pain level reassessed. Patient is alert, oriented x 3, equal unlabored respirations, skin warm/dry/pink. Vital Signs: 00:13 Weight 117.03 kg; Height 5 ft. 9 in. ; Pain 4/10; vc1 00:16 BP 118 / 89; Pulse 98; Resp 20; Pulse Ox 100% ; vc1 00:13 Body Mass Index 38.10 (117.03 kg, 175.26 cm) vc1 00:13 Pain Scale: Adult vc1 ED Course: 01/30 23:31 Patient arrived in ED. ag3 23:34 Jed Doshi PA is PHCP. cp 23:34 Dangelo Garcia MD is Attending Physician. cp 01/31 00:14 Triage completed. vc1 00:14 Arm band placed on right wrist. vc1 00:50 Patient has correct armband on for positive identification. Placed in gown. Bed in low vc1 position. 01:31 Garrett Sage MD is Referral Physician. cp 01:48 Kiarra Anaya, RN is Primary Nurse. vc1 01:49 Provided Education on: wound care. vc1 01:49 No provider procedures requiring assistance completed. Patient did not have IV access vc1 during this emergency room visit. Administered Medications: 00:50 Drug: HYDROcodone-acetaminophen PO 10 mg-325 mg 1 tabs Route: PO; vc1 Medication: 01:49 VIS not applicable for this client. vc1 Outcome: 01:32 Discharge ordered by . cp 01:49 Discharged to home ambulatory. vc1 01:49 Condition: good 01:49 Discharge instructions given to patient, Instructed on discharge instructions, follow up and referral plans. Demonstrated understanding of instructions, follow-up care. 01:50 Patient left the ED. vc1 Signatures: Jed Doshi PA PA cp Gomez, Alice ag3 Kiarra Anaya, RN RN vc1
[2023-01-31 02:06] VITALS: BP 118/89; O2SAT 100
== END 2023-01-31 01:50 | disposition home or self-care (01) ==
LOC: ER 23:27
DX: Z48.01 Encounter for change or removal of surgical wound dressing (principal)
CPT/HCPCS: 99283

== ENCOUNTER 2023-02-08 00:02 | Emergency (ER) | payer OTHER ==
--- OUTSIDE RECORDS SUMMARY | 2023-02-08 00:06 | XMS REPORT | Continuity of Care Document ---
:1985 Author Organization [facility] t Address [address] [place] [address] Care Team Providers Name Role Phone Ismael Goodman Primary Care Physician Enrique Tyler Attending Clinician Unavailable Mary Wheeler Attending Clinician Unavailable Kamini MALDONADO, Pita Attending Clinician Unavailable Rosanna Hernandez RN Attending Clinician Unavailable Shelbi Mcadams RN Attending Clinician Unavailable Griffin Georges MD Attending Clinician Alex Templeton Admitting Clinician Unavailable Mary Wheeler Admitting Clinician Unavailable Griffin Georges MD Admitting Clinician Payers Payer Name Policy Type Policy Number Effective Date Expiration Date Susy rivera [facility] [id number] 2021 00:00:00 [employer] CHIP Problems Condition Condition Condition Status Onset Resolution Last Treating Co mments Source Name Details Category Date Date Treatment Clinician Date Obesity Obesity Disease Active 2019-0 Univers (BMI (BMI 9-18 ity of 30-39.9) [...] [facility] [place] [facility] morphine DA Active U RASHES [facility] [place] jalepeno DA Active SV ANAPHYLAXIS [facility] [place] Social History Social Habit Start Date Stop Date Quantity Comments Source ASSERTION 2020-11-16 [place] [facility] 00:[facility]:00 [facility] Std [place] [facility] Drinks Branch History [facility] Binge [facility] [place] Tobacco use and 2021-04-24 2021-04-24 Smokeless tobacco [place] [facility] exposure 00:00:00 00:00:00 non-user Alcohol intake 2021-04-24 2021-04-24 Lifetime [place] [facility] 00:00:00 00:00:00 non-drinker (finding) History [facility] 2019-03-23 2019-03-23 1 University o f [facility]:00[facility] [place] Tobacco Comment 2019-03-23 2019-03-23 1/2 pack a day Unive rsity of 00:00:00 00:00:00 [facility] Sex Assigned At [birth year] [place] [facility] 00:00:00 00:00:00 Smoking Status Start Date Stop Date Source Never smoked tobacco [place] [facility] Current every day smoker 2019-03-24 00:00:00 Uni versity of [facility] Medications Ordered Filled Start Stop Current [...] PO) citalopram Yes Take by [facility] hydrobromid 9-20 mouth ity of e 03:13: daily. [place] (CITALOPRAM 20 Medical ORAL) Branch trazodone Yes 1{tbl} Take [facility] ers HCl 9-20 tablet by ity of (TRAZODONE 03:13: mouth at [place] as ORAL) 20 bedtime. Medical Branch medroxyPROG Yes 150mg 150 mg by [facility] ESTERone 9-20 Intramuscu ity o f 150 mg/mL 03:13: lar route [place] as syringe 20 every 3 Medical (three) Branch months. sulfamethox Yes 1{tbl} 1 tablet, [facility] azole-trime 9-20 Oral, BID, it y of thoprim 01:00: [place] (BACTRIM 00 on Cris Medical DS) 800-160 03/24/19 at Br anch mg per 1999, tablet 1 Until tablet Discontinu ed, LAYA
Re ason for Anti-Infec tive: Documented Infection< br>Documen yovani Infection Site: Skin / Soft Tissue
Duration of Therapy: 10 days HYDROcodone Yes 1{tbl} 1 tablet, [facility] -acetaminop 9-20 Oral, ity of hen (NORCO [...] First dose [place] mg 00 on Thu Medical 03/23/19 at Branch 2100, Until Discontinu ed ondansetron [...] irrigation 00 03/23/19 at Med ical solution 2019, Until Discontinu ed, Intra-op lidocaine-e 2018-0 Yes PRN, Univer s pinephrine 03-24 Starting ity o f (XYLOCAINE 01:19: Wed [place] WITH 00 03/23/19 at Medical EPINEPHRINE [place] ) 1 Until %-1:100,000 Discontinu injection ed, Routine, Intra-op HYDROcodone 2018-0 Yes [id number] 1{tbl} Take 1 Univers -acetaminop -19 tablet by ity of hen 5-325 00:00: mouth [place] mg tablet 00 every 4 Medical (four) Branch hours as needed for Pain (scale 7-10). sulfamethox 2019-0 Yes [id number] 1{tbl} Take 1 Univers azole-trime 9-19 tablet by ity of thoprim 00:00: mouth 2 [place] 800-160 mg 00 (two) Medical per tablet times Branch daily. traMADol 50 2019-0 Yes [id number] 50mg Take 1 Univers mg tablet -19 tablet by ity o f 00:00: mouth [place] 00 every 6 Medical (six) Branch hours as needed for Pain (scale 4-6). vancomycin 2018- 2019- No 1250mg 1,250 mg, Univers (VANCOCIN) 03-23 IV ity of 1,250 mg in 22:00: 00:41 Piggyback, [place] NaCl 0.9% 00 :15 Q12H ABX, Medic al (NS) 250 mL First dose Br anch piggyback on Thu03/23/19 at 1700, Until Discontinu ed, 250 mL
Reas on for Anti-Infec tive: Documented Infection< br>Documen yovani Infection Site: Skin / Soft Tissue
Duration of Therapy: 7 days vancomycin 2019- No 1500mg 1,500 mg, Univers (VANCOCIN) 03-23 IV ity of 1,500 mg in 09:00: 13:30 [place]gyback, [place] NaCl 0.9% 00 :50 Q12H ABX, Medic al (NS) 250 mL First dose Br anch piggyback on Thu03/23/19 at 0400, Until Discontinu ed, 250 mL
Reas on for Anti-Infec tive: Empiric Therapy for Suspected Infection< br>Empiric Therapy Site: Skin / Soft tissue
Duration of therapy: 72 hours piperacilli 2019- No 3.375g 3.375 g, [facility] n-tazobacta 03-23 IV ity of m (ZOSYN) 08:15: 15:16 [place], [place] 3.375 00 :18 Q6H ABX, Medical gram/50 mL First dose [facility] Piggyback on Thu 3.375 g 03/23/19 at [...] IV Push, ity of (PF)) 05:57: Q6HPRN, [place] injection 4 57 Starting Medi pastor mg [facility] 03/23/19 at 0057, Until Discontinu ed, Routine, Nausea and Vomiting (N/V) acetaminoph Yes 650mg 650 mg, Un ammy en 03-23 Oral, ity of (TYLENOL) 05:57: Q6HPRN, [place] tablet 650 42 Starting Medic al mg [facility] 03/23/19 at 0057, Until Discontinu ed, Routine, Pain (scale 1-3) Vital Signs Vital Name Observation Time Observation Value Comments Source Body height 2021-04-24 16:45:00 175.3 cm [facility] Body weight 2021-04-24 16:45:00 120.203 kg [facility] BMI 2021-04-24 16:45:00 39.13 kg/m2 [facility] Systolic blood 2019-03-25 03:00:00 138 mm[Hg] Univer sity [facility] Diastolic blood 2019-03-25 03:00:00 92 mm[Hg] [facility] Heart rate 2019-03-25 03:00:00 56 /min [facility] Body temperature 2019-03-25 03:00:00 36.5 [place]ip[place] [facility] Respiratory rate 2019-03-25 03:00:00 16 /min [facility] Oxygen saturation in 2019-03-25 03:00:00 100 /min [facility] Arterial blood by [place] Medi pastor Pulse oximetry Branch Body weight 2019-03-23 19:06:00 118.5 kg [facility] BMI 2019-03-23 19:06:00 38.58 kg/m2 [facility] Body height 2019-03-23 05:21:00 175.3 cm [facility] Systolic blood 2019-03-25 03:00:00 138 mm[Hg] Univer sity of [facility] Diastolic blood 2019-03-25 03:00:00 92 mm[Hg] [facility] Heart rate 2019-03-25 03:00:00 56 /min [facility] Body temperature 2019-03-25 03:00:00 36.5 [place] [facility] Respiratory rate 2019-03-25 03:00:00 16 /min [facility] Oxygen saturation in 2019-03-25 03:00:00 100 /min [facility] Arterial blood by [facility] Pulse oximetry Branch Body weight 2019-03-23 19:06:00 118.5 kg [facility] BMI 2019-03-23 19:06:00 38.58 kg/m2 [facility] Body height 2019-03-23 05:21:00 175.3 cm [facility] Procedures Procedure Date / Time Performing Clinician Source Performed [id number] 2021-07-16 00:00:00 [facility] POCT GLUCOSE 2019-03-25 01:09:00 Griffin Georges [facility] (AUTOMATED) [facility] BASIC METABOLIC PANEL 2019-03-24 09:34:00 Austin Perdue [facility] (NA, K, CL, CO2, Medical Branch GLUCOSE, BUN, CREATININE, CA) CBC WITH DIFFERENTIAL 2019-03-24 09:34:00 Austin Perdue [facility] WOUND DEBRIDEMENT 2019-03-24 00:15:00 Austin Perdue [facility] POCT GLUCOSE 2019-03-23 23:54:00 Griffin Georges [facility] (AUTOMATED) [facility] TEST, SERUM 2019-03-23 19:41:00 [facility] BASIC METABOLIC PANEL 2019-03-23 19:33:00 Zenon [facility] (NA, K, CL, CO2, [facility] GLUCOSE, BUN, CREATININE, CA) CBC WITH DIFFERENTIAL 2019-03-23 11:34:00 Griffin Georges [facility] Encounters Start End Encounter Admission Attending Care Care Encounter Source Date/Time Date/Time Type Type Clinicians Facility Department ID 2021-05-21 Outpatient [facility] [id number] [place] 11:46:20 Health 2021-04-24 Outpatient [facility] [id number] [place] 12:04:03 [facility] 2019-08-30 Inpatient Enrique Tyler RON [id number] [facility] 11:30:00 00 [facility] 2021-07-16 2021-07-19 Inpatient ANATOLIY Monterroso OB [id number] [facility] 05:07:00 10:10:00 Ziad 43 [facility] 2021-04-24 2021-04-24 Nurse Only JoaquínPita nair UTP [id number] 1.2.840. 114 [id number] [place] 00:00:00 00:00:[address] 350.1.13.58 Health 9.2.7.2.686 [id number] 6 2021-04-24 2021-04-24 Telephone David Rosanna UTP 6410 1.2.84 0.114 [id number] [place] 00:00:00 00:00:[address] 350.1.13.58 Health 9.2.7.2.686 [id number] 2021-04-23 2021-04-23 Telephone Pema Shelbi UTP 6410 1.2. 840.114 [id number] [place] 00:00:00 00:00:[address] 350.1.13. 58 Health 9.2.7.2.686 [id number] 2021-04-22 2021-04-22 Telephone Rosanna Hernandez UTP 6410 1.2.84 0.114 [id number] [place] 00:00:00 00:00:[address] 350.1.13.58 Health 9.2.7.2.686 [id number] 2019-03-22 2019-03-24 [facility] 1.2.840.114 [id number] 23:58:00 22:10:00 Encounter Atherah, Health 350.1.13.10 Claudiaan Clear 4.2.7.2.686 [place] [id number] [place] [address] ([facility]) 2019-03-22 2019-03-24 [facility] 1.2.840.114 [id number] [facility] 23:58:00 22:10:00 Encounter Atherah, [facility] 350.1.13.10 itMildred Blanton 4.2.7.2.686 Remigio Magaña [id number] [place] [address] Branch ([facility]) Results Test Description Test Time Test Comments Results Result Comments Source SURGICAL 2021-07-29 16:26:00 Test Item Value Reference Range Interpretation Comme nts SURGICAL RUN DATE: (test 07/29/21 [facility] - Laborator y PAGE 1 RUN TIME: 1626 Specimen Inquiry RUN USER: INTERFACE code = PATIENT: MAXIMO WYATTGENOVEVAMARCIN SAMIRA LOC: [facility] U #: [id number] AGE/SX: 35/F ROOM: [facility] RE07/16/21[facility] DR: Mary Wheeler MD : 83 BED: A DIS: 07/19/21 STATUS: DIS IN TLOC: SPEC #: [id number] RECD: [id number] STATUS: PÉREZ KELLOGG #: [id number] ALVARO: 07/16/21 DR: Mary Wheeler MD ENTERED: 07/17/21 SP TYPE: SURGICAL OTHR DR: Austin Peraza MD, Haroon I MDORDERED: ANATOMIC SPEC, SPEC TRACK, 96943 COPI ES TO: Austin Peraza MD [address] [place] [id number] Mary Wheeler [address] [place] [address] Eamon Harper MD [address] [place] [address] PROCEDURES: 93779 (07/17/21) TISSUES: A. PLACENTA, THIRD TRIMESTER (2 [...] Specimen Inquiry RUN USER: INTERFACE SPEC #: [id number] PATIENT: MARCIN WYATT #[id number] (Continued) GROSS DESCRIPTION (Continued ) surface is translucent with white patches, with unremarkable vasculature. The maternalsurface appears complete. Serial sections through the disk show red-brown fleshy tissuewith white patches scattered thro ughout. Warehouse Receiving Supervisor sections submitted.Sections code:A1: cord and membranes x 2A2-3: placenta cross sectionsXZ Technical component performed at [facility],[place] [address] , [place] [address] Unless gross only, the diagnosis is based [...] Iraj Enriquez 07/29/21 1626 END OF REPORT [id number] 05:46:00 Test Item Value Reference Range Interpretation Comments GLUBED (test code = GLUBED) 112 mg/dL 65-110 H [id number] 23:32:00 Test Item Value Reference Range Interpretation Comments GLUBED (test code = GLUBED) 120 mg/dL 65-110 H [id number] 14:32:00 Test Item Value Reference Range Interpretation Comments GLUBED (test code = GLUBED) 128 mg/dL 65-110 H [id number] 09:24:00 Test Item Value Reference Range Interpretation Comments GLUBED (test code = GLUBED) 131 mg/dL 65-110 H [id number] 06:06:00 Test Item Value Reference Range Interpretation Comments GLUBED (test code = GLUBED) 98 mg/dL 65-110 N [id number] 21:48:00 Test Item Value Reference Range Interpretation Comments GLUBED (test code = GLUBED) 145 mg/dL 65-110 H [id number] 14:32:00 Test Item Value Reference Range Interpretation Comments GLUBED (test code = GLUBED) 110 mg/dL 65-110 N [id number] 09:31:00 Test Item Value Reference Range Interpretation Comments GLUBED (test code = GLUBED) 136 mg/dL 65-110 H [id number] 06:20:00 Test Item Value Reference Range Interpretation Comments GLUBED (test code = GLUBED) 124 mg/dL 65-110 H CBC W/AUTO [id number] 06:02:00 Test Item Value Reference Range Interpretation [...] REQUIRED (test NORMAL NORMAL code = PLTMR) [id number] 21:27:00 Test Item Value Reference Range Interpretation Comments GLUBED (test code = GLUBED) 147 mg/dL 65-110 H [id number] 18:20:00 Test Item Value Reference Range Interpretation Comments GLUBED (test code = GLUBED) 156 mg/dL 65-110 H [id number] 14:26:00 Test Item Value Reference Range Interpretation Comments GLUBED (test code = GLUBED) 218 mg/dL 65-110 H CAPILLARY BLOOD [id number] 08:03:00 Test Item Value Reference Range Interpretation [...] 21.0 % code = FIO2C) CAPILLARY BLOOD [id number] 08:03:00 Test Item Value Reference Range Interpretation [...] 21.0 % code = FIO2C) COMPREHENSIVE METABOLIC [id number] 06:49:00 Test Item Value Reference Range Interpretation [...] N code = ALKP) AG HEPATITIS B [id number] 13:11:00 Test Item Value Reference Range Interpretation Comments AG HEPATITIS B SURFACE (test code NONREACTIVE NONREACTIVE = HBSAG) AB HEPATITIS C [id number] 13:11:00 Test Item Value Reference Range Interpretation Comments AB HEPATITIS C (test code = NONREACTIVE NONREACTIVE HCVAB) SIGNAL TO CUTOFF (test code = <0.02 <0.80 N CUTOFF) AB [id number] 13:11:00 Test Item Value Reference Range Interpretation Comments AB TREPONEMA (test code = TREPAB) NONREACTIVE NONREACTIVE AB HIV 1 13:11:00 Test Item Value Reference Range Interpretation Comments AB HIV 1 2 (test NONREACTIVE NONREACTIVE [facility] code = LBO81SE) 4th Gen HIV Ag/Ab Combo Screen COVID 19 Asymptomatic IH [id number] 12:14:00 Test Item Value Reference Range Interpretation [...] ncy Use Authorization(E UA) for use by hortenciaato nikita certified under the CLIA thatmeet the [...] and/o r diagnosis of CO VID-19 under Bxkkggh64 4(b)(1) of the Act, 21 U.S .C. 360bbb-3(b)(1), unless theauthorizatio n is terminated or r evoked sooner. Comments to Road Tester: FOR RAPID AND IN-HOUSE COVID TESTSpecimen Comment: DO NOT SEND OUTCBC W/AUTO [id number] 11:41:00 Test Item Value Reference Range Interpretation [...] NORMAL code = PLTMR) CALCULI URINARY WITH [id number] 12:04:00 Test Item Value Reference Range Interpretation [...] and Drug Admini stration. CALCULI URINARY WITH [id number] 12:04:00 Test Item Value Reference Range Interpretation [...] = its performance CMTST1) characteristics determined by [facility]. It has not been cleared or appr ovedby the Food and Drug Admini stration. - XR FLUOROSCOPY 0-60 [id number] 14:10:00 Name: MARCIN WYATT [place] : 1985 Age/S: 33 / F [address] Unit #: [id number] Loc: [place] [address] Phys: Enrique Tyler MD Acct: [id number] Dis Date: Status: REG Iris Experience PHONE #: [phone] Exam Date: 08/30/2019 1300 FAX #: Reason: STENT PLACEMENT EXAMS: CPT: [id number] XR FLUOROSCOPY 0-60 MIN 89678 Fluoro Time: 39 SEC DAP (Gy m2): Air Kerma (mGy): EXAMINATION: - XRFLUOROSCOPY 0-60 MIN. LOCATION: S17. HISTORY: Stent placement. COMPARISON: None. FINDINGS/ IMPRESSION: Five portable limited intraoperative fluoroscopic images of right upper quadrant of abdomen demonstrates calculus overlying lower pole of right kidney. There is dilatation of right renal pelvis. Catheter and wire within right ureter are noted. Please see operative report for further details. FLUORO SCOPIC TIME: 39.8 seconds. 12.21 mGy. at 1410 Reported and signed by: Saleem Mei M.D. CC: Austin Peraza MD; Enrique Tyler MD PAGE 1 Signed Report Name: MARCIN WYATT [place] : 1985 Age/S: 33 / F [address] Unit #: [id number] Loc: [place] [address] Phys: Enrique Tyler MD Acct: [id number] Dis Date: Status: REG Iris Experience PHONE #: [phone] Exam Date: 08/30/2019 1300 FAX #: Reason: STENT PLACEMENT EXAMS: CPT: [id number] XR FLUOROSCOPY 0-60 MIN 70502 Fluoro Time: 39 SEC DAP (Gy m2): Air Kerma (mGy): (Continued) Technologist: Sadia Herbert, RT(R) Trnscb Date/Time: 08/30/2019 (652) [email or web address] Orig Print D/T: S: 08/30/2019 (5449) PAGE 2 Signed ReportUR HCG [id number] 10:41:00 Test Item Value Reference Range Interpretation Comments UR HCG QUAL (test code = HCGQLU) NEGATIVE NEGATIVE BASIC METABOLIC [id number] 10:26:00 Test Item Value Reference Range Interpretation [...] CA) 9.4 MG/DL 8.5-10.1 N BASIC METABOLIC [id number] 10:22:00 Test Item Value Reference Range Interpretation [...] = CA) 9.4 MG/DL 8.5-10.1 N PROTHROMBIN [id number] 10:12:00 Test Item Value Reference Range Interpretation Comments PT PATIENT (test code = PTP) 12.1 SECONDS 9.3-12.9 N INTERNATIONAL NORMAL RATIO 1.07 INR Unit 0.8-1.2 N (test code = INR) THROMBOPLASTIN TIME [id number] 10:12:00 Test Item Value Reference Range Interpretation Comments THROMBOPLASTIN TIME PARTIAL 31.6 SECONDS 26-35 N (test code = PTT) GLUCOSE BEDSIDE [id number] 10:06:00 Test Item Value Reference Range Interpretation Comments GLUCOSE BEDSIDE TESTING (test code 126 mg/dL 70-110 H = GLUBED) CBC W/AUTO [id number] 10:03:00 Test Item Value Reference Range Interpretation [...] Interpretation Comments POCT GLU (test code = 2075011297) 148 mg/dL 70-110 H Lab Interpretation (test code = Abnormal 11529-5) [facility] (NA, K, CL, CO2, GLUCOSE, BUN, CREATININE, CA)2019-03-24 09:55:00 Test Item Value Reference Range Interpretation Comments NA (test code = 137 mmol/L 135-145 6909846902) K (test code = 4.5 mmol/L 3.5-5 9959672771) CL (test code = 107 mmol/L 98-108 3697626036) CO2 TOTAL (test code = 23 mmol/L 23-31 5070262663) AGAP (test code = 2-16 8586345082) BUN (test code = 15 mg/dL 7-23 0295593384) GLUCOSE (test code = 181 mg/dL 70-110 H 0921982420) CREATININE (test code = 0.92 mg/dL 0.5-1.04 9272424828) CALCIUM (test code = 9.2 mg/dL 8.6-10.6 3366269448) eGFR Calculation mL/min/1.73m2 (Non-) (test code = 4009942431) eGFR Calculation mL/min/1.73m2 () (test code = 5997410479) BAIRON (test code = BAIRON) Association of [...] tests). Lab Interpretation Abnormal (test code = 81439-9) [facility] WITH [id number] 09:39:00 Test Item Value Reference Range Interpretation Comments WBC (test code = See_Comment H [Automated 8617-2) message] The system which generated this result transmit yovani reference range : 4.30 - 11.10 10*3/?L. The reference range was not used to interpret this result as normal/abnormal . RBC (test code = See_Comment [Automated 149-8) message] The system which generated this result [...] RDW-SD (test code = 47.8 fL 39-49.9 04929-6) RDW-CV (test code = 15.1 % 12-15.5 788-0) PLT (test code = See_Comment [Automated 997-3) message] The system which generated this result transmit yovani reference range : 166 - 358 10*3/ ?L. The reference range was not u sed to interpret th is result as normal/abnormal . MPV (test code = 10.3 fL 9.5-12.9 61463-9) NRBC/100 WBC (test See_Comment [Automat ed code = 7602819374) message] The system which generated this result transmit yovani reference range : 0.0 - 10.0 /100 WBCs. The reference range was not used to interpret this result as normal/abnormal . NRBC x10^3 (test code <0.01 See_Comment [Auto mated = 1143103108) message] The system which generated this result transmit yovani reference range : 10*3/?L. The reference range was not used to interpret this result as normal/abnormal . GRAN MAT (NEUT) % 87.4 % (test code = 770-8) IMM GRAN % (test code 0.40 % = 6699378215) LYMPH % (test code = 9.9 % 736-9) MONO % (test code = 1.9 % 5905-5) EOS % (test code = 0.1 % 713-8) BASO % (test code = 0.3 % 706-2) GRAN MAT x10^3(ANC) 13.10 10*3/uL 1.88-7.09 H (test code = 6433394819) IMM GRAN x10^3 (test 0.06 10*3/uL 0-0.06 code = 3643708701) LYMPH x10^3 (test code 1.48 10*3/uL 1.32-3.29 = 731-0) MONO x10^3 (test code 0.29 10*3/uL 0.33-0.92 L = 742-7) EOS x10^3 (test code = <0.03 0.03-0.39 L 711-2) BASO x10^3 (test code 0.04 10*3/uL 0.01-0.07 = 704-7) Lab Interpretation Abnormal (test code = 29250-4) [facility]2019-[facility]23 23:56:00 Test Item Value Reference Range Interpretation Comments POCT GLU (test code = 4028953905) 113 mg/dL 70-110 H Lab Interpretation (test code = Abnormal 29905-0) [facility], [id number] 20:07:00 Test Item Value Reference Range Interpretation Comments PREG SERUM (test code Negative = 7508406729) BAIRON (test code = BAIRON) Less than 10 IU/L.?If low titer or ectopic is suspected, resubmit specimen in 48-72 hours. [facility] METABOLIC PANEL (NA, K, CL, CO2, GLUCOSE, BUN, CREATININE, CA)2019-03-23 20:02:00 Test Item Value Reference Range Interpretation Comments NA (test code = 137 mmol/L 135-145 5417998228) K (test code = 4.1 mmol/L 3.5-5 3690291139) CL (test code = 109 mmol/L 98-108 H 2496717551) CO2 TOTAL (test code = 23 mmol/L 23-31 4933670724) AGAP (test code = 2-16 7989109201) BUN (test code = 17 mg/dL 7-23 0872495931) GLUCOSE (test code = 134 mg/dL 70-110 H 5897754711) CREATININE (test code = 0.92 mg/dL 0.5-1.04 4921134630) CALCIUM (test code = 8.9 mg/dL 8.6-10.6 9467943683) eGFR Calculation mL/min/1.73m2 (Non-) (test code = 9015743323) eGFR Calculation mL/min/1.73m2 () (test code = 1981499042) BAIRON (test code = BAIRON) Association of [...] tests). Lab Interpretation Abnormal (test code = 22310-8) [facility] WITH [id number] 11:45:00 Test Item Value Reference Range Interpretation [...] (test code = 50.2 fL 39-49.9 H 23417-9) RDW-CV (test code = 15.5 % 12-15.5 788-0) PLT (test code = See_Comment [Automated 777-3) message] The sy stem which generated this result transmitted reference range : 166 - 358 10*3/ ?L. The reference r jose e was not used to interpret this result as normal/abnormal . MPV (test code = 10.2 fL 9.5-12.9 24561-8) NRBC/100 WBC (test See_Comment [Automat ed code = 0796941803) message] The system which generated this result transmitted reference range : 0.0 - 10.0 /100 WBCs. The refer ence range was not u sed to interpret th is result as normal/abnormal . NRBC x10^3 (test code <0.01 See_Comment [Auto mated = 2284630910) message] The s ystem which generated this result transmitted reference range : 10*3/?L. The reference range was not used to interpret this result as normal/abnormal . GRAN MAT (NEUT) % 66.3 % (test code = 770-8) IMM GRAN % (test code 0.30 % = 3423533821) LYMPH % (test code = 25.1 % 736-9) MONO % (test code = 6.1 % 5905-5) EOS % (test code = 1.8 % 713-8) BASO % (test code = 0.4 % 706-2) GRAN MAT x10^3(ANC) 8.22 10*3/uL 1.88-7.09 H (test code = 2865798667) IMM GRAN x10^3 (test 0.04 10*3/uL 0-0.06 code = 8536289772) LYMPH x10^3 (test code 3.11 10*3/uL 1.32-3.29 = 731-0) MONO x10^3 (test code 0.76 10*3/uL 0.33-0.92 = 742-7) EOS x10^3 (test code = 0.22 10*3/uL 0.03-0.39 711-2) BASO x10^3 (test code 0.05 10*3/uL 0.01-0.07 = 704-7) Lab Interpretation Abnormal (test code = 86535-1) [facility] Notes Date/Time Note Provider Source 2021-07-18 18:13:00-00:00 [facility] OB Disch REPORT#:[id number] REPORT STATUS: Signed DATE:07/18/21 TIME: 1812 PATIENT: MARCIN WYATT UNIT #: [id number] ROOM/BED: [address] : 84 AGE: 35 SEX: F ATTEND: Mary Wheeler MD ADM AUTHOR: Mary Wheeler MD * ALL edits or amendments must be made on the el [employer]/computer document * Subjective Subjective Patient reports: Patient [...] Weight (lb): 274 Weight (oz): Weight (kg): 124.848370 Physical Exam Neuro: Exam: alert, oriented x3, [...] Mary Wheeler MD on at 1814 RPT #:[id number] END OF REPORT 2021-07-18 09:59:00-00:00 [facility] ([facility]) OB Postpart Progr Note REPORT#:[id number] REPORT STATUS: Signed DATE:07/18/21 TIME: 958 PATIENT: MARCIN WYATT UNIT #: [id number] ROOM/BED: [address] : 84 AGE: 35 SEX: F ATTEND: Mary Wheeler MD ADM AUTHOR: Rani Antoine DO R2 * ALL edits or amendments must be made on the [employer]/computer document * Rani Antoine 07/18/21 0959: Subjective [...] Weight (lb): 274 Weight (oz): Weight (kg): 124.236103 Physical Exam Lungs: unlabored breathing Neuro: Exam: [...] with the findings and plan as documented elie y Dr Antoine at 1246 Electronically Signed by Mary Wheeler MD on at 1811 RPT #:[id number] END OF REPORT 2021-07-18 06:41:00-00:00 [id number] [facility] [address] [address] PATIENT NAME: MARCIN WYATT ADMIT DATE: 07/16/21 ACCOUNT NO: [id number] ROOM NO: [id number] AGE: 35 SEX: F ADMITTING PHYSICIAN: Mary [...] n via Pfannenstiel. SURGEON: Mary Wheeler MD SEPTIC TANK CLEANER: Rani Antoine, RESEARCH & ANALYTICS MANAGER resident. ANESTHESIA: COMPLICATIONS: None. ESTIMATED BLOOD LOSS: 700 mL. INTRAVENOUS FLUIDS: 2100 mL LR. URINE OUTPUT: 30 mL clear at the end of the proc edure. FINDINGS: Male , cephalic presentation, Ap gars 8 and 9, [...] PATIENT NAME: MARCIN WYATT ACCOUNT #: F [id number] muscles were in the midline as well as the peritoneum. The bladder blade was inserted. The lower segment of the uterus was incised in the midline and extended laterally with the tool operator's fingers. The amniotomy was done with [...] chromi c in usual locked fashion. Several [id number]-ua-[id number] stitches using the same suture were placed [...] correct. The patient was taken to the [facility] room awake and stable condition. PATHOLOGY: Placenta. Dictated By: Mary Wheeler MD WT: OP:F.BRITTNEY/MEL/ANGELA Conf#: [id number]/DID#: [id number] Authenticated by Mary Wheeler MD On 07/25/2021 0 9:04:42 PM Electronically Signed by Mary Wheeler MD on at 0904 PATIENT NAME: MARCIN WYATT ACCOUNT #: [id number] 2021-07-17 10:48:00-00:00 [facility] ([facility]) OB Postpart Progr Note REPORT#:[id number] REPORT STATUS: Signed DATE:07/17/21 TIME: 1048 PATIENT: MARCIN WYATT UNIT #: [id number] ROOM/BED: [address] : 84 AGE: 35 SEX: F ATTEND: Mary Wheeler MD ADM AUTHOR: Rani Antoine DO R2 * ALL edits or amendments must be made on the [employer]/computer document * See Addendum Rani Antoine 07/17/21 [...] low FiO2 Mean Ox Delivery Rate 07/17 1552 98.7 85 18 123/81 07/17 0748 98.2 76 18 114/77 07/16 2300 98.1 60 18 98/62 07/16 1939 98.1 60 18 114/74 PATIENT WEIGHT: Weight (lb): 274 Weight (oz): Weight (kg): 124.442572 Physical Exam Lungs: unlabored breathing Neuro: Exam: [...] 07/17 07/17 07/17 07/16 1429 0928 0617 0534 0493 Chemistry POC Glucose (65 - 110 mg/dL) [...] % (Auto) (14.5 - 29.7 %) 20.8 Latimer % (Auto) (3.6 - 10.2 %) 6.6 Eos % (Auto) (0.0 - 3.0 %) 0.3 Baso % (Auto) (0.1 - 0.9 %) 0.3 Neut # (Auto) (K/mm3) 10.4 Lymph # (Auto) (K/mm3) 3.0 Latimer # (Auto) (K/mm3) 1.0 Eos # (Auto) [...] care Plan discussed with: patient, spouse/partner, [facility] Mary Wheeler 07/17/21 1803: Attestations Physician Attestation Agree w/findings plan: Agree with the findings and plan as documented by Dr Wooten, PATIENT WAS SEEN AND EXAMINED AROUND 8AM at 1744 Electronically Signed by Mary Wheeler MD on 06/26 at 1804 Addendum 1: 07/17/211811 by Mary Wheeler MD, i, DR... Electronically Signed by Mary Wheeler MD on 06/26 at 1812 RPT #:[id number] END OF REPORT 2021-07-16 07:06:00-00:00 [facility] ([facility]) OB Admission / H P REPORT#:[id number] REPORT STATUS: Signed DATE:07/16/21 TIME: 705 PATIENT: MARCIN WYATT UNIT #: [id number] ROOM/BED: [facility] : 84 AGE: 35 SEX: F ATTEND: Denis Wheeler MD ADM AUTHOR: Rani Antoine DO R2 * ALL edits or amendments must be made on the el [employer]/computer document * OB History Chief complaint: scheduled [...] Pulse 112 07/16 532 Resp 18 07/16 05 Vital Signs Date Temp Pulse Resp B/P B/P Mean Pulse Ox FiO2 07/16 97.6 112 18 137/81 100.0 PATIENT WEIGHT: Weight (lb): 274 Weight (oz): Weight (kg): 124.444917 Physical Exam HEENT: normocephalic w/o injury Lungs: [...] % (Auto) (14.5 - 29.7 %) 19.6 Latimer % (Auto) (3.6 - 10.2 %) 5.9 Eos % (Auto) (0.0 - 3.0 %) 0.9 Baso % (Auto) (0.1 - 0.9 %) 0.3 Neut # (Auto) (K/mm3) 8.2 Lymph # (Auto) (K/mm3) 2.2 Latimer # (Auto) (K/mm3) 0.7 Eos # (Auto) [...] Mary Wheeler MD on at 0306 RPT #:[id number] END OF REPORT 2019-08-30 23:50:00-00:00 [id number] [address] PATIENT NAME: MARCIN WYATT ADMIT DATE: 08/30/19 ACCOUNT NO: [id number] ROOM NO: AGE: 33 REPORT TYPE: OPERATIVE [...] standard sterile manner. At this point, I inserted a 22-F rench rigid cystourethroscope into the bladder. I identified the previously pl aced right ureteral stent. I placed a wire alongside the stent and then pulled the prior stent out intact. I now advanced up a 10-Mauritanian dual-lumen ureteral catheter, and then advanced up a 28 cm 11/13 Mauritanian access sheath. I advanced a 7 -Mauritanian ureteroscope through the access sheath and was [...] PATIENT NAME: MARCIN WYATT ACCOUNT #: L [id number] and was confirmed to be in good position proxima lly and distally. The retrieval string was secured to her pubis. A t this time, this marked completion of the procedure. The patient tolerat ed the procedure well. There were no complications. Dictated By: Enrique Tyler MD WT: OP:L.BRITTNEY/EVERTON/ANGELA Conf#: [id number]/DID#: [id number] Authenticated by Enrique Tyler MD On 08/31/2019 02 :23:00 PM Electronically Signed by Enrique Tyler MD on at 1423 PATIENT NAME: MARCIN WYATT ACCOUNT #: L [id number] 2019-08-30 15:22:00-00:00 [facility] ([facility]) Post Anesthesia Evaluation REPORT#:[id number] REPORT STATUS: Signed DATE:08/30/19 TIME:1522 PATIENT: MARCIN WYATT UNIT #: [id number] ROOM/BED: : 84 AGE: 33 SEX: F ATTEND: Enrique Tyler MD ADM AUTHOR: Cary Richard CRNA * ALL edits or amendments must be made on the el [employer]/computer document * Post Anesthesia Evaluation Anes. changes [...] O2 Flow FiO2 Mean Ox Delivery Rate 08/30 1355 64 18 138/86 99 Room air 08/30 1321 36.7 65 15 149/95 100 Room air 08/30 1311 70 19 145/100 100 Room air 08/30 1300 Simple 8.570350 mask 08/30 1300 36.7 72 14 142/92 100 Simple 8.41461 0 mask 08/30 0926 36.3 69 18 [...] CRNA n 08/30/19 at 1524 RPT #: [id number] END OF REPORT
--- NOTE | 2023-02-08 03:00 | EDPHYS ---
Physician Documentation [facility] Name: Paulette Nielsen Age: 37 yrs Sex: Female : 1985 Arrival Date: 02/08/2023 Time: 00:02 Bed 14 Private MD: Edmund Hawkins ED Physician Aaron Soni HPI: 02/08 00:12 This 37 yrs old Female presents to ER via Unassigned with complaints of Wound sp4 Vac problem. 06:05 . sp4 06:15 This is a very pleasant 37-year-old female who presents with complaint of nonfunctional sp4 wound VAC. Patient has a history of pilonidal cyst resection by Dr. Sage who has also applied wound VAC. Surgery on 01/09/2023 Wide local excision of pilonidal cyst with sinus. Patient states her wound VAC today shows signs of occlusion with wound VAC pump was not alarm signs secondary to occlusion somewhere in the line. . Historical: - Allergies: 00:12 jalapeno; bp 00:12 Morphine; bp - PMHx: 00:12 abscess removed from genital area; ADD/ADHD; Anxiety; Bipolar disorder; Depression; bp Kidney stones; Migraines; Non-Hodgkins Lymphoma; Seizures; self mutilation - cutter; Sinusitis; suicidal ideation; - PSHx: 00:12 section; Pilonidal Cyst removed; bp - Immunization history:: Adult Immunizations up to date. - Social history:: Smoking status: Patient denies any tobacco usage or history of. - Family history:: not pertinent. ROS: 06:15 Constitutional: Negative for fever, chills, and weight loss, positive for wound VAC sp4 malfunction 06:15 All other systems are negative. Exam: 06:15 Constitutional: This is a well developed, well nourished patient who is awake, alert, sp4 and in no acute distress. Head/Face: Normocephalic, atraumatic. Eyes: Pupils equal round and reactive to light, extra-ocular motions intact. Lids and lashes normal. Conjunctiva and sclera are not injected. Cornea within normal limits. Periorbital areas with no swelling, redness, or edema. ENT: Nares patent. No nasal discharge, no septal abnormalities noted. Tympanic membranes are normal and external auditory canals are clear. Oropharynx with no redness, swelling, or masses, exudates, or evidence of obstruction, uvula midline. Mucous membranes moist. Neck: Trachea midline, no thyromegaly or masses palpated, and no cervical lymphadenopathy. Supple, full range of motion without nuchal rigidity, or vertebral point tenderness. Chest/axilla: Normal chest wall appearance and motion. Nontender with no deformity. No lesions are appreciated. Cardiovascular: Regular rate and rhythm with a normal S1 and S2. No gallops, murmurs, or rubs. Normal PMI, no JVD. No pulse deficits. Respiratory: Lungs have equal breath sounds bilaterally, clear to auscultation and percussion. No rales, rhonchi or wheezes noted. No increased work of breathing, no retractions or nasal flaring. Abdomen/GI: Soft, non-tender, with normal bowel sounds. No distension or tympany. No guarding or rebound. No evidence of tenderness throughout. Back: No spinal tenderness. No costovertebral tenderness. There is mid sacral wound VAC in place at the site of pilonidal cyst excision. Skin: Warm, dry with normal turgor. Normal color with no rashes, no lesions, and no evidence of cellulitis. MS/ Extremity: Pulses equal, no cyanosis. Neurovascular intact. Full, normal range of motion. Neuro: Awake and alert, GCS 15, oriented to person, place, time, and situation. Cranial nerves II-XII grossly intact. Motor strength 5/5 in all extremities. Sensory grossly intact. Psych: Awake, alert, with orientation to person, place and time. Behavior, mood, and affect are within normal limits Vital Signs: 00:11 BP 134 / 95; Pulse 109; Resp 16; Temp 98; Pulse Ox 100% ; bp 01:14 BP 115 / 91; Pulse 96; Resp 16; Temp 98.5; Pulse Ox 100% on R/A; Pain 6/10; fu 01:55 BP 121 / 90; Pulse 82; Pulse Ox 97% ; fu 02:00 BP 124 / 87; Pulse 81; Pulse Ox 98% ; Pain 0/10; fu 01:14 Pain Scale: Adult fu 02:00 Pain Scale: Adult fu Procedures: 06:15 Performed Wound VAC dressing change. Wound VAC pump reports occlusion and aligned. No sp4 occlusion identified on visual inspection.. General surgeon advised exchanging entire wound VAC dressing.. Old wound VAC dressing was removed and the sponge was removed revealing clean excision site with granulation tissue. No signs of purulent purulent discharge or bleeding. New sterile sponge was placed and wound VAC dressing was reapplied with fresh Tegaderm and a wound VAC channel leading to the wound VAC canister. Wound VAC was turned on and now reports no occlusion in the line. Wound VAC dressing change is therefore successful. . MDM: 01:44 Patient medically screened. sp4 06:15 Differential Diagnosis Surgery site complication, wound VAC complication, wound VAC sp4 malfunction,. Data reviewed: vital signs, nurses notes, old medical records. ED course: A wound VAC dressing was exchanged and the canister and the wound VAC pump was exchanged. At this time wound VAC found to be functioning properly and monitor reveals no occlusion in the line. Patient is stable for discharge home with advised to see her general surgeon in 2 to 3 days for another dressing change. . Administered Medications: No medications were administered Disposition Summary: 02/08/23 03:00 Discharge Ordered Location: Home sp4 Problem: new sp4 Symptoms: have improved sp4 Condition: Stable sp4 Diagnosis - Encounter for change or removal of surgical wound dressing sp4 - Wound vacuum occlusion, wound vacuum dressing change sp4 Followup: sp4 - With: Garrett Sage MD - When: 2 - 3 days - Reason: Recheck today's complaints Discharge Instructions: - Discharge Summary Sheet sp4 - Surgical Wound Debridement, Care After sp4 Forms: - Patient Portal Instructions sp4 Signatures: Kosta Espinal RN RN bp Potepalov, Sergey, MD MD sp4
--- NOTE | 2023-02-08 03:00 | ER ---
Nurse's Notes [facility] Name: Paulette Nielsen Age: 37 yrs Sex: Female : 1985 Arrival Date: 02/08/2023 Time: 00:02 Bed 14 Private MD: Edmund Hawkins Diagnosis: Encounter for change or removal of surgical wound dressing;Wound vacuum occlusion, wound vacuum dressing change Presentation: 02/08 00:11 Chief complaint: Patient states: WOUND VAC BEEPING "FULL OR OCCLUDED". Coronavirus bp screen: At this time, the client does not indicate any symptoms associated with coronavirus-19. Ebola Screen: No symptoms or risks identified at this time. Initial Sepsis Screen: Does the patient meet any 2 criteria? HR > 90 bpm. No. Patient's initial sepsis screen is negative. Does the patient have a suspected source of infection? No. Patient's initial sepsis screen is negative. Risk Assessment: Do you want to hurt yourself or someone else? Patient reports no desire to harm self or others. Onset of symptoms is unknown. 00:11 Method Of Arrival: Ambulatory bp 00:11 Acuity: AKSHAT 3 bp Historical: - Allergies: 00:12 jalapeno; bp 00:12 Morphine; bp - PMHx: 00:12 abscess removed from genital area; ADD/ADHD; Anxiety; Bipolar disorder; Depression; bp Kidney stones; Migraines; Non-Hodgkins Lymphoma; Seizures; self mutilation - cutter; Sinusitis; suicidal ideation; - PSHx: 00:12 section; Pilonidal Cyst removed; bp - Immunization history:: Adult Immunizations up to date. - Social history:: Smoking status: Patient denies any tobacco usage or history of. - Family history:: not pertinent. Screenin:54 [facility] ED Fall Risk Assessment (Adult) History of falling in the last 3 months, fu including since admission No falls in past 3 months (0 pts). Abuse screen: Denies threats or abuse. Nutritional screening: No deficits noted. Tuberculosis screening: No symptoms or risk factors identified. Assessment: 00:30 General: Appears in no apparent distress. comfortable, Behavior is calm, cooperative, fu appropriate for age. Pain: Complains of pain in sacral area Pain does not radiate. Pain currently is 6 out of 10 on a pain scale. Neuro: Level of Consciousness is awake, alert, obeys commands, Oriented to person, place, time, situation, Gait is steady. Respiratory: Respiratory effort is even, unlabored, Respiratory pattern is regular. Derm: Reports removal of cyst on the sacral area, has wound vac on it. Wound vac beeping showing "occluded" message. 01:55 Reassessment: No changes from previously documented assessment. Patient and/or family fu updated on plan of care and expected duration. Pain level reassessed. Patient is alert, oriented x 3, equal unlabored respirations, skin warm/dry/pink. 02:25 Reassessment: Dr. Camara in the room applying new wound vac dressing. fu Vital Signs: 00:11 BP 134 / 95; Pulse 109; Resp 16; Temp 98; Pulse Ox 100% ; bp 01:14 BP 115 / 91; Pulse 96; Resp 16; Temp 98.5; Pulse Ox 100% on R/A; Pain 6/10; fu 01:55 BP 121 / 90; Pulse 82; Pulse Ox 97% ; fu 02:00 BP 124 / 87; Pulse 81; Pulse Ox 98% ; Pain 0/10; fu 01:14 Pain Scale: Adult fu 02:00 Pain Scale: Adult fu ED Course: 00:06 Patient arrived in ED. mr 00:06 Edmund Hawkins MD is Private Physician. mr 00:12 Aaron Soni MD is Attending Physician. sp4 00:12 Triage completed. bp 00:12 Arm band placed on. bp 00:31 Romero Ramos, RN is Primary Nurse. fu 01:30 Patient has correct armband on for positive identification. Bed in low position. Call fu light in reach. Side rails up X2. 02:30 changing wound vac dressing. fu 02:59 Garrett Sage MD is Referral Physician. sp4 03:25 Patient did not have IV access during this emergency room visit. fu Administered Medications: No medications were administered Medication: 03:00 VIS not applicable for this client. fu Outcome: 03:00 Discharge ordered by . sp4 03:25 Discharged to home ambulatory. fu 03:25 Condition: stable 03:25 Discharge instructions given to patient, Instructed on discharge instructions, follow up and referral plans. Demonstrated understanding of instructions, follow-up care, Prescriptions given X 0 03:27 Patient left the ED. fu Signatures: Sneha An, Romero, RN RN Kosta Mayberry, RN RN Aaron Alcocer MD MD sp4 Corrections: (The following items were deleted from the chart) :31 00:30 Derm: Reports removal of cyst on the sacral area, has wound vac on it. Wound vac fu beeping showing occluded message. fu
[2023-02-08 03:35] VITALS: TEMP 98.5
[2023-02-08 03:37] VITALS: BP 124/87; O2SAT 98
== END 2023-02-08 03:27 | disposition home or self-care (01) ==
LOC: ER 00:02
DX: Z48.01 Encounter for change or removal of surgical wound dressing (principal); T85.9XXA Unspecified complication of internal prosthetic device, implant and graft, initial encounter
CPT/HCPCS: 99283

== ENCOUNTER 2023-02-14 23:57 | Emergency (ER) | payer OTHER ==
--- OUTSIDE RECORDS SUMMARY | 2023-02-15 00:03 | XMS REPORT | Continuity of Care Document ---
:1985 Author Organization [facility] t Address [address] [facility] [address] [place] [address] Care Team Providers Name Role Phone Ismael [...] Number Effective Date Expiration Date Susy rivera [facility] [id number] 2021 00:00:00 HEALTH PLAN CHIP Problems Condition [...] [facility] 2-21 [place] 00:00: d 00 Medical M[place] morphine DA Active U RASHES [facility] [place] jalepeno DA Active SV ANAPHYLAXIS [facility] s 1- [facility] [place] Social History Social Habit Start Date Stop Date Quantity Comments Source ASSERTION 2020-11-16 [facility] 00:00:00 History [facility] o f Alcohol Std [place] Medical Drinks Branch History [facility] University o f Alcohol Binge [facility] al [place] Tobacco use and 2021-04-24 2021-04-24 Smokeless tobacco [facility] exposure 00:00:00 00:00:00 non-user Alcohol intake 2021-04-24 2021-04-24 Lifetime [facility] 00:00:00 00:00:00 non-drinker (finding) History [facility] 2019-03-23 2019-03-23 1 University o f Alcohol Frequency 00:00:00 00:00:00 [facility] edical [place] Tobacco Comment 2019-03-23 2019-03-23 1/2 pack a day Unive rsity of 00:00:00 00:00:00 [facility] Sex Assigned At [birth year] [facility] 00:00:00 00:00:00 Smoking Status Start Date Stop Date Source Never smoked tobacco [facility] Current every day smoker 2019-03-24 00:00:00 Uni versity of [facility] Medications Ordered Filled Start Stop Current [...] 9-20 mouth ity of e 03:13: daily. [place] (CITALOPRAM 20 Medical ORAL) Branch trazodone Yes 1{tbl} Take [address] [facility] ers HCl 9-20 tablet by ity of (TRAZODONE 03:13: mouth at [place] as ORAL) 20 bedtime. Medical Branch medroxyPROG Yes 150mg 150 mg by [facility] ESTERone 9-20 Intramuscu ity o f 150 mg/mL 03:13: lar route [place] as syringe 20 every 3 Medical (three) Branch months. sulfamethox Yes 1{tbl} 1 tablet, [facility] azole-trime 9-20 Oral, BID, it y of thoprim 01:00: [place] (BACTRIM 00 on [facility] DS) 800-160 03/24/19 at Br anch mg per 1999, tablet 1 Until tablet Discontinu ed, LAYA
Re ason for Anti-Infec tive: Documented Infection< br>Documen yovani Infection Site: Skin / Soft Tissue
Duration of Therapy: 10 days HYDROcodone Yes 1{tbl} 1 tablet, [facility] -acetaminop 9-20 Oral, ity of hen [...] 01:19: Wed [place] WITH 00 03/23/19 at [facility] EPINEPHRINE [place] ) 1 Until %-1:100,000 Discontinu injection ed, Routine, Intra-op HYDROcodone 2019-0 Yes [id number] 1{tbl} Take 1 Univers -acetaminop - tablet by ity of hen 5-325 00:00: mouth [place] mg tablet 00 every 4 Medical (four) Branch hours as needed for Pain (scale 7-10). sulfamethox 2019-0 Yes [id number] 1{tbl} Take 1 Univers azole-trime -19 tablet by ity of thoprim 00:00: mouth 2 [place] 800-160 mg 00 (two) Medical per tablet times Branch daily. traMADol 50 2019-0 Yes [id number] 50mg Take 1 Univers mg tablet -19 tablet by ity o f 00:00: mouth [place] 00 every 6 Medical (six) Branch hours as needed for Pain (scale 4-6). vancomycin 2019- 2019- No 1250mg 1,250 mg, Univers (VANCOCIN) 03-23 IV ity of 1,250 mg in 22:00: 00:41 Piggyback, [place] NaCl 0.9% 00 :15 Q12H ABX, Medic al (NS) 250 mL First dose Br anch piggyback on Thu03/23/19 at 1700, Until Discontinu ed, 250 mL
Reas on for Anti-Infec tive: Documented Infection< br>Documen yovani Infection Site: Skin / Soft Tissue
Duration of Therapy: 7 days vancomycin 2019- No 1500mg 1,500 mg, Univers (VANCOCIN) 03-23 IV ity of 1,500 mg in 09:00: 13:30 [place], [place] NaCl 0.9% 00 :50 Q12H ABX, Medic [...] gram/50 mL First dose Bra [facility] Piggyback on Thu 3.375 g 03/23/19 at [...] IV Push, ity of (PF)) 05:57: Q6HPRN, [place] injection 4 57 Starting Medi pastor mg [facility] 03/23/19 at 0057, Until Discontinu ed, Routine, Nausea and Vomiting (N/V) acetaminoph Yes 650mg 650 mg, Un ammy en 03-23 Oral, ity of (TYLENOL) 05:57: Q6HPRN, [place] tablet 650 42 Starting Medic al mg [facility] 03/23/19 at 0057, Until Discontinu ed, Routine, Pain (scale 1-3) Vital Signs Vital Name Observation Time Observation Value Comments Source Body height 2021-04-24 16:45:00 175.3 cm [facility] Body weight 2021-04-24 16:45:00 120.203 kg [facility] BMI 2021-04-24 16:45:00 39.13 kg/m2 [facility] Systolic blood 2019-03-25 03:00:00 138 mm[Hg] Univer sity [facility] Diastolic blood 2019-03-25 03:00:00 92 [facility]Hg[facility] 2019-03-25 03:00:00 56 /min [facility] Body temperature 2019-03-25 03:00:00 36.5 [facility] Respiratory rate 2019-03-25 03:00:00 16 /min [facility] Oxygen saturation in 2019-03-25 03:00:00 100 /min [facility] Arterial blood by [place] Medi pastor Pulse oximetry [place] Body weight 2019-03-23 19:06:00 118.5 kg [facility] BMI 2019-03-23 19:06:00 38.58 kg/m2 [facility] Body height 2019-03-23 05:21:00 175.3 cm [facility] Systolic blood 2019-03-25 03:00:00 138 mm[Hg] Univer sity of [facility] Diastolic blood 2019-03-25 03:00:00 92 mm[Hg] [facility] 2019-03-25 03:00:00 56 /min [facility] Body temperature 2019-03-25 03:00:00 36.5 [facility] Respiratory rate 2019-03-25 03:00:00 16 /min [facility] Oxygen saturation in 2019-03-25 03:00:00 100 /min [facility] Arterial blood by [facility] Pulse oximetry [place] Body weight 2019-03-23 19:06:00 118.5 kg [facility] BMI 2019-03-23 19:06:00 38.58 kg/m2 [facility] Body height 2019-03-23 05:21:00 175.3 cm [facility] Procedures Procedure Date / Time Performing Clinician Source Performed [id number] 2021-07-16 00:00:00 [facility] POCT GLUCOSE 2019-03-25 01:09:00 Griffin Georges [facility] (AUTOMATED) [facility] BASIC METABOLIC PANEL 2019-03-24 09:34:00 Austin Perdue [facility] (NA, K, CL, CO2, Medical Branch GLUCOSE, BUN, CREATININE, CA) CBC WITH DIFFERENTIAL 2019-03-24 09:34:00 Austin Perdue [facility] WOUND DEBRIDEMENT 2019-03-24 00:15:00 Austin Perdue [facility] POCT GLUCOSE 2019-03-23 23:54:00 Griffin Georges [facility] (AUTOMATED) [facility] TEST, SERUM 2019-03-23 19:41:00 Zenon London [facility] BASIC METABOLIC PANEL 2019-03-23 19:33:00 Zenon London [facility] (NA, K, CL, CO2, [facility] Branch GLUCOSE, BUN, CREATININE, CA) CBC WITH DIFFERENTIAL 2019-03-23 11:34:00 Griffin Georges [facility] Encounters Start End Encounter Admission Attending Care Care Encounter Source Date/Time Date/Time Type Type Clinicians Facility Department ID 2021-05-21 Outpatient [facility] [id number] [place] 11:46:20 Health 2021-04-24 Outpatient [facility] [id number] [place] 12:04:03 Health 2019-08-30 Inpatient Enrique TylerPM RON [id number] [facility] 11:30:00 00 [facility] 2021-07-16 2021-07-19 Inpatient ANATOLIY Monterroso OB [id number] [facility] 05:07:00 10:10:00 [facility] 2021-04-24 2021-04-24 Nurse Only JoaquínPita nair UTP 6410 1.2.840. 114 [id number] [place] 00:00:00 00:00:[address] 350.1.13.58 Health 9.2.7.2.686 [id number] 6 2021-04-24 2021-04-24 Telephone Rosanna Hernandez UTP 6410 1.2.84 0.114 [id number] [place] 00:00:00 00:00:[address] 350.1.13.58 Health 9.2.7.2.686 [id number] 6 2021-04-23 2021-04-23 Telephone Pema Shelbi UTP 6410 1.2. 840.114 [id number] [place] 00:00:00 00:00:[address] 350.1.13. 58 Health 9.2.7.2.686 [id number] 2021-04-22 2021-04-22 Telephone HernandezZeldaRosanna UTP 6410 1.2.84 0.114 [id number] [place] 00:00:00 00:00:[address] 350.1.13.58 Health 9.2.7.2.686 [id number] 2019-03-22 2019-03-24 [facility] [id number] [facility] 23:58:00 22:10:00 Encounter Janell Jaime 350.1.13.10 ity Yamileth [place] 4.2.7.2.686 Remigio Magaña [id number] [address] ([facility]) 2019-03-22 2019-03-24 [facility] [id number] 23:58:00 22:10:00 Encounter Ather, Health 350.1.13.10 Griffin Clear 4.2.7.2.686 [place] [id number] [place] [address] ([facility]) Results Test Description Test Time Test Comments Results Result Comments Source SURGICAL 2021-07-29 16:26:00 Test Item Value Reference Range Interpretation Comme nts SURGICAL RUN DATE: (test 07/29/21 Woman's - Laborato ry PAGE 1 RUN TIME: 1626 Specimen Inquiry RUN USER: INTERFACE code = PATIENT: MAXIMO WYATTMARCIN LOC: [facility] U #: [id number] AGE/SX: 35/F ROOM: [facility] RE07/16/21REG DR: Mary Wheeler MD : 83 BED: A DIS: 07/19/21 STATUS: DIS IN TLOC: SPEC #: [id number] RECD: STATUS: PÉREZ KELLOGG #: [id number] ALVARO: 07/16/21 DR: Mary Wheeler MD ENTERED: 07/17/21 SP TYPE: SURGICAL OTHR DR: Austin Peraza MD, Haroon I MDORDERED: ANATOMIC SPEC, SPEC TRACK, [id number] [employer]ARM SERVICE CONSULTANT IES TO: Austin Peraza MD [address] [place] [address] Mary Wheeler [address] [place] [address] Eamon Harper MD [address] [place] [address] PROCEDURES: 60420 (07/17/21) TISSUES: A. PLACENTA, THIRD TRIMESTER (2 [...] Specimen Inquiry RUN USER: INTERFACE SPEC #: [id number] PATIENT: MARCIN WYATT #[id number] (Continued) GROSS DESCRIPTION (Continued ) surface is translucent with white patches, with unremarkable vasculature. The maternalsurface appears complete. Serial sections through the disk show red-brown fleshy tissuewith white patches scattered thro ughout. [employer] sections submitted.Sections code:A1: cord and membranes x 2A2-3: placenta cross sectionsXZ Technical component performed at [employer],[id number] , [place] [address] Unless gross only, the diagnosis is based [...] Iraj Enriquez 07/29/21 1626 END OF REPORT [id number] 05:46:00 Test Item Value Reference Range Interpretation Comments GLUBED (test code = GLUBED) 112 mg/dL 65-110 H [id number] 23:32:00 Test Item Value Reference Range Interpretation Comments GLUBED (test code = GLUBED) 120 mg/dL 65-110 H [id number] 14:32:00 Test Item Value Reference Range Interpretation Comments GLUBED (test code = GLUBED) 128 mg/dL 65-110 H [id number] 09:24:00 Test Item Value Reference Range Interpretation Comments GLUBED (test code = GLUBED) 131 mg/dL 65-110 H [id number] 06:06:00 Test Item Value Reference Range Interpretation Comments GLUBED (test code = GLUBED) 98 mg/dL 65-110 N [id number] 21:48:00 Test Item Value Reference Range Interpretation Comments GLUBED (test code = GLUBED) 145 mg/dL 65-110 H [id number] 14:32:00 Test Item Value Reference Range Interpretation Comments GLUBED (test code = GLUBED) 110 mg/dL 65-110 N [id number] 09:31:00 Test Item Value Reference Range Interpretation Comments GLUBED (test code = GLUBED) 136 mg/dL 65-110 H [id number] 06:20:00 Test Item Value Reference Range Interpretation Comments GLUBED (test code = GLUBED) 124 mg/dL 65-110 H CBC W/AUTO [id number] 06:02:00 Test Item Value Reference Range Interpretation [...] REQUIRED (test NORMAL NORMAL code = PLTMR) [id number] 21:27:00 Test Item Value Reference Range Interpretation Comments GLUBED (test code = GLUBED) 147 mg/dL 65-110 H [id number] 18:20:00 Test Item Value Reference Range Interpretation Comments GLUBED (test code = GLUBED) 156 mg/dL 65-110 H [id number] 14:26:00 Test Item Value Reference Range Interpretation Comments GLUBED (test code = GLUBED) 218 mg/dL 65-110 H CAPILLARY BLOOD [id number] 08:03:00 Test Item Value Reference Range Interpretation [...] 21.0 % code = FIO2C) CAPILLARY BLOOD [id number] 08:03:00 Test Item Value Reference Range Interpretation [...] 21.0 % code = FIO2C) COMPREHENSIVE METABOLIC [id number] 06:49:00 Test Item Value Reference Range Interpretation [...] N code = ALKP) AG HEPATITIS B [id number] 13:11:00 Test Item Value Reference Range Interpretation Comments AG HEPATITIS B SURFACE (test code NONREACTIVE NONREACTIVE = HBSAG) AB HEPATITIS C [id number] 13:11:00 Test Item Value Reference Range Interpretation Comments AB HEPATITIS C (test code = NONREACTIVE NONREACTIVE HCVAB) SIGNAL TO CUTOFF (test code = <0.02 <0.80 N CUTOFF) AB [id number] 13:11:00 Test Item Value Reference Range Interpretation Comments AB TREPONEMA (test code = TREPAB) NONREACTIVE NONREACTIVE AB HIV 1 13:11:00 Test Item Value Reference Range Interpretation Comments AB HIV 1 2 (test NONREACTIVE NONREACTIVE [facility] code = NGH14WH) 4th Gen HIV Ag/Ab Combo Screen COVID 19 Asymptomatic IH [id number] 12:14:00 Test Item Value Reference Range Interpretation [...] and/o r diagnosis of CO VID-19 under Qzbskyt23 4(b)(1) of the Act, 21 U.S .C. 360bbb-3(b)(1), unless theauthorizatio n is terminated or r evoked sooner. Comments to Autism [employer]utor: FOR RAPID AND IN-HOUSE COVID TESTSpecimen Comment: DO NOT SEND OUTCBC W/AUTO [id number] 11:41:00 Test Item Value Reference Range Interpretation [...] NORMAL code = PLTMR) CALCULI URINARY WITH [id number] 12:04:00 Test Item Value Reference Range Interpretation [...] and Drug Admini stration. CALCULI URINARY WITH [id number] 12:04:00 Test Item Value Reference Range Interpretation [...] Drug Admini stration. - XR FLUOROSCOPY 0-60 [id number] 14:10:00 Name: MARCIN WYATT [place] : 1985 Age/S: 33 / F [address] Unit #: [id number] Loc: [place] [address] Phys: Enrique Tyler MD Acct: [id number] Dis Date: Status: REG Together Mobile PHONE #: [phone] Exam Date: 08/30/2019 1300 FAX #: Reason: STENT PLACEMENT EXAMS: CPT: [id number] XR FLUOROSCOPY 0-60 MIN 45225 Fluoro Time: 39 SEC DAP (Gy m2): [...] 1 Signed Report Name: [facility] [place] : 1985 Age/S: 33 / F [address] Unit #: [id number] Loc: [place] [address] Phys: Enrique Tyler MD Acct: [id number] Dis Date: Status: REG [employer] PHONE #: [phone] Exam Date: 08/30/2019 1300 FAX #: Reason: STENT PLACEMENT EXAMS: CPT: [id number] XR FLUOROSCOPY 0-60 MIN 82509 Fluoro Time: 39 SEC DAP (Gy m2): Air Kerma (mGy): (Continued) Technologist: Sadia Herbert, RT(R) Trnscb Date/Time: 08/30/2019 (1409) tTEDANS4 Orig Print D/T: S: 08/30/2019 (5307) PAGE 2 Signed ReportUR HCG [id number] 10:41:00 Test Item Value Reference Range Interpretation Comments UR HCG QUAL (test code = HCGQLU) NEGATIVE NEGATIVE BASIC METABOLIC [id number] 10:26:00 Test Item Value Reference Range Interpretation [...] CA) 9.4 MG/DL 8.5-10.1 N BASIC METABOLIC [id number] 10:22:00 Test Item Value Reference Range Interpretation [...] = CA) 9.4 MG/DL 8.5-10.1 N PROTHROMBIN [id number] 10:12:00 Test Item Value Reference Range Interpretation Comments PT PATIENT (test code = PTP) 12.1 SECONDS 9.3-12.9 N INTERNATIONAL NORMAL RATIO 1.07 INR Unit 0.8-1.2 N (test code = INR) THROMBOPLASTIN TIME [id number] 10:12:00 Test Item Value Reference Range Interpretation Comments THROMBOPLASTIN TIME PARTIAL 31.6 SECONDS 26-35 N (test code = PTT) GLUCOSE BEDSIDE [id number] 10:06:00 Test Item Value Reference Range Interpretation Comments GLUCOSE BEDSIDE TESTING (test code 126 mg/dL 70-110 H = GLUBED) CBC W/AUTO [id number] 10:03:00 Test Item Value Reference Range Interpretation [...] Interpretation Comments POCT GLU (test code = 1305381204) 148 mg/dL 70-110 H Lab Interpretation (test code = Abnormal 98236-5) [facility] METABOLIC PANEL (NA, K, CL, CO2, GLUCOSE, BUN, CREATININE, CA)2019-03-24 09:55:00 Test Item Value Reference Range Interpretation Comments NA (test code = 137 mmol/L 135-145 4476487691) K (test code = 4.5 mmol/L 3.5-5 1011836588) CL (test code = 107 mmol/L 98-108 6173430099) CO2 TOTAL (test code = 23 mmol/L 23-31 2572622571) AGAP (test code = 2-16 0820267042) BUN (test code = 15 mg/dL 7-23 5518177676) GLUCOSE (test code = 181 mg/dL 70-110 H 7469732807) CREATININE (test code = 0.92 mg/dL 0.5-1.04 2793714408) CALCIUM (test code = 9.2 mg/dL 8.6-10.6 2779863806) eGFR Calculation mL/min/1.73m2 (Non-) (test code = 1360335026) eGFR Calculation mL/min/1.73m2 () (test code = 0376708273) BAIRON (test code = BAIRON) Association of [...] tests). Lab Interpretation Abnormal (test code = 53666-5) [facility] WITH [id number] 09:39:00 Test Item Value Reference Range Interpretation Comments WBC (test code = See_Comment H [Automated 1383-2) message] The system which generated this result transmit yovani reference range : 4.30 - 11.10 10*3/?L. The reference range was not used to interpret this result as normal/abnormal . RBC (test code = See_Comment [Automated 749-8) message] The system which generated this result [...] RDW-SD (test code = 47.8 fL 39-49.9 77502-7) RDW-CV (test code = 15.1 % 12-15.5 788-0) PLT (test code = See_Comment [Automated 667-3) message] The system which generated this result transmit yovani reference range : 166 - 358 10*3/ ?L. The reference range was not u sed to interpret th is result as normal/abnormal . MPV (test code = 10.3 fL 9.5-12.9 14195-7) NRBC/100 WBC (test See_Comment [Automat ed code = 4802178189) message] The system which generated this result transmit yovani reference range : 0.0 - 10.0 /100 WBCs. The reference range was not used to interpret this result as normal/abnormal . NRBC x10^3 (test code <0.01 See_Comment [Auto mated = 1461333484) message] The system which generated this result transmit yovani reference range : 10*3/?L. The reference range was not used to interpret this result as normal/abnormal . GRAN MAT (NEUT) % 87.4 % (test code = 770-8) IMM GRAN % (test code 0.40 % = 8678013935) LYMPH % (test code = 9.9 % 736-9) MONO % (test code = 1.9 % 5905-5) EOS % (test code = 0.1 % 713-8) BASO % (test code = 0.3 % 706-2) GRAN MAT x10^3(ANC) 13.10 10*3/uL 1.88-7.09 H (test code = 6274828032) IMM GRAN x10^3 (test 0.06 10*3/uL 0-0.06 code = 9421824467) LYMPH x10^3 (test code 1.48 10*3/uL 1.32-3.29 = 731-0) MONO x10^3 (test code 0.29 10*3/uL 0.33-0.92 L = 742-7) EOS x10^3 (test code = <0.03 0.03-0.39 L 711-2) BASO x10^3 (test code 0.04 10*3/uL 0.01-0.07 = 704-7) Lab Interpretation Abnormal (test code = 56833-8) [facility] 23:56:00 Test Item Value Reference Range Interpretation Comments POCT GLU (test code = 6010102632) 113 mg/dL 70-110 H Lab Interpretation (test code = Abnormal 69416-7) [facility], [id number] 20:07:00 Test Item Value Reference Range Interpretation Comments PREG SERUM (test code Negative = 5443219124) BAIRON (test code = BAIRON) Less than 10 IU/L.?If low titer or ectopic is suspected, resubmit specimen in 48-72 hours. [facility] METABOLIC PANEL (NA, K, CL, CO2, GLUCOSE, BUN, CREATININE, CA)2019-03-23 20:02:00 Test Item Value Reference Range Interpretation Comments NA (test code = 137 mmol/L 135-145 9695283701) K (test code = 4.1 mmol/L 3.5-5 2194755207) CL (test code = 109 mmol/L 98-108 H 8281749382) CO2 TOTAL (test code = 23 mmol/L 23-31 9842342494) AGAP (test code = 2-16 2203368757) BUN (test code = 17 mg/dL 7-23 9502957623) GLUCOSE (test code = 134 mg/dL 70-110 H 5839333654) CREATININE (test code = 0.92 mg/dL 0.5-1.04 6411882775) CALCIUM (test code = 8.9 mg/dL 8.6-10.6 4012092102) eGFR Calculation mL/min/1.73m2 (Non-) (test code = 1819567468) eGFR Calculation mL/min/1.73m2 () (test code = 0942879345) BAIRON (test code = BAIRON) Association of [...] tests). Lab Interpretation Abnormal (test code = 81674-6) [facility] WITH [id number] 11:45:00 Test Item Value Reference Range Interpretation [...] (test code = 50.2 fL 39-49.9 H 27900-6) RDW-CV (test code = 15.5 % 12-15.5 788-0) PLT (test code = See_Comment [Automated 777-3) message] The sy stem which generated this result transmitted reference range : 166 - 358 10*3/ ?L. The reference r jose e was not used to interpret this result as normal/abnormal . MPV (test code = 10.2 fL 9.5-12.9 23383-9) NRBC/100 WBC (test See_Comment [Automat ed code = 5386856668) message] The system which generated this result transmitted reference range : 0.0 - 10.0 /100 WBCs. The refer ence range was not u sed to interpret th is result as normal/abnormal . NRBC x10^3 (test code <0.01 See_Comment [Auto mated = 6809855178) message] The s ystem which generated this result transmitted reference range : 10*3/?L. The reference range was not used to interpret this result as normal/abnormal . GRAN MAT (NEUT) % 66.3 % (test code = 770-8) IMM GRAN % (test code 0.30 % = 6131626074) LYMPH % (test code = 25.1 % 736-9) MONO % (test code = 6.1 % 5905-5) EOS % (test code = 1.8 % 713-8) BASO % (test code = 0.4 % 706-2) GRAN MAT x10^3(ANC) 8.22 10*3/uL 1.88-7.09 H (test code = 9297171670) IMM GRAN x10^3 (test 0.04 10*3/uL 0-0.06 code = 1139452174) LYMPH x10^3 (test code 3.11 10*3/uL 1.32-3.29 = 731-0) MONO x10^3 (test code 0.76 10*3/uL 0.33-0.92 = 742-7) EOS x10^3 (test code = 0.22 10*3/uL 0.03-0.39 711-2) BASO x10^3 (test code 0.05 10*3/uL 0.01-0.07 = 704-7) Lab Interpretation Abnormal (test code = 20411-9) [facility] Notes Date/Time Note Provider Source 2021-07-18 18:13:00-00:00 [facility] OB Disch REPORT#:[id number] REPORT STATUS: Signed DATE:07/18/21 TIME: 1812 PATIENT: MARCIN WYATT UNIT #: [id number] ROOM/BED: [address] : [birth year] AGE: 35 SEX: F ATTEND: Mary Wheeler MD ADM AUTHOR: Mary Wheeler MD * ALL edits or amendments must be made on the [employer]/computer document * Subjective Subjective Patient reports: Patient [...] Weight (lb): 274 Weight (oz): Weight (kg): 124.422713 Physical Exam Neuro: Exam: alert, oriented x3, [...] Mary Wheeler MD on at 1814 RPT #:[id number] END OF REPORT 2021-07-18 09:59:00-00:00 [facility]) OB Postpart Progr Note REPORT#:[id number] REPORT STATUS: Signed DATE:07/18/21 TIME: 958 PATIENT: MARCIN WYATT UNIT #: [id number] ROOM/BED: [address] : 84 AGE: 35 SEX: F ATTEND: Mary Wheeler MD ADM AUTHOR: Rani Antoine DO R2 * ALL edits or amendments must be made on the [employer]/computer document * Rani Antoine 07/18/21 0959: Subjective [...] Weight (lb): 274 Weight (oz): Weight (kg): 124.509741 Physical Exam Lungs: unlabored breathing Neuro: Exam: [...] Mary Wheeler MD on at 1811 RPT #:[id number] END OF REPORT 2021-07-18 06:41:00-00:00 [id number] [facility] [address] [address] PATIENT NAME: MARCIN WYATT ADMIT DATE: 07/16/21 ACCOUNT NO: [id number] ROOM NO: .4418 AGE: 35 SEX: F [...] n via Pfannenstiel. SURGEON: Mary Wheeler MD METAL TEMPERER: Rani Antoine, GRANULATING MACHINE OPERATOR resident. ANESTHESIA: COMPLICATIONS: None. ESTIMATED BLOOD LOSS: [...] PATIENT NAME: MARCIN WYATT ACCOUNT #: [id number] muscles were in the midline as well as the peritoneum. The bladder blade was inserted. The lower segment of the uterus was incised in the midline and extended laterally with the mix crusher operator's fingers. The amniotomy was done with [...] chromi c in usual locked fashion. Several [id number]-[id number] stitches using the same suture were placed [...] correct. The [facility] room awake and stable condition. PATHOLOGY: Placenta. Dictated By: Mary Wheeler MD WT: OP:F.BIRTTNEY/MEL/ANGELA Conf#: [id number]/DID#: [id number] Authenticated by Mary Wheeler MD On 07/25/2021 0 9:04:42 PM Electronically Signed by Mary Wheeler MD on at 0904 PATIENT NAME: MARCIN WYATT ACCOUNT #: [id number] 2021-07-17 10:48:00-00:00 [facility] ([facility]) OB Postpart Progr Note REPORT#:[id number] REPORT STATUS: Signed DATE:07/17/21 TIME: 1048 PATIENT: MARCIN WYATT UNIT #: [id number] ROOM/BED: [address] : 84 AGE: 35 SEX: F ATTEND: Mary Wheeler MD ADM AUTHOR: Rani Antoine DO R2 * ALL edits or amendments must be made on the [employer]/computer document * See Addendum Rani Antoine 07/17/21 [...] Weight (lb): 274 Weight (oz): Weight (kg): 124.048143 Physical Exam Lungs: unlabored breathing Neuro: Exam: [...] 07/17 07/17 07/17 07/16 1429 0928 [id number] [id number] Chemistry POC Glucose (65 - 110 mg/dL) [...] % (Auto) (14.5 - 29.7 %) 20.8 Snyder % (Auto) (3.6 - 10.2 %) 6.6 Eos % (Auto) (0.0 - 3.0 %) 0.3 Baso % (Auto) (0.1 - 0.9 %) 0.3 Neut # (Auto) (K/mm3) 10.4 Lymph # (Auto) (K/mm3) 3.0 Snyder # (Auto) (K/mm3) 1.0 Eos # (Auto) [...] care Plan discussed with: patient, spouse/partner, [facility] Mary Wheeler 07/17/21 1803: Attestations Physician Attestation Agree w/findings plan: Agree with the findings and plan as documented by Dr Wooten, PATIENT WAS SEEN AND EXAMINED AROUND 8AM at 1744 Electronically Signed by Mary Wheeler MD on 06/26 at 1804 Addendum 1: 07/17/211811 by Mary Wheeler MD, i, DR... Electronically Signed by Mary Wheeler MD on 06/26 at 1812 RPT #:[id number] END OF REPORT 2021-07-16 07:06:00-00:00 [facility] ([facility]) OB Admission / H P REPORT#:[id number] REPORT STATUS: Signed DATE:07/16/21 TIME: 705 PATIENT: MARCIN WYATT UNIT #: [id number] ROOM/BED: [facility]8-A : 84 AGE: 35 SEX: F ATTEND: Denis Wheeler MD ADM AUTHOR: Rani Antoine DO R2 * ALL edits or amendments must be made on the [employer]/computer document * OB History Chief complaint: [...] Weight (lb): 274 Weight (oz): Weight (kg): 124.719977 Physical Exam HEENT: normocephalic w/o injury Lungs: [...] % (Auto) (14.5 - 29.7 %) 19.6 Snyder % (Auto) (3.6 - 10.2 %) 5.9 Eos % (Auto) (0.0 - 3.0 %) 0.9 Baso % (Auto) (0.1 - 0.9 %) 0.3 Neut # (Auto) (K/mm3) 8.2 Lymph # (Auto) (K/mm3) 2.2 Snyder # (Auto) (K/mm3) 0.7 Eos # (Auto) [...] Mary Wheeler MD on at 0306 RPT #:[id number] END OF REPORT 2019-08-30 23:50:00-00:00 [id number] [place] [id number] PATIENT NAME: MARCIN WYATT ADMIT DATE: 08/30/19 ACCOUNT NO: [id number] ROOM NO: AGE: 33 REPORT TYPE: OPERATIVE [...] At this point, I insert ed a 22-Gibraltarian rigid cystourethroscope into the bladder. I identified the previously pl aced right ureteral stent. I placed a wire alongside the stent and then pulled the prior stent out intact. I now advanced up a 10-Gibraltarian dual-lumen ureteral catheter, and then advanced up a 28 cm 11/13 Gibraltarian access sheath. I advanced a 7 -Gibraltarian ureteroscope through the access sheath and was [...] PATIENT NAME: MARCIN WYATT ACCOUNT #: L [id number] and was confirmed to be in good position proxima lly and distally. The retrieval string was secured to her pubis. A t this time, this marked completion of the procedure. The patient tolerat ed the procedure well. There were no complications. Dictated By: Enrique Tyler MD WT: OP:L.BRITTNEY/EVERTON/ANGELA Conf#: [id number]/DID#: [id number] Authenticated by Enrique Tyler MD On 08/31/2019 02 :23:00 PM Electronically Signed by Enrique Tyler MD on at 1423 PATIENT NAME: MARCIN WYATT ACCOUNT #: L [id number] 2019-08-30 15:22:00-00:00 [facility] ([facility]) Post Anesthesia Evaluation REPORT#:[id number] REPORT STATUS: Signed DATE:08/30/19 TIME:1522 PATIENT: MARCIN WYATT UNIT #: [id number] ROOM/BED: : 84 AGE: 33 SEX: F ATTEND: Enrique Tyler MD ADM AUTHOR: Cary Richard CRNA * ALL edits or amendments must be made on the [employer]/computer document * Post Anesthesia Evaluation Anes. changes [...] 145/100 100 Room air 08/30 1300 Simple [id number] mask 08/30 1300 36.7 72 14 142/92 100 Simple 8.03029 0 mask 08/30 0926 36.3 69 18 [...] CRNA n 08/30/19 at 1524 RPT #: [id number] END OF REPORT
[2023-02-15 00:49] LABS: Absolute Lymphocytes (CBC) 3.4 K/uL (0.7-4.9); Hematocrit 42.2 % (36.0-45.0); Lymphocytes % 22.9 % (15.3-44.8); MCV 85.2 fL (80-100); Platelets 292 thou/uL (152-406); RBC Red Blood Cell Count 4.96 M/uL (3.86-4.86)
[2023-02-15 00:52] LABS: Protime INR 0.94
[2023-02-15 01:04] LABS: Albumin 3.6 g/dL (3.4-5.0); Bilirubin Total 0.3 mg/dL (0.2-1.0); Potassium 3.9 mEq/L (3.5-5.1); Protein, Total 7.9 g/dL (6.4-8.2)
[2023-02-15] MEDS ORDERED: HYDROCODONE/APAP 7.5/325 MG TAB ONE (01:33)
--- NOTE | 2023-02-15 02:01 | ER ---
Nurse's Notes [facility] Name: Paulette Nielsen Age: 37 yrs Sex: Female : 1985 Arrival Date: 02/14/2023 Time: 23:57 Bed 6 Private MD: Diagnosis: infection of sacral surgical wound, s/p I\T\D and wound vac;Type 2 diabetes mellitus with hyperglycemia Presentation: 02/15 00:11 Chief complaint: Patient states: I \T\ D first of January currently on wound vac reports kl increase in pain and noticed foul odor from wound. Coronavirus screen: Vaccine status: Patient reports receiving the 2nd dose of the covid vaccine. Ebola Screen: Patient negative for fever greater than or equal to 101.5 degrees Fahrenheit, and additional compatible Ebola Virus Disease symptoms. Initial Sepsis Screen: Does the patient meet any 2 criteria? HR > 90 bpm. Does the patient have a suspected source of infection? Yes: Skin breakdown/wound If YES to both, name of provider notified: Cynthia Caceres PA-C. Risk Assessment: Do you want to hurt yourself or someone else? Patient reports no desire to harm self or others. 00:11 Method Of Arrival: Ambulatory kl 00:11 Acuity: AKSHAT 3 kl Triage Assessment: 00:16 General: Appears in no apparent distress. Behavior is calm, cooperative. Pain: kl Complains of pain in gluteal cleft Pain currently is 5 out of 10 on a pain scale. Historical: - Allergies: 00:14 jalapeno; kl 00:14 Morphine; kl - Home Meds: 00:14 Abilify Oral [Active]; citalopram 10 mg tab 1 tab once daily [Active]; Metformin Oral kl [Active]; trazodone 50 mg Oral tab 1 tab daily [Active]; - PMHx: 00:14 abscess removed from genital area; ADD/ADHD; Anxiety; Bipolar disorder; Depression; kl Kidney stones; Migraines; Non-Hodgkins Lymphoma; Seizures; self mutilation - cutter; Sinusitis; suicidal ideation; - PSHx: 00:14 section; Pilonidal Cyst removed; kl - Immunization history:: Adult Immunizations not immunized. - Social history:: Smoking status: Patient reports the use of cigarette tobacco products, smokes one-half pack cigarettes per day. Screenin:47 [facility] ED Fall Risk Assessment (Adult) History of falling in the last 3 months, jb4 including since admission No falls in past 3 months (0 pts) Confusion or Disorientation No (0 pts). Abuse screen: Denies threats or abuse. Nutritional screening: No deficits noted. Tuberculosis screening: No symptoms or risk factors identified. Assessment: 00:47 General: Appears in no apparent distress. comfortable, Behavior is calm, cooperative, jb4 appropriate for age. Pain: Complains of pain in gluteal cleft Pain does not radiate. Pain currently is 5 out of 10 on a pain scale. Neuro: Level of Consciousness is awake, alert, obeys commands, Oriented to person, place, time, situation. Cardiovascular: Patient's skin is warm and dry. Respiratory: Airway is patent Respiratory effort is even, unlabored, Respiratory pattern is regular, symmetrical. GI: No signs and/or symptoms were reported involving the gastrointestinal system. : No signs and/or symptoms were reported regarding the genitourinary system. EENT: No signs and/or symptoms were reported regarding the EENT system. Derm: Skin is intact, Skin is pink, warm \T\ dry. Musculoskeletal: Circulation, motion, and sensation intact. Range of motion: intact in all extremities. 02:10 Reassessment: Patient appears in no apparent distress at this time. Patient and/or rv family updated on plan of care and expected duration. Pain level reassessed. Patient is alert, oriented x 3, equal unlabored respirations, skin warm/dry/pink. Vital Signs: 00:11 BP 143 / 119; Pulse 120; Resp 18; Temp 99.5(O); Pulse Ox 98% on R/A; Weight 113.4 kg; kl Height 5 ft. 9 in. ; Pain 5/10; 02:03 BP 131 / 86; Pulse 110; Resp 16; Pulse Ox 98% on R/A; jb4 00:11 Body Mass Index 36.92 (113.40 kg, 175.26 cm) 00:11 Pain Scale: Adult ED Course: 00:01 Patient arrived in ED. kj1 00:08 Cynthia Caceres PA-C is PHCP. sb4 00:08 Shelbi Burns MD is Attending Physician. sb4 00:14 Triage completed. kl 00:45 Álvaro Barrientos, RN is Primary Nurse. jb4 00:47 Patient has correct armband on for positive identification. Bed in low position. Call jb4 light in reach. Side rails up X 1. 00:47 No provider procedures requiring assistance completed. Missed attempt(s): 20 gauge in jb4 right antecubital area. 01:56 Garrett Sage MD is Referral Physician. sb4 01:56 Edmund Hawkins MD is Referral Physician. sb4 02:10 IV discontinued, intact, bleeding controlled, No redness/swelling at site. Pressure rv dressing applied. Administered Medications: 01:27 Drug: Hydrocodone-Acetaminophen PO (7.5 mg-325 mg) 1 tabs Route: PO; jb4 02:03 Follow up: Response: No adverse reaction; Pain is decreased jb4 02:03 Drug: Trimethoprim-Sulfamethoxazole PO (160 mg-800 mg (DS) 1 tablet Route: PO; jb4 02:03 Follow up: Response: Medication administered at discharge. jb4 Medication: 00:47 VIS not applicable for this client. jb4 Outcome: 02:00 Discharge ordered by . sb4 02:10 Discharged to home ambulatory. rv 02:10 Condition: stable 02:10 Discharge instructions given to patient, Instructed on discharge instructions, follow up and referral plans. medication usage, Demonstrated understanding of instructions, follow-up care, medications, Prescriptions given X 1. 02:11 Patient left the ED. rv Signatures: Paty Gallardo RN Álvaro Rivera, RN RN jb4 Alexandro Abdullahi RN RN rv Jackson, Kandis kj1 Cynthia Caceres PA-C PAMaik sb4
--- NOTE | 2023-02-15 02:01 | EDPHYS ---
Physician Documentation [facility] Name: Paulette Nielsen Age: 37 yrs Sex: Female : 1985 Arrival Date: 02/14/2023 Time: 23:57 Bed 6 Private MD: ED Physician Shelbi Burns HPI: 02/15 00:50 This 37 yrs old Female presents to ER via Ambulatory with complaints of SURGICAL SITE sb4 INFECTION. 00:50 Patient had a pilonidal cyst incised and drained about 1 month ago with difficulty sb4 healing resulting in placement of wound vac. She states that 2 days ago, she noticed her wound vac was emitting a foul odor. she reports otherwise feeling well. 15:53 The patient has been recently seen by a physician: a general surgeon. sb4 Historical: - Allergies: 00:14 jalapeno; kl 00:14 Morphine; kl - Home Meds: 00:14 Abilify Oral [Active]; citalopram 10 mg tab 1 tab once daily [Active]; Metformin Oral kl [Active]; trazodone 50 mg Oral tab 1 tab daily [Active]; - PMHx: 00:14 abscess removed from genital area; ADD/ADHD; Anxiety; Bipolar disorder; Depression; kl Kidney stones; Migraines; Non-Hodgkins Lymphoma; Seizures; self mutilation - cutter; Sinusitis; suicidal ideation; - PSHx: 00:14 section; Pilonidal Cyst removed; kl - Immunization history:: Adult Immunizations not immunized. - Social history:: Smoking status: Patient reports the use of cigarette tobacco products, smokes one-half pack cigarettes per day. ROS: 00:50 Constitutional: Negative for fever, chills, and weight loss, Eyes: Negative for injury, sb4 pain, redness, and discharge, ENT: Negative for injury, pain, and discharge. 00:50 Skin: Positive for sacral wound with wound vac in place, foul odor. 00:50 All other systems are negative. Exam: 15:53 Constitutional: This is a well developed, well nourished patient who is awake, alert, sb4 and in no acute distress. Head/Face: Normocephalic, atraumatic. Eyes: Extra-ocular motions intact. Periorbital areas with no swelling, redness, or edema. ENT: Mucous membranes moist. Cardiovascular: Regular rate and rhythm with a normal S1 and S2. Respiratory: Lungs have equal breath sounds bilaterally, clear to auscultation and percussion. No rales, rhonchi or wheezes noted. No increased work of breathing, no retractions or nasal flaring. Abdomen/GI: Soft, non-tender, no distension. MS/ Extremity: Pulses equal, no cyanosis. Neurovascular intact. Full, normal range of motion. Neuro: Awake and alert, GCS 15, oriented to person, place, time, and situation. Cranial nerves II-XII grossly intact. Motor strength 5/5 in all extremities. Sensory grossly intact. Cerebellar exam normal. Normal gait. 15:53 Skin: Wound recheck: Abscess: decreased erythema, decreased surrounding cellulitis, decreased swelling, the packing is in place, turned off wound vac and removed packing, site appears to be healing well. no significant erythema, cellulitus, discharge however it is emitting a very foul odor and brown color coming through the wound vac. Vital Signs: 00:11 BP 143 / 119; Pulse 120; Resp 18; Temp 99.5(O); Pulse Ox 98% on R/A; Weight 113.4 kg; kl Height 5 ft. 9 in. ; Pain 5/10; 02:03 BP 131 / 86; Pulse 110; Resp 16; Pulse Ox 98% on R/A; jb4 00:11 Body Mass Index 36.92 (113.40 kg, 175.26 cm) kl 00:11 Pain Scale: Adult kl Procedures: 15:55 wound vac packing and dressing was replaced by RN. sb4 MDM: 00:08 Patient medically screened. sb4 15:55 Differential diagnosis: sepsis, abscess, cellulitus. Data reviewed: vital signs, nurses sb4 notes, lab test result(s), I have discussed the patient's presentation/case with the attending Emergency Department Physician; and as a result, I will discharge patient. Consideration of Admission/Observation Escalation of care including admission/observation considered. Management of patient was discussed with the following: Tube Closing Machine Operator: I called Dr. Sage, her surgeon, and discussed her lab findings, vital signs, and general description of the wound. He stated that if the wound looks appropriate to me, she can be discharged on oral antibiotics to follow-up with him in the office in a few days. . Care significantly affected by the following chronic conditions: Diabetes. Counseling: I had a detailed discussion with the patient and/or guardian regarding: the historical points, exam findings, and any diagnostic results supporting the discharge/admit diagnosis, the presence of at least one elevated blood pressure reading (>120/80) during this emergency department visit, lab results, the need for outpatient follow up, a general surgeon, to return to the emergency department if symptoms worsen or persist or if there are any questions or concerns that arise at home. Special discussion: I discussed in detail with the patient the higher chance of wound infection based on his presenting history. ED course: I discussed with her her hyperglycemia and how an elevated blood sugar can hinder the healing time. She is only on metformin and has an appointment to see her PCP this week to discuss further management of her diabetes. She also has a follow-up appointment with Dr. Sage this week. 02/15 00:13 Order name: Blood Culture Adult (2) sb4 02/15 00:13 Order name: CBC with Diff; Complete Time: 00:56 sb4 02/15 00:13 Order name: CMP; Complete Time: 01:10 sb4 02/15 00:13 Order name: Lactate w/ 2H reflex if indic.; Complete Time: 01:10 sb4 02/15 00:13 Order name: Protime (+inr); Complete Time: 00:56 sb4 02/15 00:13 Order name: Ptt, Activated; Complete Time: 00:56 sb4 02/15 00:13 Order name: EKG; Complete Time: 00:14 sb4 02/15 00:13 Order name: Accucheck; Complete Time: 00:48 sb4 02/15 00:13 Order name: Cardiac monitoring; Complete Time: 00:49 sb4 02/15 00:13 Order name: IV Saline Lock - Large Bore; Complete Time: 01:21 sb4 02/15 00:13 Order name: Labs collected and sent; Complete Time: 00:48 sb4 02/15 00:13 Order name: O2 Per Protocol; Complete Time: 00:48 sb4 02/15 00:13 Order name: O2 Sat Monitoring; Complete Time: 00:48 sb4 02/15 00:13 Order name: Vital Signs; Complete Time: 00:48 sb4 Administered Medications: 01:27 Drug: Hydrocodone-Acetaminophen PO (7.5 mg-325 mg) 1 tabs Route: PO; jb4 02:03 Follow up: Response: No adverse reaction; Pain is decreased jb4 02:03 Drug: Trimethoprim-Sulfamethoxazole PO (160 mg-800 mg (DS) 1 tablet Route: PO; jb4 02:03 Follow up: Response: Medication administered at discharge. jb4 Disposition Summary: 02/15/23 02:00 Discharge Ordered Location: Home sb4 Problem: new sb4 Symptoms: have improved sb4 Condition: Stable sb4 Diagnosis - infection of sacral surgical wound, s/p I\T\D and wound vac sb4 - Type 2 diabetes mellitus with hyperglycemia sb4 Followup: sb4 - With: Garrett Sage MD - When: 2 - 3 days - Reason: Wound Recheck Followup: sb4 - With: Edmund Hawkins MD - When: 1 - 2 days - Reason: Continuance of care, Re-evaluation by your physician Discharge Instructions: - Discharge Summary Sheet sb4 - Hyperglycemia sb4 - Blood Glucose Monitoring, Adult sb4 - Diabetes Mellitus and Nutrition, Adult sb4 Forms: - Medication Reconciliation Form sb4 - Thank You Letter sb4 - Antibiotic Education sb4 - Prescription Opioid Use sb4 - Patient Portal Instructions sb4 - Leadership Thank You Letter sb4 Prescriptions: - Bactrim DS 800-160 mg Oral Tablet - take 1 tablet by ORAL route every 12 hours for 10 days; 20 tablet; Refills: 0, sb4 Product Selection Permitted Signatures: Dispatcher [employer] Paty Dominguez RN RN kl Bryson, James, RN RN jb4 Brown, Sophia, PA-C PA-C sb4 Corrections: (The following items were deleted from the chart) 00:49 00:13 EKG - Nurse/Tech ordered. sb4 jb4 15:56 15:53 Skin: Wound recheck: Abscess: decreased erythema, decreased surrounding sb4 cellulitis, decreased swelling, the packing is in place, sb4
[2023-02-15] MEDS ORDERED: SMZ./TMP. 800/160 MG TABLET ONE (02:11)
[2023-02-15 02:26] VITALS: O2SAT 98
[2023-02-15 02:28] VITALS: BP 143/119; TEMP 99.5
== END 2023-02-15 02:11 | disposition home or self-care (01) ==
LOC: ER 23:57
DX: L08.9 Local infection of the skin and subcutaneous tissue, unspecified (principal); E11.65 Type 2 diabetes mellitus with hyperglycemia; Z98.890 Other specified postprocedural states; F17.210 Nicotine dependence, cigarettes, uncomplicated; Z88.5 Allergy status to narcotic agent; Z91.018 Allergy to other foods
CPT/HCPCS: 36415; 80053; 83605; 85025; 85610; 85730; 87040; 99283

== ENCOUNTER 2024-06-20 21:03 | Emergency (ER) | payer OTHER, SELFPAY ==
--- OUTSIDE RECORDS SUMMARY | 2024-06-20 21:08 | XMS REPORT | Continuity of Care Document ---
Author Name Unknown Address [address] [facility] [address] [place] [address] [facility] thconnect Address [address] [facility] [place] [address] Care Team Providers Care Press Assistant And Feeder Name Role Phone Ismael Goodman Primary Care Physician [phone] Enrique Tyler Attending Clinician Unavailable VENKATESH LOUISE Attending Clinician Unavailabl e Laverne MORLEY, Maryayemi Attending Clinician [phone] Unknown, Attending Attending Clinician Unavailab le Doctor Unassigned, [place] Attending Clinician Doe Silva MD Attending Clinician [phone] DOE SHERMAN Attending Clinician Unavailable AURE PAREDES Attending Clinician UnavailJER Vicente Attending Clinician UnavailJer Vicente MD Attending Clinician Cristhian Baron MD Attending Clinician Aayush STOUT Attending Clinician Unavailable Aayush Akhtar Attending Clinician [phone] MARY STOCK Attending Clinician Unavailab Mary Lozada DO Attending Clinician [phone] PAO PORTILLO Attending Clinician Unavailable Pao Jameson Attending Clinician [phone] Unknown, Attending Attending Clinician Unavailab YOANNA Gutierrez Attending Clinician UnavailYOANNA Taylor Attending Clinician UnavailYoanna Taylor MD Attending Clinician [phone] Luis Alberto BUSTAMANTE, Jerrell Attending Clinician [phone] JERRELL TORRES Attending Clinician Unavailable Mary Wheeler Attending Clinician Unavailable Kamini MALDONADO, Pita Attending Clinician Unavailable Rosanna Hernandez RN Attending Clinician Unavailford Mcadams RN, Shelbi Attending Clinician Christofer Georges MD, Griffin Attending Clinician [phone] Alex Templeton Admitting Clinician UnavailDOE Dutta Admitting Clinician Unavailable Michael GOODWIN, Doe Admitting Clinician [phone] JER STOCK Admitting Clinician UnavailJer Vicente MD Admitting Clinician + [phone] MARY STOCK Admitting Clinician Unavailab Mary Wynn Admitting Clinician Unavailable Kandace Jaime MD, Griffin Admitting Clinician [phone] Payers Payer Name Policy Type Policy Number Effective Date Expirati on Date Source [facility] [id number] 2021 00:00:00 BCBS [facility] [id number] 2023 00:00:00 Problems Condition Name Condition Details Condition Category Status Onset Date Resolution Date Last Treatment Date Treating Clinician Comments Source Kidney stone Kidney stone Disease Active 10-25 00:00: 00 [facility] Obesity (BMI 30-39.9) Obesity (BMI 30-39.9) Disease Active 03-23 00:00: 00 [facility] Abscess Abscess Disease Active 03-23 00:00: 00 [facility] Allergies, Adverse Reactions, Alerts Allergy Name Allergy Type Status Severity Reaction(s) Onset Date Inactive Date Treating Clinician Comments Source Other Propensi ty to adverse reaction s Active Anaphylaxis 2020-07 00:00: [facility] Active U RASHES 08-26 00:00: 00 [facility] morphine DA Active U 08-26 00:00: 00 [facility] MORPHINE DRUG INGREDI Active Other-Cmnt 03-31 00:00: 00 [facility] Morphine Propensi ty to adverse reaction s Active Other - See comments 03-31 00:00: 00 A feeling of anxiety [facility] s DA Active SV ANAPHYLAXIS 07-30 00:00: 00 [facility] Social History Social Habit Start Date Stop Date Quantity Comments Source ASSERTION 2020-11-16 00:00:00 [place] [facility] SDOH Alcohol Std Drinks [facility] History SDOH Alcohol Binge [facility] History of tobacco use Passive smoker [facility] Alcoholic beverage intake 2024-03-11 00:00:00 2024-03-11 00:00:00 Lifetime non-drinker (finding) [facility] Tobacco use and exposure 2023-10-26 00:00:00 2023-10-26 00:00:00 Smokeless tobacco non-user [facility] History of Social function 2023-08-13 00:00:00 2023-08-13 00:00:00 [facility] Tobacco Comment 2023-08-13 00:00:00 2023-08-13 00:00:00 1/2 pack a day [facility] Alcohol intake 2021-04-24 00:00:00 2021-04-24 00:00:00 Lifetime non-drinker (finding) [facility] History SDOH Alcohol Frequency 2019-03-23 00:00:00 2019-03-23 00:00:00 1 [facility] Sex Assigned At 1985 00:00:00 1985 00:00:00 [facility] Smoking Status Start Date Stop Date Source Smokes tobacco daily 2023-10-26 00:00:00 [facility] Never smoked tobacco [facility] Medications Ordered Medication Name Filled Medication Name Start Date Stop Date Current Medication? Ordering Clinician Indication Dosage Frequency Signature (SIG) Comments Components Source mupirocin 2 % ointment 03-10 00:00: 00 Yes [id number] Apply to area(s) 3 (three) times daily. [facility] sulfamethox azole-trime thoprim (BACTRIM DS) 800-160 mg per tablet 03-10 00:00: 00 03-18 04:59 :00 No [id number] 1{tbl} Take 1 tablet by mouth in the morning and 1 tablet in the evening. Do all this for 7 days. [facility] FENTanyl PF (SUBLIMAZE (PF)) injection 25 mcg 11-09 13:12: 00 11-09 16:36 :56 No 25ug 25 mcg, Slow IV Push, Q5MIN PRN, 4 doses, Starting on Tu11/10/23 at 0812, Until 11/10/23 at 1136, Routine, Pain (scale 4-6), PACU [facility] ondansetron (ZOFRAN (PF)) injection 4 mg 11-09 13:12: 00 11-09 16:36 :56 No 4mg 4 mg, Slow IV Push, PRN, 1 dose, Starting on Thu11/10/23 at 0812, Until 11/10/23 at 1136, Routine, Nausea and Vomiting (N/V), PACU [facility] ketorolac 10 mg tablet 11-09 00:00: 00 Yes [id number] 10mg Take 1 tablet by mouth every 6 (six) hours as needed for Pain (scale 7-10) (Alternate with ibuprofen if taking concurrent ly). [facility] cefTRIAXone (ROCEPHIN) 2,000 mg in NaCl 0.9% (NS) 100 mL VIAL-MATE 10-27 23:00: 00 10-28 22:59 :00 No 2000mg 2,000 mg, IV Piggyback, Q24H ABX, 1 dose, First dose (after last reorder) on Thu10/28/23 at 1800, Administer over 30 Minutes, 100 mL
Reas on for Anti-Infec tive: Empiric Therapy for Suspected Infection< br>Empiric Therapy Site: Urine
D uration of therapy: 72 hours [facility] ketorolac (TORADOL) injection 30 mg 10-27 00:29: 21 10-30 04:59 :00 No 30mg 30 mg, Slow IV Push, Q6HPRN, 2 doses, Starting on Thu10/27/23 at 1929, Until Thu10/30/23 at 2359, Routine, Pain (scale 4-6) [facility] HYDROcodone -acetaminop hen (NORCO 5) 5-325 mg tablet 1 tablet 10-27 00:29: 05 Yes 1{tbl} 1 tablet, Oral, Q6HPRN, Starting on Thu10/27/23 at 1929, Until Discontinu ed, Routine, Pain (scale 7-10) [facility] ibuprofen 200 mg tablet 10-27 00:00: 00 Yes [id number] 400mg Take 2 tablets by mouth every 6 (six) hours as needed for Pain (scale 1-3). [facility] acetaminoph en (TYLENOL) 325 mg tablet 10-27 00:00: 00 10-28 04:59 :00 No [id number] 650mg Take 2 tablets by mouth every 6 (six) hours as needed for Pain (scale 4-6). [facility] oxyBUTYnin chloride 5 mg tablet 10-27 00:00: 00 11-09 00:00 :00 No [id number] 5mg Take 1 tablet by mouth 3 (three) times daily as needed for Bladder spasms. [facility] sulfamethox azole-trime thoprim (BACTRIM DS) 800-160 mg per tablet 10-27 00:00: 00 11-04 04:59 :00 No [id number] 1{tbl} Take 1 tablet by mouth in the morning and 1 tablet in the evening. Do all this for 7 days. [facility] cefTRIAXone (ROCEPHIN) 2,000 mg in NaCl 0.9% (NS) 100 mL VIAL-MATE 10-26 23:30: 00 10-26 23:45 :00 No 2000mg 2,000 mg, IV Piggyback, Q24H ABX, 1 dose, First dose (after last modificati on) on Thu10/27/23 at 1830, Administer over 30 Minutes, 100 mL
Reas on for Anti-Infec tive: Surgical Prophylaxi s
Surgi pastor Prophylaxi s: Genitourin isaiah
Dur ation of therapy: within 24 hours of surgery [facility] cyclobenzap rine (FLEXERIL) tablet 5 mg 10-26 17:05: 00 Yes 5mg 5 mg, Oral, TID, First dose (after last modificati on) on Thu10/27/23 at 1215, Until Discontinu ed, Routine [facility] sennosides (SENOKOT) tablet 8.6 mg 10-26 14:00: 00 Yes 8.6mg 8.6 mg, Oral, DAILY, First dose on Thu10/27/23 at 0900, Until Discontinu ed, Routine [facility] acetaminoph en (TYLENOL) tablet 650 mg 10-26 05:00: 00 Yes 650mg 650 mg, Oral, Q6H, First dose on Thu10/27/23 at 0000, Until Discontinu ed, Routine [facility] gabapentin (NEURONTIN) capsule 300 mg 10-26 01:00: 00 Yes 300mg 300 mg, Oral, TID, First dose on Thu10/26/23 at 2000, Until Discontinu ed, Routine [facility] NaCl 0.9% (NS) IV infusion 1,000 mL 10-25 23:30: 00 Yes 1000mL at 125 mL/hr, IV Infusion, CONTINUOUS , Starting on Thu10/26/23 at 1830, Until Discontinu ed, Routine [facility] ketorolac (TORADOL) injection 30 mg 10-25 23:23: 36 10-27 00:29 :49 No 30mg 30 mg, Slow IV Push, Q6HPRN, 4 doses, Starting on Thu10/26/23 at 1823, Until Thu10/27/23 at 1929, Routine, Pain (scale 7-10) [facility] ondansetron (ZOFRAN (PF)) injection 4 mg 10-25 23:21: 31 Yes 4mg 4 mg, Slow IV Push, Q4HPRN, Starting on Thu10/26/23 at 1821, Until Discontinu ed, Routine, Nausea and Vomiting (N/V) [facility] HYDROcodone -acetaminop hen (NORCO) 10-325 mg tablet 1 tablet 10-25 21:15: 00 10-25 20:13 :00 No 1{tbl} 1 tablet, Oral, ONCE, 1 dose, On Thu10/26/23 at 1615, Routine [facility] ondansetron (ZOFRAN (PF)) injection 4 mg 10-25 18:45: 00 10-25 17:52 :00 No 4mg 4 mg, Slow IV Push, ONCE, 1 dose, On Thu10/26/23 at 1345, LAYA [facility] ketorolac (TORADOL) injection 15 mg 10-25 18:45: 00 10-25 17:52 :00 No 15mg 15 mg, Slow IV Push, ONCE, 1 dose, On Thu10/26/23 at 1345, LAYA [facility] NaCl 0.9% (NS) bolus infusion 1,000 mL 10-25 18:00: 00 10-25 19:05 :00 No 1000mL at 999 mL/hr, 1,000 mL, IV Infusion, ONCE, 1 dose, On Thu10/26/23 at 1300, STAT [facility] FENTanyl PF (SUBLIMAZE (PF)) injection 50 mcg 10-17 19:45: 00 10-17 18:59 :00 No 50ug 50 mcg, Slow IV Push, ONCE, 1 dose, On Thu10/18/23 at 1445, Routine [facility] cefTRIAXone (ROCEPHIN) 1,000 mg in NaCl 0.9% (NS) 100 mL MINI-BAG 10-17 18:00: 00 10-17 18:55 :00 No 1000mg 1,000 mg, IV Piggyback, ONCE, 1 dose, On Thu10/18/23 at 1300, Administer over 30 Minutes, 100 mL
Reas on for Anti-Infec tive: Documented Infection< br>Documen yovani Infection Site: Urine
D uration of Therapy: Once (ED) [facility] ketorolac (TORADOL) injection 30 mg 10-17 17:15: 00 10-17 16:33 :00 No 30mg 30 mg, Slow IV Push, ONCE, 1 dose, On Thu10/18/23 at 1215, Routine [facility] NaCl 0.9% (NS) bolus infusion 1,000 mL 10-17 17:00: 00 10-17 19:44 :00 No 1000mL at 999 mL/hr, 1,000 mL, IV Infusion, ONCE, 1 dose, On Thu10/18/23 at 1200, LAYA [facility] ondansetron (ZOFRAN (PF)) injection 4 mg 10-17 16:30: 00 10-17 16:33 :00 No 4mg 4 mg, Slow IV Push, ONCE, 1 dose, On Thu10/18/23 at 1130, [facility] ondansetron 4 mg disintegrat ing tablet 10-17 00:00: 00 Yes [id number] 4mg Take 1 tablet by mouth every 8 (eight) hours as needed for Nausea and Vomiting (N/V). [facility] tamsulosin 0.4 mg 24 hr capsule 10-17 00:00: 00 Yes [id number] .4mg Take 1 capsule by mouth at bedtime. [facility] fluconazole 150 mg tablet 10-17 00:00: 00 Yes [id number] Take 1 tablet by mouth after completion of your course of antibiotic s. [facility] ketorolac 10 mg tablet 10-17 00:00: 00 11-09 00:00 :00 No [id number] 10mg Take 1 tablet by mouth every 6 (six) hours as needed for Pain (scale 1-3). [facility] cefpodoxime 100 mg tablet 10-17 00:00: 00 10-25 04:59 :00 No [id number] 100mg Take 1 tablet by mouth in the morning and 1 tablet in the evening. Do all this for 7 days. [facility] trazodone HCl (TRAZODONE ORAL) 08-13 09:28: 51 11-09 00:00 :00 No 1{tbl} Take 1 tablet by mouth at bedtime. [facility] medroxyPROG ESTERone 150 mg/mL syringe 08-13 09:28: 51 11-09 00:00 :00 No 150mg 1 mL by Intramuscu lar route every 3 (three) months. [facility] Acetaminoph en (TYLENOL PO) 2020-07 11:49: 34 Yes Take by mouth. [facility] ASPIRIN PO 2020-07 11:49: 13 Yes Take by mouth. [facility] Insulin Detemir (LEVEMIR SC) 2020-07 11:49: 02 Yes Inject under the skin. [facility] Insulin Lispro (HUMALOG SC) 2020-07 11:48: 48 Yes Inject under the skin. [facility] Vit-Fe Fumarate-FA ( PO) 2020-07 11:48: 39 Yes Take by mouth. [facility] tamsulosin 0.4 mg 24 hr capsule 03-31 00:00: 00 10-17 00:00 :00 No [id number] .4mg Take 1 capsule by mouth at bedtime. [facility] ketorolac 10 mg tablet 03-31 00:00: 00 10-17 00:00 :00 No [id number] 10mg Take 1 tablet by mouth every 6 (six) hours as needed for Pain (scale 4-6). [facility] acetaminoph en-codeine (TYLENOL-CO DEINE #3) 300-30 mg tablet 03-31 00:00: 00 10-17 00:00 :00 No [id number] 1{tbl} Take 1 tablet by mouth every 4 (four) hours as needed for Pain (scale 4-6). [facility] citalopram hydrobromid e (CITALOPRAM ORAL) 03-25 03:13: 20 Yes Take by mouth daily. [facility] trazodone HCl (TRAZODONE ORAL) 03-25 03:13: 20 Yes 1{tbl} Take 1 tablet by mouth at bedtime. [facility] medroxyPROG ESTERone 150 mg/mL syringe 03-25 03:13: 20 Yes 150mg 150 mg by Intramuscu lar route every 3 (three) months. [facility] sulfamethox azole-trime thoprim (BACTRIM DS) 800-160 mg per tablet 1 tablet 03-25 01:00: 00 Yes 1{tbl} 1 tablet, Oral, BID, First dose on Cris 03/24/19 at 2000, Until Discontinu ed, LAYA
Re ason for Anti-Infec tive: Documented Infection< br>Documen yovani Infection Site: Skin / Soft Tissue
Duration of Therapy: 10 days [facility] HYDROcodone -acetaminop hen (NORCO 5) 5-325 mg tablet 1 tablet 03-25 00:39: 25 Yes 1{tbl} 1 tablet, Oral, Q4HPRN, Starting Cris 03/24/19 at 1939, Until Discontinu ed, Routine, Pain (scale 7-10) [facility] citalopram hydrobromid e (CITALOPRAM ORAL) 03-24 22:13: 20 Yes Take by mouth daily. [facility] medroxyPROG ESTERone 150 mg/mL syringe 03-24 22:13: 20 Yes 150mg 150 mg by Intramuscu lar route every 3 (three) months. [facility] HYDROmorpho ne (DILAUDID) injection 1 mg 03-24 13:37: 41 03-25 00:39 :49 No 1mg 1 mg, Slow IV Push, Q4HPRN, Starting Thu03/24/19 at 0837, Until Thu03/24/19 at 1939, Routine, Pain (scale 7-10)
U se approved by (Faculty): GENERAL SURGERY
General surgeon approving: tj schmidt [facility] citalopram (CELEXA) tablet 10 mg 03-24 02:00: 00 Yes 10mg 10 mg, Oral, QHS, First dose on Thu03/23/19 at 2100, Until Discontinu ed [facility] ondansetron (ZOFRAN (PF)) injection 4 mg 03-24 01:36: 38 Yes 4mg 4 mg, Slow IV Push, PRN, 1 dose, Starting Thu03/23/19 at 2036, Until Discontinu ed, Routine, Nausea and Vomiting (N/V), PACU [facility] sodium chloride 0.9 % irrigation solution 03-24 01:20: 00 Yes PRN, Starting Thu03/23/19 at 2020, Until Discontinu ed, Intra-op [facility] lidocaine-e pinephrine (XYLOCAINE WITH EPINEPHRINE ) 1 %-1:100,000 injection 03-24 01:19: 00 Yes PRN, Starting Thu03/23/19 at 2019, Until Discontinu ed, Routine, Intra-op [facility] HYDROcodone -acetaminop hen 5-325 mg tablet 03-24 00:00: 00 10-17 00:00 :00 No [id number] 1{tbl} Take 1 tablet by mouth every 4 (four) hours as needed for Pain (scale 7-10). [facility] sulfamethox azole-trime thoprim 800-160 mg per tablet 03-24 00:00: 00 10-17 00:00 :00 No [id number] 1{tbl} Take 1 tablet by mouth 2 (two) times daily. [facility] traMADol 50 mg tablet 03-24 00:00: 00 10-17 00:00 :00 No [id number] 50mg Take 1 tablet by mouth every 6 (six) hours as needed for Pain (scale 4-6). [facility] vancomycin (VANCOCIN) 1,250 mg in NaCl 0.9% (NS) 250 mL piggyback 03-23 22:00: 00 03-25 00:41 :15 No 1250mg 1,250 mg, IV Piggyback, Q12H ABX, First dose on Thu03/23/19 at 1700, Until Discontinu ed, 250 mL
Reas on for Anti-Infec tive: Documented Infection< br>Documen yovani Infection Site: Skin / Soft Tissue
Duration of Therapy: 7 days [facility] vancomycin (VANCOCIN) 1,500 mg in NaCl 0.9% (NS) 250 mL piggyback 03-23 09:00: 00 03-23 13:30 :50 No 1500mg 1,500 mg, IV Piggyback, Q12H ABX, First dose on Thu03/23/19 at 0400, Until Discontinu ed, 250 mL
Reas on for Anti-Infec tive: Empiric Therapy for Suspected Infection< br>Empiric Therapy Site: Skin / Soft tissue
Duration of therapy: 72 hours [facility] piperacilli n-tazobacta m (ZOSYN) 3.375 gram/50 mL Piggyback 3.375 g 03-23 08:15: 00 03-24 15:16 :18 No 3.375g 3.375 g, IV Piggyback, Q6H ABX, First dose on Thu03/23/19 at 0315, Until Discontinu ed, 50 mL
Reas on for Anti-Infec tive: Empiric Therapy for Suspected Infection< br>Empiric Therapy Site: Skin / Soft tissue
Duration of therapy: 7 days [facility] HYDROmorpho ne (DILAUDID) injection 0.5 mg 03-23 08:13: 11 03-23 17:47 :14 No .5mg 0.5 mg, Slow IV Push, Q4HPRN, Starting Thu03/23/19 at 0313, Until Thu03/23/19 at 1247, Routine, Pain (scale 7-10)
U se approved by (Faculty): CLC PROVIDER [facility] ondansetron (ZOFRAN (PF)) injection 4 mg 03-23 05:57: 57 Yes 4mg 4 mg, Slow IV Push, Q6HPRN, Starting Thu03/23/19 at 0057, Until Discontinu ed, Routine, Nausea and Vomiting (N/V) [facility] acetaminoph en (TYLENOL) tablet 650 mg 03-23 05:57: 42 Yes 650mg 650 mg, Oral, Q6HPRN, Starting Thu03/23/19 at 005, Until Discontinu ed, Routine, Pain (scale 1-3) [facility] Vital Signs Vital Name Observation Time Observation Value Comments S ource Systolic blood pressure 2024-03-10 23:08:00 133 mm[Hg] [facility] Diastolic blood pressure 2024-03-10 23:08:00 94 mm[Hg] [facility] Heart rate 2024-03-10 23:05:00 95 /min [facility] Body temperature 2024-03-10 23:05:00 37.11 [place] [facility] Respiratory rate 2024-03-10 23:05:00 16 /min [facility] Body weight 2024-03-10 23:05:00 115.894 [facility] BMI 2024-03-10 23:05:00 37.73 kg/m2 [facility] Oxygen saturation in Arterial blood by Pulse oximetry 2024-03-10 23:05:00 97 /min [facility] Heart rate 2023-11-10 14:15:00 71 /min [facility] Oxygen saturation in Arterial blood by Pulse oximetry 2023-11-10 14:15:00 98 /min [facility] Systolic blood pressure 2023-11-10 14:00:00 130 mm[Hg] [facility] Diastolic blood pressure 2023-11-10 14:00:00 97 mm[Hg] [facility] Respiratory rate 2023-11-10 14:00:00 14 /min [facility] Body temperature 2023-11-10 13:25:00 36.28 [place] [facility] Body height 2023-11-10 10:15:00 175.3 cm [facility] Body weight 2023-11-10 10:15:00 110.496 kg [facility] BMI 2023-11-10 10:15:00 35.97 kg/m2 [facility] Systolic blood pressure 2023-11-10 13:45:00 123 mm[Hg] [facility] Diastolic blood pressure 2023-11-10 13:45:00 89 mm[Hg] [facility] Heart rate 2023-11-10 13:45:00 76 /min [facility] Respiratory rate 2023-11-10 13:45:00 14 /min [facility] Oxygen saturation in Arterial blood by Pulse oximetry 2023-11-10 13:45:00 100 /min [facility] Body temperature 2023-11-10 13:25:00 36.28 [place] [facility] Body height 2023-11-10 10:15:00 175.3 cm [facility] Body weight 2023-11-10 10:15:00 110.496 kg [facility] BMI 2023-11-10 10:15:00 35.97 kg/m2 [facility] Heart rate 2023-10-28 13:20:00 54 /min [facility] Respiratory rate 2023-10-28 13:20:00 16 /min [facility] Body height 2023-10-28 13:20:00 175.3 cm [facility] Body weight 2023-10-28 13:20:00 117.9 kg [facility] BMI 2023-10-28 13:20:00 38.38 kg/m2 [facility] Systolic blood pressure 2023-10-28 13:02:00 139 mm[Hg] [facility] Diastolic blood pressure 2023-10-28 13:02:00 76 mm[Hg] [facility] Body temperature 2023-10-28 13:02:00 36.72 [place] [facility] Oxygen saturation in Arterial blood by Pulse oximetry 2023-10-28 13:02:00 95 /min [facility] Heart rate 2023-10-27 13:20:00 70 /min [facility] Respiratory rate 2023-10-27 13:20:00 18 /min [facility] Body height 2023-10-27 13:20:00 175.3 cm [facility] Body weight 2023-10-27 13:20:00 117.9 kg [facility] BMI 2023-10-27 13:20:00 38.38 kg/m2 [facility] Systolic blood pressure 2023-10-27 13:01:00 133 mm[Hg] [facility] Diastolic blood pressure 2023-10-27 13:01:00 92 mm[Hg] [facility] Body temperature 2023-10-27 13:01:00 36.22 [place] [facility] Oxygen saturation in Arterial blood by Pulse oximetry 2023-10-27 13:01:00 94 /min [facility] Systolic blood pressure 2023-10-26 21:00:00 134 mm[Hg] [facility] Diastolic blood pressure 2023-10-26 21:00:00 94 mm[Hg] [facility] Heart rate 2023-10-26 21:00:00 80 /min [facility] Body temperature 2023-10-26 21:00:00 36.78 [place] [facility] Respiratory rate 2023-10-26 21:00:00 19 /min [facility] Oxygen saturation in Arterial blood by Pulse oximetry 2023-10-26 21:00:00 96 /min [facility] Body height 2023-10-26 16:45:00 175.3 cm [facility] Body weight 2023-10-26 16:45:00 117.935 kg [facility] BMI 2023-10-26 16:45:00 38.40 kg/m2 [facility] Systolic blood pressure 2023-10-18 19:05:00 130 mm[Hg] [facility] Diastolic blood pressure 2023-10-18 19:05:00 83 mm[Hg] [facility] Heart rate 2023-10-18 19:05:00 80 /min [facility] Res[facility] rate 2023-10-18 19:05:00 15 /min [facility] Oxygen saturation in Arterial blood by Pulse oximetry 2023-10-18 19:05:00 95 /min [facility] Body temperature 2023-10-18 16:27:40 37.28 [place] [facility] Body height 2023-10-18 15:59:00 175.3 cm [facility] Body weight 2023-10-18 15:59:00 109.589 kg [facility] BMI 2023-10-18 15:59:00 35.68 kg/m2 [facility] Systolic blood pressure 2023-10-18 15:25:00 91 mm[Hg] [facility] Diastolic blood pressure 2023-10-18 15:25:00 72 mm[Hg] [facility] Heart rate 2023-10-18 15:25:00 130 /min [facility] Body temperature 2023-10-18 15:25:00 36.67 [place] [facility] Respiratory rate 2023-10-18 15:25:00 16 /min [facility] Body weight 2023-10-18 15:25:00 109.317 kg [facility] BMI 2023-10-18 15:25:00 35.59 kg/m2 [facility] Oxygen saturation in Arterial blood by Pulse oximetry 2023-10-18 15:25:00 95 /min [facility] Systolic blood pressure 2023-08-13 15:28:00 127 mm[Hg] [facility] Diastolic blood pressure 2023-08-13 15:28:00 91 mm[Hg] [facility] Heart rate 2023-08-13 15:27:00 90 /min [facility] Body height 2023-08-13 15:27:00 175.3 cm [facility] Body weight 2023-08-13 15:27:00 111.857 kg [facility] BMI 2023-08-13 15:27:00 36.42 kg/m2 [facility] Oxygen saturation in Arterial blood by Pulse oximetry 2023-08-13 15:27:00 97 /min [facility] Systolic blood pressure 2023-07-31 00:18:00 135 mm[Hg] [facility] Diastolic blood pressure 2023-07-31 00:18:00 97 mm[Hg] [facility] Heart rate 2023-07-31 00:17:00 113 /min [facility] Body temperature 2023-07-31 00:17:00 36.61 [place] [facility] Respiratory rate 2023-07-31 00:17:00 16 /min [facility] Body height 2023-07-31 00:17:00 175.3 cm [facility] Body weight 2023-07-31 00:17:00 111.449 kg [facility] BMI 2023-07-31 00:17:00 36.28 kg/m2 [facility] Oxygen saturation in Arterial blood by Pulse oximetry 2023-07-31 00:17:00 97 /min [facility] Body height 2021-04-24 16:45:00 175.3 cm [place] [facility] Body weight 2021-04-24 16:45:00 120.203 kg [place] [facility] BMI 2021-04-24 16:45:00 39.13 kg/m2 [facility] Systolic blood pressure 2019-03-25 03:00:00 138 mm[Hg] [facility] Diastolic blood pressure 2019-03-25 03:00:00 92 mm[Hg] [facility] Heart rate 2019-03-25 03:00:00 56 /min [facility] Body temperature 2019-03-25 03:00:00 36.5 [place] [facility] Respiratory rate 2019-03-25 03:00:00 16 /min [facility] Oxygen saturation in Arterial blood by Pulse oximetry 2019-03-25 03:00:00 100 /min [facility] Body weight 2019-03-23 19:06:00 118.5 kg [facility] BMI 2019-03-23 19:06:00 38.58 kg/m2 [facility] Body height 2019-03-23 05:21:00 175.3 cm [facility] Systolic blood pressure 2019-03-25 03:00:00 138 mm[Hg] [facility] Diastolic blood pressure 2019-03-25 03:00:00 92 mm[Hg] [facility] Heart rate 2019-03-25 03:00:00 56 /min Yulianae [facility] Body temperature 2019-03-25 03:00:00 36.5 [place] [facility] Respiratory rate 2019-03-25 03:00:00 16 /min [facility] Oxygen saturation in Arterial blood by Pulse oximetry 2019-03-25 03:00:00 100 /min [facility] Body weight 2019-03-23 19:06:00 118.5 kg [facility] BMI 2019-03-23 19:06:00 38.58 kg/m2 [facility] Body height 2019-03-23 05:21:00 175.3 cm [facility] Procedures Procedure Date / Time Performed Performing Clinician Source [place] TIME OR (NON-REPORTABLE) 2023-11-10 14:17:17 Adi Manuel [facility] [place] TIME OR (NON-REPORTABLE) 2023-11-10 14:17:17 Manuel Joshi [facility] URINE CULTURE 2023-11-10 12:34:00 Doe Sherman [facility] [id number] - [place] CYSTO W/SIMPLE REMOVAL STONE & STENT 2023-11-10 11:59:00 Doe Sherman [facility] [address] [place]ST[place] W/COMPLEX REMOVAL STONE & STENT 2023-11-10 11:59:00 Soc, [facility] [address] [place]ST[place] W/INSERT URETERAL STENT 2023-11-10 11:59:00 Socher, [facility] [address] [place]ST[place] W/URETEROSCOPY W/RMVL/MANJ STONES 2023-11-10 11:59:00 Socher, [facility] [address] [place]ST[place] W/URETEROSCOPY W/LITHOTRIPSY 2023-11-10 11:59:00 Socher, [facility] [address] - [place]STO/URETERO W/LITHOTRIPSY &INDWELL STENT INSRT 2023-11-10 11:59:00 Socher, [facility] [address] - CHG UROGRAPHY RETROGRADE WITH/WO KUB 2023-11-10 11:59:00 Soc, [facility] INSERTION STENT URETER 2023-11-10 11:59:00 SocLuis rust [facility] POCT GLUCOSE (AUTOMATED) 2023-11-10 10:33:00 Socher [facility] POCT GLUCOSE (AUTOMATED) 2023-11-10 10:33:00 Michael [facility] POCT TEST 2023-11-10 10:30:00 Marie Champion [facility] POCT TEST 2023-11-10 10:30:00 Marie Champion [facility] [place] TIME OR (NON-REPORTABLE) 2023-10-27 14:58:00 Germain Alford [facility] [place] TIME OR (NON-REPORTABLE) 2023-10-27 14:58:00 Germain Alford [facility] FUNGUS (ROUTINE) CULTURE 2023-10-27 14:52:00 Socher [facility] URINE CULTURE 2023-10-27 14:52:00 Doe Sherman [facility] FUNGUS (ROUTINE) CULTURE 2023-10-27 14:52:00 Socher [facility] URINE CULTURE 2023-10-27 14:52:00 Socher, [facility] CYSTOSCOPY WITH INSERTION STENT URETER 2023-10-27 14:02:00 Michael Guthrie [facility] [place] CYSTOSCOPY WITH INSERTION STENT URETER 2023-10-27 14:02:00 Michael Guthrie [facility] URINALYSIS 2023-10-27 00:32:00 [facility]23-10-27 00:32:00 [facility] 2023-10-27 00:32:00 [facility] 2023-10-27 00:32:00 Germain Alford U [facility] CT ABDOMEN PELVIS WO CONTRAST 2023-10-26 17:54:08 Aayush Stout [facility] POCT TEST 2023-10-26 17:15:00 Aayush Stout [facility] COMP. METABOLIC PANEL ([id number]) 2023-10-26 17:13:00 Aayush Stout [facility] CBC WITH DIFF 2023-10-26 17:13:00 Aayush Stout [facility] URINALYSIS 2023-10-26 17:13:00 Aayush Stout [facility] CT ABDOMEN PELVIS WO CONTRAST 2023-10-18 16:56:58 Mary Stock [facility] URINALYSIS 2023-10-18 16:56:00 Mary Stock Un [facility] POCT TEST 2023-10-18 16:48:00 Yaima Stock ra [facility] COMP. METABOLIC PANEL ([id number]) 2023-10-18 16:26:00 Mary Stock [facility] CBC WITH DIFF 2023-10-18 16:26:00 Mary Stock U [facility] POCT URINALYSIS 2023-10-18 15:28:00 Pao Portillo [facility] EXTERNAL PROVIDER RECORDS 2023-09-09 06:01:00 Doctor Unassigned, [place] [facility] CONSENT/REFUSAL FOR DIAGNOSIS AND TREATMENT 2023-07-31 00:07:02 Doctor Unassigned, [place] [facility] ASSIGNMENT OF BENEFITS 2023-07-31 00:06:41 Docto r Unassigned, [place] [facility] [id number] 2021-07-16 00:00:00 MEL COPE [facility] POCT GLUCOSE (AUTOMATED) 2019-03-25 01:09:00 Griffin Georges [facility] BASIC METABOLIC PANEL (NA, K, CL, CO2, GLUCOSE, BUN, CREATININE, CA) 2019-03-24 09:34:00 Austin Perdue [facility] CBC WITH DIFFERENTIAL 2019-03-24 09:34:00 Austin Perdue [facility] WOUND DEBRIDEMENT 2019-03-24 00:15:00 Garrett Perdue [facility] POCT GLUCOSE (AUTOMATED) 2019-03-23 23:54:00 Griffin Georges [facility] TEST, SERUM 2019-03-23 19:41:00 Zenon London [facility] BASIC METABOLIC PANEL (NA, K, CL, CO2, GLUCOSE, BUN, CREATININE, CA) 2019-03-23 19:33:00 Zenon London [facility] CBC WITH DIFFERENTIAL 2019-03-23 11:34:00 Griffin Georges [facility] Encounters Start Date/Time End Date/Time Encounter Type Admission Type Attending Clinicians Care Facility Care Department Encounter ID Source 2021-05-21 11:46:20 Outpatient [facility] [id number] [facility] 2021-04-24 12:04:03 Outpatient [facility] [id number] [facility] 2019-08-30 11:30:00 Inpatient Enrique Tyler HCAPM RON [id number] [facility] 2024-03-10 17:40:00 2024-03-10 18:30:36 Outpatient R VENKATESH LOUISE [facility] [id number] [facility] 2024-03-10 17:40:00 2024-03-10 18:30:36 Urgent Care Laverne, Venkatesh Unknown, Attending [facility] 1.2840.114 350.1.13.10 4.2.7.2.686 [id number] [facility] 2023-11-22 00:00:00 2023-12-26 18:22:19 Patient Secure Msg Doctor Unassigned, [place] [facility] 1.2840.114 350.1.13.10 4.2.7.2.686 [id number] [facility] 2023-11-23 00:00:00 2023-11-23 13:06:09 [facility].114 350.1.13.10 4.2.7.2.686 [id number] [facility] 2023-11-10 05:05:00 2023-11-10 09:28:00 Outpatient R [facility] [id number] [facility] 2023-11-10 05:05:00 2023-11-10 09:28:[address] [facility] 1.840.114 350.1.13.10 4.2.7.2.686 [id number] [facility] 2023-11-10 07:00:00 2023-11-10 08:45:[address] [facility] 1.20.114 350.1.13.10 4.2.7.2.686 [id number] [facility] 2023-10-29 09:30:00 2023-10-29 09:30:00 Outpatient AURE GUDINO [facility] [id number] [facility] 2023-10-26 17:53:00 2023-10-28 14:33:00 Outpatient JER MITCHELL [facility] SUU [id number] [facility] 2023-10-26 17:53:00 2023-10-28 14:33:00 Emergency Jer Stock Pedram A [facility] 1.2.840.114 350.1.13.10 4.2.7.2.686 [id number] [facility] 2023-10-27 08:15:00 2023-10-27 10:12:00 Surgery Doe Sherman [facility] 1.2.840.114 350.1.13.10 4.2.7.2.686 [id number] [facility] 2023-10-26 11:48:00 2023-10-26 16:44:00 Emergency X Aayush STOUT [facility] ERT [id number] [facility] 2023-10-26 11:48:00 2023-10-26 16:44:00 Emergency Aayush Stoutge [facility] 1.2.840.114 350.1.13.10 4.2.7.2.686 [id number] [facility] 2023-10-18 11:01:00 2023-10-18 14:50:00 Emergency MARY MITCHELL [facility] ERT [id number] [facility] 2023-10-18 11:01:00 2023-10-18 14:50:00 Emergency Mary Stock [facility] 1.2.840.114 350.1.13.10 4.2.7.2.686 [id number] [facility] 2023-10-18 10:00:00 2023-10-18 10:45:42 Outpatient R PAO PORTILLO [facility] [id number] [facility] 2023-10-18 10:00:00 2023-10-18 10:20:00 Urgent Care Pao Portillo Unknown, Attending [facility] 1.114 350.1.13.10 4.2.7.2.686 [id number] [facility] 2023-09-15 00:00:00 2023-09-15 00:00:00 Patient Secure Msg Doctor Unassigned, [place] [facility] 1..114 350.1.13.10 4.2.7.2.686 [id number] [facility] 2023-09-09 00:00:00 2023-09-09 00:00:00 Orders Only Doctor Unassigned, [place] [facility] 1.114 350.1.13.10 4.2.7.2.686 [id number] [facility] 2023-08-13 09:45:00 2023-08-13 09:59:21 Outpatient R YOANNA MONTOYA CRAIG [facility] [id number] [facility] 2023-08-13 09:45:00 2023-08-13 09:59:21 Office Visit Yoanna Montoya [facility] 1.114 350.1.13.10 4.2.7.2.686 [id number] [facility] 2023-08-13 00:00:00 2023-08-13 00:00:00 Telephone Yoanna Montoya [facility] 1.114 350.1.13.10 4.2.7.2.686 [id number] [facility] 2023-07-30 18:00:00 2023-07-30 18:20:00 Urgent Care Emiliemin Jerrell Unknown, Attending [facility] 1..114 350.1.13.10 4.2.7.2.686 [id number] [facility] 2023-07-30 18:00:00 2023-07-30 18:00:00 Outpatient Elizabeth TORRESJERRELL [facility] [id number] [facility] 2023-07-30 00:00:00 2023-07-30 00:00:00 Orders Only Doctor Unassigned, [place] [facility] 1.2.840.114 350.1.13.10 4.2.7.2.686 [id number] [facility] 2021-07-16 05:07:00 2021-07-19 10:10:00 Inpatient Mary Monterroso [facility] OB [id number] 2021-04-24 00:00:00 2021-04-24 00:00:00 Nurse Only Pita Suárez Carla [facility] [address] 1.2.840.114 350.1.13.58 9.2.7.2.686 [id number] [facility] 2021-04-24 00:00:00 2021-04-24 00:00:00 Telephone Rosanna Hernandez Elizabeth [facility] [address] 1.2.840.114 350.1.13.58 9.2.7.2.686 [id number] [facility] 2021-04-23 00:00:00 2021-04-23 00:00:00 Telephone Shelbi Mcadams Stephanie [facility] [address] 1.2.840.114 350.1.13.58 9.2.7.2.686 [id number] [facility] 2021-04-22 00:00:00 2021-04-22 00:00:00 Telephone Rosanna Hernandez Elizabeth [facility] [address] 1.2.840.114 350.1.13.58 9.2.7.2.686 [id number] [facility] 2019-03-22 23:58:00 2019-03-24 22:10:00 Hospital [facility] 1.2.840.114 350.1.13.10 4.2.7.2.686 [id number] [facility] 2019-03-22 23:58:00 2019-03-24 22:10:00 Hospital Encounter Griffin Georges [facility] ([facility]) 1.2.840.114 350.1.13.10 4.2.7.2.686 [id number] Results Test Description Test Time Test Comments Results Result Co mments Source [facility] TIME OR (NON-REPORTABLE)2023-11-10 14:18:50 These images do not require a Radiology diagnostic report.[facility] TIME OR (NON-REPORTABLE)2023-11-10 14:18:50These images do not require a Radiology diagnostic report.[facility] GLUCOSE (AUTOMATED)2023-11-10 10:40:43* Test Item Value Reference Range Interpretation Comme nts POCT GLU (test code = 1687768814) 259 mg/dL 70-110 H Lab Interpretation (test cod e = 50075-9) Abnormal [facility] GLUCOSE (AUTOMATED)2023-11-10 10:40:43* Test Item Value Reference Range Interpretation Comme nts POCT GLU (test code = 7020749388) 259 mg/dL 70-110 H Lab Interpretation (test cod e = 23772-8) Abnormal [facility] [id number] 10:35:00* Test Item Value Reference Range Interpretation Comme nts POCT PREG (test code = 1605) Negative On board controls acceptable with C Line (test code = 3574) Yes POCT PREG LOT # (test code = 3575) POCT PREG TEST DATE ( test code = 3576) [facility] [id number] 10:35:00* Test Item Value Reference Range Interpretation Comme nts POCT PREG (test code = 1605) Negative On board controls acceptable with C Line (test code = 3574) Yes POCT PREG LOT # (test code = 3575) POCT PREG TEST DATE ( test code = 3576) [facility]2023-10-27 15:47:46 These images do not require a Radiology diagnostic report.[facility] TIME OR (NON-REPORTABLE)2023-10-27 15:47:46These images do not require a Radiology diagnostic report.[facility] [id number] 18:50:34CT ABDOMEN PELVIS WO CONTRAST Indication: Flank pain, kidney stone suspected ? Comparison: October 18, 2023 RL: ? ?HS: Y Ordering Clinician: Aayush STOUT Technique: Axial CT images of the abdomen and pelvis were performed withoutIV contrast. Sagittal and coronal reformats were created. Dose reductiontechniques were used (ALARA). Technical Quality: The dome of the right lobe the liver is outside thefield of view. Discussion:Lines/Devices: None. Chest/Vessels: No basilar consolidation. ?No a cute abnormality of theaorta. Organs: The dome of the right lobe of the liver is outside the field ofview. Fatty liver. No gallbladder inflammation. ?The pancreas is normal. No splenic masses. The adrenal glands are normal. : Right renal pelvic stone measuring 11 mm unchanged in position withstranding around the right renal hilum. Mild dilatation of the right renalpelvis. No right ureteral stone. Nonobstructing left renal stones up to 4mm. No left ureteral stone. The bladder is normal. GI: Noinflammation of the colon. ?No small bowel obstruction. ?Normalappendix. Misc.: Subcentimeter lymphnodes are below size criteria. ?No free air orfree fluid. Skeleton: No acute [facility]seous pathology[facility] ([id number])2023-10-26 18:01:27* Test Item Value Reference Range Interpretation Comme nts NA (test code = 9349731281) 137 mmol/L 135-145 K (test code = 4071196796) 4.1 mmol/L 3.5-5.0 CL (test code = 5601814214) 103 mmol/L 98-108 CO2 TOTAL (test code = 0829898630) 25 mmol/L 23-31 AGAP (test code = 7549030605) 9 2-16 BUN (test code = 9772448273) 20 mg/dL 7-23 GLUCOSE (test code = 8585057651) 187 mg/dL 70-110 H CREATININE (test code = 2160-0) 0.77 mg/dL 0.50-1.04 TOTAL BILI (test code = 5860045633) 0.5 mg/dL 0.1-1.1 CALCIUM (test code = 3439184733) 9.3 mg/dL 8.6-10.6 T PROTEIN (test code = 5965951593) 7.2 g/dL 6.3-8.2 ALBUMIN (test code = 4207760171) 4.2 g/dL 3.5-5.0 ALK PHOS (test code = 1666470390) 91 U/L 34-122 ALTv (test code = 1742-6) 31 U/L 5-35 AST(SGOT) (test code = 5231909401) 33 U/L 13-40 eGFR (test code = 37454-9) 100.8 mL/min/1.73m2 CKD-EPI eGFR (2020). Assuming creatinine has been stable day-to-day for at least three months, the eGFR indicates Category G1 (>= 90 mL/min/1.73 m2) Lab Interpretation (test code = 11566-1) Abnormal [facility] with [id number] 17:53:26* Test Item Value Reference Range Interpretation Comme nts WBC (test code = 6690-2) 9.40 4.30-11.10 RBC (test code = 789-8) 4.43 3.93-5.25 HGB (test code = 718-7) 12.3 g/dL 11.6-15.0 HCT (test code = 4544-3) 38.4 % 35.7-45.2 MCV (test code = 787-2) 86.7 fL 80.6-95.5 MCH (test code = 785-6) 27.8 pg 25.9-32.8 MCHC (test code = 786-4) 32.0 g/dL 31.6-35.1 RDW-SD (test code = 54797-9) 43.5 fL 39.0-49.9 RDW-CV (test code = 788-0) 13.8 % 12.0-15.5 PLT (test code = 777-3) 279 166-358 MPV (test code = 74114-5) 10.2 fL 9.5-12.9 NRBC/100 WBC (test code = 2289669421) 0.0 0.0-10.0 NRBC x10^3 (test code = 5156137700) See_Comment [Automated me ssage] The system which generated this result transmitted reference range: 10*3/?L. The reference range was not used to interpret this result as normal/abnormal. GRAN MAT (NEUT) % (test code = 770-8) 59.5 % IMM GRAN % (test code = 1195020072) 0.40 % LYMPH % (test code = 736-9) 32.4 % MONO % (test code = 5905-5) 5.6 % EOS % (test code = 713-8) 1.7 % BASO % (test code = 706-2) 0.4 % GRAN MAT x10^3(ANC) (test code = 2519052551) 5.58 10*3/uL 1.88-7.09 IMM GRAN x10^3 (test code = 3312561025) 0.04 10*3/uL 0.00-0.06 LYMPH x10^3 (test code = 731-0) 3.05 10*3/uL 1.32-3.29 MONO x10^3 (test code = 742-7) 0.53 10*3/uL 0.33-0.92 EOS x10^3 (test code = 711-2) 0.16 10*3/uL 0.03-0.39 BASO x10^3 (test code = 704-7) 0.04 10*3/uL 0.01-0.07 [facility] [id number] 17:15:00* Test Item Value Reference Range Interpretation Comme nts POCT PREG (test code = 1605) Negative On board controls acceptable with C Line (test code = 3574) Yes POCT PREG LOT # (test code = 3575) HCG [id number] POCT PREG TEST DATE (test code = 3576) 08/12/2024 Lab Interpretation (test cod e = 46564-5) Normal [facility] P[facility] WO [id number] 18:36:41EXAM: CT ABDOMEN PELVIS WO CONTRAST HISTORY: 38 years old Female with Flank pain, kidney stone suspected COMPARISON: None. TECHNIQUE AND FINDINGS: Contiguous axial imaging from the level of the lungbases through the pubic symphysis was performed without the intravenousadministration of contrast. Cor onal and sagittal reconstructions wereobtained. ?Auto mA and/or iterative reconstruction were used to reduceradiation dose. FINDINGS: LOWER THORAX: The lungs bases are clear. No cardiomegaly. LIVER: Hepatomegaly measuring 20 cm. Diffuse hypoattenuation of the hepaticparenchyma. GALLBLADDER AND BILIARY TREE: No biliary ductal dilation. ?No gallbladderwall thickening. SPLEEN: No splenomegaly. PANCREAS: No ductal dilation or masses. ADRENAL GLANDS: No adrenal nodules. KIDNEYS/URETERS/BLADDER: 1.6 cm obstructing stone in the right renalpelvis, resulting in mild hydronephrosis. Mild perinephric fat stranding isseen. Punctate nonobstructing stones measuring up to 5 mm on the right and9 mm on the left. PERITONEUM AND RETROPERITONEUM: No free air or fluid. GI TRACT: No dilation or wall thickening. Normal appendix. LYMPH NODES: Pericaval lymph nodes measuring up to 9 mm, likely reactive. PELVIS:No free fluid or organized fluid collection. Unchanged uterinefibroid at the fundus. Bilateral ovaries are unremarkable. VESSELS: No critical stenosis or aneurysm. BONES AND SOFT TISSUES: No suspicious lytic or sclerotic bony lesions..Small fat-containing umbilical hernia.[facility]OL[facility] (15786)2023-10-18 17:26:03* Test Item Value Reference Range Interpretation Comme nts NA (test code = 9113612436) 132 mmol/L 135-145 L K (test code = 7852912925) 4.4 mmol/L 3.5-5.0 CL (test code = 8907546899) 101 mmol/L 98-108 CO2 TOTAL (test code = 5701438371) 22 mmol/L 23-31 L AGAP (test code = 5803095244) 9 2-16 BUN (test code = 1514302306) 16 mg/dL 7-23 GLUCOSE (test code = 4107626148) 293 mg/dL 70-110 H CREATININE (test code = 2160-0) 0.94 mg/dL 0.50-1.04 TOTAL BILI (test code = 3510889956) 1.0 mg/dL 0.1-1.1 CALCIUM (test code = 4640694437) 9.8 mg/dL 8.6-10.6 T PROTEIN (test code = 5235687443) 7.8 g/dL 6.3-8.2 ALBUMIN (test code = 8743280022) 4.3 g/dL 3.5-5.0 ALK PHOS (test code = 2737470074) 123 U/L 34-122 H ALTv (test code = 1742-6) 29 U/L 5-35 AST(SGOT) (test code = 7734356610) 31 U/L 13-40 eGFR (test code = 10441-0) 79.3 mL/min/1.73m2 CKD-EPI eGFR (2020). Assuming creatinine has been stable day-to-day for at least three months, the eGFR indicates Category G2 (60 - 89 mL/min/1.73 m2) Lab Interpretation (test code = 47005-4) Abnormal [facility] WITH [id number] 17:16:44* Test Item Value Reference Range Interpretation Comme nts WBC (test code = 6690-2) 13.66 4.30-11.10 H RBC (test code = 789-8) 5.38 3.93-5.25 H HGB (test code = 718-7) 14.9 g/dL 11.6-15.0 HCT (test code = 4544-3) 45.7 % 35.7-45.2 H MCV (test code = 787-2) 84.9 fL 80.6-95.5 MCH (test code = 785-6) 27.7 pg 25.9-32.8 MCHC (test code = 786-4) 32.6 g/dL 31.6-35.1 RDW-SD (test code = 79307-8) 42.5 fL 39.0-49.9 RDW-CV (test code = 788-0) 13.8 % 12.0-15.5 PLT (test code = 777-3) 350 166-358 MPV (test code = 02499-3) 10.5 fL 9.5-12.9 NRBC/100 WBC (test code = 7431891143) 0.0 0.0-10.0 NRBC x10^3 (test code = [id number]) See_Comment [Automated messa ge] The system which generated this result transmitted reference range: 10*3/?L. The reference range was not used to interpret this result as normal/abnormal. GRAN MAT (NEUT) % (test code = 770-8) 69.9 % IMM GRAN % (test code = 4838232396) 0.70 % LYMPH % (test code = 736-9) 23.9 % MONO % (test code = 5905-5) 4.5 % EOS % (test code = 713-8) 0.7 % BASO % (test code = 706-2) 0.3 % GRAN MAT x10^3(ANC) (test code = 7748327899) 9.57 10*3/uL 1.88-7.09 H IMM GRAN x10^3 (test code = 6924442287) 0.09 10*3/uL 0.00-0.06 H LYMPH x10^3 (test code = 731-0) 3.26 10*3/uL 1.32-3.29 MONO x10^3 (test code = 742-7) 0.61 10*3/uL 0.33-0.92 EOS x10^3 (test code = 711-2) 0.09 10*3/uL 0.03-0.39 BASO x10^3 (test code = 704-7) 0.04 10*3/uL 0.01-0.07 Lab Interpretation (test code = 86666-4) Abnormal [facility] [id number] 16:48:00* Test Item Value Reference Range Interpretation Comme nts POCT PREG (test code = 1605) Negative On board controls acceptable with C Line (test code = 3574) Yes POCT PREG LOT # (test code = 3575) [id number] POCT PREG TEST DATE ( test code = 3576) 08/12/2024 Lab Interpretation (test cod e = 21518-2) [facility] Specific [id number] 15:29:00* Test Item Value Reference Range Interpretation Comme nts POCT U SP GRAV (test code = 3255) 1.030 mg/dl 1.005-1.025 A POCT PH U (test code = 3254) 5 mg/dl 5-8 POCT U LEUK EST (test code = 3263) ++ Negative - Negative POCT U NIT (test code = 3262) neg Negative - Negati ve POCT U PROT (test code = 3259) 100 Negative - Negative POCT U GLU (test code = 3256) 100 Negative - Negati ve POCT U KETONE (test code = 3258) neg Negative - Negative POCT U UROBILI (test code = 3260) neg 0.2-1 POCT U BILI (test code = 3261) neg Negative - Negative POCT U BLD (test code = 3257) 250 Negative - Negati ve POCT U COLOR (test code = 3266) yellow POCT U APPEAR (test code = 3267) cloudy Lab Interpretation (test cod e = 31974-6) [facility]normal [facility] 16:26:00* Test Item Value Reference Range Interpretation Comme nts SURGICAL (test code = SR) R UN DATE: 07/29/21 [facility] PAGE 1 RUN TIME: 1626 Specimen Inquiry RUN USER: INTERFACE P ATIENT: MARCIN NIELSEN LOC: JERONIMO U #: [id number] AGE/SX: 35/F ROOM: [facility] RE07/16/21REG DR: Mary Wheeler MD : 84 BED: A DIS: 07/19/21 STATUS: DIS IN TLOC: SPEC #: [id number] RECD: 07/17/21 STATUS: PÉREZ RE #: [id number] ALVARO: 07/16/21- [facility] DR: Mary Wheeler MD ENTERED: 07/17/21 SP TYPE: SURGICAL OTHR DR: Austin Peraza MD, Haroon I MDORDERED: ANATOMIC SPEC, SPEC TRACK, 13685 COPIES TO: Austin Peraza MD [address] [place] [address] Mary Wheeler MD [address] [place] [address] Eamon Hraper MD [address] [place] [address] PROCEDURES: 65970 (07/17/21) TISSUES: A. PLACENTA, THIRD TRIMESTER (28 + WEEKS) FINAL DIAGNOSIS A. PLACENTA, DELIVERY: - Villous development compatible with third trimester, near term - Chorioamnionic membranes lacking pathologic abnormalities - Trivascular umbilical cord lacking pathologic abnormalities Comment:The weight 532 g is between the 75th and 90th percentiles for the stated gestational age of36 weeks. GROSS DESCRIPTION Received fixed in formalin, labeled with patient's name and and "placenta", is asingleton placenta with attached cord and membranes. The umbilical cord is 20 cm in totallength, 1.2 cm in diameter, is eccentrically inserted 6.5 cm from the nearest placentaledge, is white, glistening and has no abnormality. Cross sectioning demonstrates 3 vessels.There are 3 coils in 10 cm of cord. The membranes are armijo and opaque. They havemarginal attachment and are ruptured 2.5 cm from the disk. The placental disk is ovoid,measures 17 x 16.5 x 2.3 cm, and weighs 532 grams without the membranes and cord. The CONTINUED ON NEXT PAGE R UN DATE: 07/29/21 [facility] PAGE 2 RUN TIME: 1626 Specimen Inquiry RUN USER: INTERFACE S PEC #: [id number] PATIENT: MARCIN NIELSEN #[id number] (Continued) GROSS DESCRIPTION (Continued) surface is translucent with white patches, with unremarkable vasculature. The maternalsurface appears complete. Serial sections through the disk show red-brown fleshy tissuewith white patches scattered throughout. Statistical Typist sections submitted.Sections code:A1: cord and membranes x 2A2-3: placenta cross sectionsXZ Technical component performed at [facility],[id number] , [place] [address] Unless gross only, the diagnosis is based upon microscopic examination.Immunohistochemistr y: This test was developed and its performance characteristicsdetermined by this laboratory. It has not been approved nor does it need approval by [place] FDA. Appropriate positive and negative controls are reviewed and judged to beacceptable. This laboratory is certified under the Clinical Laboratory ImprovementAmendments (CLIA-88) as qualified to perform high complexity clinical laboratory testing. CLINICAL INFORMATION O+, 36 10/10, NISHA, TYPE II DM - Signed SIGNATURE ON FILE Iraj Evans 07/29/21 1626 END OF REPORT [id number] 05:46:00* Test Item Value Reference Range Interpretation Comme nts GLUBED (test code = GLUBED) 112 mg/dL 65-110 H [id number] 23:32:00* Test Item Value Reference Range Interpretation Comme nts GLUBED (test code = GLUBED) 120 mg/dL 65-110 H [id number] 14:32:00* Test Item Value Reference Range Interpretation Comme nts GLUBED (test code = GLUBED) 128 mg/dL 65-110 H [id number] 09:24:00* Test Item Value Reference Range Interpretation Comme nts GLUBED (test code = GLUBED) 131 mg/dL 65-110 H [id number] 06:06:00* Test Item Value Reference Range Interpretation Comme nts GLUBED (test code = GLUBED) 98 mg/dL 65-110 N [id number] 21:48:00* Test Item Value Reference Range Interpretation Comme nts GLUBED (test code = GLUBED) 145 mg/dL 65-110 H [id number] 14:32:00* Test Item Value Reference Range Interpretation Comme nts GLUBED (test code = GLUBED) 110 mg/dL 65-110 N [id number] 09:31:00* Test Item Value Reference Range Interpretation Comme nts GLUBED (test code = GLUBED) 136 mg/dL 65-110 H [id number] 06:20:00* Test Item Value Reference Range Interpretation Comme nts GLUBED (test code = GLUBED) 124 mg/dL 65-110 H CBC W/AUTO [id number] 06:02:00* Test Item Value Reference Range Interpretation Comme nts WHITE BLOOD CELL (test code = WBC) [...] pg 27.3-33.9 N MEAN CELL HGB CONCETRATION ( test code = MCHC) 31.5 gm/dL 32.0-34.2 L RED CELL DISTRIBUTION WIDTH (test code = RDW) 15.4 % 12.2-16.3 N PLATELET COUNT (test code = PLT) 181 K/mm3 134-363 N MEAN PLATELET VOLUME (test c ode = MPV) 11.4 fL 9.2-12.7 N NEUTROPHIL % (test code = NT%) 71.4 [...] = BA#) 0.0 K/mm3 RBC MORPHOLOGY REQUIRED (marleny t code = RBCM) NORMAL NORMAL PLATELET MORPHOLOGY REQUIRED (test code = PLTMR) NORMAL NORMAL [id number] 21:27:00* Test Item Value Reference Range Interpretation Comme nts GLUBED (test code = GLUBED) 147 mg/dL 65-110 H [id number] 18:20:00* Test Item Value Reference Range Interpretation Comme nts GLUBED (test code = GLUBED) 156 mg/dL 65-110 H [id number] 14:26:00* Test Item Value Reference Range Interpretation Comme nts GLUBED (test code = GLUBED) 218 mg/dL 65-110 H CAPILLARY BLOOD [id number] 08:03:00* Test Item Value Reference Range Interpretation Comme nts CAPILLARY BLOOD GAS PH (test code = PHC) 7.283 7.35-7.45 L CAPILLARY BLOOD GAS PCO2 (te st code = PCO2C) 50.9 mmHg CAPILLARY BLOOD GAS PO2 (marleny t code = PO2C) 18.4 mmHg CBG HCO3 (test code = HCO3C) 23.5 meq/L CBG BASE EXCESS (test code = BEC) -3.7 CBG O2 SATURATION (test code = SATC) 23.0 % CAPILLARY BLOOD GAS TYPE (te st code = TYPEC) CBLA CAPILLARY BLOOD GAS FIO2 (te st code = FIO2C) 21.0 % COMPREHENSIVE METABOLIC [id number] 06:49:00* Test Item Value Reference Range Interpretation Comme nts SODIUM (test code = NA) 138 mEq/L 135-145 N POTASSIUM (test code = K) 4.5 mEq/L 3.5-5.0 N CHLORIDE (test code = CL) 103 mEq/L 100-115 N CARBON DIOXIDE (test code = CO2) 23 mEq/L 22-31 N ANION GAP (test code = GAP) 16.20 10-20 N GLUCOSE (test code = GLU) 130 mg/dL 65-110 H BLOOD UREA NITROGEN (test co de = BUN) 16 mg/dL 7-18 N GLOMERULAR FILTRATION RATE ( test code = GFR) 81 ml/min >60 N CREATININE (test code = CREAT) 0.8 mg/dL 0.5-1.0 N TOTAL PROTEIN (test code = PROT) 6.5 gm/dL 6.3-8.2 N ALBUMIN (test code = ALB) 2.7 gm/dL 3.4-4.8 L CALCIUM (test code = CA) 8.8 mg/dL 8.4-10.2 N BILIRUBIN TOTAL (test code = BILT) 0.4 mg/dL 0.2-1.0 N SGOT/AST (test code = AST) 25 units/L 15-37 N SGPT/ALT (test code = ALT) 17 units/L 12-78 N ALKALINE PHOSPHATASE TOTAL ( test code = ALKP) 100 units/L 46-116 N AG HEPATITIS B [id number] 13:11:00* Test Item Value Reference Range Interpretation Comme nts AG HEPATITIS B SURFACE (test code = HBSAG) NONREACTIVE NONREACTIVE AB HEPATITIS C [id number] 13:11:00* Test Item Value Reference Range Interpretation Comme nts AB HEPATITIS C (test code = HCVAB) NONREACTIVE NONREACTIVE SIGNAL TO CUTOFF (test code = CUTOFF) <0.02 <0.80 N AB [id number] 13:11:00* Test Item Value Reference Range Interpretation Comme nts AB TREPONEMA (test code = TREPAB) NONREACTIVE NONREACTIVE AB HIV 1 13:11:00* Test Item Value Reference Range Interpretation Comme nts AB HIV 1 2 (test code = MWM34FX) NONREACTIVE NONREACTIVE Done by [employer] HIV Ag/Ab Combo Screen COVID 19 Asymptomatic IH [id number] 12:14:00* Test Item Value Reference Range Interpretation Comme nts COVID 19 Asymptomatic IH AG (test code = COVNONPUIAG) NEGATIVE NEGATIVE This test has be en authorized only for the detection ofproteins from SARS-CoV-2, not for any other viruses orpathogens. Negative results should be treated as presumptive andconfirmed with a molecular assay, if necessary for patientmanagement. Negative results do not rule out COVID-19 andshould not be used as the sole basis for treatment orpatient management decisions, including infection controldecisions. Negative results should be considered in thecontext of a patient's recent exposures, history and thepresence of clinical signs and symptoms consistent withCOVID-19. This test has not been FDA cleared or approved; the test hasbeen authorized by FDA under an Emergency Use Authorization(EUA) for use by laboratories certified under the CLIA thatmeet the requirements to perform moderate, high or waivedcomplexity tests. This test is authorized for use at thePoint of Care (POC), i.e., in patient care settingsoperating under a CLIA Certificate of Waiver, Certificate ofCompliance, or Certificate of Accreditation. This test is only authorized for the duration of thedeclaration that circumstances exist justifying theauthorization of emergency use of in vitro diagnostic testsfor detection and/or diagnosis of COVID-19 under Wwnijxl855(b)(1) of the Act, 21 U.S.C. 360bbb-3(b)(1), unless theauthorization is terminated or revoked sooner. Comments to Batch Tester: FOR RAPID AND IN-HOUSE COVID TESTSpecimen Comment: DO NOT SEND OUTCBC W/AUTO [id number] 11:41:00* Test Item Value Reference Range Interpretation Comme nts WHITE BLOOD CELL (test code = WBC) [...] pg 27.3-33.9 N MEAN CELL HGB CONCETRATION ( test code = MCHC) 32.6 gm/dL 32.0-34.2 N RED CELL DISTRIBUTION WIDTH (test code = RDW) 15.1 % 12.2-16.3 N PLATELET COUNT (test code = PLT) 195 K/mm3 134-363 N MEAN PLATELET VOLUME (test c ode = MPV) 11.3 fL 9.2-12.7 N NEUTROPHIL % (test code = NT%) 72.7 [...] = BA#) 0.0 K/mm3 RBC MORPHOLOGY REQUIRED (marleny t code = RBCM) NORMAL NORMAL PLATELET MORPHOLOGY REQUIRED (test code = PLTMR) NORMAL NORMAL CALCULI URINARY WITH [id number] 12:04:00* Test Item Value Reference Range Interpretation Comme nts ST COLOR (test code = COLST) BERMAN ST SIZE (test code = SIZST) 3X[address] WEIGHT (test code = WGTST) 25.[address] COMPOSITION (test code = COMPST) SEE RPT ST CA OXALATE DIHYDRATE (test code = CAOXDST) 70% ST CA OXALATE MONOHYDRATE (test code = CAOXMST) 30% ST COMMENT 1 (test code = CMTST1) SEE RPT This test was de veloped and its performance characteristicsdetermined by [facility]. It has not been cleared or approvedby the Food and Drug Administration. CALCULI URINARY WITH [id number] 12:04:00* Test Item Value Reference Range Interpretation Comme nts ST COLOR (test code = COLST) BERMAN ST SIZE (test code = SIZST) 3X2 [address] WEIGHT (test code = WGTST) 25.[address] COMPOSITION (test code = COMPST) SEE RPT ST CA OXALATE DIHYDRATE (test code = CAOXDST) 70% ST CA OXALATE MONOHYDRATE (test code = CAOXMST) 30% ST COMMENT 1 (test code = CMTST1) SEE RPT This test was de veloped and its performance characteristicsdetermined by [facility]. It has not been cleared or approvedby the Food and Drug Administration. - XR FLUOROSCOPY 0-60 [id number] 14:10:00Name: MARCIN NIELSEN [facility] : 1985 Age/S: 33 / F [address] Unit #:[id number] Loc: [place] [address] Phys: nErique Tyler MD Acct: [id number] Dis Date: Status: REG [facility] PHONE #: [phone] Exam Date: 08/30/2019 1300 FAX #: Reason: STENT PLACEMENT EXAMS: CPT: [id number] XR FLUOROSCOPY 0-60 MIN 97774 Fluoro Time: 39 SEC DAP (Gy m2): Air Kerma (mGy): EXAMINATION: - XR FLUOROSCOPY 0-60 MIN. LOCATION: S17. HISTORY: Stent placement. COMPARISON: None. FINDINGS/ IMPRESSION: Five portable limited intraoperative fluoroscopic images of right upper quadrant of abdomen demonstrates calculus overlying lower pole of right kidney. There is dilatation of right renal pelvis.Catheter and wire within right ureter are noted. Please see operative report for further details. FLUOROSCOPIC TIME: 39.8 seconds. 12.21 mGy. at 1410 Reported and signed by: Saleem Mei M.D. CC: Austin Peraza MD; Enrique Tyler MD PAGE 1 Signed Report Name: MARCIN NIELSEN [facility] : 1985 Age/S: 33 / F [address] Unit #: [id number] Loc: [place] [address] Phys: Enrique Tyler MD Acct: [id number] Dis Date: Status: REG [facility] PHONE #: [phone] Exam Date: 08/30/2019 1300 FAX #: Reason: STENT PLACEMENT EXAMS: CPT: [id number] XR FLUOROSCOPY 0-60 MIN 15164 Fluoro Time: 39 SEC DAP (Gy m2): Air Kerma (mGy): (Continued) Technologist: Sadia Herbert, RT(R) Trnscb Date/Time: 08/30/2019 (1340) [email or web address] Orig Print D/T: S: 08/30/2019 (8425) PAGE 2 Signed ReportUR HCG [id number] 10:41:00* Test Item Value Reference Range Interpretation Comme nts UR HCG QUAL (test code = HCGQLU) NEGATIVE NEGATIVE BASIC METABOLIC [id number] 10:26:00* Test Item Value Reference Range Interpretation Comme nts SODIUM (test code = NA) 139 mmol/L 134-147 N POTASSIUM (test code = K) 4.2 mmol/L 3.4-5.0 N CHLORIDE (test code = CL) 110 mmol/L 100-108 H CARBON DIOXIDE (test code = CO2) 25 mmol/L 21-32 N ANION GAP (test code = GAP) 4.0 GAP calc 4.0-15.0 N GLUCOSE (test code = GLU) 128 MG/DL 70-110 H BLOOD UREA NITROGEN (test code = BUN) 16 MG/DL 7-18 N GLOMERULAR FILTRATION RATE (test code = GFR) >=60 max estimate estGFR >60 CREATININE (test code = CREAT) 1.0 MG/DL 0.6-1.0 N CALCIUM (test code = CA) 9.4 MG/DL 8.5-10.1 N BASIC METABOLIC [id number] 10:22:00* Test Item Value Reference Range Interpretation Comme nts SODIUM (test code = NA) 139 mmol/L 134-147 N POTASSIUM (test code = K) 4.2 mmol/L 3.4-5.0 N CHLORIDE (test code = CL) 110 mmol/L 100-108 H CARBON DIOXIDE (test code = CO2) 25 mmol/L 21-32 N ANION GAP (test code = GAP) 4.0 GAP calc 4.0-15.0 N GLUCOSE (test code = GLU) 128 MG/DL 70-110 H BLOOD UREA NITROGEN (test code = BUN) MG/DL 7-18 GLOMERULAR FILTRATION RATE (test code = GFR) >=60 max estimate estGFR >60 CREATININE (test code = CREAT) 1.0 MG/DL 0.6-1.0 N CALCIUM (test code = CA) 9.4 MG/DL 8.5-10.1 N PROTHROMBIN [id number] 10:12:00* Test Item Value Reference Range Interpretation Comme nts PT PATIENT (test code = PTP) 12.1 SECONDS 9.3-12.9 N INTERNATIONAL NORMAL RATIO (test code = INR) 1.07 INR Unit 0.8-1.2 N THROMBOPLASTIN TIME [id number] 10:12:00* Test Item Value Reference Range Interpretation Comme nts THROMBOPLASTIN TIME PARTIAL (test code = PTT) 31.6 SECONDS 26-35 N GLUCOSE BEDSIDE [id number] 10:06:00* Test Item Value Reference Range Interpretation Comme nts GLUCOSE BEDSIDE TESTING (marleny t code = GLUBED) 126 mg/dL 70-110 H CBC W/AUTO [id number] 10:03:00* Test Item Value Reference Range Interpretation Comme nts WHITE BLOOD CELL (test code = WBC) 10.5 K/mm3 3.5-11.0 N RED BLOOD CELL (test code = RBC) 4.34 M/mm3 4.70-6.10 L HEMOGLOBIN (test code = HGB) 12.5 G/DL 10.4-14.9 N HEMATOCRIT (test code = HCT) 38.1 % 31.5-44.1 N MEAN CELL VOLUME (test code = MCV) 87.8 Fl 84.5-98.6 N MEAN CELL HGB (test code = MCH) 28.8 pg 27.0-34.2 N MEAN CELL HGB CONCETRATION ( test code = MCHC) 32.8 G/DL 31.5-34.0 N RED CELL DISTRIBUTION WIDTH (test code = RDW) 15.1 SD 11.5-14.5 H PLATELET COUNT (test code = PLT) 275.0 K/mm3 150-450 N MEAN PLATELET VOLUME (test c ode = MPV) 9.60 fL 7.0-10.5 N NEUTROPHIL % (test code = NT%) 63.7 [...] K/mm3 0.0-0.1 N MANUAL DIFF REQUIRED (test c ode = MDIFF) NO DIFF/SCN CRITERIA POCT GLUCOSE (AUTOMATED)2019-03-25 01:45:00* Test Item Value Reference Range Interpretation Comme [facility] POCT GLU (test code = 7499656253) 148 mg/dL 70-110 H Lab Interpretation (test cod e = 32094-5) Abnormal [facility] METABOLIC PANEL (NA, K, CL, CO2, GLUCOSE, BUN, CREATININE, CA)2019-03-24 09:55:00* Test Item Value Reference Range Interpretation Comme [facility] NA (test code = 3183155460) 137 mmol/L 135-145 K (test code = 8254065601) 4.5 mmol/L 3.5-5 CL (test code = 3650985699) 107 mmol/L 98-108 CO2 TOTAL (test code = 2853338753) 23 mmol/L 23-31 AGAP (test code = 7146134442) 2-16 BUN (test code = 4276447147) 15 mg/dL 7-23 GLUCOSE (test code = 2260186453) 181 mg/dL 70-110 H CREATININE (test code = 3172019183) 0.92 mg/dL 0.5-1.04 CALCIUM (test code = 6889407950) 9.2 mg/dL 8.6-10.6 eGFR Calculation (Non-) (test code = 5564381919) mL/min/1.73m2 eGFR Calculation () (test code = 8404634618) mL/min/1.73m2 BAIRON (test code = BAIRON) Association of [...] or abnormalities in imaging tests). Lab Interpretation (test code = 71281-8) Abnormal [facility] WITH [id number] 09:39:00* Test Item Value Reference Range Interpretation Comme nts WBC (test code = 6690-2) See_Comment H [Automated message] The system which generated this result transmitted reference range: 4.30 - 11.10 10*3/?L. The reference range was not used to interpret this result as normal/abnormal. RBC (test code = 789-8) See_Comment [Automated message] The system which generated this result transmitted reference range: 3.93 - 5.25 10*6/?L. The reference range was not used to interpret this result as normal/abnormal. HGB (test code = 718-7) 11.5 g/dL 11.6-15 L HCT (test code = 4544-3) 35.8 % 35.7-45.2 MCV (test code = 787-2) 86.5 fL 80.6-95.5 MCH (test code = 785-6) 27.8 pg 25.9-32.8 MCHC (test code = 786-4) 32.1 g/dL 31.6-35.1 RDW-SD (test code = 24201-0) 47.8 fL 39-49.9 RDW-CV (test code = 788-0) 15.1 % 12-15.5 PLT (test code = 777-3) See_Comment [Automated message] The system which generated this result transmitted reference range: 166 - 358 10*3/?L. The reference range was not used to interpret this result as normal/abnormal. MPV (test code = 47624-9) 10.3 fL 9.5-12.9 NRBC/100 WBC (test code = 4368354627) See_Comment [Automated message] The system which generated this result transmitted reference range: 0.0 - 10.0 /100 WBCs. The reference range was not used to interpret this result as normal/abnormal. NRBC x10^3 (test code = 2876541906) <0.01 See_Comment [Automated message] The system which generated this result transmitted reference range: 10*3/?L. The reference range was not used to interpret this result as normal/abnormal. GRAN MAT (NEUT) % (test code = 770-8) 87.4 % IMM GRAN % (test code = 6931105643) 0.40 % LYMPH % (test code = 736-9) 9.9 % MONO % (test code = 5905-5) 1.9 % EOS % (test code = 713-8) 0.1 % BASO % (test code = 706-2) 0.3 % GRAN MAT x10^3(ANC) (test code = 8595272098) 13.10 10*3/uL 1.88-7.09 H IMM GRAN x10^3 (test code = 1473389697) 0.06 10*3/uL 0-0.06 LYMPH x10^3 (test code = 731-0) 1.48 10*3/uL 1.32-3.29 MONO x10^3 (test code = 742-7) 0.29 10*3/uL 0.33-0.92 L EOS x10^3 (test code = 711-2) <0.03 0.03-0.39 L BASO x10^3 (test code = 704-7) 0.04 10*3/uL 0.01-0.07 Lab Interpretation (test code = 20522-5) [facility] 23:56:00* Test Item Value Reference Range Interpretation Comme [facility] POCT GLU (test code = 6047848239) 113 mg/dL 70-110 H Lab Interpretation (test cod e = 01250-1) [facility]normal [facility], [id number] 20:07:00* Test Item Value Reference Range Interpretation Comme nts PREG SERUM (test code = 3289309729) Negative BAIRON (test code = BAIRON) Less than 10 IU/L. ?If low titer or ectopic is suspected, resubmit specimen in 48-72 hours. [facility] METABOLIC PANEL (NA, K, CL, CO2, GLUCOSE, BUN, CREATININE, CA)2019-03-23 20:02:00* Test Item Value Reference Range Interpretation Comme [facility] NA (test code = 1492603717) 137 mmol/L 135-145 K (test code = 8811373207) 4.1 mmol/L 3.5-5 CL (test code = 8778123438) 109 mmol/L 98-108 H CO2 TOTAL (test code = 8671299037) 23 mmol/L 23-31 AGAP (test code = 7109988796) 2-16 BUN (test code = 0401818272) 17 mg/dL 7-23 GLUCOSE (test code = 8994871306) 134 mg/dL 70-110 H CREATININE (test code = 0262466819) 0.92 mg/dL 0.5-1.04 CALCIUM (test code = 9857785205) 8.9 mg/dL 8.6-10.6 eGFR Calculation (Non-) (test code = 6418172004) mL/min/1.73m2 eGFR Calculation () (test code = 2030110118) mL/min/1.73m2 BAIRON (test code = BAIRON) Association of [...] or abnormalities in imaging tests). Lab Interpretation (test code = 46423-6) Abnormal [facility] WITH [id number] 11:45:00* Test Item Value Reference Range Interpretation Comme nts WBC (test code = 6690-2) See_Comment H [Automated [employer]] The system which generated this result transmitted reference range: 4.30 - 11.10 10*3/?L. The reference range was not used to interpret this result as normal/abnormal. RBC (test code = 789-8) See_Comment L [Automated [employer]] The system which generated this result transmitted reference range: 3.93 - 5.25 10*6/?L. The reference range was not used to interpret this result as normal/abnormal. HGB (test code = 718-7) 9.8 g/dL 11.6-15 L HCT (test code = 4544-3) 31.4 % 35.7-45.2 L MCV (test code = 787-2) 89.0 fL 80.6-95.5 MCH (test code = 785-6) 27.8 pg 25.9-32.8 MCHC (test code = 786-4) 31.2 g/dL 31.6-35.1 L RDW-SD (test code = 64403-3) 50.2 fL 39-49.9 H RDW-CV (test code = 788-0) 15.5 % 12-15.5 PLT (test code = 777-3) See_Comment [Automated messa ge] The system which generated this result transmitted reference range: 166 - 358 10*3/?L. The reference range was not used to interpret this result as normal/abnormal. MPV (test code = 50873-8) 10.2 fL 9.5-12.9 NRBC/100 WBC (test code = 2210516752) See_Comment [Automated me ssage] The system which generated this result transmitted reference range: 0.0 - 10.0 /100 WBCs. The reference range was not used to interpret this result as normal/abnormal. NRBC x10^3 (test code = 1676977378) <0.01 See_Comment [Automated messa ge] The system which generated this result transmitted reference range: 10*3/?L. The reference range was not used to interpret this result as normal/abnormal. GRAN MAT (NEUT) % (test code = 770-8) 66.3 % IMM GRAN % (test code = 4462477057) 0.30 % LYMPH % (test code = 736-9) 25.1 % MONO % (test code = 5905-5) 6.1 % EOS % (test code = 713-8) 1.8 % BASO % (test code = 706-2) 0.4 % GRAN MAT x10^3(ANC) (test code = 9529200077) 8.22 10*3/uL 1.88-7.09 H IMM GRAN x10^3 (test code = [id number]) 0.04 10*3/uL 0-0.06 LYMPH x10^3 (test code = 731-0) 3.11 10*3/uL 1.32-3.29 MONO x10^3 (test code = 742-7) 0.76 10*3/uL 0.33-0.92 EOS x10^3 (test code = 711-2) 0.22 10*3/uL 0.03-0.39 BASO x10^3 (test code = 704-7) 0.05 10*3/uL 0.01-0.07 Lab Interpretation (test code = 36599-5) Abnormal [facility] Consult Notes Date/Time Note Provider Source 2023-10-26 18:29:04 Associated Order(s): CONSULT UROLOGY See HP Associated attestation - Jer Stock MD - 10/27/2023 6:50 AM CDT After discussion with Dr. Alford, I agree with resident's note as written. [facility] - Health History and Physical Notes Date/Time Note Provider Source 2023-11-10 06:16:04 UROLOGY HISTORY AND PHYSICAL NOTE Date of Service: 11/10/2023 Faculty Attending: Michael GOODWIN Chief Complaint: right ureteral stone History of Present Illness: Marcin Nielsen is a 38 year old female with PMH of nephrolithiasis who presents for Right USM today. S/p right ureteral stent 10/27/23, tolerating well. Denies hematuria, dysuria, fever, or chills . Ucx neg Home Medications: Medications Prior to Admission Medication Sig Dispense Refill Last Dose oxyBUTYnin chloride 5 mg tablet Take 1 tablet by mouth 3 (three) times daily as needed for Bladder spasms. 20 tablet 0 acetaminophen (TYLENOL) 325 mg tablet Take 2 tablets by mouth every 6 (six) hours as needed for Pain (scale 4-6). 30 tablet 0 PRN ibuprofen 200 mg tablet Take 2 tablets by mouth every 6 (six) hours as needed for Pain (scale 1-3). 30 tablet 0 fluconazole 150 mg tablet Take 1 tablet by mouth after completion of your course of antibiotics. 1 tablet 0 ketorolac 10 mg tablet Take 1 tablet by mouth every 6 (six) hours as needed for Pain (scale 1-3). 20 tablet 0 ondansetron 4 mg disintegrating tablet Take 1 tablet by mouth every 8 (eight) hours as needed for Nausea and Vomiting (N/V). 14 tablet 0 PRN tamsulosin 0.4 mg 24 hr capsule Take 1 capsule by mouth at bedtime. 14 capsule 0 COMPLETE citalopram hydrobromide (CITALOPRAM ORAL) Take by mouth daily. Not Taking medroxyPROGESTERone 150 mg/mL syringe 1 mL by Intramuscular route every 3 (three) months. Not Taking trazodone HCl (TRAZODONE ORAL) Take 1 tablet by mouth at bedtime. Not Taking Histories: Past Medical History: Diagnosis Date Depression Diabetes mellitus Hypertension Past Surgical History: Procedure Laterality Date CYSTOSCOPY WITH INSERTION STENT URETER (SHX) Right 10/27/2023 Surgeon: Doe Sherman MD; Location: [facility] OR [facility] WOUND DEBRIDEMENT N/A 03/23/2019 Surgeon: Austin Perdue MD; Location: [facility] OR Location Family History Problem Relation Age of Onset No Significant Medical Problems Mother No Significant Medical Problems Father Social History Socioeconomic History Marital status: Spouse name: Not on file Number of children: Not on file Years of education: Not on file Highest education level: Not on file Occupational History Not on file Tobacco Use Smoking status: Every Day Types: Cigarettes Passive exposure: Current Smokeless tobacco: Never Tobacco comments: 1/2 pack a day Substance and Sexual Activity Alcohol use: Never Drug use: Never Sexual activity: Not on file Other Topics Concern Not on file Social History Narrative Not on file Social Determinants of Health Financial Resource Strain: Not on file Food Insecurity: Not on file Transportation Needs: Not on file Physical Activity: Not on file Stress: Not on file Social Connections: Not on file Intimate Partner Violence: Not on file Housing Stability: Not on file Allergies: Allergies Allergen Reactions Morphine Other - See comments A feeling of anxiety Review of Systems: Constitutional: negative Eyes: negative Ears, nose, mouth, throat: negative Cardiovascular: negative Respiratory: negative Gastrointestinal: negative Genitourinary: (+) per HPI Musculoskeletal: negative Integumentary: negative Neurological: negative Psychiatric: negative Endocrine: negative Hematologic/Lymphatic: negative Allergic/Immunologic: negative, allergies listed above Physical Examination: Blood pressure (!) 130/91, pulse 89, temperature 36.4 ?C (97.5 ?F), temperature source Tympanic, resp. rate 16, height 1.753 m (5' 9"), weight 110.5 kg (243 lb 9.6 oz), last menstrual period 10/27/2023, SpO2 98%. Constitutional:no acute distress Eyes: normal external eye, conjunctiva and sclera normal Ears, nose, mouth, throat: normocephalic, moist mucous membranes Cardiovascular: regular rate and rhythm Respiratory: respirations unlabored on room air Gastrointestinal: soft, non-distended, non-tender, no costovertebral angle tenderness Laboratory: Hemogram Recent Labs 10/18/23 1126 10/26/23 1213 WBC 13.66* 9.40 HGB 14.9 12.3 HCT 45.7* 38.4 PLT 350 279 Chemistry Recent Labs 10/18/23 1126 10/26/23 1213 NA 132* 137 K 4.4 4.1 CL 101 103 TCO2 22* 25 AGAP 9 9 BUN 16 20 GLU 293* 187* CREAT 0.94 0.77 CA 9.8 9.3 EGFR 79.3 100.8 Urinalysis Recent Labs 10/18/23 1156 10/26/23 1213 10/26/23 193 USPGRAV >=1.030 1.015 1.013 UPH 5.5 6.0 5.0 UPROTEIN 100 mg/dL* 30 mg/dL* 100 mg/dL* UGLUCOSE Negative Normal Normal UKETONES Negative Negative Negative UBILI Small* Negative Negative UNITRITE Negative Negative Negative ULEUKEST Trace* 250/uL* 250/uL* URBC 4* 154* 169* UWBC 4 69* 60* UBACTERIA Moderate* Few* Negative Urine Culture Recent Labs 10/18/23 1030 10/26/23 1932 10/27/23 0952 CUR 10,000 - 100,000 CFU/mL mixed aerobic organisms - suggests endogenous microbial contamination No aerobic growth (< 1000 CFU/mL) No aerobic growth (< 100 CFU/mL) Liver Function Tests Recent Labs 10/18/23 1126 10/26/23 1213 AST 31 33 ALT 29 31 ALKPHOS 123* 91 BILIT 1.0 0.5 Coagulation Profile There are no current results on file for these tests and/or test for the past 3 mos. Arterial Blood Gas There are no current results on file for these tests and/or test for the past 3 mos. Radiology: I independently visualized the images noted below. FL TIME OR (NON-REPORTABLE) Result Date: 10/27/2023 These images do not require a Radiology diagnostic report. CT ABDOMEN PELVIS WO CONTRAST Result Date: 10/26/2023 CT ABDOMEN PELVIS WO CONTRAST Indication: Flank pain, kidney stone suspected Comparison: October 18, 2023 RL: HS: Y Ordering Clinician: Aayush STOUT Technique: Axial CT images of the abdomen and pelvis were performed without IV contrast. Sagittal and coronal reformats were created. Dose reduction techniques were used (ALARA). Technical Quality: The dome of the right lobe the liver is outside the field of view. Discussion: Lines/Devices: None. Chest/Vessels: No basilar consolidation. No acute abnormality of the aorta. Organs: The dome of the right lobe of the liver is outside the field of view. Fatty liver. No gallbladder inflammation. The pancreas is normal. No splenic masses. The adrenal glands are normal. : Right renal pelvic stone measuring 11 mm unchanged in position with stranding around the right renal hilum. Mild dilatation of the right renal pelvis. No right ureteral stone. Nonobstructing left renal stones up to 4 mm. No left ureteral stone. The bladder is normal. GI: No inflammation of the colon. No small bowel obstruction. Normal appendix. Misc.: Subcentimeter lymph nodes are below size criteria. No free air or free fluid. Skeleton: No acute osseous pathology. Impression: Persistent right renal pelvic stone with right renal pelvic stranding and mild dilatation of the right renal pelvis unchanged from prior study. Fatty liver. ABDOMEN PELVIS WO CONTRAST Result Date: 10/18/2023 EXAM: CT ABDOMEN PELVIS WO CONTRAST HISTORY: 38 years old Female with Flank pain, kidney stone suspected COMPARISON: None. TECHNIQUE AND FINDINGS: Contiguous axial imaging from the level of the lung bases through the pubic symphysis was performed without the intravenous administration of contrast. Coronal and sagittal reconstructions were obtained. Auto mA and/or iterative reconstruction were used to reduce radiation dose. FINDINGS: LOWER THORAX: The lungs bases are clear. No cardiomegaly. LIVER: Hepatomegaly measuring 20 cm. Diffuse hypoattenuation of the hepatic parenchyma. GALLBLADDER AND BILIARY TREE: No biliary ductal dilation. No gallbladder wall thickening. SPLEEN: No splenomegaly. PANCREAS: No ductal dilation or masses. ADRENAL GLANDS: No adrenal nodules. KIDNEYS/URETERS/BLADDER: 1.6 cm obstructing stone in the right renal pelvis, resulting in mild hydronephrosis. Mild perinephric fat stranding is seen. Punctate nonobstructing stones measuring up to 5 mm on the right and 9 mm on the left. PERITONEUM AND RETROPERITONEUM: No free air or fluid. GI TRACT: No dilation or wall thickening. Normal appendix. LYMPH NODES: Pericaval lymph nodes measuring up to 9 mm, likely reactive. PELVIS: No free fluid or organized fluid collection. Unchanged uterine fibroid at the fundus. Bilateral ovaries are unremarkable. VESSELS: No critical stenosis or aneurysm. BONES AND SOFT TISSUES: No suspicious lytic or sclerotic bony lesions.. Small fat-containing umbilical hernia. 1. Obstructing right nephrolithiasis in the renal pelvis, resulting in minimal hydronephrosis. Perinephric fat stranding may be related to obstructive uropathy. Early acute pyelonephritis remains a possibility in this limited exam without contrast. 2. Nonobstructing subcentimeter bilateral nephrolithiasis. 3. Hepatomegaly with hepatic steatosis. Preliminary Report Dictated by Resident: Justyna Alvarado I, Jorge Oreilly MD., have reviewed this study and agree with the above report. Procedure: none Assessment and Plan: 38 year old female with right ureteral and pelvis stone s/p right ureteral stent presents today for Right usm. Principal Problem: Right kidney stone - OR today for Right usm with Dr. Sherman - Consent obtained - pt marked Manuel Joshi MD Urology PGY-3 11/10/2023 6:16 AM Associated attestation - Doe Sherman MD - 11/10/2023 6:39 AM CDT I Personally examined the patient with Dr Joshi and confirmed the history. I directed the medical decision making and agree with his assessment, plan and documentation. I discussed the procedure with pt and answered the patient's questions. The pt is comfortable proceeding with the case Doe Sherman MD 11/10/2023 6:39 AM [facility] [employer] 2023-10-26 18:25:24 UROLOGY HISTORY AND PHYSICAL NOTE Date of Service: 10/27/23 Chief Complaint: Right flank pain History of Present Illness: Marcin Nielsen is a 38 year old female with no PMH, who presents with right flank pain. Transferred from [facility]. Evaluation in ED revealed patient is afebrile and hemodynamically stable. They are without leukocytosis (WBC 9.4). Renal function is preserved (Cr 0.77, GFR 100.8). UA is contaminated. Patient is able to tolerate PO intake. Home Medications: Medications Prior to Admission Medication Sig Dispense Refill Last Dose fluconazole 150 mg tablet Take 1 tablet by mouth after completion of your course of antibiotics. 1 tablet 0 ketorolac 10 mg tablet Take 1 tablet by mouth every 6 (six) hours as needed for Pain (scale 1-3). 20 tablet 0 ondansetron 4 mg disintegrating tablet Take 1 tablet by mouth every 8 (eight) hours as needed for Nausea and Vomiting (N/V). 14 tablet 0 tamsulosin 0.4 mg 24 hr capsule Take 1 capsule by mouth at bedtime. 14 capsule 0 citalopram hydrobromide (CITALOPRAM ORAL) Take by mouth daily. Not Taking medroxyPROGESTERone 150 mg/mL syringe 1 mL by Intramuscular route every 3 (three) months. Not Taking trazodone HCl (TRAZODONE ORAL) Take 1 tablet by mouth at bedtime. Not Taking Histories: Past Medical History: Diagnosis Date Depression Diabetes mellitus Hypertension Past Surgical History: Procedure Laterality Date WOUND DEBRIDEMENT N/A 03/23/2019 Surgeon: Austin Perdue MD; Location: [facility] OR Location Family History Problem Relation Age of Onset No Significant Medical Problems Mother No Significant Medical Problems Father Social History Socioeconomic History Marital status: Spouse name: Not on file Number of children: Not on file Years of education: Not on file Highest education level: Not on file Occupational History Not on file Tobacco Use Smoking status: Every Day Types: Cigarettes Passive exposure: Current Smokeless tobacco: Never Tobacco comments: 1/2 pack a day Substance and Sexual Activity Alcohol use: Never Drug use: Never Sexual activity: Not on file Other Topics Concern Not on file Social History Narrative Not on file Social Determinants of Health Financial Resource Strain: Not on file Food Insecurity: Not on file Transportation Needs: Not on file Physical Activity: Not on file Stress: Not on file Social Connections: Not on file Intimate Partner Violence: Not on file Housing Stability: Not on file Allergies: Allergies Allergen Reactions Morphine Itching Review of Systems: Constitutional: negative Eyes: negative Ears, nose, mouth, throat: negative Cardiovascular: negative Respiratory: negative Gastrointestinal: negative Genitourinary: (+) per HPI Musculoskeletal: negative Integumentary: negative Neurological: negative Psychiatric: negative Endocrine: negative Hematologic/Lymphatic: negative Allergic/Immunologic: negative, allergies listed above Physical Examination: Blood pressure (!) 133/92, pulse 69, temperature 36.2 ?C (97.2 ?F), resp. rate 18, height 1.753 m (5' 9"), weight 117.9 kg (259 lb 14.8 oz), SpO2 94 %. General: Alert. No acute distress. Respiratory: Breathing unlabored on RA Cardiovascular: Regular rate Abdominal/GI: Soft, non-distended, non-tender to palpation. : No CVAT Neurologic: No obvious focal neurologic deficits appreciated Laboratory: Per HPI Radiology: I independently visualized the images noted below. CT ABDOMEN PELVIS WO CONTRAST Result Date: 10/26/2023 CT ABDOMEN PELVIS WO CONTRAST Indication: Flank pain, kidney stone suspected Comparison: October 18, 2023 RL: HS: Y Ordering Clinician: Aayush STOUT Technique: Axial CT images of the abdomen and pelvis were performed without IV contrast. Sagittal and coronal reformats were created. Dose reduction techniques were used (ALARA). Technical Quality: The dome of the right lobe the liver is outside the field of view. Discussion: Lines/Devices: None. Chest/Vessels: No basilar consolidation. No acute abnormality of the aorta. Organs: The dome of the right lobe of the liver is outside the field of view. Fatty liver. No gallbladder inflammation. The pancreas is normal. No splenic masses. The adrenal glands are normal. : Right renal pelvic stone measuring 11 mm unchanged in position with stranding around the right renal hilum. Mild dilatation of the right renal pelvis. No right ureteral stone. Nonobstructing left renal stones up to 4 mm. No left ureteral stone. The bladder is normal. GI: No inflammation of the colon. No small bowel obstruction. Normal appendix. Misc.: Subcentimeter lymph nodes are below size criteria. No free air or free fluid. Skeleton: No acute osseous pathology. Impression: Persistent right renal pelvic stone with right renal pelvic stranding and mild dilatation of the right renal pelvis unchanged from prior study. Fatty liver. ABDOMEN PELVIS WO CONTRAST Result Date: 10/18/2023 EXAM: CT ABDOMEN PELVIS WO CONTRAST HISTORY: 38 years old Female with Flank pain, kidney stone suspected COMPARISON: None. TECHNIQUE AND FINDINGS: Contiguous axial imaging from the level of the lung bases through the pubic symphysis was performed without the intravenous administration of contrast. Coronal and sagittal reconstructions were obtained. Auto mA and/or iterative reconstruction were used to reduce radiation dose. FINDINGS: LOWER THORAX: The lungs bases are clear. No cardiomegaly. LIVER: Hepatomegaly measuring 20 cm. Diffuse hypoattenuation of the hepatic parenchyma. GALLBLADDER AND BILIARY TREE: No biliary ductal dilation. No gallbladder wall thickening. SPLEEN: No splenomegaly. PANCREAS: No ductal dilation or masses. ADRENAL GLANDS: No adrenal nodules. KIDNEYS/URETERS/BLADDER: 1.6 cm obstructing stone in the right renal pelvis, resulting in mild hydronephrosis. Mild perinephric fat stranding is seen. Punctate nonobstructing stones measuring up to 5 mm on the right and 9 mm on the left. PERITONEUM AND RETROPERITONEUM: No free air or fluid. GI TRACT: No dilation or wall thickening. Normal appendix. LYMPH NODES: Pericaval lymph nodes measuring up to 9 mm, likely reactive. PELVIS: No free fluid or organized fluid collection. Unchanged uterine fibroid at the fundus. Bilateral ovaries are unremarkable. VESSELS: No critical stenosis or aneurysm. BONES AND SOFT TISSUES: No suspicious lytic or sclerotic bony lesions.. Small fat-containing umbilical hernia. 1. Obstructing right nephrolithiasis in the renal pelvis, resulting in minimal hydronephrosis. Perinephric fat stranding may be related to obstructive uropathy. Early acute pyelonephritis remains a possibility in this limited exam without contrast. 2. Nonobstructing subcentimeter bilateral nephrolithiasis. 3. Hepatomegaly with hepatic steatosis. Preliminary Report Dictated by Resident: Justyna Alvarado I, Jorge Oreilly MD., have reviewed this study and agree with the above report. Assessment and Plan: Marcin Nielsen is a 38 year old female who is R 14 mm renal pelvis stone <1000 HU, mild hydro, with 7/10 flank pain. Hx of prior stone procedures/stents, tolerates well, UA possible infxn however contaminated. WBC and CMP fine. VSS - Plan for add on with Dr. Sherman for R USM vs stent today - [facility] - IVF - Rocephin Bipin Contreras MD [facility] Urology PGY-3 10/27/23 8:23 AM Associated attestation - Doe Sherman MD - 10/27/2023 8:44 AM CDT I have reviewed Dr. Contreras 's note. I agree with the documentation and plan Doe Sherman MD 10/27/2023 8:44 AM [facility] Procedure Notes Date/Time Note Provider Source 2023-11-10 08:19:49 FULL OPERATIVE NOTE Date of Surgery: 11/10/2023 Faculty physician: Michael GOODWIN Resident physician: Manuel Joshi MD Anesthesia Type: general - GETA Pre-operative diagnosis: right nephrolithiasis Post-operative diagnosis: right nephrolithiasis Procedures: right USM with laser lithotripsy (CPT 48121), Findings: Cystoscopy: bladder without masses or lesion, bilateral UO identified, Ureteroscopy: ~1 cm right renal pelvis stone Complications: none Estimated blood loss: <5 mL Specimens: stones for analysis Drains: none Other important information: 28cm 7Fr double J ureteral stent w the string placed in the right ureter Procedure: After informed consent was obtained, the patient was taken to the operating room. A time-out procedure was conducted to confirm the correct patient and procedure. The patient underwent general anesthesia. The patient was prepped and draped in the usual sterile fashion using Betadine in the lithotomy position. A 22-fr rigid cystoscope was introduced into the bladder through the urethra. The indwelling right ureteral stent was pulled distally and a sensor wire was cannulated through into the right collecting system . A dual lume catheter was placed over the sensor wire and then a super stiff wire was advanced up the ureter through the open ended into the right renal pelvis under fluoroscopic guidance. We then placed an 36cm 11/13Fr access sheath over the super stiff wire. The flexible ureteroscope was then used to visualize the stone. Using a 200 micron laser, the stone was then obliterated into sub mm fragments. Instrumentation was removed and then we placed a stent. A 28-cm 7-Bahraini double-J ureteral catheter with the string was placed into the right ureter under direct vision. The proximal coil of the stent was confirmed to be in the right renal pelvis under fluoroscopy and the distal coil of the stent was visualized in the bladder. All instrumentation was removed. The patient was awaken from anesthesia, extubated, and transferred to the recovery room in good condition. Manuel Joshi MD Urology PGY-3 11/10/2023 8:20 AM I was present during the entire operation. I actively participated in the operation and guided the decision making with Dr. Joshi. I have reviewed and agree with the documentation. Doe Sherman MD 11/10/2023 8:29 AM URO-UROLOGY STAFF [facility] 2023-10-27 10:07:29 Procedure(s): IL CYSTO W/INSERT URETERAL STENT FULL OPERATIVE NOTE Date of Surgery: 10/27/2023 Faculty physician: Dr. Sherman Resident physician: Bipin Contreras MD and Zachariah Dutton MD Anesthesia Type: general - GETA Pre-operative diagnosis: right kidney stone Post-operative diagnosis: right kidney stone Procedures: Cystoscopy with right ureteral stent placement (52195) Findings: Cystoscopy showed diffuse cystitis cystica without concerning masses. The left and right UOs were identified. The right UO was noted to be effluxing purulent material after insertion of sensor wire. A 26 cm double J ureteral stent without the string was placed in the right ureter in the proper position with the proximal coil seen in the renal pelvis and the distal coil seen in the bladder away from the bladder neck. Complications: none Estimated blood loss: 0 mL Specimens: Ucx Drains: 16Fr escudero catheter with 10cc of sterile water instilled into bulb Other important information: 6 Fr double J ureteral stent without the string placed in the right ureter Informed consent was obtained. The patient was taken to the operating room. Time-out procedure was conducted in OR. She was given sedation, and then prepped and draped in the usual standard sterile fashion, and placed in the lithotomy position. A rigid cystoscope was introduced into the bladder through the urethra. A urine specimen was obtained for culture. Bilateral ureteral orifices were identified. Using in an open ended ureteral catheter, a sensor guidewire was advanced into the right ureter and into the renal pelvis without resistance under fluoroscopic guidance. The ureter was noted to immediately efflux purulent material. A 26 cm 6-Bahraini double-J ureteral stent was placed into the ureter over the guidewire under direct vision. The wire was removed. The proximal coil of the stent was confirmed to be in the renal pelvis under fluoroscopy and the distal coil was confirmed to be in the bladder under direct vision. A 16Fr escudero was placed into the bladder without difficulty. The patient was then extubated and transferred to the recovery room in good condition. 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 I actively participated in the operation and guided the decision making with Dr. Dutton. I have reviewed and agree with the documentation. Doe Sherman MD 10/27/2023 11:56 AM [facility]
--- NOTE | 2024-06-20 21:24 | ER ---
Nurse's Notes [facility] Name: Paulette Nielsen Age: 38 yrs Sex: Female : 1985 Arrival Date: 06/20/2024 Time: 21:03 Bed IW4 Private MD: Diagnosis: Cellulitis of finger Presentation: 06/20 21:19 Chief complaint: Patient states: WOUND TO LEFT INDEX FINGER ONSET 1 MONTH AGO. cm10 Coronavirus screen: Client denies travel out of the [place] in the last 14 days. Ebola Screen: Patient denies travel to an Ebola-affected area in the 21 days before illness onset. No symptoms or risks identified at this time. Initial Sepsis Screen: Does the patient meet any 2 criteria? HR > 90 bpm. Does the patient have a suspected source of infection? No. Patient's initial sepsis screen is negative. Risk Assessment: Do you want to hurt yourself or someone else? Patient reports no desire to harm self or others. Onset of symptoms is unknown. 21:19 Method Of Arrival: Ambulatory cm10 21:19 Acuity: AKSHAT 4 cm10 Triage Assessment: 21:19 General: Appears in no apparent distress. uncomfortable, Behavior is calm, cooperative. cm10 Neuro: No deficits noted. Level of Consciousness is awake, alert, obeys commands, Oriented to person, place, time, situation, Appropriate for age. Respiratory: No deficits noted. Airway is patent Respiratory effort is even, unlabored, Respiratory pattern is regular, symmetrical. Derm: Wound noted palmar aspect of distal phalanx of left index finger. Historical: - Allergies: 21:18 jalapeno; cm10 21:18 Morphine; cm10 - PMHx: 21:18 abscess removed from genital area; ADD/ADHD; Anxiety; Bipolar disorder; Depression; cm10 Kidney stones; Migraines; Non-Hodgkins Lymphoma; Seizures; self mutilation - cutter; Sinusitis; suicidal ideation; - PSHx: 21:18 section; Pilonidal Cyst removed; cm10 - Immunization history:: Adult Immunizations up to date. - Infectious Disease History:: Denies. - Social history:: Smoking status: Patient reports the use of cigarette tobacco products, denies chronic smoking, but will smoke occasionally. Screenin:34 [facility] ED Fall Risk Assessment (Adult) History of falling in the last 3 months, cm10 including since admission No falls in past 3 months (0 pts) Confusion or Disorientation No (0 pts) Intoxicated or Sedated No (0 pts) Impaired Gait No (0 pts) Mobility Assist Device Used No (0 pt) Altered Elimination No (0 pt) Score/Fall Risk Level 0 - 2 = Low Risk Oriented to surroundings, Maintained a safe environment, Hourly rounding (assess needs \T\ fall precautionary measures) done. Abuse screen: Denies threats or abuse. Denies injuries from another. Nutritional screening: No deficits noted. Tuberculosis screening: No symptoms or risk factors identified. Vital Signs: 21:19 BP 135 / 98; Pulse 103; Resp 16; Temp 98.7(O); Pulse Ox 100% ; Weight 113.4 kg; Height cm10 5 ft. 9 in. ; Pain 5/10; 21:19 Body Mass Index 36.92 (113.40 kg, 175.26 cm) cm10 21:19 Pain Scale: Adult cm10 ED Course: 21:08 Patient arrived in ED. gm2 21:08 Cynthia Caceres PA-C is PHCP. sb4 21:08 Aaron Soni MD is Attending Physician. sb4 21:19 Triage completed. cm10 21:20 Arm band placed on right wrist. Patient placed in waiting room. cm10 21:34 Patient has correct armband on for positive identification. Provided Education on: cm10 follow-up instructions. 21:34 No provider procedures requiring assistance completed. Patient did not have IV access cm10 during this emergency room visit. Administered Medications: 21:34 Drug: Trimethoprim-Sulfamethoxazole PO (160 mg-800 mg (DS) 1 tablet PO once Route: PO; cm10 21:34 Follow up: Response: Medication administered at discharge. cm10 Medication: 21:34 VIS not applicable for this client. cm10 Outcome: 21:24 Discharge ordered by . sb4 21:35 Discharged to home ambulatory, cm10 21:35 Condition: good 21:35 Discharge instructions given to patient, Instructed on discharge instructions, follow up and referral plans. medication usage, Demonstrated understanding of instructions, follow-up care, medications, Prescriptions given X 1, 21:35 Patient left the ED. cm10 Signatures: Cynthia Caceres PA-C PA-C sb4 Mariana Rm, RN RN cm10 Petrona Talbot gm2
--- NOTE | 2024-06-20 21:24 | EDPHYS ---
Physician Documentation [facility] Name: Paulette Nielsen Age: 38 yrs Sex: Female : 1985 Arrival Date: 06/20/2024 Time: 21:03 Bed IW4 Private MD: ED Physician Aaron Soni HPI: 06/20 21:25 This 38 yrs old Female presents to ER via Ambulatory with complaints of Left hand index sb4 finger swelling, hurting. 21:25 wound on left distal index finger x 1 month. unsure how the wound began. states it has sb4 grown and become more painful. no fever. Historical: - Allergies: 21:18 jalapeno; cm10 21:18 Morphine; cm10 - PMHx: 21:18 abscess removed from genital area; ADD/ADHD; Anxiety; Bipolar disorder; Depression; cm10 Kidney stones; Migraines; Non-Hodgkins Lymphoma; Seizures; self mutilation - cutter; Sinusitis; suicidal ideation; - PSHx: 21:18 section; Pilonidal Cyst removed; cm10 - Immunization history:: Adult Immunizations up to date. - Infectious Disease History:: Denies. - Social history:: Smoking status: Patient reports the use of cigarette tobacco products, denies chronic smoking, but will smoke occasionally. ROS: 21:25 Constitutional: Negative for fever, chills, and weight loss, sb4 21:25 Skin: Positive for cellulitis, 21:25 All other systems are negative, Exam: 21:25 Constitutional: This is a well developed, well nourished patient who is awake, alert, sb4 and in no acute distress. Head/Face: Normocephalic, atraumatic. Eyes: Extra-ocular motions intact. Periorbital areas with no swelling, redness, or edema. ENT: Mucous membranes moist. 21:25 Skin: cellulitis, that is moderate, well demarcated, on the palmar aspect of distal phalanx of left index finger, Vital Signs: 21:19 BP 135 / 98; Pulse 103; Resp 16; Temp 98.7(O); Pulse Ox 100% ; Weight 113.4 kg; Height cm10 5 ft. 9 in. ; Pain 5/10; 21:19 Body Mass Index 36.92 (113.40 kg, 175.26 cm) cm10 21:19 Pain Scale: Adult cm10 MDM: 21:23 Medical Screening Exam initiated sb4 21:25 Data reviewed: vital signs, nurses notes, and as a result, I will discharge patient. sb4 Counseling: I had a detailed discussion with the patient and/or guardian regarding the historical points, exam findings, and any diagnostic results supporting the discharge/admit diagnosis, the need for outpatient follow up, for definitive care, to return to the emergency department if symptoms worsen or persist or if there are any questions or concerns that arise at home. Administered Medications: 21:34 Drug: Trimethoprim-Sulfamethoxazole PO (160 mg-800 mg (DS) 1 tablet PO once Route: PO; cm10 21:34 Follow up: Response: Medication administered at discharge. cm10 Disposition: 06/21 05:05 Co-signature as Attending Physician, Aaron Soni MD I agree with the assessment sp4 and plan of care. I reviewed the patient's care provided by the Advanced Practice Provider and agree with the diagnosis and treatment plan. Disposition Summary: 06/20/24 21:24 Discharge Ordered Notes: Location: Home sb4 Problem: an ongoing problem sb4 Symptoms: are unchanged sb4 Condition: Stable sb4 Diagnosis - Cellulitis of finger sb4 Followup: sb4 - With: Emergency Department - When: As needed - Reason: Fever > 102 F, Worsening of condition Discharge Instructions: - Discharge Summary Sheet sb4 - Cellulitis, Adult, [id number] sb4 Forms: - Antibiotic Education sb4 - Patient Portal Instructions sb4 - Leadership Thank You Letter sb4 Prescriptions: - Bactrim DS 800-160 mg Oral Tablet - take 1 tablet ORAL route every 12 hours for 7 days; 14 tablet; Refills: 0, sb4 Product Selection Permitted Signatures: Cynthia Caceres PA-C PA-C sb4 Aaron Soni MD MD sp4 Mariana Rm RN RN cm10
[2024-06-20] MEDS ORDERED: SMZ./TMP. 800/160 MG TABLET ONE (21:29)
[2024-06-20 21:39] VITALS: BP 135/98; TEMP 98.7; O2SAT 100
== END 2024-06-20 21:35 | disposition home or self-care (01) ==
LOC: ER 21:03
DX: L03.012 Cellulitis of left finger (principal); F17.210 Nicotine dependence, cigarettes, uncomplicated
CPT/HCPCS: 99283